=== PATIENT | female | born 1990 | race Caucasian/White ===

== ENCOUNTER 2019-06-15 09:44 | Outpatient (CLI) | payer OTHER, SELFPAY ==
[2019-06-15 10:58] LABS: Beta HCG Quantitative 4.54 mIU/ML
== END 2019-06-15 09:45 | disposition home or self-care (01) ==
PROVIDERS: Visit Provider Advanced Practice Midwife
DX: O20.0 Threatened abortion (principal); Z3A.00 Weeks of gestation of pregnancy not specified
CPT/HCPCS: 36415; 84702

== ENCOUNTER 2020-12-26 11:15 | Outpatient (CLI) | payer OTHER, SELFPAY ==
--- NOTE | ~2020-12-26 | MMUS_ITS ---
EXAMINATION: MM diagnostic figueroa BI w hong, US breast RT complete HISTORY: Clear right nipple discharge TECHNIQUE: Additional 3-D tomosynthesis images of the breasts were performed and synthetic 2-D images were generated. CAD analysis was submitted and interpreted. High resolution complete right breast ul trasound was performed. COMPARISON: None BREAST PARENCHYMAL COMPOSITION: The breasts are heterogenously dense, which may obscure small masses. FINDINGS: MAMMOGRAPHIC FINDINGS: There are no suspicious masses, calcifications or architectural distortion in either breast to sugges t malignancy. ULTRASOUND: Complete right breast ultrasound: Normal heterogeneous echotexture without focal solid or cystic mass . IMPRESSION: 1. No evidence for malignancy in either breast. 2. Recommend clinical management for nipple discharge. BI-RADS Category 1: Negative Reviewed, dictated and finalized at location A. IMPRESSION: 1. No evidence for malignancy in either breast. 2. Recommend clinical management for nipple discharge. BI-RADS Category 1: Negative
== END 2020-12-26 11:16 | disposition home or self-care (01) ==
LOC: ANHIMG 11:18
PROVIDERS: Visit Provider Nurse Practitioner Obstetrics & Gynecology
DX: N64.52 Nipple discharge (principal)
CPT/HCPCS: 76641; 77062; 77066; G0279

== ENCOUNTER 2023-12-10 10:39 | Outpatient (CLI) | payer OTHER, SELFPAY ==
--- NOTE | 2023-12-10 | ECG_ITS ---
Test Date: 2023-12-10 11:00:57 Measurements Intervals [place] Rate: 67 P: 66 MT: 167 QRS: 36 QRSD: 79 T: 29 QT: 356 QTc: 377 Interpretive Statements SINUS RHYTHM NORMAL ELECTROCARDIOGRAM No previous ECG available for comparison Electronically Signed On 12-11-2023 13:05:35 CDT by Torito Kapadia M.D.
== END 2023-12-10 10:40 | disposition home or self-care (01) ==
LOC: ANHCARD 10:43
PROVIDERS: Visit Provider Obstetrics & Gynecology
DX: O99.891 Other specified diseases and conditions complicating pregnancy (principal); R00.2 Palpitations; Z3A.21 21 weeks gestation of pregnancy
CPT/HCPCS: 93005

== ENCOUNTER 2024-01-27 08:25 | Outpatient (RCR) | payer OTHER, SELFPAY ==
[2024-01-27 09:55] LABS: Hematocrit 37.4 % (37.0-47.0); Hemoglobin 12.4 g/dL (12.0-15.0)
[2024-01-27 10:09] LABS: Glucose 1 Hour PP 50gm Dose 146 mg/dL
[2024-01-27 10:45] LABS: HIV 1/2 Ab P24 Ag Result Negative (Negative)
[2024-01-27 18:19] LABS: Rapid Plasma Reagin Non-Reactive (NonReactive)
[2024-01-28] MEDS: RHO(D) IMMUNE GLOBULIN 300 MCG/2 ML SYRINGE IM (10:23)
== END 2024-04-26 23:59 | disposition home or self-care (01) ==
LOC: ANHLAB 08:25
PROVIDERS: Visit Provider Obstetrics & Gynecology
DX: Z11.3 Encounter for screening for infections with a predominantly sexual mode of transmission (principal); Z11.4 Encounter for screening for human immunodeficiency virus [HIV]; O36.0190 Maternal care for anti-D [Rh] antibodies, unspecified trimester, not applicable or unspecified; Z3A.00 Weeks of gestation of pregnancy not specified
CPT/HCPCS: 36415; 82947; 85014; 85018; 85461; 86592; 86703; 86850; 86900; 86901; 90384; 96372; G0432; J2790

== ENCOUNTER 2024-03-18 09:06 | Emergency (ER) | payer OTHER, SELFPAY ==
[2024-03-18] VITALS (7 sets, daily range): BP systolic 115–126; BP diastolic 67–74; PULSE 74–99; RESP 16–20; TEMP 36.4; O2SAT 98–100
--- NOTE | ~2024-03-18 | XR_ITS ---
EXAMINATION: XR chest 2V 03/18/2024 11:19 INDICATION: Cough and shortness of breath. PROCEDURE: 2 view chest COMPARISON: No prior studies for comparison. FINDINGS: The lungs are clear. The cardiomediastinal silhouette is within normal limits. There are no pleural effusions. There is no pneumothorax suspected. IMPRESSION: 1: NO ACUTE CARDIOPULMONARY DISEASE. Reviewed, dictated and finalized at location B. [employer]
--- NOTE | 2024-03-18 09:55 | ED_ITS ---
HPI - URI/Sore Throat General Chief Complaint: Upper Respiratory Infection Stated Complaint: TESTED FOR PNEUMONIA Time Seen by Provider: 03/18/24 09:27 Source: patient Mode of arrival: ambulatory Limitations: no limitations History of Present Illness HPI Narrative: Patient is a 34 y/o female who presents to the ED with c/o cough and shortness of breath. Patient reports having 2 days of feeling unwell, with cough, congestion, headache, sore throat, chest tightness, and shortness of breath. Patient reports her son was diagnosed with pneumonia and is currently on antibiotics for this. She would like to be tested for pneumonia. She is currently at 35 weeks gestation. Sees Elin George with [facility] [place]. She denies fevers. Denies abdominal pain, vaginal bleeding. Is feeling baby move. Reports intermittent swelling in her legs, denies pain. Denies history of blood clots. Related Data Allergies Allergy/AdvReac Type Severity Reaction Status Date / Time Sulfa (Sulfonamide Allergy Unknown Unknown Verified 03/18/24 09:09 Antibiotics) Review of Systems Review of Systems: All systems reviewed & are unremarkable except as noted in HPI. All systems reviewed & are unremarkable except as noted in HPI and below Exam Narrative: GENERAL: Well appearing, BMI of 34.5, non-toxic, in no acute distress. HEAD: Normocephalic, atraumatic. RESPIRATORY: Airway patent, respirations nonlabored. Clear to auscultation bilaterally, no rales, rhonchi, wheezing. No significant focal lung sounds. CARDIOVASCULAR: Regular rate and rhythm without murmurs, rubs, or gallops. ABDOMINAL: Soft, uterus gravid and nontender, nondistended. Normoactive BS. MUSCULOSKELETAL: Moves all extremities. No gross deformities. SKIN: Warm, dry, normal color. NEURO: A&O X3. Speech clear. Cranial nerves II-XII grossly intact. Steady gait. No ataxic movements. PSYCHIATRIC: Appropriate mood and affect. Normal interaction. Course Vital Signs Vital signs: Vital Signs Temperature 97.5 F L 03/18/24 09:14 Pulse Rate 99 03/18/24 09:14 Respiratory Rate 20 03/18/24 09:14 Blood Pressure 126/67 03/18/24 09:14 Pulse Oximetry 100 03/18/24 09:14 Temperature 97.5 F L 12/05/24 09:14 Pulse Rate 74 03/18/24 11:00 Respiratory Rate 16 03/18/24 11:00 Blood Pressure 115/70 03/18/24 11:00 Pulse Oximetry 100 03/18/24 12:00 Oxygen Delivery Room Air 03/18/24 09:30 MDM - URI/Sore Throat MDM Narrative Medical decision making narrative: Patient presented to ED with cough, shortness of breath, chest tightness. Currently 35 weeks gestation. Denying abd pain or vaginal bleeding. Feeling baby move. Wanting to be evaluated for pneumonia as she reports son has been diagnosed with PNA. Vital signs are stable upon arrival. She is afebrile here. Patient was reporting shortness of breath, chest tightness, plan was to obtain blood work to rule out cardiac or pulmonary etiology/PE/obtain imaging of chest. EKG with sinus rhythm, no significant ST changes. Viral swabs are negative. Strep negative. Prior to receiving blood work, patient reported that she will need to leave the facility around noon to go get her other child. She states she will be unable to stay for the results of the blood work. She states she is really only worried about having pneumonia and does not want to get the blood work performed. She would like to proceed with chest x-ray. Discussed risks and b enefits of obtaining chest imaging, radiation exposure to fetus. Patient voiced understanding of risks and would like to proceed. CXR is clear, no evidence of focal consolidation. Patient updated on imaging results. She reports that she still needs to leave the facility. Discussed that I cannot rule out life-threatening emergencies including PE without obtaining further blood work/possible imaging. Patient would like to proceed with the blood work, but be discharged after the blood work is obtained. I advised that while we can obtain the blood work, she will not be called with the results. She will need to follow-up with OBGYN or primary care doctor for close follow-up because if blood work is abnormal she will need for further workup emergently. Patient voiced understanding of this. Will have patient sign AMA paperwork due to incomplete evaluation. She is agreeable to this. Discussed strict return precautions and advised patient to return to the ED at any time to resume milan luation. Patient voiced understanding. She feels reassured knowing that she does not have pneumonia. Discussed [id number] cough and cold medicines to try, possibility of viral URI. Patient discharged in stable condition. Medical Records Attestation: I reviewed the patient's medical records. Lab Data Attestation: I reviewed the patient's lab results. 03/18/24 12:14 03/18/24 12:14 Labs: Lab Results 03/18/24 03/18/24 03/18/24 Range/Units 09:27 09:34 12:14 WBC 11.8 H (4.5-10.0) K/mm3 RBC 3.67 L (4.2-5.4) M/mm3 Hgb 12.3 (12.0-15.0) g/dL Hct 35.3 L (37.0-47.0) % MCV 96.2 (80-100) fl MCH 33.5 (26-34) pg MCHC 34.8 (32-36) g/dl RDW 12.0 (11.5-14.5) % Plt Count 249 (150-375) k/mm3 MPV 9.3 (7.4-10.4) fl Immature Gran % (Auto) 0.8 H (0-0.5) % Neut % (Auto) 80.1 H (45.5-73.1) % Lymph % (Auto) 9.8 L (18.3-44.2) % [place] % (Auto) 8.1 (2.6-8.5) % Eos % (Auto) 0.7 (0-4.4) % Baso % (Auto) 0.5 (0.2-1.2) % Lymph # (Auto) 1.15 (0.9-3.2) K/mm3 [place] # (Auto) 1.0 H (0.1-0.6) K/mm3 Eos # (Auto) 0.1 (0-0.3) K/mm3 Baso # (Auto) 0.1 (0.0-0.1) K/mm3 Abs Immat Gran (auto) 0.10 H (0.00-0.031) K/mm3 Absolute Neuts (auto) 9.4 H (1.3-6.7) K/mm3 Absolute Nucleated RBC 0.000 (0.0-0.012) K/mm3 Nucleated RBC % 0.0 (0.0-0.2) % PT 13.2 (11.1-14.7) Seconds INR 1.0 APTT 20.7 L (22.3-36.8) Seconds D-Dimer 0.83 H (<0.48) ug/mL Sodium 134 L (137-145) mmol/L Potassium 4.1 (3.4-5.0) mmol/L Chloride 108 H (98-107) mmol/L Carbon Dioxide 24 (22-30) mmol/L Anion Gap 2 L (4-12) mmol/L BUN 7 (7-17) mg/dL Creatinine 0.40 L (0.7-1.0) mg/dL Estim Creat Clear Calc 181 ml/min Estimated GFR > 60 (59 - ) Glucose 83 (65-110) mg/dL Calcium 8.7 (8.4-10.2) mg/dL Total Bilirubin 0.4 (0.2-1.3) mg/dL AST 24 (14-36) U/L ALT 20 (6-35) U/L Alkaline Phosphatase 80 (38-126) U/L Troponin I < 0.012 (0.000-0.034) ng/mL Total Protein 6.0 L (6.3-8.2) g/dL Albumin 3.4 L (3.5-5.1) g/dL Influenza A (RT-PCR) Negative (Negative) Influenza B (RT-PCR) Negative (Negative) RSV (RT-PCR) Negative (Negative) SARS-CoV-2 RNA (RT-PCR) Negative (Negative) Group A Strep (PCR) Not detected (Negative) Imaging Data Attestation: I personally reviewed and interpreted this imaging study as follows: Radiologist's impression: ITS Impressions Chest X-Ray 03/18/24 11:21 IMPRESSION: 1: NO ACUTE CARDIOPULMONARY DISEASE. ECG Data EKG #1: Attestation: I personally reviewed and interpreted this ECG as follows: ECG completion date: 03/18/24 ECG completion time: 10:38 EKG Interpretation: normal rate (82), sinus rhythm and no ST changes Discharge Plan Discharge Clinical Impression: 35 weeks gestation of Upper respiratory infection Qualifiers: URI type: unspecified URI Qualified Code(s): J06.9 - Acute upper respiratory infection, unspecified Patient Disposition: Home, Self-Care Condition: Stable Instructions: Antibiotic Form, Upper Respiratory Infection (ED), Cold Symptoms (ED) Additional Instructions: Your COVID, influenza, RSV, Strep testing was negative. Your chest x-ray here did not show any evidence of pneumonia. Follow-up with your OBGYN for further evaluation. Continue Tylenol, nasal saline sprays, Robitussin as needed for symptoms. It was recommended you obtain blood work here to further evaluation of cardiac or pulmonary issue. You are leaving the facility prior to your blood work resul ting. Return to the ED if you experience worsening or severe symptoms, significant ines rtness breath, worsening chest pain, unable to keep down food or drink, abdominal pain, vaginal bleeding, persistent fevers, or any other symptoms of concern. Follow-up/Referrals: Elin George CNM [Certified Nurse Marketing Senior Recruiter] - (OBGYN) UNKNOWN,DOCTOR [Primary Care Provider] - Time of Disposition: 11:48
--- NOTE | 2024-03-18 10:02 | ECG_ITS ---
Test Date: 2024-03-18 10:38:39 Measurements Intervals [place] Rate: 82 P: 52 LA: 166 QRS: 18 QRSD: 75 T: 25 QT: 334 QTc: 391 Interpretive Statements SINUS RHYTHM Compared to ECG 12/10/2023 11:00:57 No significant changes Electronically Signed On 03-18-2024 11:39:16 [employer] by Joaquin Meza M.D.
[2024-03-18 10:05] LABS: Strep Group A RT-PCR NOT DETECTED (Negative)
[2024-03-18 10:13] LABS: Influenza A QL RT-PCR Negative (Negative); Influenza B QL RT-PCR Negative (Negative); RSV RNA, RT-PCR Negative (Negative); SARS-CoV-2 RNA PCR Negative (Negative)
[2024-03-18 12:18] LABS: Basophils Absolute Auto 0.1 K/mm3 (0.0-0.1); Basophils Percent Auto 0.5 % (0.2-1.2); Eosinophils Absolute Auto 0.1 K/mm3 (0-0.3); Eosinophils Percent Auto 0.7 % (0-4.4); Hematocrit 35.3 % (37.0-47.0); Hemoglobin 12.3 g/dL (12.0-15.0); Immature Granulocyte Percent A 0.8 % (0-0.5); Lymphocytes Absolute Auto 1.15 K/mm3 (0.9-3.2); Lymphocytes Percent Auto 9.8 % (18.3-44.2); Mean Corpuscular HGB Conc 34.8 g/dl (32-36); Mean Corpuscular Hemoglobin 33.5 pg (26-34); Mean Corpuscular Volume 96.2 fl (80-100); Mean Platelet Volume 9.3 fl (7.4-10.4); Monocytes Percent Auto 8.1 % (2.6-8.5); Neutrophils Absolute Auto 9.4 K/mm3 (1.3-6.7); Neutrophils Percent Auto 80.1 % (45.5-73.1); Platelet Count Result 249 k/mm3 (150-375); Red Blood Count 3.67 M/mm3 (4.2-5.4); White Blood Count 11.8 K/mm3 (4.5-10.0)
[2024-03-18 12:34] LABS: Partial Thromboplastin Time 20.7 Seconds (22.3-36.8)
[2024-03-18 12:35] LABS: Prothrombin Time 13.2 Seconds (11.1-14.7)
[2024-03-18 12:47] LABS: Alanine Aminotransferase 20 U/L (6-35); Albumin Level 3.4 g/dL (3.5-5.1); Alkaline Phosphatase 80 U/L (38-126); Anion Gap 2 mmol/L (4-12); Aspartate Amino Transferase 24 U/L (14-36); Bilirubin,Total 0.4 mg/dL (0.2-1.3); Blood Urea Nitrogen 7 mg/dL (7-17); Calcium 8.7 mg/dL (8.4-10.2); Carbon Dioxide 24 mmol/L (22-30); Chloride 108 mmol/L (98-107); Estimated CRCL calculation 181 ml/min; Estimated Glomerular Filt Rate > 60; Glucose 83 mg/dL (65-110); Potassium 4.1 mmol/L (3.4-5.0); Sodium 134 mmol/L (137-145)
[2024-03-18 12:51] LABS: D Dimer 0.83 ug/mL (<0.48)
[2024-03-18 12:59] LABS: Troponin I < 0.012 ng/mL (0.000-0.034)
== END 2024-03-18 12:24 | disposition home or self-care (01) ==
PROVIDERS: Emergency Medicine; Emergency Provider Physician Assistant
DX: O99.513 Diseases of the respiratory system complicating pregnancy, third trimester (principal); Z3A.35 35 weeks gestation of pregnancy; Z20.822 Contact with and (suspected) exposure to COVID-19
CPT/HCPCS: 36415; 71046; 80053; 84484; 85025; 85380; 85610; 85730; 87637; 87651; 93005; 99284

== ENCOUNTER 2024-04-15 04:54 | Inpatient (IN) | payer OTHER, SELFPAY ==
[2024-04-15] VITALS (89 sets, daily range): BP systolic 81–151; BP diastolic 26–87; PULSE 69–114; RESP 16; TEMP 36.6–36.9; O2SAT 96–100; BMI 35.2
--- NOTE | 2024-04-15 05:44 | LDADM ---
This patient, Keyana Reardon, was admitted to Labor/Delivery/Recovery 105 on 04/15/24 at 04:54. Plans for labor, pain management and were discussed with patient. Patient/family oriented to hospital policies and general routines including ID bracelet, bed and alarms, visiting hours, pain management, procedures, bathroom and other care routines, personal items, smoking policy, room service/diet and guest tray routines, security routines, and visiting hours. Patient/Family are encouraged to report perceived risks to care and to ask questions if they do not understand what they are told or what they should do. See OBIX for further documentation.
[2024-04-15] MEDS: LACTATED RINGERS 1,000 ML 125 ML IV CONT ×2 (05:55→07:16)
[2024-04-15] MEDS: OXYTOCIN 30 UNITS/NS 500 ML 30 UNITS/500 ML BAG IV CONT (05:55)
[2024-04-15 06:14] LABS: Basophils Absolute Auto 0.1 K/mm3 (0.0-0.1); Basophils Percent Auto 0.4 % (0.2-1.2); Eosinophils Absolute Auto 0.1 K/mm3 (0-0.3); Eosinophils Percent Auto 0.8 % (0-4.4); Hematocrit 37.8 % (37.0-47.0); Hemoglobin 13.1 g/dL (12.0-15.0); Immature Granulocyte Absolute 0.09 K/mm3 (0.00-0.031); Immature Granulocyte Percent A 0.8 % (0-0.5); Immature Platelet Fraction Pct 6.8 % (0.9-11.2); Lymphocytes Absolute Auto 1.28 K/mm3 (0.9-3.2); Lymphocytes Percent Auto 11.4 % (18.3-44.2); Mean Corpuscular HGB Conc 34.7 g/dl (32-36); Mean Corpuscular Hemoglobin 32.7 pg (26-34); Mean Corpuscular Volume 94.3 fl (80-100); Mean Platelet Volume 11.3 fl (7.4-10.4); Monocytes Percent Auto 9.1 % (2.6-8.5); Neutrophils Absolute Auto 8.7 K/mm3 (1.3-6.7); Neutrophils Percent Auto 77.5 % (45.5-73.1); Platelet Count Result 183 k/mm3 (150-375); Red Blood Count 4.01 M/mm3 (4.2-5.4); Red Cell Distribution Width 11.8 % (11.5-14.5); White Blood Count 11.3 K/mm3 (4.5-10.0)
--- NOTE | 2024-04-15 06:26 | WPDANESEPP ---
Anes - Eval Pre Procedure Procedure: Labor Epidural Date/Time: 04/15/24 06:26 Surgeon: Melissa Preop Diagnosis: Labor Pain Pre Op Diagnosis: IOL Patient Data Age: 34 Gender: F Height: 1.65 m Weight: 96.2 kg Last Vital Signs Temp 36.6 C 04/15/24 06:00 Pulse 86 04/15/24 06:15 BP 133/74 04/15/24 06:15 O2 Del Method Room Air 04/15/24 05:44 Allergies Allergy/AdvReac Type Severity Reaction Status Date / Time Sulfa (Sulfonamide Allergy Unknown Unknown Verified 03/25/24 13:34 Antibiotics) Home Medications ?Medication ?Instructions ?Recorded ?Confirmed ?Type PO 04/15/24 History nynhpiu-frouxpvak-gwak 333 mg-133 tablet PO 04/15/24 History mg-5 mg tablet Laboratory Tests 04/15/24 05:28 WBC Pending RBC Pending Hgb Pending Hct Pending MCV Pending MCH Pending MCHC Pending RDW Pending Plt Count Pending MPV Pending Immature Gran % (Auto) Pending Neut % (Auto) Pending Lymph % (Auto) Pending [place] % (Auto) Pending Eos % (Auto) Pending Baso % (Auto) Pending Lymph # (Auto) Pending [place] # (Auto) Pending Eos # (Auto) Pending Baso # (Auto) Pending Abs Immat Gran (auto) Pending Absolute Neuts (auto) Pending Absolute Nucleated RBC Pending Nucleated RBC % Pending RPR Pending HIV 1&2 Ab/P24 Ag 4thGn Pending : gestational age (, VICENTE 04/20/24) Patient hx anesthesia problems: none Family hx anesthesia problems: none Results Review: All pre-operative results and documents have been reviewed as part of the pre-operative evaluation. [facility] Family History Family History Father Diabetes mellitus Social History Social History Smoking status: Former smoker Tobacco type: cigarettes Second hand tobacco smoke exposure: Yes Smoking end date: 04/14/18 Substance use: current Do You Feel Safe in your Home?: Yes Lack of Transportation: No Lack of Food: Never True Current Housing: I Have Housing Concerned About Future Housing: No Difficulty Paying Gas/Electric Bills: No Difficulty Paying for Meds: No Currently Unemployed: No Education: High School Diploma/GED Difficulty w/ Childcare or Family Care: No Spiritual care concerns: No Exam Day of Procedure 04/15/24 06:26 Patient weight: normal Heart: regular rate and rhythm Lungs: normal air movement Airway: Mallampati scale class II Neurological: alert and oriented
[2024-04-15 06:38] LABS: HIV 1/2 Ab P24 Ag Result Negative (Negative)
[2024-04-15 07:06] LABS: Platelet Clumps Present; Platelet Estimate Adequate (Adequate); Schistocytes None Seen
--- NOTE | 2024-04-15 07:30 | WPDOBADMIT ---
Obstetrics - Admit Note Admission Note: record reviewed. No pertinent additions to the history and/or any subsequent changes in the physical findings that are not consistent with the expected course of the were found. Additions to the history and/or subsequent changes in the physical findings follow. Admit for elective IOL, SVE /-1 AROM small amount of clear, odorless fluid, anticipate vaginal delivery
[2024-04-15 08:40] LABS: Rapid Plasma Reagin Non-Reactive (NonReactive)
[2024-04-15] MEDS: FAMOTIDINE 20 MG/2 ML VIAL IV PUSH (10:18)
[2024-04-15] MEDS: CALCIUM CARBONATE (TUMS) 500 MG (200 MG ELEMENTAL) PO (10:18)
--- NOTE | 2024-04-15 11:14 | PM.OBPRVD ---
OB - Vaginal Delivery Note Procedure Delivery date: 04/15/24 Induction method: AROM and Per Pitocin Protocol Delivery monitor: External FHT and Internal Uterine Route of delivery: Laceration Description: Labial (left repair) Delivery repair: vicryl Specimen: No Quantitative Blood Loss (ml): 125 Anesthesia type: Epidural Disposition: Floor Complications: No immediate complications [place] Baby Date of : 04/15/24 Time of : 10:53 Gestational Age by Date: 39 Infant gender: Male presentation: vertex position: Right Occiput Anterior Placenta delivery description: Spontaneous Cord Vessel Description: 3 Vessels, Delayed Cord Clamping and Around Body (x1)
[2024-04-15] MEDS: OXYTOCIN 30 UNITS/NS 500 ML 30 UNITS/500 ML BAG 125 UNITS IV CONT (11:26)
--- NOTE | 2024-04-15 14:25 | OBPPTRN ---
Patient transferred to post room #288 via wheelchair. Support person present. Oriented to unit, room, information board, rooming in, admission packet and security measures. Patient verbalizes understanding. with patient.
[2024-04-15] MEDS: WITCH HAZEL 40 PADS 1 PAD TOPICAL (17:20)
[2024-04-15] MEDS: BENZOCAINE 20% AER SPR (*SP) 56 GM CAN 1 SPRAY TOPICAL (17:20)
[2024-04-15] MEDS: IBUPROFEN 600 MG TABLET PO (18:43)
[2024-04-15] MEDS: DOCUSATE SODIUM 100 MG CAPSULE PO (18:43)
--- NOTE | 2024-04-15 18:55 | PC.NURSE ---
1700. Consulted with patient to assess needs related to . Discussed with mother her successes, concerns and any questions she has. We reviewed working with the , supporting breast, protecting her nipples with an optimal deep latch, good positioning, and good hand washing. Encouraged understanding the benefits of skin to skin, responding to feeding cues, frequencies of feeding 8-12 times in 24 hours (approximately 2-3 hours), duration of feedings, milk production, intake/output feeding sheet and signs of adequate intake encouraging swallowing at the breast. Reviewed positioning and alignment, supporting breast, off-centered (asymmetrical latch) and leading with the chin with big, open, wide gape. Attempts made to latch to the left breast. sleepy and reluctant to latch. able to latch to nipple but refused to suckle. Mom expressed a few drops of colostrum and fed to . We discussed doing S2S and watching for infants next feeding cues. Mom verbalized wanting to pump with her pump she brought in and trying to express some milk to feed to . Encouraged mom to call out when she is done pumping to help her feed the milk to baby and attempt to feed again. Nipple care reviewed with optimal latch, good positioning and using clean hands when touching her breast. Resources used to facilitate learning were used from the visual handouts/ tool/mom and baby guide. Mother voiced understanding of the education shared, to call for assistance if the infant does not latch or if there is discomfort with . Reported to the Primary RN.
[2024-04-16] MEDS: ACETAMINOPHEN 325 MG TABLET 650 MG PO ×2 (00:38→10:04)
[2024-04-16] MEDS: IBUPROFEN 600 MG TABLET PO ×2 (00:39→10:04)
[2024-04-16 05:00] VITALS: BP 111/68; PULSE 77; RESP 14; TEMP 36.9; O2SAT 100
--- NOTE | 2024-04-16 07:51 | P.PNOB_ITS ---
OB - PN: Subj Subjective Date/time seen: 04/16/24 07:51 Interval history: pp day 1 doing well desires d/c home OB - PN: Obj Data Labs 04/15/24 06:09 Labs: Laboratory Results - last 24 hr 04/15/24 05:28 RPR Non-reactive Blood Type O Negative Antibody Screen Positive Antibody Identification Inconclusive Antigen Identification TNP LUIZ, IgG Interpret Neg LUIZ, Poly Interpret TNP LUIZ, Complement Interp Negative Enhanced Crossmatch See Detail OB - PN A/P Plan day: 1 Plan: routine care and discharge home Time Spent With Patient Time: Total time spent is greater than 50% in coordination of care (as documented) at patient's floor/unit and/or counseling patient: Review of Systems 2 Review of Systems: All systems reviewed & are unremarkable except as noted in HPI and below Exam 2 Const: General: cooperative, healthy appearing and comfortable Chest: Chest palpation & inspection: normal inspection of the chest Resp: Effort & Inspection: normal respiratory effort Cardio: Rate: regular rate GI: Other: soft Back/Spine/Pelvis: Back: no CVA tenderness Skin: General skin exam: normal color Neuro: General: patient oriented x3 Extrem: General: normal to inspection Psych: Appearance: grossly normal
--- NOTE | 2024-04-16 07:59 | PM.OBDSVD ---
DS: Admitting Diagnosis Discharge Date 04/16/24 Admitting Diagnosis IOL DS: Discharge Diagnosis Discharge Diagnosis (1) Vaginal delivery: Code(s): O80 - Encounter for full-term uncomplicated delivery Status: Acute OB - DS: Summary OB Procedures : None OB Procedures Intrapartum: Spontaneous Vag Delivery OB Procedures: : None Peripartum Data Laceration Description: Labial (left repair) Time Spent with Patient Time attestation: Total time spent providing and/or coordinating discharge services: DS: Data Data Completed and Pending Labs on day of discharge: Labs from last 24 hours 04/15/24 05:28 RPR Non-reactive Blood Type O Negative Antibody Screen Positive Antibody Identification Inconclusive Antigen Identification TNP LUIZ, IgG Interpret Neg LUIZ, Poly Interpret TNP LUIZ, Complement Interp Negative Enhanced Crossmatch See Detail Discharge Plan Discharge Attending physician on discharge: Gonzalo Torres Consulting providers: Elin George Discharging Clinician: Elin George Activity: pelvic rest Diet: regular Patient Language: Mohawk Discharge Medications: No Action PO eqioypl-qxtmtaqan-smfg 333-133-5 mg tablet PO Date of admission: 04/15/24 04:54 Primary Care Provider: UNKNOWN,DOCTOR Admitting Provider: Gonzalo Torres Attending physician on admission: Gonzalo Torres Condition: Stable
[2024-04-16 08:05] VITALS: BP 124/74; PULSE 73; RESP 16; TEMP 36.7; O2SAT 99
--- NOTE | 2024-04-16 08:13 | WPDANLDPN2 ---
Anes-Prog Note L&D Date/Time: 04/16/24 08:13 Neuro status: Neuro function grossly intact. Vital Signs: Last Vital Signs Temp 36.9 C 04/16/24 05:00 Pulse 77 04/16/24 05:00 Resp 14 04/16/24 05:00 BP 111/68 04/16/24 05:00 Pulse Ox 100 04/16/24 05:00 O2 Del Method Room Air 04/15/24 18:45 Pain score (VAS): 0 I/O: Intake & Output 04/15/24 04/16/24 04/16/24 23:59 07:59 15:59 Intake Total 240 Balance 240 Patient feedback: Patient satisfied with anesthetic care.
[2024-04-16 09:53] LABS: Hematocrit 34.4 % (37.0-47.0); Hemoglobin 11.9 g/dL (12.0-15.0); Mean Corpuscular HGB Conc 34.6 g/dl (32-36); Mean Corpuscular Hemoglobin 32.9 pg (26-34); Mean Platelet Volume 9.9 fl (7.4-10.4); Platelet Count Result 202 k/mm3 (150-375); Red Blood Count 3.62 M/mm3 (4.2-5.4); Red Cell Distribution Width 11.9 % (11.5-14.5); White Blood Count 7.9 K/mm3 (4.5-10.0)
--- NOTE | 2024-04-16 09:55 | PC.NURSE ---
Introductions were made, then consulted with patient to assess needs related to . Discussed with mother her?plans to feed?her and the?experience so far. Baby has been nursing well so far but he was circumcised this morning and is sleepy. Mom had attempted to feed and wasn't able. She then noticed she was leaking milk and decided to pump and supplement baby with what she gets. Resources provided for inpatient and outpatient services with the feeding sheet, mom/baby guide and name written on the communication board. Mother voiced understanding of information and will call if there is a request for assistance. Reported to the Primary RN.
[2024-04-16] MEDS: guaiFENesin 12 HR 600 MG TABCR 1200 MG PO (10:02)
[2024-04-16] MEDS: MULTIVIT/MIN/PREN/FOL AC/IRON TABLET 1 TAB PO (10:02)
[2024-04-17 16:03] VITALS: BP 121/83; PULSE 88; RESP 18; TEMP 36.6; O2SAT 100
--- OUTSIDE RECORDS SUMMARY | 2024-04-21 23:17 | XMS_ITS | Data Portability ---
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 Discussed plan. Not available 03/26/2024 10:15:18 04/02/2024 04/02/2024 Patient is ___weeks . Discussed plan. [email or web address] Not available 04/02/2024 12:45:11 04/09/2024 04/09/2024 Patient is __38_weeks . Discussed plan. [email or web address] Not available 04/09/2024 10:49:05 Plan of Treatment Reminders Order Date Submit Date Provider Last Modified By Organization Details Last Modified Time Details Appointments None recorded. Lab None recorded. Referral None recorded. Procedures None recorded. Surgeries None recorded. Imaging US, obstetric, follow-up 2023 024 [email or web address] [address], [address], [place], [address], 20:39:40 non-stress test 2023 024 [email or web address] 1 [address], [address], [place], [address], 19:36:34 Medication Orders Protonix 40 mg tablet,del ayed release 2023 024 [id number], [address], [place], [place], [id number], 12:54:51 Patient TargetsNo targets recorded. Patient InstructionsNo instructions recorded. Reason for Referral None Reported. Results Created Date Observation Date Name Description Value Unit Range Abnormal Flag Note LastModifiedBy Organization Detail LastModifiedTime 03/19/20 24 03/19/2024 CULTU RE: GROUP B STREP SCREE N, REFLE X SUSCE PTIBI LITY result report SEE RESULT S BELOW Test: Cultu re: Group B Strep , Refle x Susce ptibi lity ([facility] ) Speci men Sourc e: Vagin a/Rec lisette Speci men Type: Vagin al/Re ctal Speci men Date: 2023 1346 Resul t Date: 2023 1509 Resul t Statu s: Final resul t Abnor mal: No Resul ting Lab: [facility] [address] [facility] [address] Tel: CULTU RE ----- ----- ----- --- No Group B strep isola ave at 2 days (geovanni ctive broth enhan cemen t) Not Available [facility] (Lab) [address], [place], [address], 03/22/2024 16:14:10 03/25/20 24 03/25/2024 US, obste tric, follo w-up No observ ation record ed. [email or web address] [facility] [address], [place], [address], 03/25/2024 12:20:45 03/25/20 24 03/25/2024 US, obste tric, follo w-up No observ ation record ed. [email or web address] [address], [place], [address], 03/25/2024 21:06:59 04/09/20 24 04/09/2024 non-s tress test No observ ation record ed. [email or web address] [facility] [address], [place], [address], 04/09/2024 19:35:59 04/20/19 25 04/09/2024 non-s tress test No observ ation record ed. [email or web address] [facility] [address], [place], [address], 04/20/2024 11:40:46 Result Notes None recorded. Problems Name Problem SNOMED Code Status Onset Date Resolution Date Notes Provider Name and Address Organization Details Recorded Time Educatio n Completed 201811/01/2020 Encounte r for other general counseli ng and advice on contrace ption;Re corded Elsewher e: No Locat ion: [facility] S ource: EHR [employer] Teacher owen: N Wandati ce ID: 0001 Dez lable Time: 01:00:00 PM Jeanie [facility] 15:06:58 Acute vaginiti s [id number] Completed 201811/01/2020 Vaginiti s;Record ed Elsewher e: No Locat ion: [facility] S ource: EHR [employer] Teacher owen: N Wandati ce ID: 0001 Dez lable Time: 01:00:00 PM Jeanie Cornelius [facility] 15:06:[address] Concept Completed 201711/01/2020 Maternal care for oth abnormal ity and damage, unsp;Rec orded Elsewher e: No Locat ion: [facility] S ource: EHR [employer] Teacher owen: N Wandati ce ID: 0001 Dez lable Time: 10:30:00 AM Jeanie Cornelius [facility] 15:07:23 Gestatio n period, 29 weeks [id number] Completed 201711/01/2020 29 weeks gestatio n of pregnanc y;Record ed Elsewher e: No Locat ion: [facility] lo[facility] S ource: EHR [employer] Teacher owen: N Angela ce ID: 0001 Dez lable Time: 10:15:00 AM Jeanie Cornelius [facility] 15:07:04 Antenata l screenin g for malforma tion Completed 201711/01/2020 Encounte r for antenata l screenin g for malforma tions;Re corded Elsewher e: No Locat ion: [facility] Source: EHR [employer] Teacher owen: Lorenzo Miller ce ID: 0001 Dez lable Time: 10:30:00 AM Jeanie Cornelius [facility] 15:06:56 Normal pregnanc y in multigra brad [id number] 01349 Completed 201811/01/2020 Encounte r for suprvsn of normal pregnanc y, third trimeste r;Record ed Elsewher e: No [facility] S ource: EHR [employer] Teacher owen: N Angela ce ID: 0001 Dez lable Time: 10:45:00 AM Jeanie Cornelius [facility] 15:07:13 Lochia finding Completed 201811/01/2020 Encounte r for routine postpart um follow-u p;Record ed Elsewher e: No Locat ion: [facility]ve josse [facility] S ource: EHR [employer] Teacher owen: Lorenzo Miller ce ID: 0001 Dez lable Time: 08:30:00 AM Jeanie Cornelius [facility] 15:07:12 Placenta previa [id number] Completed 201711/01/2020 Placenta previa specifie d as w/o hemor, second trimeste r;Record ed Elsewher e: No Locat ion: [facility] S ource: EHR [employer] Teacher owen: N Practi ce ID: 0001 Dez lable Time: 08:30:00 AM Jeanie finn [facility] 15:07:[address] Concept Completed 201711/01/2020 Matern care for abnlt fetl hrt rate or rhym, 3rd tri, unsp;Rec orded Elsewher e: No Locat ion: [facility] S ource: EHR [employer] Teacher owen: N Practi ce ID: 0001 Dez lable Time: 10:45:00 AM Jeanie finn [facility] 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 15:07:26 Pregnanc y detectio n examinat ion Completed 201711/01/2020 Encounte r for pregnanc y test, result positive ;Practic e ID: 0001 Jeanie finn [facility] 15:07:18 Antenata l screenin g Completed 201711/01/2020 Encounte r for other specifie d antenata l screenin g;Practi ce ID: 0001 Jeanie finn [facility] 15:06:55 Gestatio n period, 24 weeks 121073835 Completed 201711/01/2020 24 weeks gestatio n of pregnanc y;Practi ce ID: 0001 Jeanie finn [facility] 15:06:59 Gestatio n period, 27 weeks [id number] Completed 201711/01/2020 27 weeks gestatio n of pregnanc y;Practi ce ID: 0001 Jeanie finn [facility] 07/21/202 1 15:07:02 Gestatio n period, 32 weeks [id number] Completed 201711/01/2020 32 weeks gestatio n of pregnanc y;Practi ce ID: 0001 Jeanie Cornelius [facility], [facility] 15:07:05 Uterine size for dates discrepa ncy Completed 201811/01/2020 Uterine size-sunita e discrepa ncy, third trimeste r;Record ed Elsewher e: No [facility] E[facility] [employer] Teacher owen: N Practi ce ID: 0001 Dez lable Time: 09:15:00 AM Jeanie Cornelius [facility] 15:07:31 Gestatio n period, 34 weeks [id number] Completed 201811/01/2020 34 weeks gestatio n of pregnanc y;Record ed Elsewher e: No Locat ion: [facility] S ource: EHR [employer] Teacher owen: N Practi ce ID: 0001 Dze lable Time: 10:45:00 AM Jeanie Cornelius [facility], [facility] 15:07:07 Pelvic and perineal pain [id number] Completed 201711/01/2020 Pelvic and perineal pain;Rec orded Elsewher e: No [facility]: E[facility] [employer] Teacher owen: N Practi ce ID: 0001 Dez lable Time: 11:00:00 AM Jeanie Cornelius [facility] 1 15:07:15 Gestatio n period, 25 weeks [id number] Completed 201711/01/2020 25 weeks gestatio n of pregnanc y;Record ed Elsewher e: No [facility] ource: EHR [employer] Teacher owen: N Practi ce ID: 0001 Dez lable Time: 08:30:00 AM Jeanie Cornelius [facility], [facility] 1 15:07:01 Subacute and chronic vaginiti s [id number] Completed 201811/01/2020 Subacute vaginiti s;Record ed Elsewher e: No Locat ion: [facility] S ource: EHR [employer] Teacher owen: N Practi ce ID: 0001 Dez lable Time: 09:45:00 AM Jeanie finn, [facility] 15:07:28 Gestatio n period, 37 weeks [id number] Completed 201811/01/2020 37 weeks gestatio n of pregnanc y;Record ed Elsewher e: No Locat ion: [facility] S ource: EHR [employer] Teacher owen: N Practi ce ID: 0001 Dez lable Time: 09:15:00 AM Jeanie Cornelius [facility], [facility] 15:07:09 Rubella screenin g status [id number] Completed 201811/01/2020 Encounte r for antenata l screenin g, unspecif ied;Hansel rded Elsewher e: No Locat ion: [facility] S ource: EHR [employer] Teacher owen: N Practi ce ID: 0001 Dez lable Time: 10:30:00 AM Jeanie finn, [facility] 15:07:20 Term pregnanc y delivere d [id number] Completed 201811/01/2020 Encounte r for full-ter m uncompli cated delivery ;Practic e ID: 0001 Jeanie finn, [facility] 15:07:29 Single live [id number] Completed 201811/01/2020 Single live ;Pr actice ID: 0001 Jeanie finn, [facility] 15:07:21 Gestatio n period, 39 weeks [id number] Completed 201811/01/2020 39 weeks gestatio n of pregnanc y;Practi ce ID: 0001 Jeanie finn, [facility] 1 15:07:10 Pregnanc y 72734828 Active 2023 Courtney finn, [facility] 4 17:18:12 dysrhyth evi 233482574 Active 2023 MFM consult - PAC - 12/21 with MFM and [facility] on 12/31i improvin g and nearly resolved on 12/28 MFM appt Gonzalo Torres MD [address], [place], [address], [facility] 4 11:15:07 Problem Notes None recorded. Procedures Surgical History Date Name Laterality Status Provider Name and Address Organization Details Recorded Time 07/24/19 23 Date of Last Pap Smear completed Courtney Linton [facility] 10/02/2023 11:20:13 12/27/19 21 Date of Last Mammogram completed Shilpa David [facility] 02/03/2024 14:43:16 04/14/19 07 extraction of wisdom tooth completed Shilpascott David [facility] 02/03/2024 14:44:53 04/14/19 04 [facility] 14:44:47 Imaging Results Imaging Date Name Status LastModified by Organiz ation Details LastModified Time 03/25/2024 US, obstetric, follow-up completed [email or web address] [facility] [address], [place], [address], 03/25/2024 12:20:45 03/25/2024 US, obstetric, follow-up completed [email or web address] [address], [place], [address], 03/25/2024 21:06:59 04/09/2024 non-stress test completed [email or web address] [facility] [address], [place], [address], 04/09/2024 19:35:59 04/09/2024 non-stress test completed [facility] [address], [place], [address], 04/20/2024 11:40:46 Procedure Notes None recorded. Medical Equipment None Reported. Allergies Allergen ID Allergen Name Allergen Category Reaction Reaction Severity Criticality Documentation Date Start Date Code Code System Note Provider Name and Address Organization Details Recorded Time 783 Substance with sulfonami de structure and antibacte rial mechanism of action (substanc e) medicatio n Not available Not available Not available 09/10/2019 48519 8003 SNOMED Radhakarmen Cevallos [facility] 0 12:39:04 Medications Name Sig Start Date Stop Date Status Note LastModified by Organization Details LastModified Time amoxicill in 500 mg capsule TAKE 1 CAPSULE BY MOUTH EVERY 12 HOURS 02/26 completed Not Available Not Available Not Available buspirone 5 mg tablet TAKE 1 TABLET BY MOUTH THREE TIMES DAILY 07/23 completed Not Available Not Available Not Available clindamyc in HCl 300 mg capsule TAKE 1 CAPSULE BY MOUTH EVERY 8 HOURS FOR 10 DAYS 07/23 completed Not Available Not Available Not Available trazodone 50 mg tablet TAKE 1/2 TABLET BY MOUTH EVERY NIGHT AT BEDTIME NEEDED FOR SLEEP 07/23 completed Not Available Not Available Not Available nystatin 100,000 unit/gram topical ointment APPLY TO THE AFFECTED AREA(S) BY TOPICAL ROUTE 2 TIMES PER DAY 10/01 completed Not Available Not Available Not Available fluconazo le 150 mg tablet take 1 tablet by oral route once 11/01 completed Prescrib ed Elsewher e: No Locat ion: [facility] odify By: lucy haines DateTime : 01/20/20 11:40:35 AM Not Available Not Available Not Available hydrocodo ne 5 mg-acetam inophen 325 mg tablet TAKE 1 TABLET BY MOUTH EVERY 6 HOURS NEEDED FOR PAIN 02/26 completed Not Available Not Available Not Available meloxicam 15 mg tablet TAKE 1 TABLET BY MOUTH DAILY 07/23 completed Not Available Not Available Not Available metronida zole 0.75 % (37.5 mg/5 gram) vaginal gel INSERT ONE APPLICAT ORFUL VAGINALL Y AT BEDTIME FOR 5 NIGHTS 11/01 completed Not Available Not Available Not Available ciproflox acin 500 mg tablet TAKE 1 TABLET BY MOUTH EVERY 12 HOURS 11/01 completed Not Available Not Available Not Available nystatin- triamcino lone 100,000 unit/gram -0.1 % topical ointment APPLY TOPICALL Y TO THE AFFECTED AREA TWICE DAILY NEEDED 10/01 completed Not Available Not Available Not Available Depo-Prov era 150 mg/mL intramusc ular suspensio n inject 1 millilit er by intramus cular route every 3 months 12/07 completed Prescrib ed Elsewher e: Yes Loca tion: [facility] odify By: davie rawls DateTime : 07/02/19 08:30:00 AM Not Available Not Available Not Available pantopraz ole 40 mg tablet,de layed release Take 1 tablet every day by oral route. active Not Available Not Available No t Available triamcino lone acetonide 0.1 % topical ointment APPLY A THIN LAYER TO THE AFFECTED AREA(S) BY TOPICAL ROUTE 2 TIMES PER DAY 10/01 completed Not Available Not Available Not Available doxycycli ne hyclate 100 mg tablet TK 1 T PO QD 05/05 completed Not Available Not Available Not Available clindamyc in phosphate 1 % topical solution APPLY THIN LAYER TOPICALL Y TO THE AFFECTED AREA EVERY NIGHT AT BEDTIME 07/23 completed Not Available Not Available Not Available Bactrim DS 800 mg-160 mg tablet Take 1 tablet twice a day by oral route. 05/05 completed Not Available Not Available Not Available NuvaRing 0.12 mg-0.015 mg/24 hr vaginal insert 1 vaginal ring by vaginal route every month leave in place for 3 weeks, remove for 1 week 05/15 completed Prescrib ed Elsewher e: No Locat ion: [facility] odify By: davie rawls DateTime : 12/08/19 01:00:00 PM Not Available Not Available Not Available bupropion HCl XL 300 mg 24 hr tablet, extended release TAKE 1 TABLET BY MOUTH EVERY MORNING 07/23 completed Not Available Not Available Not Available bupropion HCl XL 150 mg 24 hr tablet, extended release 11/01 completed Not Available Not Available Not Available nitrofura ntoin monohydra te/macroc rystals 100 mg capsule TAKE 1 CAPSULE BY MOUTH EVERY 12 HOURS FOR 10 DAYS 11/01 completed Not Available Not Available Not Available active Not Available Not Avai lable Not Available Twirla 120 mcg-30 mcg/24 hr transderm al patch APPLY 1 PATCH TOPICALL Y TO THE SKIN EVERY WEEK FOR 21 DAYS 07/23 completed Not Available Not Available Not Available Zafemy 150 mcg-35 mcg/24 hr transderm al patch APPLY 1 PATCH TOPICALL Y TO THE SKIN EVERY WEEK 04/25 completed Started Twirla Not Available Not Available Not Available BinaxNOW COVID-19 Ag Self Test kit TEST DIRECTED TODAY 07/23 completed Not Available Not Available Not Available Vitals Date Recorded Body weight Body mass index (BMI) Body height Systolic blood pressure Diastolic blood pressure Provider Name and Address Organization Details Last Updated DateTime 03/26/2024 11296.39 77 g 34.4 kg/m2 166.37 cm 116 mm[Hg] 74 mm[Hg] Shilpa David [facility] 09:44:04 Date Recorded Body height Body mass index (BMI) Body weight Systolic blood pressure Diastolic blood pressure Provider Name and Address Organization Details Last Updated DateTime 04/02/2024 166.37 cm 34.4 kg/m2 81911.4 g 134 mm[Hg] 81 mm[Hg] Shilpa David [facility] 12:45:34 Date Recorded Body weight Body mass index (BMI) Body height Body height Body mass index (BMI) Body weight Systolic blood pressure Diastolic blood pressure Systolic blood pressure Diastolic blood pressure Provider Name and Address Organization Details Last Updated DateTime 43142.5 8244 g 34.7 kg/m2 166.37 cm 166.37 cm 34.7 kg/m2 51106.5 8 g 131 mm[Hg] 77 mm[Hg] 131 mm[Hg] 77 mm[Hg] Shilpa David [facility] 19:34:41 Social History Question Answer Notes LastModified by Organizat ion Details LastModified Time Tobacco Smoking Status Former Smoker Courtney Linton null, [facility] 10/02/2023 11:23:00 What Is Your Level Of Alcohol Consumption? None Information not available 05/05/2020 If You Are , What Was Your Level Of Alcohol Consumption Prior To ? Occasional [email or web address] Information not available 02/11/2024 Are You Blind Or Do You Have Difficulty Seeing? No Information not available 07/23/2022 What Is Your Level Of Caffeine Consumption? Occasional Information not available 10/02/2023 How Much Tobacco Do You Chew? None Information not available 07/23/2022 In The 14 Days Before Symptom Onset, Have You Had Close Contact With A Laboratory-confir med COVID-19 While That Case Was Ill? No Information not available 07/23/2022 In The 14 Days Before Symptom Onset, Have You Had Close Contact With A Person Who Is Under Investigation For COVID-19 While That Person Was Ill? No Information not available 07/23/2022 Have You Been To An Area Known To Be High Risk For COVID-19? No Information not available 07/23/2022 Are You Deaf Or Do You Have Serious Difficulty Hearing? No Information not available 07/23/2022 What Type Of Diet Are You Following? REGULAR Information not available 10/02/2023 Which Illicit Or Recreational Drugs Have You Used? Marijuana Information not available 07/23/2022 Do You Or Have You Ever Used E-cigarettes Or Vape? Current User Of Electronic Cigarettes Information not available 07/23/2022 What Is The Highest Grade Or Level Of School You Have Completed Or The Highest Degree You Have Received? [id number] Information not available 07/23/2022 What Is Your Occupation? None Information not available 10/02/2023 Are There Any Guns Present In Your Home? No Information not available 07/23/2022 What Was The Date Of Your Most Recent Tobacco Screening? 04/09/2024 [email or web address] Information not available 04/09/2024 How Many Children Do You Have? 3 Information not available 07/23/2022 Do You Use Protection During Sex? No Information not available 07/23/2022 Do You Use Your Seat Belt Or Car Seat Routinely? Yes Information not available 07/23/2022 Do You Have Smoke And Carbon Monoxide Detectors In Your Home? Yes Information not available 07/23/2022 Do You Or Have You Ever Used Smokeless Tobacco? Never Used Smokeless Tobacco Information not available 07/23/2022 How Much Tobacco Do You Smoke? No Information not available 07/23/2022 Do You Feel Stressed (tense, Restless, Nervous, Or Anxious, Or Unable To Sleep At Night)? [id number] [email or web address] Information not available 02/11/2024 Do You Use Any Illicit Or Recreational Drugs? No Information not available 07/23/2022 Do You Use Sunscreen Routinely? No Information not available 07/23/2022 How Many Years Have You Smoked Tobacco? 15 Information not available 05/05/2020 Have You Used IV Drugs? No Information not available 07/23/2022 Sex: Unknown Functional Status Question Answer Note LastModified by Organizat ion Details LastModified Time Are you able to walk? YESWOREST Information not available 07/23/2022 What is your exercise level? Occasional [email or web address] Information not available 09/13/2019 Mental Status None recorded. Family History Relationship Description Onset Age of this Age Resolved Age Notes LastModified by Organization Details LastModified Time Mother Diabetes mellitus [email or web address] Not available 2019 12:38:34 Mother Hypercholest erolemia [email or web address] Not available 2019 12:38:48 Father Hypercholest erolemia [email or web address] Not available 2019 12:38:48 Maternal Aunt Malignant tumor of breast [email or web address] Not available 03/19 10:27:39 Sister Disorder of thyroid gland [email or web address] Not available 03/19 10:27:39 Sister Mental disorder [email or web address] Not available 03/19 10:27:39 Medical History Condition Response Allergies (Food, seasonal, environmental ) N Other N Blood Transfusion N Drug/Latex Allergies/Reactions N Breast Cancer N Dermatologic Disorders N Lung Disease N Defects or Inherited Disease N Breast Problem N Gestational Diabetes N Hematologic disorders N Anesthesia Complications N History of STI N Deep Vein Thrombosis N Polycystic ovary syndrome N Anxiety Disorder N Autoimmune disease N Arthritis N Infertility N Polyps N Acid Reflux (GERD) N History of abnormal pap N Cancer N Stroke N Varicosities N Neurologic/Epilepsy N Endometriosis N High Cholesterol N Headaches N Fibromyalgia N Kidney Disease N Heart Problems N Kidney or Bladder Problems N Thyroid Problems N GI Problems N Eating Disorder N Anemia N Art (IVF or FET) N Psychiatric Illness N Ovarian Cancer N Diabetes N Pulmonary (TB, Asthma) N Hepatitis/Liver Disease N No Past Medical History Y Eczema N Urinary Tract Infection N Abuse/Domestic Violence N Asthma N Trauma/Violence N Depression/ depression N Heart Disease N Pre-Eclampsia N Hypertension N Osteoporosis N Thrombophilias N Gynecological History Statement/Question Response Date of Last Mammogram 12/26/2020 Flow Moderate Date of LMP 07/18/2023 Was last menstrual period normal Y STIs/STDs N Date of Last Colonoscopy None Desired Control Method None Abnormal Pap Y On BCP's at Conception? N HPV Vaccine Y Duration of Flow (days) 4 Current Control Method Age at First Child 21 Are cycles usually normal Y Frequency of Cycle (Q days) 25 Sexually Active? Y Menses Monthly Y Date of DEXA bone scan Age of first menstrual cycle 10 Date of Last Pap Smear 07/23/2022 Sexual Problems? N LMP Definite N Obstetrics History GPAL:G 5 P 3 0 1 3 Type Value Full Term 3 Spontaneous 1 Living 3 Total 5 Past Encounters Encounter ID Performer Location Encounter Start Date Encounter Closed Date Diagnosis/Indication Diagnosis SNOMED-CT Code Diagnosis ICD10 Code Diagnosis Note [id number] Tamar Chanel [facility] [address] [address] 09/13/2019 15:55:22 10/07/2019 17:31:06 Contraception care management 379845880 Z30.9 Lesion of vulva 01339044 6 N90.89 Pt will start using antibacter ial soap. When she gets another lesion/boi l I would like her to come in for evaluation . Pt verbalized understand ing. [id number] Gonzalo Torres MD [facility] [address],[place] [address] 10/25/2019 11:32:35 10/25/2019 12:10:38 Lesion of vulva 738848198 N90.89 This patient is a 29-year-ol d female with recurrent subcutaneo us vulvar nodules/ab scesses. We talked about various treatment options. We talked about resection of a active nodule for diagnosis. We agreed to treat with antibiotic s for 6 weeks. She will return in 6 weeks. We spent more than 15 minutes face-to-fa ce. [id number] Gonzalo Torres MD [facility] [address],[place] [address] 12/06/2019 10:45:14 12/06/2019 11:42:51 Lesion of vulva 951783655 N90.89 this patient is a 29-year-ol d female presents for follow-up on vulvar skin abscesses. She has perineal and vulvar subcutaneo us nodules that infected. She was treated with doxycyclin e. She did it twice a day for an extended treatment of about 6 weeks. She is very satisfied with the resolution of the lesions. She did not feeling exam was necessary. We talked about ongoing treatment with with 100 mg of doxycyclin e daily. She agreed to that. She will follow up in 6 months. She [id number] Gonzalo Torres MD [facility] [address],[place] [address] 05/05/2020 11:22:07 05/05/2020 12:16:24 Urinary symptoms [id number] R39.9 This patient is a 30-year-ol d female presents for urinary frequency, urgency, dysuria. Patient reports for several a she has had pain with urination urgency. She also reports some vulvar irritation . She denies any vaginal discharge. She denies any foul-smell ing vaginal odor or thick white discharge. The vulva and distal vagina were examined and they appeared normal. A swab was taken for testing. We will culture and follow-up on the urine. She is to be treated with antibiotic s. [id number] Angie Velazquez [facility] [address],[place] [address] 11/01/2020 14:53:05 11/06/2020 14:33:23 Hidradenitis suppurativa [id number] L73.2 Suspect HS but we agreed to trial of Cleocin (topical/P O).If no success then consider referral to derm which she would like anyway to discuss some issues with her toe skin. Counseled on medication R/B's, Most common side effects, & use. All questions were answered to patient satisfacti on. Time spent in visit is a total of 26 mins with at least 50% of visit consisting of counseling and review of plan of care. Additional precaution gloria measures were taken to minimize potential exposure to the Covid-19 virus during this patient? s visit, including available hand transmission builder upon arrive, cristina e check and being asked a series of screening questions. All staff wore face coverings during this encounter, as well as provided additional cleaning and sanitizing of all surfaces, including countertop s, pens, chairs, door handles, light switches, etc, prior to and following the patient? s visit. Adult heal th examination 068709121 Z00.00 Updated routine labs Reduced libido [id number] R 68.82 Will discuss options at upcoming WWE once have labs. [id number] Angie Velazquez [facility] [address],[place] [address] 11/27/2020 12:28:40 11/27/2020 14:48:43 Gynecologic examination 18853978 Z01.419 Take Calcium with Vitamin D 1200mg daily if not receiving in daily diet. It is strongly advised to have an annual flu shot and up can obtain at most pharmacies . If you have not had a TDap shot in the last 10 years you should obtain one as well. Discussed with patient & provided with informatio n regarding Gardisil vaccine to prevent the 4 strains for HPV that cause cervical cancer if under age 26. Encourage safe sexual practices, to use condoms and limit partners if not already in a monogamous relationsh ip. Do monthly self breast exams. Have mammogram yearly or every other year depending on family history. BRCA testing is now available for patients with strong genetic history of female cancer. If interested contact the office. Engage in daily exercise of low impact aerobic exercise 45-60 minutes 4-5 times weekly. Avoid tobacco and illicit drugs as well as using moderation with alcohol intake less than 1-2 8 oz beverages daily. This lifestyle behavior pattern will lead to less health conditions and longer life span. If BMI greater than 25 weight watchers or dietary consult advised. Patient received above instructio ns, and questions have been answered. If you have any questions please call or respond to this email. Patient was made aware of the patient portal and may obtain a paper copy of today's plan if desired.Pa p/hpv updatedSTD screen sent [facility] care management [id number] Z30.9 Tria of Twirla.if likes it & it's affordable will continue.I f doesn't like it can switch back to Xulane patch.[facility]#: [id number], Exp 05/19/2022 Discharge from right nipple [id number] N64.52 US & labs updated.Wi ll call [facility] resultsPos sible referral to Breast specialist if needed.Erik sturize with coconut oil daily. Hidradenit is suppurativa of vulva [id number] L73.2 Doing well with HS prevention CLindamyci n lotion.But does want a general derm referral.O rder placed. [id number] Angie Velazquez , [facility] [address],[place] [address] 07/23/2022 10:39:16 07/23/2022 12:30:35 Gynecologic examination 08589237 Z01.419 Z11.51 Z11.3 Z11.8 Take Calcium with Vitamin D 1200mg daily if not receiving in daily diet. It is strongly advised to have an annual flu shot and up can obtain at most pharmacies . If you have not had a TDap shot in the last 10 years you should obtain one as well. Discussed with patient & provided with informatio n regarding Gardisil vaccine to prevent the 4 strains for HPV that cause cervical cancer if under age 26. Encourage safe sexual practices, to use condoms and limit partners if not already in a monogamous relationsh ip. Do monthly self breast exams. Have mammogram yearly or every other year depending on family history. BRCA testing is now available for patients with strong genetic history of female cancer. If interested contact the office. Engage in daily exercise of low impact aerobic exercise 45-60 minutes 4-5 times weekly. Avoid tobacco and illicit drugs as well as using moderation with alcohol intake less than 1-2 8 oz beverages daily. This lifestyle behavior pattern will lead to less health conditions and longer life span. If BMI greater than 25 weight watchers or dietary consult advised. Patient received above instructio ns, and questions have been answered. If you have any questions please call or respond to this email. 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 Neg pain of abd/pelvis /flankNeg urinary sx'sNeg GI sx'sNeg N/V/F/C/DN eg Vag d/c, odor, irritation , itching Itching of skin 04783878 0 L29.9 Nipple itchingRan domUses moisturize rImaging last year wnl Will trial ointment to use prn and encouraged DAILY moisturizi ng vs prn use. Counseled on medication R/B's, Most common side effects, & use. All questions were answered to patient satisfacti on. [id number] Yeimi Cornejo [facility] [address],[place] [address] 10/02/2023 09:36:10 10/02/2023 11:22:25 Uterine size for dates discrepancy [id number] O26.841 Z3A.11 [id number] Gonzalo Torres MD [facility] [address],[place] [address] 10/02/2023 09:36:34 10/02/2023 12:03:15 Amenorrhea 70815671 N91.2 this patient is a 33-year-ol d female who presents for amenorrhea . She is a positive test. Ultrasound revealed a 1st trimester gestation. Patient has no complaints . We talked about early care. Talked about genetic screening. We talked about her ultrasound results. We talked about the 12 week ultrasound that has genetic screening components . She was given recommenda tions on exercise, diet, over-the-c ounter medication s. We reviewed her obstetric history. We reviewed her medical history. We reviewed her social history. She will begin routine care at her next visit. [id number] [facility] [address],[place] [address] 10/09/2023 16:11:14 10/09/2023 16:51:34 screening 739200793 Z36.82 Z3A.12 [id number] Gonzalo Torres MD [facility] [address],[place] [address] 10/09/2023 16:11:35 10/11/2023 11:33:00 Routine care 574671060 Z34.90 [id number] Gonzalo Torres MD [facility] [address],[place] [address] 11/03/2023 13:47:31 11/03/2023 14:48:31 Routine care 012318214 Z34.90 [id number] [facility] [address],[place] [address] 12/01/2023 11:14:33 12/01/2023 12:47:00 screening for malformation 639298499 Z36.3 O09.522 Z3A.19 [id number] Gonzalo Torres MD [facility] [address],[place] [address] 12/01/2023 11:15:07 12/01/2023 14:17:25 Routine care 061601627 Z34.90 [id number] Gonzalo Torres MD [facility] [address],[place] [address] 12/29/2023 09:59:16 12/29/2023 11:21:45 Routine care 519854015 Z34.90 [id number] Elin George [facility] [address],[place] [address] 01/30/2024 09:35:53 01/30/2024 10:37:50 Gestation period, 28 weeks 56963586 Z3A.28 continue vitamin [id number] Jeanie [facility] [address],[place] [address] 01/30/2024 10:40:57 01/30/2024 10:56:45 bradycardia 105000773 O36.8399 [id number] [facility] [address],[place] [address] 02/10/2024 09:58:33 02/10/2024 10:44:30 Medical examination for suspected condition 625508962 Z03.74 O36.8999 Z3A.30 [id number] Elin George [facility] [address],[place] [address] 02/11/2024 10:47:53 02/11/2024 14:39:45 Gestation period, 30 weeks 65482183 Z3A.30 continue vitamin Loss of te eth due to extraction 52324408 K08.409 [id number] Elin George [facility] [address],[place] [address] 02/27/2024 10:02:42 02/27/2024 10:41:38 Routine care 429524563 Z34.93 continue vitamin [id number] Elin George [facility] [address],[place] [address] 03/19/2024 09:47:04 03/19/2024 10:57:10 Gestation period, 35 weeks 78030319 Z3A.35 continue vitamin [id number] [facility] [address],[place] [address] 03/25/2024 09:19:37 03/25/2024 10:20:32 Medical examination for suspected condition 157949485 Z03.74 O36.8330 Z3A.36 [id number] [facility] [address],[place] [address] 03/26/2024 09:18:27 03/26/2024 10:23:04 Gestation period, 36 weeks 00228286 Z3A.36 continue vitamin [id number] Elin George [facility] [address],[place] [address] 04/02/2024 12:28:15 04/02/2024 13:22:42 Gastroesophageal reflux disease 359190872 K21.9 Gestation period, 37 weeks 23617818 Z3A.37 [id number] Elin George [facility] [address],[place] [address] 04/09/2024 10:09:32 04/09/2024 10:52:17 Gestation period, 38 weeks 61020295 Z3A.38 continue vitamin [id number] Shilpa David [facility] [address],[place] [address] 04/09/2024 19:33:42 04/12/2024 02:24:24 tachycardia 706855864 O36.8399 Health Concerns Section Related Observation LastModified by Organization Detai ls LastModified Time None Recorded Concern Status LastModified by Organization Details LastModified Time None Recorded Advance Directives Directive None Recorded Payers Encounter Date Sequence Insurance Name Policy Number Policy Medrano Covered Member ID Medrano Member ID Guarantor Name 03/25/2024 1 [facility] (MEDICAID HMO) [id number] Keyana Reardon [id number] Keyana R Reardon 03/26/2024 1 [facility] (MEDICAID HMO) [id number] Keyana Reardon [id number] Keyana R Reardon 04/02/2024 1 [facility] (MEDICAID HMO) [id number] Keyana Reardon [id number] Keyana R Reardon 04/09/2024 1 [facility] [place] ([place]) [id number] Keyana Reardon [id number] Keyana R Reardon 04/09/2024 1 [facility] (MEDICAID HMO) [id number] Keyana Reardon [id number] Keyana Reardon OBGyn Episode Ob Episode Information Episode Created Date Number of Fetuses Patient Bloodtype Patient rh Status Prepregnancy Weight lbs Domestic Partner Domestic Partner Phone Father Name Dispatcher Automobile Rental Status 09/13/19 20 1 CLOSED Fetus Data First Name Last Name Admitted to NICU Weight (g) Sex Living Outcome Pediatric Complications Fetus ID Race Codes Race Delivery Type 3146.56 [id number] Full Term 1888 Vaginal Delivery Sina Calculation Initial Sina Date Initial Exam Date Initial Exam Provider Initial Ultrasound Date Last Menstrual Period Date Ultra Sound Weeks Gestation 0 Eighteen To Twenty Week Sina Update Ultra Sound Date Fundal Height At Umbil Quickening Date Ultra Sound Latest Weeks Gestation Final Sina Confirmed By Final Sina Confirmed Date Final Sina Date Ultra Sound Latest Days Gestation 0 0 Menstrual History Last Menstrual Date Menses Monthly On Bcp Conception Prior Menses Frequency Hcg Plus Date Menarche Onset Age Delivery Information Delivery Date Delivery Type Labor Anesthesia Weeks Gestation Incision Type Labor Labor Length Hrs Delivered By Post Complications Tubal Sterilization Discharge Date Comments 2 38 Discharge Information Feeding Method Contraceptive Method Maternal HG B and HCT Levels Ob Episode Information Episode Created Date Number of Fetuses Patient Bloodtype Patient rh Status Prepregnancy Weight lbs Domestic Partner Domestic Partner Phone Father Name Dispatcher Automobile Rental Status 09/13/19 20 1 CLOSED Fetus Data First Name Last Name Admitted to NICU Weight (g) Sex Living Outcome Pediatric Complications Fetus ID Race Codes Race Delivery Type 4649.31 [id number] Full Term 1890 Vaginal Delivery Sina Calculation Initial Sina Date Initial Exam Date Initial Exam Provider Initial Ultrasound Date Last Menstrual Period Date Ultra Sound Weeks Gestation 0 Eighteen To Twenty Week Sina Update Ultra Sound Date Fundal Height At Umbil Quickening Date Ultra Sound Latest Weeks Gestation Final Sina Confirmed By Final Sina Confirmed Date Final Sina Date Ultra Sound Latest Days Gestation 0 0 Menstrual History Last Menstrual Date Menses Monthly On Bcp Conception Prior Menses Frequency Hcg Plus Date Menarche Onset Age Delivery Information Delivery Date Delivery Type Labor Anesthesia Weeks Gestation Incision Type Labor Labor Length Hrs Delivered By Post Complications Tubal Sterilization Discharge Date Comments 4 39 Discharge Information Feeding Method Contraceptive Method Maternal HG B and HCT Levels Ob Episode Information Episode Created Date Number of Fetuses Patient Bloodtype Patient rh Status Prepregnancy Weight lbs Domestic Partner Domestic Partner Phone Father Name Dispatcher Automobile Rental Status 09/13/19 20 1 CLOSED Fetus Data First Name Last Name Admitted to NICU Weight (g) Sex Living Outcome Pediatric Complications Fetus ID Race Codes Race Delivery Type 3515.33 8 Full Term 1889 Vaginal Delivery Sina Calculation Initial Sina Date Initial Exam Date Initial Exam Provider Initial Ultrasound Date Last Menstrual Period Date Ultra Sound Weeks Gestation 0 Eighteen To Twenty Week Sina Update Ultra Sound Date Fundal Height At Umbil Quickening Date Ultra Sound Latest Weeks Gestation Final Sina Confirmed By Final Sina Confirmed Date Final Sina Date Ultra Sound Latest Days Gestation 0 0 Menstrual History Last Menstrual Date Menses Monthly On Bcp Conception Prior Menses Frequency Hcg Plus Date Menarche Onset Age Delivery Information Delivery Date Delivery Type Labor Anesthesia Weeks Gestation Incision Type Labor Labor Length Hrs Delivered By Post Complications Tubal Sterilization Discharge Date Comments 9 39 Discharge Information Feeding Method Contraceptive Method Maternal HG B and HCT Levels Ob Episode Information Episode Created Date Number of Fetuses Patient Bloodtype Patient rh Status Prepregnancy Weight lbs Domestic Partner Domestic Partner Phone Father Name Dispatcher Automobile Rental Status 10/09/19 24 1 O Negative 164 OPEN Fetus Data First Name Last Name Admitted to NICU Weight (g) Sex Living Outcome Pediatric Complications Fetus ID Race Codes Race Delivery Type [id number] Problems Problem Notes Future MFM Appts: 12/28 815a, 12/31 1130a [facility] Echo CG (WNL REPORT), 01/04 9a u/s only - no further appointments, unless clinically indicated Problem Name Start Date End Date Resolution Snomed Code Not e dysrhythmia 12/01/2023 [id number] M FM consult - PAC - 12/21 with MFM and [facility] on 12/31i improving and nearly resolved on 12/28 MFM appt Sina Calculation Initial Sina Date Initial Exam Date Initial Exam Provider Initial Ultrasound Date Last Menstrual Period Date Ultra Sound Weeks Gestation 04/18/2024 10/02/2023 [email or web address] 10/02/2023 07/17/2023 11 Eighteen To Twenty Week Sina Update Ultra Sound Date Fundal Height At Umbil Quickening Date Ultra Sound Latest Weeks Gestation Final Sina Confirmed By Final Sina Confirmed Date Final Sina Date Ultra Sound Latest Days Gestation 0 [email or web address] 10/09/2023 04/20/19 25 0 Pre- Flowsheet Flowsheet Date 10/09/2023 Mejia Score Blood Edema Fundus Height Fundus Units Glucose Ketones Leukocytes Nitrite Labor Signs Protein Cervic Dilation Cervic Effacement Cervic Station Type Weight in lbs Pre/Post Dialysis Refused Weight 164.15960260212 BP Diastolic BP Location Tested BP Systolic BP Type 74 L arm 118 sitting Fetus Heart Rate Present A 145 Fetus Movement Comments Flowsheet Date 11/03/2023 Mejia Score Blood Edema Fundus Height Fundus Units Glucose Ketones Leukocytes Nitrite Labor Signs Protein Cervic Dilation Cervic Effacement Cervic Station neg none Type Weight in lbs Pre/Post Dialysis Refused Weight 169.613835921685 BP Diastolic BP Location Tested BP Systolic BP Type 75 L arm 114 sitting Fetus Heart Rate Present A 145 Fetus Movement A Yes Comments no complaints, no problems, routine care Flowsheet Date 12/01/2023 Mejia Score Blood Edema Fundus Height Fundus Units Glucose Ketones Leukocytes Nitrite Labor Signs Protein Cervic Dilation Cervic Effacement Cervic Station Type Weight in lbs Pre/Post Dialysis Refused BP Diastolic BP Location Tested BP Systolic BP Type Fetus Heart Rate Present Fetus Movement Comments Flowsheet Date 12/01/2023 Mejia Score Blood Edema Fundus Height Fundus Units Glucose Ketones Leukocytes Nitrite Labor Signs Protein Cervic Dilation Cervic Effacement Cervic Station Type Weight in lbs Pre/Post Dialysis Refused 179.098423605293 BP Diastolic BP Location Tested BP Systolic BP Type 76 L arm 116 sitting Fetus Heart Rate Present A 145 Fetus Movement A Yes Comments Discussed with the patient t he identification of a dysrhythmia. to see [facility] Flowsheet Date 12/29/2023 Mejia Score Blood Edema Fundus Height Fundus Units Glucose Ketones Leukocytes Nitrite Labor Signs Protein Cervic Dilation Cervic Effacement Cervic Station 23 cm Type Weight in lbs Pre/Post Dialysis Refused 189.180505578308 BP Diastolic BP Location Tested BP Systolic BP Type 77 L arm 123 sitting Fetus Heart Rate Present A 136 Fetus Movement A Yes Comments no complaints, no problems, routine care, no contractions, no vaginal bleeding, no loss of fluid, no cramping Flowsheet Date 01/30/2024 Mejia Score Blood Edema Fundus Height Fundus Units Glucose Ketones Leukocytes Nitrite Labor Signs Protein Cervic Dilation Cervic Effacement Cervic Station trace 27 cm Type Weight in lbs Pre/Post Dialysis Refused 198.466996326321 BP Diastolic BP Location Tested BP Systolic BP Type 73 117 Fetus Heart Rate Present A 128 Present Fetus Movement A Yes Comments Patient states that is havin g contractions and swelling. reviewed precautions and education +FM, heart lower than usual will do NST today [facility]TT on friday f/u here in 2 weeks Flowsheet Date 01/30/2024 Mejia Score Blood Edema Fundus Height Fundus Units Glucose Ketones Leukocytes Nitrite Labor Signs Protein Cervic Dilation Cervic Effacement Cervic Station Type Weight in lbs Pre/Post Dialysis Refused BP Diastolic BP Location Tested BP Systolic BP Type Fetus Heart Rate Present Fetus Movement Comments Flowsheet Date 02/10/2024 Mejia Score Blood Edema Fundus Height Fundus Units Glucose Ketones Leukocytes Nitrite Labor Signs Protein Cervic Dilation Cervic Effacement Cervic Station Type Weight in lbs Pre/Post Dialysis Refused BP Diastolic BP Location Tested BP Systolic BP Type Fetus Heart Rate Present Fetus Movement Comments Flowsheet Date 02/11/2024 Mejia Score Blood Edema Fundus Height Fundus Units Glucose Ketones Leukocytes Nitrite Labor Signs Protein Cervic Dilation Cervic Effacement Cervic Station none Type Weight in lbs Pre/Post Dialysis Refused 200.424126233811 BP Diastolic BP Location Tested BP Systolic BP Type 68 114 Fetus Heart Rate Present Fetus Movement A Yes Comments Patient states that is havin g some contractions. reviewed education and precautions reviewed us efw 47%, no arrythmia, f/u 2 weeks, ok for tdap. 3 teeth pulled yesterday dentist refused pain medication and antibiotics, pt complaints of pain, unable to eat will call out antibiotic and pain medication Flowsheet Date 02/27/2024 Mejia Score Blood Edema Fundus Height Fundus Units Glucose Ketones Leukocytes Nitrite Labor Signs Protein Cervic Dilation Cervic Effacement Cervic Station trace 30 cm Type Weight in lbs Pre/Post Dialysis Refused Weight 205.953959481383 BP Diastolic BP Location Tested BP Systolic BP Type 83 137 Fetus Heart Rate Present A 138 Fetus Movement A Yes Comments Patient is having some hip p ain, contractions, swelling, nausea and vomiting. reviewed precautions, education, +FM f/u 2 weeks, remind about preadmission Flowsheet Date 03/19/2024 Mejia Score Blood Edema Fundus Height Fundus Units Glucose Ketones Leukocytes Nitrite Labor Signs Protein Cervic Dilation Cervic Effacement Cervic Station trace 34 cm 1cm 80% -2 Type Weight in lbs Pre/Post Dialysis Refused Weight 210.884806678744 BP Diastolic BP Location Tested BP Systolic BP Type 75 129 Fetus Heart Rate Present A 122 Present Fetus Movement A Yes Comments Patient is having some contr actions, discharge, swelling, nausea and vomiting. reviewed precautions and education, went to ed yesterday cold, no pneumonia, +FM, gbs collected Flowsheet Date 03/25/2024 Mejia Score Blood Edema Fundus Height Fundus Units Glucose Ketones Leukocytes Nitrite Labor Signs Protein Cervic Dilation Cervic Effacement Cervic Station Type Weight in lbs Pre/Post Dialysis Refused BP Diastolic BP Location Tested BP Systolic BP Type Fetus Heart Rate Present Fetus Movement Comments Flowsheet Date 03/26/2024 Mejia Score Blood Edema Fundus Height Fundus Units Glucose Ketones Leukocytes Nitrite Labor Signs Protein Cervic Dilation Cervic Effacement Cervic Station trace 37 cm 2cm 70% -2 Type Weight in lbs Pre/Post Dialysis Refused 210.134814401532 BP Diastolic BP Location Tested BP Systolic BP Type 74 116 Fetus Heart Rate Present A 134 Fetus Movement A Yes Comments Patient is having contractio ns, back pain, swelling and nausea. precautions and education +FM, f/u one week discussed labia scar Flowsheet Date 04/02/2024 Mejia Score Blood Edema Fundus Height Fundus Units Glucose Ketones Leukocytes Nitrite Labor Signs Protein Cervic Dilation Cervic Effacement Cervic Station trace 37 cm 3cm 70% -2 Type Weight in lbs Pre/Post Dialysis Refused Weight 210.072767965124 BP Diastolic BP Location Tested BP Systolic BP Type 81 134 Fetus Heart Rate Present A 136 Fetus Movement A Yes Comments Patient is having back pain, contractions, discharge, swelling, nausea and vomiting. taking pepcid and tums heartburn bothersome, plan protonix precautions and education IOL on 04/15 +FM f/u next week Flowsheet Date 04/09/2024 Mejia Score Blood Edema Fundus Height Fundus Units Glucose Ketones Leukocytes Nitrite Labor Signs Protein Cervic Dilation Cervic Effacement Cervic Station 3cm 60% -2 Type Weight in lbs Pre/Post Dialysis Refused 212.49268509220 BP Diastolic BP Location Tested BP Systolic BP Type 77 131 Fetus Heart Rate Present Fetus Movement A Yes Comments Patient is having contractio ns, discharge and swelling. +FM, iOL next week precautions NST for tachycardia Flowsheet Date 04/09/2024 Mejia Score Blood Edema Fundus Height Fundus Units Glucose Ketones Leukocytes Nitrite Labor Signs Protein Cervic Dilation Cervic Effacement Cervic Station Type Weight in lbs Pre/Post Dialysis Refused Weight 212.031489628291 BP Diastolic BP Location Tested BP Systolic BP Type 77 131 Fetus Heart Rate Present Fetus Movement Comments Menstrual History Last Menstrual Date Menses Monthly On Bcp Conception Prior Menses Frequency Hcg Plus Date Menarche Onset Age 0[birth year]17/2024 true Delivery Information Delivery Date Delivery Type Labor Anesthesia Weeks Gestation Incision Type Labor Labor Length Hrs Delivered By Post Complications Tubal Sterilization Discharge Date Comments Discharge Information Feeding Method Contraceptive Method Maternal HG B and HCT Levels Ob Episode Information Episode Created Date Number of Fetuses Patient Bloodtype Patient rh Status Prepregnancy Weight lbs Domestic Partner Domestic Partner Phone Father Name Dispatcher Automobile Rental Status 01/30/20 24 1 CLOSED Fetus Data First Name Last Name Admitted to NICU Weight (g) Sex Living Outcome Pediatric Complications Fetus ID Race Codes Race Delivery Type , Spontane ous [id number] Sina Calculation Initial Sina Date Initial Exam Date Initial Exam Provider Initial Ultrasound Date Last Menstrual Period Date Ultra Sound Weeks Gestation 0 Eighteen To Twenty Week Sina Update Ultra Sound Date Fundal Height At Umbil Quickening Date Ultra Sound Latest Weeks Gestation Final Sina Confirmed By Final Sina Confirmed Date Final Sina Date Ultra Sound Latest Days Gestation 0 0 Menstrual History Last Menstrual Date Menses Monthly On Bcp Conception Prior Menses Frequency Hcg Plus Date Menarche Onset Age Delivery Information Delivery Date Delivery Type Labor Anesthesia Weeks Gestation Incision Type Labor Labor Length Hrs Delivered By Post Complications Tubal Sterilization Discharge Date Comments 0 Discharge Information Feeding Method Contraceptive Method Maternal HG B and HCT Levels
--- OUTSIDE RECORDS SUMMARY | 2024-04-21 23:18 | XMS_ITS | Continuity of Care Document ---
Author Organization [facility] Address [address] [place] [address] [place] [address] Care Team Providers Care Pe Manager Name Role Phone TIM CONTE Primary Care Provider Assessment No assessment recorded. Plan of Treatment Reminders Order Date Submit Date Provider Last Modified By Organization Details Last Modified Time Details Appointments None record ed. Lab None record ed. Referral None record ed. Procedures None record ed. Surgeries None record ed. Imaging non-st ress test 024 04/09/20 24 [email or web address] [address], [address], [place], [address], 19:36:34 Medication Orders None record ed. Patient TargetsNo targets recorded. Patient InstructionsNo instructions recorded. Reason for Referral None Reported. Results Created Date Observation Date Name Description Value Unit Range Abnormal Flag Note LastModifiedBy Organization Detail LastModifiedTime 10/09/19 24 10/09/2023 US, obste tric, nucha l trans lucen cy No observ ation record ed[facility] [address], [place], [address], 10/09/2023 17:42:37 10/09/19 24 10/09/2023 US, obste tric, nucha l trans lucen cy No observ ation record ed. [email or web address] [address], [place], [address], 10/09/2023 22:44:04 12/01/19 24 12/01/2023 US, obste tric, 2nd or 3rd trime ster No observ ation record ed. [facility] [address], [place], [address], 12/01/2023 17:23:01 12/01/19 24 12/01/2023 US, obste tric, follo w-up No observ ation record ed. [email or web address] [address], [place], [address], 12/04/2023 16:44:09 12/01/19 24 12/01/2023 US, obste tric, 2nd or 3rd trime ster No observ ation record ed. [email or web address] [address], [place], [address], 12/02/2023 11:43:16 12/10/19 24 12/10/2023 US, obste tric No observ ation record ed. [email or web address] [facility] [address] [place] [address], [address], 12/11/2023 14:24:58 12/10/19 24 12/10/2023 US, obste tric, follo w-up No observ ation record ed. [email or web address] [facility] [address] [place] [address], [address], 12/11/2023 14:17:01 12/16/19 24 12/16/2023 US, obste tric, follo w-up No observ ation record ed. [facility] [address], [address], 12/16/2023 16:22:52 12/16/19 24 12/16/2023 US, obste tric, follo w-up No observ ation record ed. [email or web address] [facility] [address], [address], 12/19/2023 10:16:10 12/22/19 24 12/22/2023 US, obste tric, follo w-up No observ ation record ed. [email or web address] [facility] [address], [address], 12/22/2023 22:36:50 12/22/19 24 12/22/2023 US, obste tric, follo w-up No observ ation record ed. [email or web address] [facility] [address], [address], 12/25/2023 10:48:12 12/29/19 24 12/29/2023 US, obste tric, follo w-up No observ ation record ed. [email or web address] [facility] [address], [address], 12/29/2023 16:38:28 12/29/19 24 12/29/2023 US, obste tric, follo w-up No observ ation record ed. [facility] [address], [address], 01/02/2024 11:05:49 01/05/20 24 01/05/2024 US, obste tric, follo w-up No observ ation record ed. [email or web address] [facility] [address], [address], 01/21/2024 12:39:11 01/05/20 24 01/05/2024 US, obste tric, follo w-up No observ ation record ed. [facility] [address], [address], 01/08/2024 10:38:45 01/30/20 24 01/30/2024 non-s tress test No observ ation record ed. [place] [address], [place], [address], 01/30/2024 10:55:25 02/10/2002/10/2024 US, obste tric, follo w-up No observ ation record ed. [email or web address] [place] [address], [place], [address], 02/10/2024 13:22:44 02/10/20 24 02/10/2024 US, obste tric, follo w-up No observ ation record ed. [email or web address] [address], [place], [address], 02/10/2024 12:09:27 03/25/20 24 03/25/2024 US, obste tric, follo w-up No observ ation record ed. [email or web address] [place] [address], [place], [address], 03/25/2024 12:20:45 03/25/20 24 03/25/2024 US, obste tric, follo w-up No observ ation record ed. [email or web address] [address], [place], [address], 03/25/2024 21:06:59 04/09/20 24 04/09/2024 non-s tress test No observ ation record ed. [email or web address] [place] [address], [place], [address], 04/09/2024 19:35:59 04/20/19 25 04/09/2024 non-s tress test No observ ation record ed. [email or web address] [place] [address], [place], [address], 04/20/2024 11:40:46 Result Notes None recorded. Problems Name Problem SNOMED Code Status Onset Date Resolution Date Notes Provider Name and Address Organization Details Recorded Time Educatio n Completed 201811/01/2020 Encounte r for other general counseli ng and advice on contrace ption;Re corded Elsewher e: No Locat ion: Marysol loaiza [facility] S ource: EHR Delimer owen: N Practi ce ID: 0001 Dez lable Time: 01:00:00 PM Jeanie Cornelius [facility], [facility] 1 15:06:58 Acute vaginiti s [id number] Completed 201811/01/2020 Vaginiti s;Record ed Elsewher e: No Locat ion: [facility] S ource: EHR Delimer owen: N Practi ce ID: 0001 Dez lable Time: 01:00:00 PM Jeanie Cornelius [facility] 15:06:[address] Concept Completed 201711/01/2020 Maternal care for oth abnormal ity and damage, unsp;Rec orded Elsewher e: No Locat ion: [facility] S ource: EHR Delimer owen: N Practi ce ID: 0001 Dez lable Time: 10:30:00 AM Jeanie Cornelius [facility] 15:07:23 Gestatio n period, 29 weeks [id number] Completed 201711/01/2020 29 weeks gestatio n of pregnanc y;Record ed Elsewher e: No [facility]at [facility] Delimer owen: N Practi ce ID: 0001 Dez lable Time: 10:15:00 AM Jeanie Cornelius [facility] 15:07:04 Antenata l screenin g for malforma tion Completed 201711/01/2020 Encounte r for antenata l screenin g for malforma tions;Re corded Elsewher e: No Locat ion: [facility] Source: EHR Delimer owen: N Practi ce ID: 0001 Dez lable Time: 10:30:00 AM Jeanie Cornelius [facility] 1 15:06:56 Normal pregnanc y in multigra brad [id number] Completed 201811/01/2020 Encounte r for suprvsn of normal pregnanc y, third trimeste r;Record ed Elsewher e: No Locat ion: [facility]: EHR Delimer owen: N Angela ce ID: 0001 Dez lable Time: 10:45:00 AM Jeanie Cornelius [facility] 1 15:07:13 Lochia finding Completed 201811/01/2020 Encounte r for routine postpart um follow-u p;Record ed Elsewher e: No Locat ion: [facility] S ource: EHR Delimer owen: N Angela ce ID: 0001 Dez lable Time: 08:30:00 AM Jeanie Cornelius [facility] 15:07:12 Placenta previa [id number] Completed 201711/01/2020 Placenta previa specifie d as w/o hemor, second trimeste r;Record ed Elsewher e: No Locat ion: [facility] S ource: EHR Delimer owen: N Angela ce ID: 0001 Dez lable Time: 08:30:00 AM Jeanie Cornelius [facility] 15:07:[address] Concept Completed 201711/01/2020 Matern care for abnlt fetl hrt rate or rhym, 3rd tri, unsp;Rec orded Elsewher e: No Locat ion: [facility] S ource: EHR Delimer owen: N Angela ce ID: 0001 Dez lable Time: 10:45:00 AM Jeanie Cornelius [facility] 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 15:07:26 Pregnanc y detectio n examinat ion Completed 201711/01/2020 Encounte r for pregnanc y test, result positive ;Practic e ID: 0001 Jeanie finn, [facility] 15:07:18 Antenata l screenin g Completed 201711/01/2020 Encounte r for other specifie d antenata l screenin g;Practi ce ID: 0001 Jeanie finn, [facility] 15:06:55 Gestatio n period, 24 weeks [id number] Completed 201711/01/2020 24 weeks gestatio n of pregnanc y;Practi ce ID: 0001 Jeanie finn, [facility] 15:06:59 Gestatio n period, 27 weeks [id number] Completed 201711/01/2020 27 weeks gestatio n of pregnanc y;Practi ce ID: 0001 Jeanie finn, [facility] 15:07:02 Gestatio n period, 32 weeks 7071948 Completed 201711/01/2020 32 weeks gestatio n of pregnanc y;Practi ce ID: 0001 Jeanie finn, [facility] 15:07:05 Uterine size for dates discrepa ncy Completed 201811/01/2020 Uterine size-sunita e discrepa ncy, third trimeste r;Record ed Elsewher e: No Locat ion: Marysol loaiza [facility] S ource: EHR Delimer owen: N Practi ce ID: 0001 Dez lable Time: 09:15:00 AM Jeanie finn [facility] 15:07:31 Gestatio n period, 34 weeks [id number] Completed 201811/01/2020 34 weeks gestatio n of pregnanc y;Record ed Elsewher e: No Locat ion: Marysol loaiza [facility] S ource: EHR Delimer owen: N Practi ce ID: 0001 Dez lable Time: 10:45:00 AM Jeanie Cornelius [facility] 15:07:07 Pelvic and perineal pain [id number] Completed 201711/01/2020 Pelvic and perineal pain;Rec orded Elsewher e: No Locat ion: Marysol loaiza [facility] S ource: EHR Delimer owen: N Wandati ce ID: 0001 Dez lable Time: 11:00:00 AM Jeanie Cornelius [facility] 15:07:15 Gestatio n period, 25 weeks [id number] Completed 201711/01/2020 25 weeks gestatio n of pregnanc y;Record ed Elsewher e: No Locat ion: Marysol loaiza [facility] S ource: EHR Delimer owen: N Practi ce ID: 0001 Dez lable Time: 08:30:00 AM Jeanie Cornelius [facility] 15:07:01 Subacute and chronic vaginiti s [id number] Completed 201811/01/2020 Subacute vaginiti s;Record ed Elsewher e: No Locat ion: Marysol loaiza [facility] S ource: EHR Delimer owen: N Practi ce ID: 0001 Dez lable Time: 09:45:00 AM Jeanie Cornelius [facility] 15:07:28 Gestatio n period, 37 weeks [id number] Completed 201811/01/2020 37 weeks gestatio n of pregnanc y;Record ed Elsewher e: No Locat ion: Marysol loaiza [facility] S ource: EHR Delimer owen: N Practi ce ID: 0001 Dez lable Time: 09:15:00 AM Jeanie finn, [facility] 1 15:07:09 Rubella screenin g status [id number] Completed 201811/01/2020 Encounte r for antenata l screenin g, unspecif ied;Hansel rded Elsewher e: No Locat ion: Marysol [facility] S ource: EHR Delimer owen: N Practi ce ID: 0001 Dez lable Time: 10:30:00 AM Jeanie finn, [facility] 15:07:20 Term pregnanc y delivere d [id number] Completed 201811/01/2020 Encounte r for full-ter m uncompli cated delivery ;Practic e ID: 0001 Jeanie finn, [facility] 15:07:29 Single live [id number] Completed 201811/01/2020 Single live ;Pr actice ID: 0001 Jeanie Cornelius [facility], [facility] 15:07:21 Gestatio n period, 39 weeks [id number] Completed 201811/01/2020 39 weeks gestatio n of pregnanc y;Practi ce ID: 0001 Jeanie finn, [facility] 15:07:10 Pregnanc y [id number] Active 2023 Courtney Linton null, [facility] 4 17:18:12 dysrhyth evi 776909939 Active 2023 MFM consult - PAC - 12/21 with MFM and LONGTERM on improvin g and nearly resolved on 12/28 MFM appt Gonzalo Torres MD [address], [place], [address], [facility] 4 11:15:07 Problem Notes None recorded. Procedures Surgical History Date Name Laterality Status Provider Name and Address Organization Details Recorded Time 07/24/19 23 Date of Last Pap Smear completed Courtney Linton [facility] 10/02/2023 11:20:13 12/27/19 21 Date of [facility]2024 14:43:16 04/14/19 07 [facility] 02/03/2024 14:44:53 04/14/19 04 tonsillectomy completed [facility] 02/03/2024 14:44:47 Imaging Results Imaging Date Name Status LastModified by Organiz ation Details LastModified Time 04/09/2024 non-stress test completed [email or web address] [place] [address], [place], [address], 04/09/2024 19:35:59 Procedure Notes None recorded. Medical Equipment None Reported. Allergies Allergen ID Allergen Name Allergen Category Reaction Reaction Severity Criticality Documentation Date Start Date Code Code System Note Provider Name and Address Organization Details Recorded Time 783 Substance with sulfonami de structure and antibacte rial mechanism of action (substanc e) medicatio n Not available Not available Not available 09/10/2019 13513 8003 SNOMED Radha finn [facility] 0 12:39:04 Medications Name Sig Start [...] EVERY NIGHT AT BEDTIME NEEDED FOR SLEEP 04/11 /2023 completed Not Available Not Available Not Available nystatin 100,000 unit/gram topical ointment APPLY TO THE AFFECTED AREA(S) BY TOPICAL ROUTE 2 TIMES PER DAY 10/01 completed Not Available Not Available Not Available fluconazo le 150 mg tablet take 1 tablet by oral route once 11/01 completed Prescrib ed Elsewher e: No Locat ion: [facility] odify By: lucy haines DateTime : 01/20/20 [...] Prescrib ed Elsewher e: Yes Loca tion: [facility] odify By: davie rawls DateTime : 07/02/19 [...] remove for 1 week 05/15 completed Prescrib sid Garcia e: No Locat ion: Macytracy loaiza [facility] odify By: davie rawls DateTime : 12/08/19 [...] and Address Organization Details Last Updated DateTime 4 86073.5 8244 g 34.7 kg/m2 166.37 cm 166.37 cm 34.7 kg/m2 97202.5 8 g 131 mm[Hg] 77 mm[Hg] 131 mm[Hg] 77 mm[Hg] Shilpa David [facility] 19:34:41 Social History Question Answer Notes LastModified by Organizat ion Details LastModified Time Tobacco Smoking Status Former Smoker Courtney Linton null, [facility] 10/02/2023 11:23:00 What Is Your Level Of Alcohol Consumption? None Information not available 05/05/2020 If You Are , What Was Your Level Of Alcohol Consumption Prior To ? Occasional [email or web address] Information not available 02/11/2024 Are You Blind [...] Or The Highest Degree You Have Received? [id number] Information not available 07/23/2022 What Is Your Occupation? None Information not available 10/02/2023 Are There Any Guns Present In Your Home? No Information not available 07/23/2022 What Was The Date Of Your Most Recent Tobacco Screening? 04/09/2024 [email or web address] Information not available 04/09/2024 How Many Children [...] Anxious, Or Unable To Sleep At Night)? [id number] [email or web address] Information not available 02/11/2024 Do You Use [...] 12:38:48 Maternal Aunt Malignant tumor of breast Not available 03/19 10:27:39 Sister Disorder of thyroid gland [email or web address] Not available 03/19 10:27:39 Sister Mental disorder [email or web address] Not available 03/19 10:27:39 Medical History Condition Response Allergies (Food, seasonal, environmental ) N Other N Drug/Latex Allergies/Reactions N Blood Transfusion N Breast Cancer N Dermatologic Disorders N Lung Disease N Defects or Inherited Disease N Breast Problem N Gestational Diabetes N Hematologic disorders N Anesthesia Complications N History of STI N Deep Vein Thrombosis N Polycystic ovary syndrome N Anxiety Disorder N Autoimmune disease N Arthritis N Polyps N Infertility N Acid Reflux (GERD) N History of abnormal pap N Cancer N Varicosities N Stroke N Neurologic/Epilepsy N Endometriosis N High Cholesterol N Fibromyalgia N Headaches N Kidney Disease N Heart Problems N Thyroid Problems N Kidney or Bladder Problems N GI Problems N Eating Disorder [...] SNOMED-CT Code Diagnosis ICD10 Code Diagnosis Note [id number] Elin George CNM [place] [address] [address] 03/19/2024 09:47:04 03/19/2024 10:57:10 Gestation period, 35 weeks 07470977 Z3A.35 continue vitamin [id number] Yeimi Cornejo [place] [address] [address] 03/25/2024 09:19:37 03/25/2024 10:20:32 Medical examination for suspected condition [id number] Z03.74 O36.8330 Z3A.36 [id number] Elin George [facility] [address],[place] [address] 03/26/2024 09:18:27 03/26/2024 10:23:04 Gestation period, 36 weeks 98866496 Z3A.36 continue vitamin [id number] Elin George [facility] [address],[place] [address] 04/02/2024 12:28:15 04/02/2024 13:22:42 Gastroesophageal reflux disease 064555052 K21.9 Gestation period, 37 weeks 71857878 Z3A.37 [id number] Elin George [facility] [address],[place] [address] 04/09/2024 10:09:32 04/09/2024 10:52:17 Gestation period, 38 weeks 42067357 Z3A.38 continue vitamin 198984 Shilpa David [place] [address],[place] [address] 04/09/2024 19:33:42 04/12/2024 02:24:24 tachycardia 006034045 O36.8399 Health Concerns Section Related Observation LastModified by Organization Detai ls LastModified Time None Recorded Concern Status LastModified by Organization Details LastModified Time None Recorded Payers Encounter Date Sequence Insurance Name Policy Number Policy Medrano Covered Member ID Medrano Member ID Guarantor Name 04/09/2024 1 [facility] (MEDICAID HMO) [id number] Keyana Reardon [id number] Keyana Reardon OBGyn Episode Ob Episode Information Episode Created Date Number of Fetuses Patient Bloodtype Patient rh Status Prepregnancy Weight lbs Domestic Partner Domestic Partner Phone Father Name H[employer]head 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 10/09/19 24 1 O Negative 164 OPEN Fetus Data First Name Last Name Admitted to NICU Weight (g) Sex Living Outcome Pediatric Complications Fetus ID Race Codes Race Delivery Type [id number] Problems Problem Notes Future [facility] Appts: 12/28 815a, 12/31 1130a LONGTERM Echo CG (WNL REPORT), 01/04 9a u/s only - no further appointments, unless clinically indicated Problem Name Start Date End Date Resolution Snomed Code Not e dysrhythmia 12/01/2023 [id number] M FM consult - PAC - 12/21 with MFM and LONGTERM on 12/31i improving and nearly resolved on [...] Gestation 0 [email or web address] 10/09/2023 04/20/19 25 0 Pre-christine Flowsheet Flowsheet Date 10/09/2023 Mejia Score Blood Edema Fundus Height Fundus Units Glucose Ketones Leukocytes Nitrite Labor Signs Protein Cervic Dilation Cervic Effacement Cervic Station Type Weight in lbs Pre/Post Dialysis Refused Weight 164.74923554018 BP Diastolic BP Location Tested BP Systolic BP Type 74 L arm 118 sitting Fetus Heart Rate Present A 145 Fetus Movement Comments Flowsheet Date 11/03/2023 Mejia Score Blood Edema Fundus Height Fundus Units Glucose Ketones Leukocytes Nitrite Labor Signs Protein Cervic Dilation Cervic Effacement Cervic Station neg none Type Weight in lbs Pre/Post Dialysis Refused Weight 169.368291130662 BP Diastolic BP Location Tested BP Systolic [...] Type Weight in lbs Pre/Post Dialysis Refused 179.416477801983 BP Diastolic BP Location Tested BP Systolic BP Type 76 L arm 116 sitting Fetus Heart Rate Present A 145 Fetus Movement A Yes Comments Discussed with the patient t he identification of a dysrhythmia. to see [facility] Flowsheet Date 12/29/2023 Mejia Score Blood Edema Fundus Height Fundus Units Glucose Ketones Leukocytes Nitrite Labor Signs Protein Cervic Dilation Cervic Effacement Cervic Station 23 cm Type Weight in lbs Pre/Post Dialysis Refused 189.235290129535 BP Diastolic BP Location Tested BP Systolic [...] Type Weight in lbs Pre/Post Dialysis Refused 198.976257749141 BP Diastolic BP Location Tested BP Systolic [...] Type Weight in lbs Pre/Post Dialysis Refused 200.660923849356 BP Diastolic BP Location Tested BP Systolic [...] Weight in lbs Pre/Post Dialysis Refused Weight 205.458673642180 BP Diastolic BP Location Tested BP Systolic [...] Weight in lbs Pre/Post Dialysis Refused Weight 210.899981139330 BP Diastolic BP Location Tested BP Systolic [...] Type Weight in lbs Pre/Post Dialysis Refused 210.133921423694 BP Diastolic BP Location Tested BP Systolic [...] Weight in lbs Pre/Post Dialysis Refused Weight 210.551401948951 BP Diastolic BP Location Tested BP Systolic [...] Type Weight in lbs Pre/Post Dialysis Refused 212.86939805164 BP Diastolic BP Location Tested BP Systolic [...] Weight in lbs Pre/Post Dialysis Refused Weight 212.388131331213 BP Diastolic BP Location Tested BP Systolic [...]
--- OUTSIDE RECORDS SUMMARY | 2024-04-21 23:18 | XMS_ITS | Continuity of Care Document ---
Author Organization [facility] Address [address] [place] [address] Care Team Providers Care Solvent Station Attendant Name Role Phone TIM CONTE Primary Care Provider Assessment Encounter Date Assessment Date Assessment LastModified by Organization Details LastModified Time 04/02/2024 04/02/2024 Patient is ___weeks . Discussed plan. [email or web address] Not available 04/02/2024 12:45:11 Plan of Treatment Reminders Order Date Submit Date Provider Last Modified By Organization Details Last Modified Time Details Appointments None recorded. Lab None recorded. Referral None recorded. Procedures None recorded. Surgeries None recorded. Imaging None recorded. Medication Orders Protonix 40 mg tablet,del ayed release 2023 024 [id number], [address], [place], [place], [id number], 12:54:51 Patient TargetsNo targets recorded. Patient InstructionsNo instructions recorded. Reason for Referral None Reported. Results Created Date Observation Date Name Description Value Unit Range Abnormal Flag Note LastModifiedBy Organization Detail LastModifiedTime 10/09/19 24 10/09/2023 US, obste tric, nucha l trans lucen cy No observ ation record ed. [facility] [address], [place], [address], 10/09/2023 17:42:37 10/09/19 24 10/09/2023 US, obste tric, nucha l trans lucen cy No observ ation record ed. [email or web address] [address], [place], [address], 10/09/2023 22:44:04 12/01/19 24 12/01/2023 US, obste tric, 2nd or 3rd trime ster No observ ation record ed. [place] [address], [place], [address], 12/01/2023 17:23:01 12/01/19 24 12/01/2023 US, obste tric, follo w-up No observ ation record ed. [email or web address], [place], [address], 12/04/2023 16:44:09 12/01/19 24 12/01/2023 US, obste tric, 2nd or 3rd trime ster No observ ation record ed. [email or web address] [address], [place], [address], 12/02/2023 11:43:16 12/10/19 24 12/10/2023 US, obste tric No observ ation record ed. [email or web address] [facility] [address] [place] [address], [address], 12/11/2023 14:24:58 12/10/19 24 12/10/2023 US, obste tric, follo w-up No observ ation record ed. [facility] [address] [place] [address], [address], 12/11/2023 14:17:01 12/16/19 24 12/16/2023 US, obste tric, follo w-up No observ ation record ed. [email or web address] [facility] [address] [place] [address], [address], 12/16/2023 16:22:52 12/16/19 12/16/2023 US, obste tric, follo w-up No observ ation record ed. [email or web address] [facility] [address], [address], 12/19/2023 10:16:10 12/22/19 24 12/22/2023 US, obste tric, follo w-up No observ ation record ed. [email or web address] [facility] [address], [address], 12/22/2023 22:36:50 12/22/19 24 12/22/2023 US, obste tric, follo w-up No observ ation record ed. [email or web address] [facility] [address], [address], 12/25/2023 10:48:12 12/29/19 24 12/29/2023 US, obste tric, follo w-up No observ ation record ed. [email or web address] [facility] [address], [address], 12/29/2023 16:38:28 12/29/19 24 12/29/2023 US, obste tric, follo w-up No observ ation record ed. [facility] [address], [address], 01/02/2024 11:05:49 01/05/20 24 01/05/2024 US, obste tric, follo w-up No observ ation record ed. [email or web address] [facility] [address], [address], 01/21/2024 12:39:11 01/05/20 24 01/05/2024 US, obste tric, follo w-up No observ ation record ed. [facility] [address], [address], 01/08/2024 10:38:45 01/30/2001/30/2024 non-s tress test No observ ation record ed. [place] [address], [place], [address], 01/30/2024 10:55:25 02/10/2002/10/2024 US, obste tric, follo w-up No observ ation record ed. [email or web address] [place] [address], [place], [address], 02/10/2024 13:22:44 02/10/2002/10/2024 US, obste tric, follo w-up No observ ation record ed. [email or web address] [address], [place], [address], 02/10/2024 12:09:27 03/25/20 24 03/25/2024 US, obste tric, follo w-up No observ ation record ed. [email or web address] [place] [address], [place], [address], 03/25/2024 12:20:45 03/25/20 24 03/25/2024 US, obste tric, follo w-up No observ ation record ed. [email or web address] [address], [place], [address], 03/25/2024 21:06:59 04/09/20 24 04/09/2024 non-s tress test No observ ation record ed. [email or web address] [place] [address], [place], [address], 04/09/2024 19:35:59 04/20/19 25 04/09/2024 non-s tress test No observ ation record ed. [email or web address] [place] [address], [place], [address], 04/20/2024 11:40:46 Result Notes None recorded. Problems Name Problem SNOMED Code Status Onset Date Resolution Date Notes Provider Name and Address Organization Details Recorded Time Educatio n Completed 201811/01/2020 Encounte r for other general counseli ng and advice on contrace ption;Re corded Elsewher e: No [facility] EHR Manager Basketball owen: N Angela ce ID: 0001 Dez lable Time: 01:00:00 PM Jeanie Cornelius [facility] 15:06:58 Acute vaginiti s [id number] Completed 201811/01/2020 Vaginiti s;Record ed Elsewher e: No Locat ion: [facility] S ource: EHR Manager Basketball owen: N Angela ce ID: 0001 Dez lable Time: 01:00:00 PM Jeanie [facility]elius [facility] 15:06:[address] Concept Completed 201711/01/2020 Maternal care for oth abnormal ity and damage, unsp;Rec orded Elsewher e: No Locat ion: [facility] S ource: EHR Manager Basketball owne: N Angela ce ID: 0001 Dez lable Time: 10:30:00 AM Jeanie Cornelius [facility] 15:07:23 Gestatio n period, 29 weeks [id number] Completed 201711/01/2020 29 weeks gestatio n of pregnanc y;Record ed Elsewher e: No Locat ion: [facility] S ource: EHR Manager Basketball owen: N Wandati ce ID: 0001 Dez lable Time: 10:15:00 AM Jeanie Cornelius [facility] 1 15:07:04 Antenata l jaison g for malforma tion Completed 201711/01/2020 Encounte r for antenata l screenin g for malforma tions;Re corded Elsewher e: No Locat ion: [facility] Source: EHR Manager Basketball owen: N Angela ce ID: 0001 Dez lable Time: 10:30:00 AM Jeanie Cornelius [facility] 1 15:06:56 Normal pregnanc y in multigra brad [id number] Completed 201811/01/2020 Encounte r for suprvsn of normal pregnanc y, third trimeste r;Record ed Elsewher e: No Locat ion: [facility] S ource: EHR Manager Basketball owen: N Angela ce ID: 0001 Dez lable Time: 10:45:00 AM Jeanie Cornelius [facility] 15:07:13 Lochia finding Completed 201811/01/2020 Encounte r for routine postpart um follow-u p;Record ed Elsewher e: No [facility]: EHR Manager Basketball owen: Lorenzo Miller ce ID: 0001 Dez lable Time: 08:30:00 AM Jeanie Cornelius [facility] 15:07:12 Placenta previa [id number] Completed 201711/01/2020 Placenta previa specifie d as w/o hemor, second trimeste r;Record ed Elsewher e: No Locat ion: [facility]sol loaiza [facility] S ource: EHR Manager Basketball owen: Lorenzo Miller ce ID: 0001 Dez lable Time: 08:30:00 AM Jeanie Cornelius [facility] [address] 15:07:[address] Concept Completed 201711/01/2020 Matern care for abnlt fetl hrt rate or rhym, 3rd tri, unsp;Rec orded Elsewher e: No Locat ion: [facility]sol loaiza [facility] S ource: EHR Manager Basketball owen: Lorenzo Miller ce ID: 0001 Dez lable Time: 10:45:00 AM Jeanie finn [facility] 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 15:07:26 Pregnanc y detectio n examinat ion Completed 201711/01/2020 Encounte r for pregnanc y test, result positive ;Practic e ID: 0001 Jeanie finn [facility] 15:07:18 Antenata l screenin g Completed 201711/01/2020 Encounte r for other specifie d antenata l screenin g;Practi ce ID: 0001 Jeanie finn [facility] 15:06:55 Gestatio n period, 24 weeks 702882867 Completed 201711/01/2020 24 weeks gestatio n of pregnanc y;Practi ce ID: 0001 Jeanie finn [facility] 15:06:59 Gestatio n period, 27 weeks [id number] Completed 201711/01/2020 27 weeks gestatio n of pregnanc y;Practi ce ID: 0001 Jeanie finn [facility] 15:07:02 Gestatio n period, 32 weeks 4301484 Completed 201711/01/2020 32 weeks gestatio n of pregnanc y;Practi ce ID: 0001 Jeanie Cornelius [facility] 15:07:05 Uterine size for dates discrepa ncy Completed 201811/01/2020 Uterine size-sunita e discrepa ncy, third trimeste r;Record ed Elsewher e: No Locat ion: Marysol loaiza [facility] S ource: EHR Manager Basketball owen: N Wandati ce ID: 0001 Dez lable Time: 09:15:00 AM Jeanie finn [facility] 15:07:31 Gestatio n period, 34 weeks [id number] Completed 201811/01/2020 34 weeks gestatio n of pregnanc y;Record ed Elsewher e: No Locat ion: [facility]sol loaiza [facility] S ource: EHR Manager Basketball owen: N Wandati ce ID: 0001 Dez lable Time: 10:45:00 AM Jeanie Cornelius [facility] 15:07:07 Pelvic and perineal pain 189886901 Completed 201711/01/2020 Pelvic and perineal pain;Rec orded Elsewher e: No Locat ion: [facility]sol loaiza [facility] S ource: EHR Manager Basketball owen: N Angela ce ID: 0001 Dez lable Time: 11:00:00 AM Jeanie Cornelius [facility] 15:07:15 Gestatio n period, 25 weeks [id number] Completed 201711/01/2020 25 weeks gestatio n of pregnanc y;Record ed Elsewher e: No Locat ion: [facility] S ource: EHR Manager Basketball owen: Lorenzo Muñozti ce ID: 0001 Dez lable Time: 08:30:00 AM Jeanie finn [facility] 15:07:01 Subacute and chronic vaginiti s 353292100 Completed 201811/01/2020 Subacute vaginiti s;Record ed Elsewher e: No Locat ion: [facility] S ource: EHR Manager Basketball owen: N Wandati ce ID: 0001 Dez lable Time: 09:45:00 AM Jeanie Cornelius [facility] 15:07:28 Gestatio n period, 37 weeks [id number] Completed 201811/01/2020 37 weeks gestatio n of pregnanc y;Record ed Elsewher e: No Locat ion: [facility] S ource: EHR Manager Basketball owen: N Practi ce ID: 0001 Dez lable Time: 09:15:00 AM Jeanie Cornelius [facility], [facility] 15:07:09 Rubella screenin g status [id number] Completed 201811/01/2020 Encounte r for antenata l screenin g, unspecif ied;Hansel rded Elsewher e: No Locat ion: [facility] S ource: EHR Manager Basketball owen: N Practi ce ID: 0001 Dez lable Time: 10:30:00 AM Jeanie Cornelius [facility] 15:07:20 Term pregnanc y delivere d [id number] Completed 201811/01/2020 Encounte r for full-ter m uncompli cated delivery ;Practic e ID: 0001 Jeanie Cornelius [facility], [facility] 15:07:29 Single live [id number] Completed 201811/01/2020 Single live ;Pr actice ID: 0001 Jeanie Cornelius [facility], [facility] 15:07:21 Gestatio n period, 39 weeks [id number] Completed 201811/01/2020 39 weeks gestatio n of pregnanc y;Practi ce ID: 0001 Jeanie Cornelius [facility], [facility] 15:07:10 Pregnanc y 39985271 Active 2023 Courtney Linton [facility], [facility] 4 17:18:12 dysrhyth evi 741078152 Active 2023 MFM consult - PAC - 12/21 with MFM and LONG TERM on 12/31i jose carver and nearly resolved on 12/28 MFM appt Gonzalo Torres MD [address], [place], [address], [place] [facility] 4 11:15:07 Problem Notes None recorded. Procedures Surgical History Date Name Laterality Status Provider Name and Address Organization Details Recorded Time 07/24/19 23 Date of Last Pap Smear completed Courtney Linton [facility] 10/02/2023 11:20:13 12/27/19 21 Date of Last [facility] 02/03/2024 14:43:16 04/14/19 07 [facility] 02/03/2024 14:44:53 04/14/19 04 tonsillectomy completed [facility] 02/03/2024 14:44:47 Imaging Results None recorded. Procedure Notes None recorded. Medical Equipment None Reported. Allergies Allergen ID Allergen Name Allergen Category Reaction Reaction Severity Criticality Documentation Date Start Date Code Code System Note Provider Name and Address Organization Details Recorded Time 783 Substance with sulfonami de structure and antibacte rial mechanism of action (substanc e) medicatio n Not available Not available Not available 09/10/2019 29331 8003 SNOMED Radha Cevallos huma, [facility] 0 12:39:04 Medications Name Sig Start [...] Elsewher e: No Locat ion: [facility]sol loaiza [facility] odify By: lucy haines DateTime : [...] Prescrib ed Elsewher e: Yes Loca tion: [facility] odify By: davie rawls DateTime : [...] Prescrib sid Garcia e: No Locat ion: Marysol loaiza [facility] M odify By: davie rawls DateTime : 12/08/19 [...] Available Not Available Vitals Date Recorded Body height Body mass index (BMI) Body weight Systolic blood pressure Diastolic blood pressure Provider Name and Address Organization Details Last Updated DateTime 04/02/2024 166.37 cm 34.4 kg/m2 67977.4 g 134 mm[Hg] 81 mm[Hg] Shilpa David [facility] 4 12:45:34 Social History Question Answer Notes LastModified by Organizat ion Details LastModified Time Tobacco Smoking Status Former Smoker Courtney Linton null, [facility] 10/02/2023 11:23:00 What Is Your Level Of Alcohol Consumption? None Information not available 05/05/2020 If You Are , What Was Your Level Of Alcohol Consumption Prior To ? Occasional [email or web address] Information not available 02/11/2024 Are You Blind [...] Or The Highest Degree You Have Received? [id number] Information not available 07/23/2022 What Is Your Occupation? None Information not available 10/02/2023 Are There Any Guns Present In Your Home? No Information not available 07/23/2022 What Was The Date Of Your Most Recent Tobacco Screening? 04/09/2024 Information not available 04/09/2024 How Many Children [...] Anxious, Or Unable To Sleep At Night)? [id number] [email or web address] Information not available 02/11/2024 Do You Use [...] 03/19 10:27:39 Sister Disorder of thyroid gland [email or web address] Not available 03/19 10:27:39 Sister Mental disorder [email or web address] Not available 03/19 10:27:39 Medical History Condition [...] SNOMED-CT Code Diagnosis ICD10 Code Diagnosis Note [id number] Elin George CNM [place] [address] [address] 03/19/2024 09:47:04 03/19/2024 10:57:10 Gestation period, 35 weeks [id number] Z3A.35 continue vitamin [id number] Yeimi Cornejo [place] [address] [place] [address] 03/25/2024 09:19:37 03/25/2024 10:20:32 Medical examination for suspected condition [id number] Z03.74 O36.83[address] Z3A.[id number] [facility] [address] [place] [address] 03/26/2024 09:18:27 03/26/2024 10:23:04 Gestation period, 36 weeks 71205900 Z3A.36 continue vitamin [id number] Elin George, [facility] [address] [address] 04/02/2024 12:28:15 04/02/2024 13:22:42 Gastroesophageal reflux disease 222579174 K21.9 Gestation period, 37 weeks 21876599 Z3A.37 Health Concerns Section Related Observation LastModified by Organization Detai ls LastModified Time None Recorded Concern Status LastModified by Organization Details LastModified Time None Recorded Payers Encounter Date Sequence Insurance Name Policy Number Policy Medrano Covered Member ID Medrano Member ID Guarantor Name 04/02/2024 1 [facility] (MEDICAID HMO) [id number] Keyana Reardon [id number] Keyana Reardon OBGyn Episode Ob Episode Information Episode Created Date Number of Fetuses Patient Bloodtype Patient rh Status Prepregnancy Weight lbs Domestic Partner Domestic Partner Phone Father Name Customer Account Technician Status 10/09/19 24 1 O Negative 164 OPEN Fetus Data First Name Last Name Admitted to NICU Weight (g) Sex Living Outcome Pediatric Complications Fetus ID Race Codes Race Delivery Type [id number] Problems Problem Notes Future MFM Appts: 12/28 815a, 12/31 1130a LONG TERM Echo CG (WNL REPORT), 01/04 9a u/s only - no further appointments, unless clinically indicated Problem Name Start Date End Date Resolution Snomed Code Not e dysrhythmia 12/01/2023 [id number] M FM consult - PAC - 12/21 with MFM and LONG TERM on 12/31i improving and nearly resolved on [...] Weight in lbs Pre/Post Dialysis Refused Weight 164.97661748647 BP Diastolic BP Location Tested BP Systolic BP Type 74 L arm 118 sitting Fetus Heart Rate Present A 145 Fetus Movement Comments Flowsheet Date 11/03/2023 Mejia Score Blood Edema Fundus Height Fundus Units Glucose Ketones Leukocytes Nitrite Labor Signs Protein Cervic Dilation Cervic Effacement Cervic Station neg none Type Weight in lbs Pre/Post Dialysis Refused Weight 169.261662351680 BP Diastolic BP Location Tested BP Systolic [...] Type Weight in lbs Pre/Post Dialysis Refused 179.201510316905 BP Diastolic BP Location Tested BP Systolic BP Type 76 L arm 116 sitting Fetus Heart Rate Present A 145 Fetus Movement A Yes Comments Discussed with the patient t he identification of a dysrhythmia. to see [facility] Flowsheet Date 12/29/2023 Mejia Score Blood Edema Fundus Height Fundus Units Glucose Ketones Leukocytes Nitrite Labor Signs Protein Cervic Dilation Cervic Effacement Cervic Station 23 cm Type Weight in lbs Pre/Post Dialysis Refused 189.050893038710 BP Diastolic BP Location Tested BP Systolic [...] Type Weight in lbs Pre/Post Dialysis Refused 198.297679499154 BP Diastolic BP Location Tested BP Systolic [...] Type Weight in lbs Pre/Post Dialysis Refused 200.821116135316 BP Diastolic BP Location Tested BP Systolic [...] Weight in lbs Pre/Post Dialysis Refused Weight 205.620915563527 BP Diastolic BP Location Tested BP Systolic [...] Weight in lbs Pre/Post Dialysis Refused Weight 210.075728704386 BP Diastolic BP Location Tested BP Systolic [...] Type Weight in lbs Pre/Post Dialysis Refused 210.012128437966 BP Diastolic BP Location Tested BP Systolic [...] Weight in lbs Pre/Post Dialysis Refused Weight 210.642761430899 BP Diastolic BP Location Tested BP Systolic [...] Type Weight in lbs Pre/Post Dialysis Refused 212.76338777086 BP Diastolic BP Location Tested BP Systolic [...] Weight in lbs Pre/Post Dialysis Refused Weight 212.878005166058 BP Diastolic BP Location Tested BP Systolic [...]
--- OUTSIDE RECORDS SUMMARY | 2024-04-21 23:18 | XMS_ITS | Continuity of Care Document ---
Author Organization [facility]ISO VIEJO, [facility] Address [address] [place] [address] Care Team Providers Care Full Stack Php Developer Name Role Phone TOSIN CONTEY Primary Care Provider Assessment Encounter Date Assessment Date Assessment LastModified by Organization Details LastModified Time 03/26/2024 03/26/2024 Patient is _36__weeks . Discussed plan. Not available 03/26/2024 10:15:18 Plan of Treatment Reminders Order Date Submit Date Provider Last Modified By Organization Details Last Modified Time Details Appointments None record ed. Lab None record ed. Referral None record ed. Procedures None record ed. Surgeries None record ed. Imaging None record ed. Medication Orders None record ed. Patient TargetsNo targets recorded. Patient InstructionsNo instructions recorded. Reason for Referral None Reported. Results Created Date Observation Date Name Description Value Unit Range Abnormal Flag Note LastModifiedBy Organization Detail LastModifiedTime 10/09/19 24 10/09/2023 US, obste tric, nucha l trans lucen cy No observ ation record ed. [facility] [address], [place], [address], 10/09/2023 17:42:37 10/09/19 24 10/09/2023 US, obste tric, nucha l trans lucen cy No observ ation record ed. [email or web address] [address], [place], [address], 10/09/2023 22:44:04 12/01/19 24 12/01/2023 US, obste tric, 2nd or 3rd trime ster No observ ation record ed. [facility] [address], [place], [address], 12/01/2023 17:23:01 12/01/19 24 12/01/2023 US, obste tric, follo w-up No observ ation record ed. [address], [place], [address], 12/04/2023 16:44:09 12/01/19 24 12/01/2023 US, obste tric, 2nd or 3rd trime ster No observ ation record ed. [email or web address] [address], [place], [address], 12/02/2023 11:43:16 12/10/19 24 12/10/2023 US, obste tric No observ ation record ed. [email or web address] [facility] [address] [place] [address], [address], 12/11/2023 14:24:58 12/10/19 24 12/10/2023 US, obste tric, follo w-up No observ ation record ed. [email or web address] [facility] [address] [place] [address], [address], 12/11/2023 14:17:01 12/16/19 24 12/16/2023 US, obste tric, follo w-up No observ ation record ed. [email or web address] [facility] [address] [place] [address], [address], 12/16/2023 16:22:52 12/16/19 24 12/16/2023 US, obste tric, follo w-up No observ ation record ed. [email or web address] [facility] [address] [place] [address], [address], 12/19/2023 10:16:10 12/22/19 24 12/22/2023 US, obste tric, follo w-up No observ ation record ed. [email or web address] [facility] [address], [address], 12/22/2023 22:36:50 12/22/19 24 12/22/2023 US, obste tric, follo w-up No observ ation record ed. [email or web address] [facility] [address], [address], 12/25/2023 10:48:12 12/29/19 24 12/29/2023 US, obste tric, follo w-up No observ ation record ed. [email or web address] [facility] [address], [address], 12/29/2023 16:38:28 12/29/19 24 12/29/2023 US, obste tric, follo w-up No observ ation record ed. [facility] [address], [address], 01/02/2024 11:05:49 01/05/20 24 01/05/2024 US, obste tric, follo w-up No observ ation record ed. [email or web address] [facility] [address], [address], 01/21/2024 12:39:11 01/05/20 24 01/05/2024 US, obste tric, follo w-up No observ ation record ed. [facility] [address], [address], 01/08/2024 10:38:45 01/30/20 24 01/30/2024 non-s tress test No observ ation record ed. [address], [place], [address], 01/30/2024 10:55:25 02/10/2002/10/2024 US, obste tric, follo w-up No observ ation record ed. [email or web address] [place] [address], [place], [address], 02/10/2024 13:22:44 02/10/20 24 02/10/2024 US, obste tric, follo w-up No observ ation record ed. [email or web address] [address], [place], [address], 02/10/2024 12:09:27 03/25/20 24 03/25/2024 US, obste tric, follo w-up No observ ation record ed. [email or web address] [place] [address], [place], [address], 03/25/2024 12:20:45 03/25/20 24 03/25/2024 US, obste tric, follo w-up No observ ation record ed. [email or web address] [address], [place], [address], 03/25/2024 21:06:59 04/09/20 24 04/09/2024 non-s tress test No observ ation record ed. [email or web address] [place] [address], [place], [address], 04/09/2024 19:35:59 04/20/19 25 04/09/2024 non-s tress test No observ ation record ed. [email or web address] [place] [address], [place], [address], 04/20/2024 11:40:46 Result Notes None recorded. Problems Name Problem SNOMED Code Status Onset Date Resolution Date Notes Provider Name and Address Organization Details Recorded Time Educatio n Completed 201811/01/2020 Encounte r for other general counseli ng and advice on contrace ption;Re corded Elsewher e: No Locat ion: Marysol loaiza [facility] S ource: EHR Distribution Transformer Assembler owen: N Practi ce ID: 0001 Dez lable Time: 01:00:[address] [facility], [facility] 15:06:58 Acute vaginiti s [id number] Completed 201811/01/2020 Vaginiti s;Record ed Elsewher e: No Locat ion: Marysol loaiza [facility] S ource: EHR Distribution Transformer Assembler owen: N Practi ce ID: 0001 Dez lable Time: 01:00:[address] [facility], [facility] 15:06:[address] Concept Completed 201711/01/2020 Maternal care for oth abnormal ity and damage, unsp;Rec orded Elsewher e: No Locat ion: Gianna josse [facility] S ource: EHR Distribution Transformer Assembler owen: N Practi ce ID: 0001 Dez lable Time: 10:30:[address] [facility], [facility] 15:07:23 Gestatio n period, 29 weeks 07344664 Completed 201711/01/2020 29 weeks gestatio n of pregnanc y;Record ed Elsewher e: No Locat ion: Marysol loaiza [facility] S ource: EHR Distribution Transformer Assembler owen: N Practi ce ID: 0001 Dez lable Time: 10:15:00 AM Jeanie finn, [facility] 1 15:07:04 Antenata l screenin g for malforma tion Completed 201711/01/2020 Encounte r for antenata l screenin g for malforma tions;Re corded Elsewher e: No Locat ion: [facility] Source: EHR Distribution Transformer Assembler owen: N Practi ce ID: 0001 Dez lable Time: 10:30:00 AM Jeanie finn [facility] 1 15:06:56 Normal pregnanc y in multigra brad [id number] Completed 201811/01/2020 Encounte r for suprvsn of normal pregnanc y, third trimeste r;Record ed Elsewher e: No [facility] S ource: EHR Distribution Transformer Assembler owen: N Angela ce ID: 0001 Dez lable Time: 10:45:00 AM Jeanie Cornelius [facility] 15:07:13 Lochia finding Completed 201811/01/2020 Encounte r for routine postpart um follow-u p;Record ed Elsewher e: No Locat ion: [facility] S ource: EHR Distribution Transformer Assembler owen: N Angela ce ID: 0001 Dez lable Time: 08:30:00 AM Jeanie Cornelius [facility] 15:07:12 Placenta previa [id number] Completed 201711/01/2020 Placenta previa specifie d as w/o hemor, second trimeste r;Record ed Elsewher e: No Locat ion: [facility] S ource: EHR Distribution Transformer Assembler owen: N Angela ce ID: 0001 Dez lable Time: 08:30:[address] [facility] 15:07:[address] Concept Completed 201711/01/2020 Matern care for abnlt fetl hrt rate or rhym, 3rd tri, unsp;Rec orded Elsewher e: No Locat ion: [facility] S ource: EHR Distribution Transformer Assembler owen: N Wandati ce ID: 0001 Dez lable Time: 10:45:[address] [facility] 15:07:[address] Concept Completed 201711/01/2020 Encntr for loan review manager exam (general ) (routine ) w/o abn findings ;Practic e ID: 0001 Jeanie finn, [facility] 15:07:26 Pregnanc y detectio n examinat ion Completed 201711/01/2020 Encounte r for pregnanc y test, result positive ;Practic e ID: 0001 Jeanie finn, [facility] 15:07:18 Antenata l screenin g Completed 201711/01/2020 Encounte r for other specifie d antenata l screenin g;Practi ce ID: 0001 Jeanie finn, [facility] 15:06:55 Gestatio n period, 24 weeks 286511905 Completed 201711/01/2020 24 weeks gestatio n of pregnanc y;Practi ce ID: 0001 Jeanie finn, [facility] 15:06:59 Gestatio n period, 27 weeks 19360457 Completed 201711/01/2020 27 weeks gestatio n of pregnanc y;Practi ce ID: 0001 Jeanie finn, [facility] 15:07:02 Gestatio n period, 32 weeks 0730488 Completed 201711/01/2020 32 weeks gestatio n of pregnanc y;Practi ce ID: 0001 Jeanie finn, [facility] 15:07:05 Uterine size for dates discrepa ncy Completed 201811/01/2020 Uterine size-sunita e discrepa ncy, third trimeste r;Record ed Elsewher e: No Locat ion: Marysol loaiza [facility] S ource: EHR Distribution Transformer Assembler owen: N Practi ce ID: 0001 Dez lable Time: 09:15:00 AM Jeanie finn [facility] 15:07:31 Gestatio n period, 34 weeks 13779710 Completed 201811/01/2020 34 weeks gestatio n of pregnanc y;Record ed Elsewher e: No Locat ion: Marysol loaiza [facility] S ource: EHR Distribution Transformer Assembler owen: N Wandati ce ID: 0001 Dez lable Time: 10:45:[address] [facility], [facility] 1 15:07:07 Pelvic and perineal pain 892218476 Completed 201711/01/2020 Pelvic and perineal pain;Rec orded Elsewher e: No Locat ion: Marysol [facility] S ource: EHR Distribution Transformer Assembler owen: N Wandati ce ID: 0001 Dez lable Time: 11:00:00 AM Jeanie Cornelius [facility] 15:07:15 Gestatio n period, 25 weeks [id number] Completed 201711/01/2020 25 weeks gestatio n of pregnanc y;Record ed Elsewher e: No Locat ion: Marysol loaiza [facility] S ource: EHR Distribution Transformer Assembler owen: N Wandati ce ID: 0001 Dez lable Time: 08:30:[address] [facility], [facility] 1 15:07:01 Subacute and chronic vaginiti s 434359447 Completed 201811/01/2020 Subacute vaginiti s;Record ed Elsewher e: No Locat ion: Marysol loaiza [facility] S ource: EHR Distribution Transformer Assembler owen: N Wandati ce ID: 0001 Dez lable Time: 09:45:[address] [facility], [facility] 1 15:07:28 Gestatio n period, 37 weeks [id number] Completed 201811/01/2020 37 weeks gestatio n of pregnanc y;Record ed Elsewher e: No Locat ion: Marysol [facility] S ource: EHR Distribution Transformer Assembler owen: N Wandati ce ID: 0001 Dez lable Time: 09:15:00 AM Jeanie Cornelius null, [facility] 1 15:07:09 Rubella screenin g status [id number] Completed 201811/01/2020 Encounte r for antenata l screenin g, unspecif ied;Hansel rded Elsewher e: No Locat ion: Marysol [facility] S ource: EHR Distribution Transformer Assembler owen: N Practi ce ID: 0001 Dez lable Time: 10:30:00 AM Jeanie finn, [facility] 15:07:20 Term pregnanc y delivere d [id number] Completed 201811/01/2020 Encounte r for full-ter m uncompli cated delivery ;Practic e ID: 0001 Jeanie finn, [facility] 15:07:29 Single live [id number] Completed 201811/01/2020 Single live ;Pr actice ID: [address] [facility], [facility] 15:07:21 Gestatio n period, 39 weeks 48620415 Completed 201811/01/2020 39 weeks gestatio n of pregnanc y;Practi ce ID: [address] [facility], [facility] 15:07:10 Pregnanc y 03768845 Active [address] [facility], [facility] 4 17:18:12 dysrhyth evi 262936077 Active 2023 MFM consult - PAC - 12/21 with MFM and [facility] on 12/31i improvin g and nearly resolved on 12/28 MFM appt Gonzalo Torres MD [address], [place], [address], [facility] 4 11:15:07 Problem Notes None recorded. Procedures Surgical History Date Name Laterality Status Provider Name and Address Organization Details Recorded Time 07/24/19 23 Date of Last Pap Smear completed Courtney Linton [facility] 10/02/2023 11:20:13 12/27/19 21 Date of Last Mammogram completed [facility] 02/03/2024 14:43:16 04/14/19 07 extraction of wisdom tooth completed [facility] 02/03/2024 14:44:53 04/14/19 04 tonsillectomy completed [facility] 02/03/2024 14:44:47 Imaging Results None recorded. [...] Not available Not available Not available 09/10/2019 [id number] SNOM[address] [facility] 0 12:39:04 Medications Name Sig [...] Prescrib ed Elsewher e: No Locat ion: [facility] odify By: lucy haines DateTime : [...] Prescrib ed Elsewher e: Yes [facility] odify By: davie rawls DateTime [...] week 05/15 completed Prescrib sid Garcia e: Jen Locat ion: Marysol loaiza [facility] Florentino odify By: davie rawls DateTime : 12/08/19 [...] Address Organization Details Last Updated DateTime 03/26/2024 71159.39 77 g 34.4 kg/m2 166.37 cm 116 mm[Hg] 74 mm[Hg] Shilpa David [facility] 09:44:04 Social History Question Answer Notes LastModified by Organizat ion Details LastModified Time Tobacco Smoking Status Former Smoker Courtney finn, [facility] 10/02/2023 11:23:00 What Is Your Level Of Alcohol Consumption? None Information not available 05/05/2020 If You Are , What Was Your Level Of Alcohol Consumption Prior To ? Occasional [email or web address] Information not available 02/11/2024 Are You Blind [...] Or The Highest Degree You Have Received? [id number] Information not available 07/23/2022 What Is Your Occupation? None Information not available 10/02/2023 Are There Any Guns Present In Your Home? No Information not available 07/23/2022 What Was The Date Of Your Most Recent Tobacco Screening? 04/09/2024 [email or web address] Information not available 04/09/2024 How Many Children [...] Anxious, Or Unable To Sleep At Night)? [id number] [email or web address] Information not available 02/11/2024 Do You Use [...] 12:38:48 Maternal Aunt Malignant tumor of breast [email or web address] Not available 03/19 10:27:39 Sister Disorder of thyroid gland Not available 03/19 10:27:39 Sister Mental disorder [email or web address] Not available 03/19 10:27:39 Medical History Condition Response Allergies (Food, seasonal, environmental ) N Other N Breast Cancer N Drug/Latex Allergies/Reactions N Blood Transfusion N Lung Disease N Dermatologic Disorders N Defects or Inherited Disease N Breast [...] SNOMED-CT Code Diagnosis ICD10 Code Diagnosis Note [id number] [facility] [address] [place] [address] 02/27/2024 10:02:42 02/27/2024 10:41:38 Routine care 462095548 Z34.93 continue vitamin [id number] [facility] [address] [place] [address] 03/19/2024 09:47:04 03/19/2024 10:57:10 Gestation period, 35 weeks 74794582 Z3A.35 continue vitamin [id number] Yeimi Cornejo [place] [address] [place] [address] 03/25/2024 09:19:37 03/25/2024 10:20:32 Medical examination for suspected condition 135037753 Z03.74 O36.8330 Z3A.36 [id number] Elin George CNM [place] [address] [address] 03/26/2024 09:18:27 03/26/2024 10:23:04 Gestation period, 36 weeks 08345017 Z3A.36 continue vitamin Health Concerns Section Related Observation LastModified by Organization Detai ls LastModified Time None Recorded Concern Status LastModified by Organization Details LastModified Time None Recorded Payers Encounter Date Sequence Insurance Name Policy Number Policy Medrano Covered Member ID Medrano Member ID Guarantor Name 03/26/2024 1 RUBY [facility] (MEDICAID HMO) [id number] Keyana Reardon [id number] Keyana Reardon OBGyn Episode Ob Episode Information Episode Created Date Number of Fetuses Patient Bloodtype Patient rh Status Prepregnancy Weight lbs Domestic Partner Domestic Partner Phone Father Name [employer] Member Other Ranks Status 10/09/19 24 1 O Negative 164 OPEN Fetus Data First Name Last Name Admitted to NICU Weight (g) Sex Living Outcome Pediatric Complications Fetus ID Race Codes Race Delivery Type [id number] Problems Problem Notes Future MFM Appts: 12/28 815a, 12/31 1130a [facility] Echo CG (WNL REPORT), 01/04 9a u/s only - no further appointments, unless clinically indicated Problem Name Start Date End Date Resolution Snomed Code Not e dysrhythmia 12/01/2023 [id number] M FM consult - PAC - 12/21 [...] Weight in lbs Pre/Post Dialysis Refused Weight 164.26293581499 BP Diastolic BP Location Tested BP Systolic BP Type 74 L arm 118 sitting Fetus Heart Rate Present A 145 Fetus Movement Comments Flowsheet Date 11/03/2023 Mejia Score Blood Edema Fundus Height Fundus Units Glucose Ketones Leukocytes Nitrite Labor Signs Protein Cervic Dilation Cervic Effacement Cervic Station neg none Type Weight in lbs Pre/Post Dialysis Refused Weight 169.575670957872 BP Diastolic BP Location Tested BP Systolic [...] Type Weight in lbs Pre/Post Dialysis Refused 179.950715987619 BP Diastolic BP Location Tested BP Systolic BP Type 76 L arm 116 sitting Fetus Heart Rate Present A 145 Fetus Movement A Yes Comments Discussed with the patient t he identification of a dysrhythmia. to see [facility] Flowsheet Date 12/29/2023 Mejia Score Blood Edema Fundus Height Fundus Units Glucose Ketones Leukocytes Nitrite Labor Signs Protein Cervic Dilation Cervic Effacement Cervic Station 23 cm Type Weight in lbs Pre/Post Dialysis Refused 189.051845061524 BP Diastolic BP Location Tested BP Systolic [...] Type Weight in lbs Pre/Post Dialysis Refused 198.868780941798 BP Diastolic BP Location Tested BP Systolic [...] Type Weight in lbs Pre/Post Dialysis Refused 200.448361850925 BP Diastolic BP Location Tested BP Systolic [...] Weight in lbs Pre/Post Dialysis Refused Weight 205.010932050362 BP Diastolic BP Location Tested BP Systolic [...] Weight in lbs Pre/Post Dialysis Refused Weight 210.642109943421 BP Diastolic BP Location Tested BP Systolic [...] Type Weight in lbs Pre/Post Dialysis Refused 210.974755766018 BP Diastolic BP Location Tested BP Systolic [...] Weight in lbs Pre/Post Dialysis Refused Weight 210.005054269061 BP Diastolic BP Location Tested BP Systolic [...] Type Weight in lbs Pre/Post Dialysis Refused 212.65491603863 BP Diastolic BP Location Tested BP Systolic [...] Weight in lbs Pre/Post Dialysis Refused Weight 212.025628287449 BP Diastolic BP Location Tested BP Systolic [...]
--- OUTSIDE RECORDS SUMMARY | 2024-04-21 23:18 | XMS_ITS | Continuity of Care Document ---
Author Organization [facility] [place] Address [address] [place] [address] Care Team Providers Care Electrical Continuity Tester Name Role Phone TOSIN CONTEY Primary Care Provider [phone] Assessment No assessment recorded. Plan of Treatment Reminders Order Date Submit Date Provider Last Modified By Organization Details Last Modified Time Details Appointments None record ed. Lab None record ed. Referral None record ed. Procedures None record ed. Surgeries None record ed. Imaging US, obstet brayan, follow -up 024 03/25/20 24 [email or web address] El[facility], [address], [address], [place], [address], 20:39:40 Medication Orders None record ed. Patient TargetsNo targets recorded. Patient InstructionsNo instructions recorded. Reason for Referral None Reported. Results Created Date Observation Date Name Description Value Unit Range Abnormal Flag Note LastModifiedBy Organization Detail LastModifiedTime 10/09/19 24 10/09/2023 US, obste tric, nucha l trans lucen cy No observ ation [facility] ed[email or web address] [address], [place], [address], 10/09/2023 17:42:37 10/09/19 24 10/09/2023 US, obste tric, nucha l trans lucen cy No observ ation record ed. [email or web address] [address], [place], [address], 10/09/2023 22:44:04 12/01/19 24 12/01/2023 US, obste tric, 2nd or 3rd trime ster No observ ation record ed. [facility] [place] [address], [place], [address], 12/01/2023 17:23:01 12/01/19 24 12/01/2023 US, obste tric, follo w-up No observ ation record ed. [address], [place], [address], 12/04/2023 16:44:09 12/01/19 24 12/01/2023 US, obste tric, 2nd or 3rd trime ster No observ ation record ed. [email or web address] [address], [place], [address], 12/02/2023 11:43:16 12/10/19 24 12/10/2023 US, obste tric No observ ation record ed. [email or web address] [facility] [address] [place] [address], [address], 12/11/2023 14:24:58 12/10/19 24 12/10/2023 US, obste tric, follo w-up No observ ation record ed. [email or web address] [facility] [address] [place] [address], [address], 12/11/2023 14:17:01 12/16/19 24 12/16/2023 US, obste tric, follo w-up No observ ation record ed. [email or web address] [facility] [address], [address], 12/16/2023 16:22:52 12/16/19 24 12/16/2023 US, obste tric, follo w-up No observ ation record ed. [email or web address] [facility] [address], [address], 12/19/2023 10:16:10 12/22/19 24 12/22/2023 US, obste tric, follo w-up No observ ation record ed. [email or web address] [facility] [address], [address], 12/22/2023 22:36:50 12/22/19 24 12/22/2023 US, obste tric, follo w-up No observ ation record ed. [email or web address] [facility] [address], [address], 12/25/2023 10:48:12 12/29/19 24 12/29/2023 US, obste tric, follo w-up No observ ation record ed. [email or web address] [facility] [address], [address], 12/29/2023 16:38:28 12/29/19 24 12/29/2023 US, obste tric, follo w-up No observ ation record ed. [facility] [address], [address], 01/02/2024 11:05:49 01/05/20 24 01/05/2024 US, obste tric, follo w-up No observ ation record ed. [email or web address] [facility] [address], [address], 01/21/2024 12:39:11 01/05/20 24 01/05/2024 US, obste tric, follo w-up No observ ation record ed. [facility] [address], [address], 01/08/2024 10:38:45 01/30/20 24 01/30/2024 non-s tress test No observ ation record ed. [facility] [address], [place], [address], 01/30/2024 10:55:25 02/10/20 24 02/10/2024 US, obste tric, follo w-up No observ ation record ed. [email or web address] [facility] [address], [place], [address], 02/10/2024 13:22:44 02/10/20 24 02/10/2024 US, obste tric, follo w-up No observ ation record ed. [email or web address] [address], [place], [address], 02/10/2024 12:09:27 03/25/20 24 03/25/2024 US, obste tric, follo w-up No observ ation record ed. [email or web address] [facility] [address], [place], [address], 03/25/2024 12:20:45 03/25/20 24 03/25/2024 US, obste tric, follo w-up No observ ation record ed. [email or web address] [address], [place], [address], 03/25/2024 21:06:59 04/09/20 24 04/09/2024 non-s tress test No observ ation record ed. [email or web address] [facility] [address], [place], [address], 04/09/2024 19:35:59 04/20/19 25 04/09/2024 non-s tress test No observ ation record ed. [email or web address] [facility] [address], [place], [address], 04/20/2024 11:40:46 Result Notes None recorded. Problems Name Problem SNOMED Code Status Onset Date Resolution Date Notes Provider Name and Address Organization Details Recorded Time Educatio n Completed 201811/01/2020 Encounte r for other general counseli ng and advice on contrace ption;Re corded Elsewher e: No Locat ion: Marysol loaiza [facility] S ource: EHR [employer] owen: N Practi ce ID: 0001 Dez lable Time: 01:00:00 PM Jeanie Cornelius [facility] 1 15:06:58 Acute vaginiti s [id number] Completed 201811/01/2020 Vaginiti s;Record ed Elsewher e: No Locat ion: [facility] S ource: EHR [employer] owen: N Practi ce ID: 0001 Dez lable Time: 01:00:00 PM Jeanie Cornelius [facility] 15:06:[address] Concept Completed 201711/01/2020 Maternal care for oth abnormal ity and damage, unsp;Rec orded Elsewher e: No Locat ion: [facility] S ource: E[employer] owen: N Practi ce ID: 0001 Dez lable Time: 10:30:00 AM Jeanie Cornelius [facility] 15:07:23 Gestatio n period, 29 weeks [id number] Completed 201711/01/2020 29 weeks gestatio n of pregnanc y;Record ed Elsewher e: No [facility]at ion[facility] S ource: EHR [employer] owen: N Practi ce ID: 0001 Dez lable Time: 10:15:00 AM Jeanie Cornelius [facility] 15:07:04 Antenata l screenin g for malforma tion Completed 201711/01/2020 Encounte r for antenata l screenin g for malforma tions;Re corded Elsewher e: No Locat ion: [facility] Source: EHR [employer] owen: N Practi ce ID: 0001 Dez lable Time: 10:30:00 AM Jeanie Cornelius [facility] 1 15:06:56 Normal pregnanc y in multigra brad [id number] Completed 201811/01/2020 Encounte r for suprvsn of normal pregnanc y, third trimeste r;Record ed Elsewher e: No Locat ion: [facility] S ource: EHR [employer] owen: N Angela ce ID: 0001 Dez lable Time: 10:45:00 AM Jeanie Cornelius [facility] 1 15:07:13 Lochia finding Completed 201811/01/2020 Encounte r for routine postpart um follow-u p;Record ed Elsewher e: No Locat ion: [facility] S ource: EHR [employer] owen: Lorenzo Miller ce ID: 0001 Dez lable Time: 08:30:00 AM Jeanie Cornelius [facility] 15:07:12 Placenta previa [id number] Completed 201711/01/2020 Placenta previa specifie d as w/o hemor, second trimeste r;Record ed Elsewher e: No Locat ion: [facility] S ource: EHR [employer] owen: Lorenzo Miller ce ID: 0001 Dez lable Time: 08:30:00 AM Jeanie Cornelius [facility] 15:07:[address] Concept Completed 201711/01/2020 Matern care for abnlt fetl hrt rate or rhym, 3rd tri, unsp;Rec orded Elsewher e: No Locat ion: [facility] S ource: EHR [employer] owen: Lorenzo Miller ce ID: 0001 Dez lable Time: 10:45:00 AM Jeanie Cornelius [facility] 15:07:[address] Concept Completed 201711/01/2020 Encntr for eddy current inspector exam (general ) (routine ) w/o abn findings ;Practic e ID: 0001 Jeanie finn, [facility] 15:07:26 Pregnanc y detectio n examinat ion Completed 201711/01/2020 Encounte r for pregnanc y test, result positive ;Practic e ID: 0001 Jeanie finn, [facility] 15:07:18 Antenata l screenin g Completed 201711/01/2020 Encounte r for other specifie d antenata l screenin g;Practi ce ID: 0001 Jeanie finn, [facility] 15:06:55 Gestatio n period, 24 weeks [id number] Completed 201711/01/2020 24 weeks gestatio n of pregnanc y;Practi ce ID: 0001 Jeanie finn, [facility] 15:06:59 Gestatio n period, 27 weeks [id number] Completed 201711/01/2020 27 weeks gestatio n of pregnanc y;Practi ce ID: 0001 Jeanie finn, [facility] 15:07:02 Gestatio n period, 32 weeks [id number] Completed 201711/01/2020 32 weeks gestatio n of pregnanc y;Practi ce ID: 0001 Jeanie finn, [facility] 15:07:05 Uterine size for dates discrepa ncy Completed 201811/01/2020 Uterine size-sunita e discrepa ncy, third trimeste r;Record ed Elsewher e: No Locat ion: [facility]sol loaiza [facility] S ource: EHR [employer] owen: N Practi ce ID: 0001 Dez lable Time: 09:15:00 AM Jeanie finn, [facility] 07/21/202 1 15:07:31 Gestatio n period, 34 weeks [id number] Completed 201811/01/2020 34 weeks gestatio n of pregnanc y;Record ed Elsewher e: No Locat ion: [facility]sol loaiza [facility] S ource: EHR [employer] owen: N Practi ce ID: 0001 Dez lable Time: 10:45:00 AM Jeanie Cornelius [facility] 15:07:07 Pelvic and perineal pain [id number] Completed 201711/01/2020 Pelvic and perineal pain;Rec orded Elsewher e: No Locat ion: [facility] loaiza [facility] ID: 0001 Dez lable Time: 11:00:00 AM Jeanie Cornelius [facility] 15:07:15 Gestatio n period, 25 weeks [id number] Completed 201711/01/2020 25 weeks gestatio n of pregnanc y;Record ed Elsewher e: No Locat ion: Marysol josse [facility] S ource: EHR [employer] owen: N Practi ce ID: 0001 Dez lable Time: 08:30:00 AM Jeanie Cornelius [facility] 15:07:01 Subacute and chronic vaginiti s [id number] Completed 201811/01/2020 Subacute vaginiti s;Record ed Elsewher e: No Locat ion: Marysol josse [facility] S ource: EHR [employer] owen: N Practi ce ID: 0001 Dez lable Time: 09:45:00 AM Jeanie Cornelius [facility] 15:07:28 Gestatio n period, 37 weeks [id number] Completed 201811/01/2020 37 weeks gestatio n of pregnanc y;Record ed Elsewher e: No Locat ion: Marysol loaiza [facility] S ource: EHR [employer] owen: N Practi ce ID: 0001 Dez lable Time: 09:15:00 AM Jeanie finn, [facility] 1 15:07:09 Rubella screenin g status [id number] Completed 201811/01/2020 Encounte r for antenata l screenin g, unspecif ied;Hansel rded Elsewher e: No Locat ion: [facility] S ource: EHR [employer] owen: N Practi ce ID: 0001 Dez lable Time: 10:30:00 AM Jeanie finn, [facility] 1 15:07:20 Term pregnanc y delivere d [id number] Completed 201811/01/2020 Encounte r for full-ter m uncompli cated delivery ;Practic e ID: 0001 Jeanie finn, [facility] 15:07:29 Single live [id number] Completed 201811/01/2020 Single live ;Pr actice ID: 0001 Jeanie Cornelius [facility], [facility] 15:07:21 Gestatio n period, 39 weeks [id number] Completed 201811/01/2020 39 weeks gestatio n of pregnanc y;Practi ce ID: 0001 Jeanie finn, [facility] 15:07:10 Pregnanc y [id number] Active 2023 Courtney Linton null, [facility] 4 17:18:12 dysrhyth evi 462990873 Active 2023 MFM consult - PAC - 12/21 with MFM and [facility] on 12/31i jose g and nearly resolved on 12/28 MFM appt Gonzalo Torres MD [address], [place], [address], [facility] 4 11:15:07 Problem Notes None recorded. Procedures Surgical History Date Name Laterality Status Provider Name and Address Organization Details Recorded Time 07/24/19 23 Date of Last Pap Smear completed Courtney Linton [facility] 10/02/2023 11:20:13 12/27/19 21 Date [facility] 14:43:16 04/14/19 07 extraction of wisdom tooth completed [facility] 02/03/2024 14:44:53 04/14/19 04 tonsillectomy completed [facility] 02/03/2024 14:44:47 Imaging Results Imaging Date Name Status LastModified by Organiz ation Details LastModified Time 03/25/2024 US, obstetric, follow-up completed [email or web address] [facility] [address], [place], [address], 03/25/2024 12:20:45 03/25/2024 US, obstetric, follow-up completed [email or web address] [address], [place], [address], 03/25/2024 21:06:59 Procedure Notes None recorded. Medical Equipment None Reported. Allergies Allergen ID Allergen Name Allergen Category Reaction Reaction Severity Criticality Documentation Date Start Date Code Code System Note Provider Name and Address Organization Details Recorded Time 783 Substance with sulfonami de structure and antibacte rial mechanism of action (substanc e) medicatio n Not available Not available Not available 09/10/2019 72308 8003 SNOMED Radha Ban finn, [facility] 0 12:39:04 Medications Name Sig [...] Prescrib ed Elsewher e: No Locat ion: [facility] odify By: lucy haines DateTime : 01/20/20 [...] Prescrib ed Elsewher e: Yes Loca tion: [facility] odify By: davie rawls DateTime [...] Prescrib sid Garcia e: No Locat ion: [facility] M odify By: davie rawls DateTime [...] Not Available Not Available Not Available Vitals None Recorded Social History Question Answer Notes LastModified by Organizat ion Details LastModified Time Tobacco Smoking Status Former Smoker Courtney Linton null, [facility] 10/02/2023 11:23:00 What Is Your Level Of Alcohol Consumption? None Information not available 05/05/2020 If You Are , What Was Your Level Of Alcohol Consumption Prior To ? Occasional [email or web address] Information not available 02/11/2024 Are You Blind [...] Or The Highest Degree You Have Received? [id number] Information not available 07/23/2022 What Is Your Occupation? None Information not available 10/02/2023 Are There Any Guns Present In Your Home? No Information not available 07/23/2022 What Was The Date Of Your Most Recent Tobacco Screening? 04/09/2024 [email or web address] Information not available 04/09/2024 How Many Children [...] Anxious, Or Unable To Sleep At Night)? [id number] [email or web address] Information not available 02/11/2024 Do You Use [...] 12:38:48 Maternal Aunt Malignant tumor of breast [email or web address] Not available 03/19 10:27:39 Sister Disorder of thyroid gland [email or web address] Not available 03/19 10:27:39 Sister Mental disorder [email or web address] Not available 03/19 10:27:39 Medical History Condition [...] N Arthritis N Polyps N Infertility N History of abnormal pap N Acid Reflux (GERD) N Cancer N Varicosities N Stroke N [...] SNOMED-CT Code Diagnosis ICD10 Code Diagnosis Note [id number] Elin eGorge CNM [facility] [address] [address] 02/27/2024 10:02:42 02/27/2024 10:41:38 Routine care [id number] Z34.93 continue vitamin [id number] Elin George CNM [facility] [address] [address] 03/19/2024 09:47:04 03/19/2024 10:57:10 Gestation period, 35 weeks 10441372 Z3A.35 continue vitamin 245368 Yeimi Cornejo [facility] [address] [address] 03/25/2024 09:19:37 03/25/2024 10:20:32 Medical examination for suspected condition 060142121 Z03.74 O36.8330 Z3A.36 Health Concerns Section Related Observation LastModified by Organization Detai ls LastModified Time None Recorded Concern Status LastModified by Organization Details LastModified Time None Recorded Payers Encounter Date Sequence Insurance Name Policy Number Policy Medrano Covered Member ID Medrano Member ID Guarantor Name 03/25/2024 1 [facility] (MEDICAID HMO) [id number] Keyana Reardon [id number] Keyana Reardon OBGyn Episode Ob Episode Information Episode Created Date Number of Fetuses Patient Bloodtype Patient rh Status Prepregnancy Weight lbs Domestic Partner Domestic Partner Phone Father Name Outside Sales Representative Status 10/09/19 24 1 O Negative 164 OPEN Fetus Data First Name Last Name Admitted to NICU Weight (g) Sex Living Outcome Pediatric Complications Fetus ID Race Codes Race Delivery Type [id number] Problems Problem Notes Future MFM Appts: 12/28 815a, 12/31 1130a [facility]URSING HOME Echo CG (WNL REPORT), 01/04 9a u/s only - no further appointments, unless clinically indicated Problem Name Start Date End Date Resolution Snomed Code Not e dysrhythmia 12/01/2023 [id number] M FM consult - PAC - 12/21 with MFM and [facility] HOME on 12/31i improving and nearly resolved [...] Weight in lbs Pre/Post Dialysis Refused Weight 164.64926155014 BP Diastolic BP Location Tested BP Systolic BP Type 74 L arm 118 sitting Fetus Heart Rate Present A 145 Fetus Movement Comments Flowsheet Date 11/03/2023 Mejia Score Blood Edema Fundus Height Fundus Units Glucose Ketones Leukocytes Nitrite Labor Signs Protein Cervic Dilation Cervic Effacement Cervic Station neg none Type Weight in lbs Pre/Post Dialysis Refused Weight 169.611983515202 BP Diastolic BP Location Tested BP Systolic [...] Type Weight in lbs Pre/Post Dialysis Refused 179.164965491859 BP Diastolic BP Location Tested BP Systolic BP Type 76 L arm 116 sitting Fetus Heart Rate Present A 145 Fetus Movement A Yes Comments Discussed with the patient t he identification of a dysrhythmia. to see [facility] Flowsheet Date 12/29/2023 Mejia Score Blood Edema Fundus Height Fundus Units Glucose Ketones Leukocytes Nitrite Labor Signs Protein Cervic Dilation Cervic Effacement Cervic Station 23 cm Type Weight in lbs Pre/Post Dialysis Refused 189.704623588416 BP Diastolic BP Location Tested BP Systolic [...] Type Weight in lbs Pre/Post Dialysis Refused 198.299296623210 BP Diastolic BP Location Tested BP Systolic [...] Type Weight in lbs Pre/Post Dialysis Refused 200.905041693956 BP Diastolic BP Location Tested BP Systolic [...] Weight in lbs Pre/Post Dialysis Refused Weight 205.313193732501 BP Diastolic BP Location Tested BP Systolic [...] Weight in lbs Pre/Post Dialysis Refused Weight 210.088338919000 BP Diastolic BP Location Tested BP Systolic [...] Type Weight in lbs Pre/Post Dialysis Refused 210.927058985526 BP Diastolic BP Location Tested BP Systolic [...] Weight in lbs Pre/Post Dialysis Refused Weight 210.900760399514 BP Diastolic BP Location Tested BP Systolic [...] Type Weight in lbs Pre/Post Dialysis Refused 212.31394850092 BP Diastolic BP Location Tested BP Systolic [...] Weight in lbs Pre/Post Dialysis Refused Weight 212.656542677844 BP Diastolic BP Location Tested BP Systolic [...]
--- OUTSIDE RECORDS SUMMARY | 2024-04-21 23:18 | XMS_ITS | Continuity of Care Document ---
Author Organization [facility] Address [address] [place] [address] Care Team Providers Care Classified Ad Taker Name Role Phone TIM CONTE Primary Care Provider [phone] Assessment Encounter Date Assessment Date Assessment LastModified by Organization Details LastModified Time 03/19/2024 03/19/2024 Patient is __35_weeks . Discussed plan. Not available 03/19/2024 10:43:18 Plan of Treatment Reminders Order Date Submit [...] [email or web address] [email or web address] No observ ation record ed. [facility] [address], [place], [address], 10/09/2023 17:42:37 10/09/19 24 10/09/2023 US, obste tric, nucha l trans lucen cy No observ ation record ed. [email or web address] [address], [place], [address], 10/09/2023 22:44:04 12/01/19 24 12/01/2023 US, obste tric, 2nd or 3rd trime ster No observ ation record ed. [facility] [address], [place], [address], 12/01/2023 17:23:01 12/01/19 24 12/01/2023 US, obste tric, follo w-up No observ ation record ed. [email or web address] [address], [place], [address], 12/04/2023 16:44:09 12/01/19 24 12/01/2023 US, obste tric, 2nd or 3rd trime ster No observ ation record ed. [email or web address] [address], [place], [address], 12/02/2023 11:43:16 12/10/19 24 12/10/2023 US, obste tric No observ ation record ed. [email or web address] [facility] [address] [place] [address], [address], 12/11/2023 14:24:58 12/10/19 24 12/10/2023 US, obste tric, follo w-up No observ ation record ed. [email or web address] [facility] [address] [place] [address], [address], 12/11/2023 14:17:01 12/16/19 24 12/16/2023 US, obste tric, follo w-up No observ ation record ed. [email or web address] [facility] [address] [place] [address], [address], 12/16/2023 16:22:52 12/16/19 24 12/16/2023 US, obste tric, follo w-up No observ ation record ed. [email or web address] [facility] [address] [place] [address], [address], 12/19/2023 10:16:10 12/22/19 24 12/22/2023 US, obste tric, follo w-up No observ ation record ed. [email or web address] [facility] [address], [address], 12/22/2023 22:36:50 12/22/19 24 12/22/2023 US, obste tric, follo w-up No observ ation record ed. [email or web address] [facility] [address], [address], 12/25/2023 10:48:12 12/29/19 24 12/29/2023 US, obste tric, follo w-up No observ ation record ed. [email or web address] [facility] [address], [address], 12/29/2023 16:38:28 12/29/19 24 12/29/2023 US, obste tric, follo w-up No observ ation record ed. [facility] [address], [address], 01/02/2024 11:05:49 01/05/20 24 01/05/2024 US, obste tric, follo w-up No observ ation record ed. [facility] [address], [address], 01/21/2024 12:39:11 01/05/20 24 01/05/2024 US, obste tric, follo w-up No observ ation record ed. [facility] [address], [address], 01/08/2024 10:38:45 01/30/20 24 01/30/2024 non-s tress test No observ ation record ed. [address], [place], [address], 01/30/2024 10:55:25 02/10/2002/10/2024 US, obste tric, follo w-up No observ ation record ed. [email or web address] [place] [address], [place], [address], 02/10/2024 13:22:44 02/10/20 24 02/10/2024 US, obste tric, follo w-up No observ ation record ed. [email or web address] [address], [place], [address], 02/10/2024 12:09:27 03/25/20 24 03/25/2024 US, obste tric, follo w-up No observ ation record ed. [email or web address] [place] [address], [place], [address], 03/25/2024 12:20:45 03/25/20 24 03/25/2024 US, obste tric, follo w-up No observ ation record ed. [email or web address] [address], [place], [address], 03/25/2024 21:06:59 04/09/20 24 04/09/2024 non-s tress test No observ ation record ed. [email or web address] [place] [address], [place], [address], 04/09/2024 19:35:59 04/20/19 25 04/09/2024 non-s tress test No observ ation record ed. [email or web address] [place] [address], [place], [address], 04/20/2024 11:40:46 Result Notes None recorded. Problems Name Problem SNOMED Code Status Onset Date Resolution Date Notes Provider Name and Address Organization Details Recorded Time Educatio n Completed 201811/01/2020 Encounte r for other general counseli ng and advice on contrace ption;Re corded Elsewher e: No Locat ion: Marysol loaiza [facility] S ource: EHR Crutcher Helper owen: N Practi ce ID: 0001 Dez lable Time: 01:00:00 PM Jeanie Cornelius [facility], [facility] 15:06:58 Acute vaginiti s 02010116 Completed 201811/01/2020 Vaginiti s;Record ed Elsewher e: No Locat ion: Marysol loaiza [facility] S ource: EHR Crutcher Helper owen: N Practi ce ID: 0001 Dez lable Time: 01:00:00 PM Jeanie Cornelius [facility], [facility] 15:06:[address] Concept Completed 201711/01/2020 Maternal care for oth abnormal ity and damage, unsp;Rec orded Elsewher e: No Locat ion: Gianna josse [facility] S ource: EHR Crutcher Helper owen: N Practi ce ID: 0001 Dez lable Time: 10:30:00 AM Jeanie Cornelius [facility], [facility] 15:07:23 Gestatio n period, 29 weeks [id number] Completed 201711/01/2020 29 weeks gestatio n of pregnanc y;Record ed Elsewher e: No Locat ion: Marysol loaiza [facility] S ource: EHR Crutcher Helper owen: N Practi ce ID: 0001 Dez lable Time: 10:15:00 AM Jeanie finn, [facility] 1 15:07:04 Antenata l screenin g for malforma tion Completed 201711/01/2020 Encounte r for antenata l screenin g for malforma tions;Re corded Elsewher e: No Locat ion: [facility] Source: EHR Crutcher Helper owen: N Practi ce ID: 0001 Dez lable Time: 10:30:00 AM Jeanie finn [facility] 1 15:06:56 Normal pregnanc y in multigra brad [id number] Completed 201811/01/2020 Encounte r for suprvsn of normal pregnanc y, third trimeste r;Record ed Elsewher e: No [facility] S ource: EHR Crutcher Helper owen: N Angela ce ID: 0001 Dez lable Time: 10:45:00 AM Jeanie Cornelius [facility] 15:07:13 Lochia finding Completed 201811/01/2020 Encounte r for routine postpart um follow-u p;Record ed Elsewher e: No Locat ion: [facility] S ource: EHR Crutcher Helper owen: N Angela ce ID: 0001 Dez lable Time: 08:30:00 AM Jeanie Cornelius [facility] 15:07:12 Placenta previa [id number] Completed 201711/01/2020 Placenta previa specifie d as w/o hemor, second trimeste r;Record ed Elsewher e: No Locat ion: [facility] S ource: EHR Crutcher Helper owen: N Angela ce ID: 0001 Dez lable Time: 08:30:00 AM Jeanie Cornelius [facility] 15:07:[address] Concept Completed 201711/01/2020 Matern care for abnlt fetl hrt rate or rhym, 3rd tri, unsp;Rec orded Elsewher e: No Locat ion: [facility] S ource: EHR Crutcher Helper owen: N Wandati ce ID: 0001 Dez lable Time: 10:45:00 AM Jeanie Cornelius [facility] 15:07:[address] Concept Completed 201711/01/2020 Encntr for professional model exam (general ) (routine ) w/o abn findings ;Practic e ID: 0001 Jeanie finn, [facility] 15:07:26 Pregnanc y detectio n examinat ion Completed 201711/01/2020 Encounte r for pregnanc y test, result positive ;Practic e ID: 0001 Jeanie finn, [facility] 15:07:18 Antenata l screenin g Completed 201711/01/2020 Encounte r for other specifie d antenata l screenin g;Practi ce ID: 0001 Jeanie finn, [facility] 15:06:55 Gestatio n period, 24 weeks [id number] Completed 201711/01/2020 24 weeks gestatio n of pregnanc y;Practi ce ID: 0001 Jeanie finn, [facility] 15:06:59 Gestatio n period, 27 weeks [id number] Completed 201711/01/2020 27 weeks gestatio n of pregnanc y;Practi ce ID: 0001 Jeanie finn, [facility] 15:07:02 Gestatio n period, 32 weeks [id number] Completed 201711/01/2020 32 weeks gestatio n of pregnanc y;Practi ce ID: 0001 Jeanie finn, [facility] 15:07:05 Uterine size for dates discrepa ncy Completed 201811/01/2020 Uterine size-sunita e discrepa ncy, third trimeste r;Record ed Elsewher e: No Locat ion: Marysol loaiza [facility] S ource: EHR Crutcher Helper owen: N Practi ce ID: 0001 Edz lable Time: 09:15:00 AM Jeanie finn [facility] 15:07:31 Gestatio n period, 34 weeks 07646214 Completed 201811/01/2020 34 weeks gestatio n of pregnanc y;Record ed Elsewher e: No Locat ion: Marysol loaiza [facility] S ource: EHR Crutcher Helper owen: N Wandati ce ID: 0001 Dez lable Time: 10:45:00 AM Jeanie Cornelius [facility], [facility] 1 15:07:07 Pelvic and perineal pain 736171773 Completed 201711/01/2020 Pelvic and perineal pain;Rec orded Elsewher e: No Locat ion: Marysol [facility] S ource: EHR Crutcher Helper owen: N Wandati ce ID: 0001 Dez lable Time: 11:00:00 AM Jeanie Cornelius [facility] 15:07:15 Gestatio n period, 25 weeks [id number] Completed 201711/01/2020 25 weeks gestatio n of pregnanc y;Record ed Elsewher e: No Locat ion: Marysol loaiza [facility] S ource: EHR Crutcher Helper owen: N Wandati ce ID: 0001 Dez lable Time: 08:30:00 AM Jeanie Cornelius [facility], [facility] 1 15:07:01 Subacute and chronic vaginiti s 837429772 Completed 201811/01/2020 Subacute vaginiti s;Record ed Elsewher e: No Locat ion: Marysol loaiza [facility] S ource: EHR Crutcher Helper owen: N Wandati ce ID: 0001 Dez lable Time: 09:45:00 AM Jeanie Cornelius [facility], [facility] 1 15:07:28 Gestatio n period, 37 weeks [id number] Completed 201811/01/2020 37 weeks gestatio n of pregnanc y;Record ed Elsewher e: No Locat ion: Marysol [facility] S ource: EHR Crutcher Helper owen: N Wandati ce ID: 0001 Dez lable Time: 09:15:00 AM Jeanie Cornelius null, [facility] 1 15:07:09 Rubella screenin g status [id number] Completed 201811/01/2020 Encounte r for antenata l screenin g, unspecif ied;Hansel rded Elsewher e: No Locat ion: Marysol [facility] S ource: EHR Crutcher Helper owen: N Practi ce ID: 0001 Dez lable Time: 10:30:00 AM Jeanie finn, [facility] 15:07:20 Term pregnanc y delivere d [id number] Completed 201811/01/2020 Encounte r for full-ter m uncompli cated delivery ;Practic e ID: 0001 Jeanie finn, [facility] 15:07:29 Single live [id number] Completed 201811/01/2020 Single live ;Pr actice ID: 0001 Jeanie Cornelius [facility], [facility] 15:07:21 Gestatio n period, 39 weeks [id number] Completed 201811/01/2020 39 weeks gestatio n of pregnanc y;Practi ce ID: 0001 Jeanie Cornelius [facility], [facility] 15:07:10 Pregnanc y 20488536 Active 2023 Courtney Linton [facility], [facility] 4 17:18:12 dysrhyth evi 220898047 Active 2023 MFM consult - PAC - 12/21 with MFM and FPC on 12/31i improvin g and nearly resolved on 12/28 MFM appt Gonzalo Torres MD [address], [place], [address], [facility] 4 11:15:07 Problem Notes None recorded. Procedures Surgical History Date Name Laterality Status Provider Name and Address Organization Details Recorded Time 07/24/19 23 Date of Last Pap Smear completed Courtney Linton [facility] 10/02/2023 11:20:13 12/27/19 21 Date of Last Mammogram completed [facility] 02/03/2024 14:43:16 04/14/19 07 extraction of wisdom tooth completed [facility] 02/03/2024 14:44:53 04/14/19 04 tonsillectomy completed [facility] 02/03/2024 14:44:47 Imaging Results None recorded. [...] Not available Not available Not available 09/10/2019 [id number] SNOMED Radha Cevallos [facility] 0 12:39:04 Medications Name Sig Start [...] Prescrib ed Elsewher e: No Locat ion: [facility] odify By: lucy haines DateTime : 01/20/20 [...] Prescrib ed Elsewher e: Yes [facility] odify By: davie rawls DateTime [...] Garcia e: Jen Locat ion: Marysol loaiza [facility] Florentino odify By: davie rawls DateTime : [...] and Address Organization Details Last Updated DateTime 03/19/2024 166.37 cm 34.4 kg/m2 54681.4 g 129 mm[Hg] 75 mm[Hg] Shilpa David [facility] 10:27:18 Social History Question Answer Notes LastModified by Organizat ion Details LastModified Time Tobacco Smoking Status Former Smoker Courtney finn, [facility] 10/02/2023 11:23:00 What Is Your Level Of Alcohol Consumption? None Information not available 05/05/2020 If You Are , What Was Your Level Of Alcohol Consumption Prior To ? Occasional [email or web address] Information not available 02/11/2024 Are You Blind [...] Or The Highest Degree You Have Received? [id number] Information not available 07/23/2022 What Is Your Occupation? None Information not available 10/02/2023 Are There Any Guns Present In Your Home? No Information not available 07/23/2022 What Was The Date Of Your Most Recent Tobacco Screening? 04/09/2024 [email or web address] Information not available 04/09/2024 How Many Children [...] Anxious, Or Unable To Sleep At Night)? [id number] [email or web address] Information not available 02/11/2024 Do You Use [...] 12:38:48 Maternal Aunt Malignant tumor of breast [email or web address] Not available 03/19 10:27:39 Sister Disorder of thyroid gland Not available 03/19 10:27:39 Sister Mental disorder [email or web address] Not available 03/19 10:27:39 Medical History Condition Response Allergies (Food, seasonal, environmental ) N Other N Breast Cancer N Drug/Latex Allergies/Reactions N Blood Transfusion N Dermatologic Disorders N Lung Disease N [...] SNOMED-CT Code Diagnosis ICD10 Code Diagnosis Note [id number] [facility] [address],[facility] [address] 02/27/2024 10:02:42 02/27/2024 10:41:38 Routine care [id number] Z34.93 continue vitamin [id number] Elin George CNM [place] [address],[facility] [address] 03/19/2024 09:47:04 03/19/2024 10:57:10 Gestation period, 35 weeks [id number] Z3A.35 continue vitamin Health Concerns Section Related Observation LastModified by Organization Detai ls LastModified Time None Recorded Concern Status LastModified by Organization Details LastModified Time None Recorded Payers Encounter Date Sequence Insurance Name Policy Number Policy Medrano Covered Member ID Medrano Member ID Guarantor Name 03/19/2024 1 [facility] (MEDICAID HMO) [id number] Keyana Reardon [id number] Keyana Reardon OBGyn Episode Ob Episode Information Episode Created Date Number of Fetuses Patient Bloodtype Patient rh Status Prepregnancy Weight lbs Domestic Partner Domestic Partner Phone Father Name Regulatory Affairs Assistant Status 10/09/19 24 1 O Negative 164 OPEN Fetus Data First Name Last Name Admitted to NICU Weight (g) Sex Living Outcome Pediatric Complications Fetus ID Race Codes Race Delivery Type [id number] Problems Problem Notes Future MFM Appts: 12/28 815a, 12/31 1130a FPC Echo CG (WNL REPORT), 01/04 9a u/s only - no further appointments, unless clinically indicated Problem Name Start Date End Date Resolution Snomed Code Not e dysrhythmia 12/01/2023 [id number] M FM consult - PAC - 12/21 with MFM and FPC on 12/31i improving and nearly resolved on [...] Weight in lbs Pre/Post Dialysis Refused Weight 164.21616757882 BP Diastolic BP Location Tested BP Systolic BP Type 74 L arm 118 sitting Fetus Heart Rate Present A 145 Fetus Movement Comments Flowsheet Date 11/03/2023 Mejia Score Blood Edema Fundus Height Fundus Units Glucose Ketones Leukocytes Nitrite Labor Signs Protein Cervic Dilation Cervic Effacement Cervic Station neg none Type Weight in lbs Pre/Post Dialysis Refused Weight 169.918553113765 BP Diastolic BP Location Tested BP Systolic [...] Type Weight in lbs Pre/Post Dialysis Refused 179.799379925721 BP Diastolic BP Location Tested BP Systolic BP Type 76 L arm 116 sitting Fetus Heart Rate Present A 145 Fetus Movement A Yes Comments Discussed with the patient t he identification of a dysrhythmia. to see [facility] Flowsheet Date 12/29/2023 Mejia Score Blood Edema Fundus Height Fundus Units Glucose Ketones Leukocytes Nitrite Labor Signs Protein Cervic Dilation Cervic Effacement Cervic Station 23 cm Type Weight in lbs Pre/Post Dialysis Refused 189.015562503388 BP Diastolic BP Location Tested BP Systolic [...] Type Weight in lbs Pre/Post Dialysis Refused 198.963072937707 BP Diastolic BP Location Tested BP Systolic [...] Type Weight in lbs Pre/Post Dialysis Refused 200.847670378778 BP Diastolic BP Location Tested BP Systolic [...] Weight in lbs Pre/Post Dialysis Refused Weight 205.362626190535 BP Diastolic BP Location Tested BP Systolic [...] Weight in lbs Pre/Post Dialysis Refused Weight 210.970480078163 BP Diastolic BP Location Tested BP Systolic [...] Type Weight in lbs Pre/Post Dialysis Refused 210.088763004609 BP Diastolic BP Location Tested BP Systolic [...] Weight in lbs Pre/Post Dialysis Refused Weight 210.387784842234 BP Diastolic BP Location Tested BP Systolic [...] Type Weight in lbs Pre/Post Dialysis Refused 212.14232837477 BP Diastolic BP Location Tested BP Systolic [...] Weight in lbs Pre/Post Dialysis Refused Weight 212.634158218223 BP Diastolic BP Location Tested BP Systolic [...]
--- OUTSIDE RECORDS SUMMARY | 2024-04-21 23:19 | XMS_ITS | Referral Summary ---
Author Organization [facility] Address [address] 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 This disclosure is being madepursuant to the Care Everywhere program and may not contain all information available regarding this patient. Last updated 18.[facility] Allergies Active Allergy Reactions Criticality Noted Date Comments Sulfa Drugs Unknown 12/02/2023 Medications * Be aware that medications may not be up to date on this document. Alwaysverify current medications with the patient. Medication Sig Dispensed Refills Start Date End Date Status Vit-Fe Fumarate-FA ( vitamin) 28-0.8 MG tablet Take 1 (one) tablet by mouth once daily Active Active Problems Problem Noted Date Diagnosed Date arrhythmia affecting , antepartum 12/16/2023 Estimated Date of Delivery Comme nts Yes 04/20/2024 Based on Ultraso und Social History Tobacco Use Types Packs/Day Years Used Date Smoking Tobacco: Former Cigarettes Q uit: 2020 Smokeless Tobacco: Never Alcohol Use Standard Drinks/Week Comments Not Currently 0 (1 standard drink = 0.6 oz pur e alcohol) Estimated Date of Delivery Comme nts Yes 04/20/2024 Based on Ultraso und Sex and Gender Information Value Date Recorded Sex Assigned at Not on file Gender Identity Not on file Sexual Orientation Not on file Last Filed Vital Signs Vital Sign Reading Time Taken Comments Blood Pressure 124/80 12/10/2023 9:28 AM CDT Pulse 72 12/10/2023 9:28 AM CDT Temperature - - Respiratory Rate - - Oxygen Saturation - - Inhaled Oxygen Concentration - - Weight 81 kg (178 lb 9.6 oz) 12/10/2023 9:28 AM CDT Height 166.4 cm (5' 5.5 ) 12/10/2023 9:28 AM CDT Body Mass Index 29.27 12/10/2023 9:28 AM CDT Plan of Treatment Not on file Care Teams Rough And Truing Machine Operator Relationship Specialty Start Date End Date Tiffanie Robbins MD [address] [place] [address] PCP - General 11/29/20
--- OUTSIDE RECORDS SUMMARY | 2024-04-21 23:19 | XMS_ITS | Continuity of Care Document ---
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 Plan of Treatment Reminders Order Date Submit Date Provider Last Modified By Organization Details Last Modified Time Details Appointments None record ed. Lab None record ed. Referral None record ed. Procedures None record ed. Surgeries None record ed. Imaging US, obstet brayan, follow -up 024 02/10/20 24 [address], [address], [place], [address], 11:04:54 Medication Orders None record ed. Patient TargetsNo targets recorded. Patient InstructionsNo instructions recorded. Reason for Referral None Reported. Results Created Date Observation Date Name Description Value Unit Range Abnormal Flag Note LastModifiedBy Organization Detail LastModifiedTime 10/09/19 24 10/09/2023 US, obste tric, nucha l trans lucen cy No observ ation record ed. [facility] [address], [place], [address], 10/09/2023 17:42:37 10/09/19 24 10/09/2023 US, obste tric, nucha l trans lucen cy No observ ation record ed. [email or web address] [address], [place], [address], 10/09/2023 22:44:04 12/01/19 24 12/01/2023 US, obste tric, 2nd or 3rd trime ster No observ ation record ed. [facility] [address], [place], [address], 12/01/2023 17:23:01 12/01/19 24 12/01/2023 US, obste tric, follo w-up No observ ation record ed. [email or web address] [address], [place], [address], 12/04/2023 16:44:09 12/01/19 24 12/01/2023 US, obste tric, 2nd or 3rd trime ster No observ ation record ed. [address], [place], [address], 12/02/2023 11:43:16 12/10/19 24 12/10/2023 US, obste tric No observ ation record ed. [email or web address] [facility] [address], [address], 12/11/2023 14:24:58 12/10/19 24 12/10/2023 US, obste tric, follo w-up No observ ation record ed. [email or web address] [facility] [address], [address], 12/11/2023 14:17:01 12/16/19 24 12/16/2023 US, obste tric, follo w-up No observ ation record ed. [email or web address] [facility] [address], [address], 12/16/2023 16:22:52 12/16/19 24 12/16/2023 US, obste tric, follo w-up No observ ation record ed. [email or web address] [facility] [address], [address], 12/19/2023 10:16:10 12/22/19 24 12/22/2023 US, obste tric, follo w-up No observ ation record ed. [email or web address] [facility] [address], [address], 12/22/2023 22:36:50 12/22/19 24 12/22/2023 US, obste tric, follo w-up No observ ation record ed. [email or web address] [facility] [address], [address], 12/25/2023 10:48:12 12/29/19 24 12/29/2023 US, obste tric, follo w-up No observ ation record ed. [email or web address] [facility] [address], [address], 12/29/2023 16:38:28 12/29/19 24 12/29/2023 US, obste tric, follo w-up No observ ation record ed. [facility] [address], [address], 01/02/2024 11:05:49 01/05/20 24 01/05/2024 US, obste tric, follo w-up No observ ation record ed. [email or web address] [facility] [address], [address], 01/21/2024 12:39:11 01/05/20 24 01/05/2024 US, obste tric, follo w-up No observ ation record ed. [facility] [address], [address], 01/08/2024 10:38:45 01/30/20 24 01/30/2024 non-s tress test No observ ation record ed. [address] [address], [place], [address], 01/30/2024 10:55:25 02/10/2002/10/2024 US, obste tric, follo w-up No observ ation record ed. [email or web address] [facility] [address], [place], [address], 02/10/2024 13:22:44 02/10/20 24 02/10/2024 US, obste tric, follo w-up No observ ation record ed. [email or web address] [address], [place], [address], 02/10/2024 12:09:27 03/25/20 24 03/25/2024 US, obste tric, follo w-up No observ ation record ed. [email or web address] [address] [address], [place], [address], 03/25/2024 12:20:45 03/25/20 24 03/25/2024 US, obste tric, follo w-up No observ ation record ed. [email or web address] [address], [place], [address], 03/25/2024 21:06:59 04/09/20 24 04/09/2024 non-s tress test No observ ation record ed. [email or web address] [address] [address], [place], [address], 04/09/2024 19:35:59 04/20/19 25 04/09/2024 non-s tress test No observ ation record ed. [email or web address] [address] [address], [place], [address], 04/20/2024 11:40:46 Result Notes None recorded. Problems Name Problem SNOMED Code Status Onset Date Resolution Date Notes Provider Name and Address Organization Details Recorded Time Educatio n Completed 201811/01/2020 Encounte r for other general counseli ng and advice on contrace ption;Re corded Elsewher e: No Locat ion: [facility] S ource: EHR Engineering Mathematician owen: N Practi ce ID: 0001 Dez lable Time: 01:00:00 PM Jeanie Cornelius [facility] 1 15:06:58 Acute vaginiti s [id number] Completed 201811/01/2020 Vaginiti s;Record ed Elsewher e: No Locat ion: Gianna josse [facility] S ource: EHR Engineering Mathematician owen: N Practi ce ID: 0001 Dez lable Time: 01:00:00 PM Jeanie Cornelius [facility] 15:06:[address] Concept Completed 201711/01/2020 Maternal care for oth abnormal ity and damage, unsp;Rec orded Elsewher e: No Locat ion: [facility] S ource: EHR Engineering Mathematician owen: N Practi ce ID: 0001 Dez lable Time: 10:30:00 AM Jeanie Cornelius [facility] 15:07:23 Gestatio n period, 29 weeks [id number] Completed 201711/01/2020 29 weeks gestatio n of pregnanc y;Record ed Elsewher e: No Locat ion: [facility] S ource: EHR Engineering Mathematician owen: N Practi ce ID: 0001 Dez lable Time: 10:15:00 AM Jeanie Cornelius [facility] 15:07:04 Antenata l screenin g for malforma tion Completed 201711/01/2020 Encounte r for antenata l screenin g for malforma tions;Re corded Elsewher e: No Locat ion: [facility] Source: EHR Engineering Mathematician owen: N Practi ce ID: 0001 Dez lable Time: 10:30:00 AM Jeanie Cornelius [facility] 1 15:06:56 Normal pregnanc y in multigra brad [id number] Completed 201811/01/2020 Encounte r for suprvsn of normal pregnanc y, third trimeste r;Record ed Elsewher e: No Locat ion: [facility] S ource: EHR Engineering Mathematician owen: N Angela ce ID: 0001 Dez lable Time: 10:45:00 AM Jeanie Cornelius [facility] 1 15:07:13 Lochia finding Completed 201811/01/2020 Encounte r for routine postpart um follow-u p;Record ed Elsewher e: No [facility]: EHR Engineering Mathematician owen: Lorenzo Miller ce ID: 0001 Dez lable Time: 08:30:00 AM Jeanie Cornelius [facility] 15:07:12 Placenta previa [id number] Completed 201711/01/2020 Placenta previa specifie d as w/o hemor, second trimeste r;Record ed Elsewher e: No Locat ion: [facility] S ource: EHR Engineering Mathematician owen: Lorenzo Miller ce ID: 0001 Dez lable Time: 08:30:00 AM Jeanie Cornelius [facility] 15:07:[address] Concept Completed 201711/01/2020 Matern care for abnlt fetl hrt rate or rhym, 3rd tri, unsp;Rec orded Elsewher e: No Locat ion: [facility] S ource: EHR Engineering Mathematician owen: Lorenzo Miller ce ID: 0001 Dez lable Time: 10:45:00 AM Jeanie Cornelius [facility] 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 15:07:26 Pregnanc y detectio n examinat ion Completed 201711/01/2020 Encounte r for pregnanc y test, result positive ;Practic e ID: 0001 Jeanie finn, [facility] 15:07:18 Antenata l screenin g Completed 201711/01/2020 Encounte r for other specifie d antenata l screenin g;Practi ce ID: 0001 Jeanie finn [facility] 15:06:55 Gestatio n period, 24 weeks [id number] Completed 201711/01/2020 24 weeks gestatio n of pregnanc y;Practi ce ID: 0001 Jeanie finn, [facility] 15:06:59 Gestatio n period, 27 weeks [id number] Completed 201711/01/2020 27 weeks gestatio n of pregnanc y;Practi ce ID: 0001 Jeanie finn, [facility] 15:07:02 Gestatio n period, 32 weeks [id number] Completed 201711/01/2020 32 weeks gestatio n of pregnanc y;Practi ce ID: 0001 Jeanie finn, [facility] 15:07:05 Uterine size for dates discrepa ncy Completed 201811/01/2020 Uterine size-sunita e discrepa ncy, third trimeste r;Record ed Elsewher e: No Locat ion: [facility] S ource: EHR Engineering Mathematician owen: N Practi ce ID: 0001 Dez lable Time: 09:15:00 AM Jeanie finn [facility] 07/21/202 1 15:07:31 Gestatio n period, 34 weeks [id number] Completed 201811/01/2020 34 weeks gestatio n of pregnanc y;Record ed Elsewher e: No Locat ion: [facility] S ource: EHR Engineering Mathematician owen: N Wandati ce ID: 0001 Dez lable Time: 10:45:00 AM Jeanie Cornelius [facility] 15:07:07 Pelvic and perineal pain [id number] Completed 201711/01/2020 Pelvic and perineal pain;Rec orded Elsewher e: No Locat ion: [facility] S ource: EHR Engineering Mathematician owen: N Wandati ce ID: 0001 Dez lable Time: 11:00:00 AM Jeanie Cornelius [facility] 15:07:15 Gestatio n period, 25 weeks [id number] Completed 201711/01/2020 25 weeks gestatio n of pregnanc y;Record ed Elsewher e: No Locat ion: [facility] S ource: EHR Engineering Mathematician owen: N Wandati ce ID: 0001 Dez lable Time: 08:30:00 AM Jeanie Cornelius [facility] 15:07:01 Subacute and chronic vaginiti s [id number] Completed 201811/01/2020 Subacute vaginiti s;Record ed Elsewher e: No Locat ion: [facility] S ource: EHR Engineering Mathematician owen: N Practi ce ID: 0001 Dez lable Time: 09:45:00 AM Jeanie Cornelius [facility] 15:07:28 Gestatio n period, 37 weeks [id number] Completed 201811/01/2020 37 weeks gestatio n of pregnanc y;Record ed Elsewher e: No Locat ion: [facility] S ource: EHR Engineering Mathematician owen: N Practi ce ID: 0001 Dez lable Time: 09:15:00 AM Jeanie finn, [facility] 1 15:07:09 Rubella screenin g status [id number] Completed 201811/01/2020 Encounte r for antenata l screenin g, unspecif ied;Hansel rded Elsewher e: No Locat ion: Marysol [facility] S ource: EHR Engineering Mathematician owen: N Practi ce ID: 0001 Dez lable Time: 10:30:00 AM Jeanie finn, [facility] 1 15:07:20 Term pregnanc y delivere d [id number] Completed 201811/01/2020 Encounte r for full-ter m uncompli cated delivery ;Practic e ID: 0001 Jeanie finn, [facility] 15:07:29 Single live [id number] Completed 201811/01/2020 Single live ;Pr actice ID: 0001 Jeanie finn, [facility] 1 15:07:21 Gestatio n period, 39 weeks [id number] Completed 201811/01/2020 39 weeks gestatio n of pregnanc y;Practi ce ID: 0001 Jeanie finn, [facility] 15:07:10 Pregnanc y 97929350 Active 2023 Corutney Linton null, [facility] 4 17:18:12 dysrhyth evi 390122785 Active 2023 MFM consult - PAC - 12/21 with MFM and CORRECTION on 12/31i jose g and nearly resolved on 12/28 MFM appt Gonzalo Torres MD [address], [place], [address], [facility] 4 11:15:07 Problem Notes None recorded. Procedures Surgical History Date Name Laterality Status Provider Name and Address Organization Details Recorded Time 07/24/19 23 Date of Last Pap Smear completed Courtney Linton [facility] 10/02/2023 11:20:13 12/27/19 21 Date of [facility] 14:43:16 04/14/19 07 extraction of wisdom tooth completed [facility] 02/03/2024 14:44:53 04/14/19 04 tonsillectomy completed [facility] 02/03/2024 14:44:47 Imaging Results Imaging Date Name Status LastModified by Organiz ation Details LastModified Time 02/10/2024 US, obstetric, follow-up completed [email or web address] [facility] [address], [place], [address], 02/10/2024 13:22:44 02/10/2024 US, obstetric, follow-up completed [email or web address] [address], [place], [address], 02/10/2024 12:09:27 Procedure Notes None recorded. Medical Equipment None Reported. Allergies Allergen ID Allergen Name Allergen Category Reaction Reaction Severity Criticality Documentation Date Start Date Code Code System Note Provider Name and Address Organization Details Recorded Time 783 Substance with sulfonami de structure and antibacte rial mechanism of action (substanc e) medicatio n Not available Not available Not available 09/10/2019 39496 8003 SNOMED Radha Ban finn, [facility] 0 12:39:04 Medications Name [...] Prescrib ed Elsewher e: No Locat ion: [facility] odify By: lucy haines DateTime : [...] Prescrib ed Elsewher e: Yes Loca tion: [facility] odify By: davie rawls DateTime : [...] Prescrib sid Garcia e: No Locat ion: [facility] odify By: davie rawls DateTime : [...] Tobacco Smoking Status Former Smoker Courtney Linton [facility] 10/02/2023 11:23:00 What Is Your Level Of Alcohol Consumption? None Information not available 05/05/2020 If You Are , What Was Your Level Of Alcohol Consumption Prior To ? Occasional [email or web address] Information not available 02/11/2024 Are You Blind [...] Or The Highest Degree You Have Received? [id number] Information not available 07/23/2022 What Is Your Occupation? None Information not available 10/02/2023 Are There Any Guns Present In Your Home? No Information not available 07/23/2022 What Was The Date Of Your Most Recent Tobacco Screening? 04/09/2024 [email or web address] Information not available 04/09/2024 How Many Children [...] Anxious, Or Unable To Sleep At Night)? [id number] Information not available 02/11/2024 Do You Use Any Illicit Or Recreational Drugs? No Information not available 07/23/2022 Do You Use Sunscreen Routinely? No Information not available 07/23/2022 How Many Years Have You Smoked Tobacco? 15 Information not available 05/05/2020 Have You Used IV Drugs? No Information not available 07/23/2022 Sex: Unknown Functional Status Question Answer Note LastModified by Tavern ion Details LastModified Time Are you able [...] 12:38:48 Maternal Aunt Malignant tumor of breast [email or web address] Not available 03/19 10:27:39 Sister Disorder of thyroid gland [email or web address] Not available 03/19 10:27:39 Sister Mental disorder [email or web address] Not available 03/19 10:27:39 Medical History Condition [...] SNOMED-CT Code Diagnosis ICD10 Code Diagnosis Note [id number] [facility] [address],[place] [address] 01/30/2024 09:35:53 01/30/2024 10:37:50 Gestation period, 28 weeks 01112295 Z3A.28 continue vitamin [id number] Jeanie Lackey [facility] [address],[place] [address] 01/30/2024 10:40:57 01/30/2024 10:56:45 bradycardia [id number] O36.[id number] [facility] [address],[facility] [place] [address] 02/10/2024 09:58:33 02/10/2024 10:44:30 Medical examination for suspected condition [id number] Z03.74 O36.8999 Z3A.30 Health Concerns Section Related Observation LastModified by Organization Detai ls LastModified Time None Recorded Concern Status LastModified by Organization Details LastModified Time None Recorded Payers Encounter Date Sequence Insurance Name Policy Number Policy Medrano Covered Member ID Medrano Member ID Guarantor Name 02/10/2024 1 [facility] (MEDICAID HMO) [id number] Keyana Reardon [id number] Keyanamary Reardon OBGyn Episode Ob Episode Information Episode Created Date Number of Fetuses Patient Bloodtype Patient rh Status Prepregnancy Weight lbs Domestic Partner Domestic Partner Phone Father Name Heavy Equipment Rental Associate Status 10/09/19 24 1 O Negative 164 OPEN Fetus Data First Name Last Name Admitted to NICU Weight (g) Sex Living Outcome Pediatric Complications Fetus ID Race Codes Race Delivery Type [id number] Problems Problem Notes Future MFM Appts: 12/28 815a, 12/31 1130a CORRECTION Echo CG (WNL REPORT), 01/04 9a u/s only - no further appointments, unless clinically indicated Problem Name Start Date End Date Resolution Snomed Code Not e dysrhythmia 12/01/2023 [id number] M FM consult - PAC - 12/21 with MFM and CORRECTION on 12/31i improving and nearly resolved on [...] Weight in lbs Pre/Post Dialysis Refused Weight 164.38080310324 BP Diastolic BP Location Tested BP Systolic BP Type 74 L arm 118 sitting Fetus Heart Rate Present A 145 Fetus Movement Comments Flowsheet Date 11/03/2023 Mejia Score Blood Edema Fundus Height Fundus Units Glucose Ketones Leukocytes Nitrite Labor Signs Protein Cervic Dilation Cervic Effacement Cervic Station neg none Type Weight in lbs Pre/Post Dialysis Refused Weight 169.792107768099 BP Diastolic BP Location Tested BP Systolic [...] Type Weight in lbs Pre/Post Dialysis Refused 179.294917341952 BP Diastolic BP Location Tested BP Systolic BP Type 76 L arm 116 sitting Fetus Heart Rate Present A 145 Fetus Movement A Yes Comments Discussed with the patient t he identification of a dysrhythmia. to see [facility] Flowsheet Date 12/29/2023 Mejia Score Blood Edema Fundus Height Fundus Units Glucose Ketones Leukocytes Nitrite Labor Signs Protein Cervic Dilation Cervic Effacement Cervic Station 23 cm Type Weight in lbs Pre/Post Dialysis Refused 189.827238846038 BP Diastolic BP Location Tested BP Systolic [...] Type Weight in lbs Pre/Post Dialysis Refused 198.426764092470 BP Diastolic BP Location Tested BP Systolic [...] Type Weight in lbs Pre/Post Dialysis Refused 200.617053811102 BP Diastolic BP Location Tested BP Systolic [...] Weight in lbs Pre/Post Dialysis Refused Weight 205.786713408921 BP Diastolic BP Location Tested BP Systolic [...] Weight in lbs Pre/Post Dialysis Refused Weight 210.901756493013 BP Diastolic BP Location Tested BP Systolic [...] Type Weight in lbs Pre/Post Dialysis Refused 210.784295550969 BP Diastolic BP Location Tested BP Systolic [...] Weight in lbs Pre/Post Dialysis Refused Weight 210.203269023079 BP Diastolic BP Location Tested BP Systolic [...] Type Weight in lbs Pre/Post Dialysis Refused 212.50897372811 BP Diastolic BP Location Tested BP Systolic [...] Weight in lbs Pre/Post Dialysis Refused Weight 212.722184438901 BP Diastolic BP Location Tested BP Systolic [...]
--- OUTSIDE RECORDS SUMMARY | 2024-04-21 23:19 | XMS_ITS | Continuity of Care Document ---
Author Organization [facility] Address [address] [place] [address] [place] [address] Care Team Providers Care Edge Stitcher Name Role Phone TOSIN CONTEY Primary Care Provider [phone] Assessment No assessment recorded. Plan of Treatment Reminders Order Date Submit Date Provider Last Modified By Organization Details Last Modified Time Details Appointments None record ed. Lab None record ed. Referral None record ed. Procedures None record ed. Surgeries None record ed. Imaging non-st ress test 024 01/30/[email or web address] [place], [place] [id number], [address], [place], [address], 10:56:45 Medication Orders None record ed. Patient TargetsNo targets recorded. Patient InstructionsNo instructions recorded. Reason for Referral None Reported. Results Created Date Observation Date Name Description Value Unit Range Abnormal Flag Note LastModifiedBy Organization Detail LastModifiedTime 10/09/19 24 10/09/2023 US, obste tric, nucha l trans lucen cy No observ ation record ed. [facility] [address], [place], [address], 10/09/2023 17:42:37 10/09/19 24 10/09/2023 US, obste tric, nucha l trans lucen cy No observ ation record ed. [email or web address] [address], [place], [address], 10/09/2023 22:44:04 08/19/20 24 12/01/2023 US, obste tric, 2nd or 3rd trime ster No observ ation record ed. [facility] [address], [place], [address], 12/01/2023 17:23:01 12/01/19 24 12/01/2023 US, obste tric, follo w-up No observ ation record ed. [email or web address] [address], [place], [address], 12/04/2023 16:44:09 12/01/19 24 12/01/2023 US, obste tric, 2nd or 3rd trime ster No observ ation record ed. [email or web address] [address], [place], [address], 12/02/2023 11:43:16 12/10/19 24 12/10/2023 US, obste tric No observ ation record ed. [email or web address] [facility] [address] [place] [address], [address], 12/11/2023 14:24:58 12/10/19 24 12/10/2023 US, obste tric, follo w-up No observ ation record ed. [email or web address] [facility] [address] [place] [address], [address], 12/11/2023 14:17:01 12/16/19 24 12/16/2023 US, obste tric, follo w-up No observ ation record ed. [email or web address] [facility] [address] [place] [address], [address], 12/16/2023 16:22:52 12/16/19 24 12/16/2023 US, obste tric, follo w-up No observ ation record ed. [email or web address] [facility] [address] [place] [address], [address], 12/19/2023 10:16:10 12/22/19 24 12/22/2023 US, obste tric, follo w-up No observ ation record ed. [email or web address] [facility] [address], [address], 12/22/2023 22:36:50 12/22/19 24 12/22/2023 US, obste tric, follo w-up No observ ation record ed. [email or web address] [facility] [address], [address], 12/25/2023 10:48:12 12/29/19 24 12/29/2023 US, obste tric, follo w-up No observ ation record ed. [email or web address] [facility] [address], [address], 12/29/2023 16:38:28 12/29/19 24 12/29/2023 US, obste tric, follo w-up No observ ation record ed. [facility] [address], [address], 01/02/2024 11:05:49 01/05/20 24 01/05/2024 US, obste tric, follo w-up No observ ation record ed. [email or web address] [facility] [address], [address], 01/21/2024 12:39:11 01/05/20 24 01/05/2024 US, obste tric, follo w-up No observ ation record ed. [facility] [address], [address], 01/08/2024 10:38:45 01/30/20 24 01/30/2024 non-s tress test No observ ation record ed. [facility] [address], [place], [address], 01/30/2024 10:55:25 02/10/20 24 02/10/2024 US, obste tric, follo w-up No observ ation record ed. [email or web address] [facility] [address], [place], [address], 02/10/2024 13:22:44 02/10/20 24 02/10/2024 US, obste tric, follo w-up No observ ation record ed. [email or web address] [address], [place], [address], 02/10/2024 12:09:27 03/25/20 24 03/25/2024 US, obste tric, follo w-up No observ ation record ed. [email or web address] [facility] [address], [place], [address], 03/25/2024 12:20:45 03/25/20 24 03/25/2024 US, obste tric, follo w-up No observ ation record ed. [email or web address] [address], [place], [address], 03/25/2024 21:06:59 04/09/20 24 04/09/2024 non-s tress test No observ ation record ed. [facility] [address], [place], [address], 04/09/2024 19:35:59 04/20/19 25 04/09/2024 non-s tress test No observ ation record ed. [email or web address] [facility] [address], [place], [address], 04/20/2024 11:40:46 Result Notes None recorded. Problems Name Problem SNOMED Code Status Onset Date Resolution Date Notes Provider Name and Address Organization Details Recorded Time Educatio n Completed 201811/01/2020 Encounte r for other general counseli ng and advice on contrace ption;Re corded Elsewher e: No Locat ion: Marysol loaiza [facility] S ource: EHR Pickup Driver owen: N Practi ce ID: 0001 Dez lable Time: 01:00:00 PM Jeanie Cornelius [facility], [facility] 15:06:58 Acute vaginiti s 80407864 Completed 201811/01/2020 Vaginiti s;Record ed Elsewher e: No Locat ion: [facility] S ource: EHR Pickup Driver owen: N Practi ce ID: 0001 Dez lable Time: 01:00:00 PM Jeanie Cornelius [facility] 15:06:[address] Concept Completed 201711/01/2020 Maternal care for oth abnormal ity and damage, unsp;Rec orded Elsewher e: No Locat ion: Gianna josse [facility] S ource: EHR Pickup Driver owen: N Practi ce ID: 0001 Dez lable Time: 10:30:00 AM Jeanie Cornelius [facility] 15:07:23 Gestatio n period, 29 weeks 60335422 Completed 201711/01/2020 29 weeks gestatio n of pregnanc y;Record ed Elsewher e: No Locat ion: Marysol loaiza [facility] S ource: EHR Pickup Driver owen: N Practi ce ID: 0001 Dez lable Time: 10:15:00 AM Jeanie Cornelius [facility] 1 15:07:04 Antenata l screenin g for malforma tion Completed 201711/01/2020 Encounte r for antenata l screenin g for malforma tions;Re corded Elsewher e: No Locat ion: [facility] Source: EHR Pickup Driver owen: N Practi ce ID: 0001 Dez lable Time: 10:30:00 AM Jeanie Cornelius [facility] 1 15:06:56 Normal pregnanc y in multigra brad [id number] 27357 Completed 201811/01/2020 Encounte r for suprvsn of normal pregnanc y, third trimeste r;Record ed Elsewher e: No Locat ion: Marysol loaiza [facility] S ource: EHR Pickup Driver owen: N Angela ce ID: 0001 Dez lable Time: 10:45:00 AM Jeanie Cornelius [facility] 1 15:07:13 Lochia finding Completed 201811/01/2020 Encounte r for routine postpart um follow-u p;Record ed Elsewher e: No [facility]: EHR Pickup Driver owen: N Angela ce ID: 0001 Dez lable Time: 08:30:00 AM Jeanie Cornelius [facility] 15:07:12 Placenta previa [id number] Completed 201711/01/2020 Placenta previa specifie d as w/o hemor, second trimeste r;Record ed Elsewher e: No Locat ion: [facility] S ource: EHR Pickup Driver owen: N Angela ce ID: 0001 Dez lable Time: 08:30:00 AM Jeanie Cornelius [facility] 15:07:[address] Concept Completed 201711/01/2020 Matern care for abnlt fetl hrt rate or rhym, 3rd tri, unsp;Rec orded Elsewher e: No Locat ion: [facility] S ource: EHR Pickup Driver owen: N Angela ce ID: 0001 Dez lable Time: 10:45:00 AM Jeanie Cornelius [facility] 15:07:[address] Concept Completed 09/12/ 2018 11/01/2020 Encntr for lead python developer exam (general ) (routine ) w/o abn findings ;Practic e ID: 0001 Jeanie finn, [facility] 15:07:26 Pregnanc y detectio n examinat ion Completed 201711/01/2020 Encounte r for pregnanc y test, result positive ;Practic e ID: 0001 Jeanie finn, [facility] 15:07:18 Antenata l screenin g Completed 201711/01/2020 Encounte r for other specifie d antenata l screenin g;Practi ce ID: 0001 Jeanie finn, [facility] 15:06:55 Gestatio n period, 24 weeks 928999998 Completed 201711/01/2020 24 weeks gestatio n of pregnanc y;Practi ce ID: 0001 Jeanie finn, [facility] 15:06:59 Gestatio n period, 27 weeks 65025621 Completed 201711/01/2020 27 weeks gestatio n of pregnanc y;Practi ce ID: 0001 Jeanie finn, [facility] 15:07:02 Gestatio n period, 32 weeks 6366084 Completed 201711/01/2020 32 weeks gestatio n of pregnanc y;Practi ce ID: 0001 Jeanie finn, [facility] 15:07:05 Uterine size for dates discrepa ncy Completed 201811/01/2020 Uterine size-sunita e discrepa ncy, third trimeste r;Record ed Elsewher e: No Locat ion: Marysol loaiza [facility] S ource: EHR Pickup Driver owen: N Practi ce ID: 0001 Dez lable Time: 09:15:00 AM Jeanie finn, [facility] 15:07:31 Gestatio n period, 34 weeks [id number] Completed 201811/01/2020 34 weeks gestatio n of pregnanc y;Record ed Elsewher e: No Locat ion: Marysol loaiza [facility] S ource: EHR Pickup Driver owen: N Wandati ce ID: 0001 Dez lable Time: 10:45:00 AM Jeanie Cornelius [facility] 15:07:07 Pelvic and perineal pain 912674773 Completed 201711/01/2020 Pelvic and perineal pain;Rec orded Elsewher e: No Locat ion: Marysol loaiza [facility] S ource: EHR Pickup Driver owen: N Wandati ce ID: 0001 Dez lable Time: 11:00:00 AM Jeanie Cornelius [facility] 15:07:15 Gestatio n period, 25 weeks 38761120 Completed 201711/01/2020 25 weeks gestatio n of pregnanc y;Record ed Elsewher e: No Locat ion: Marysol loaiza [facility] S ource: EHR Pickup Driver owen: N Wandati ce ID: 0001 Dez lable Time: 08:30:00 AM Jeanie Cornelius [facility] 15:07:01 Subacute and chronic vaginiti s 585609906 Completed 201811/01/2020 Subacute vaginiti s;Record ed Elsewher e: No Locat ion: Marysol loaiza [facility] S ource: EHR Pickup Driver woen: N Practi ce ID: 0001 Dez lable Time: 09:45:00 AM Jeanie Cornelius [facility], [facility] 15:07:28 Gestatio n period, 37 weeks [id number] Completed 201811/01/2020 37 weeks gestatio n of pregnanc y;Record ed Elsewher e: No Locat ion: Marysol loaiza [facility] S ource: EHR Pickup Driver owen: N Wandati ce ID: 0001 Dez lable Time: 09:15:00 AM Jeanie finn, [facility] 1 15:07:09 Rubella screenin g status 593599831 Completed 201811/01/2020 Encounte r for antenata l screenin g, unspecif ied;Hansel rded Elsewher e: No [facility] S ource: EHR Pickup Driver owen: N Practi ce ID: 0001 Dez lable Time: 10:30:00 AM Jeanie finn, [facility] 15:07:20 Term pregnanc y delivere d [id number] Completed 201811/01/2020 Encounte r for full-ter m uncompli cated delivery ;Practic e ID: 0001 Jeanie finn, [facility] 15:07:29 Single live [id number] Completed 201811/01/2020 Single live ;Pr actice ID: 0001 Jeanie Cornelius [facility], [facility] 15:07:21 Gestatio n period, 39 weeks 11566422 Completed 201811/01/2020 39 weeks gestatio n of pregnanc y;Practi ce ID: 0001 Jeanie finn, [facility] 15:07:10 Pregnanc y 85498754 Active 2023 Courtney Linton [facility], [facility] 4 17:18:12 dysrhyth evi 335947032 Active 2023 MFM consult - PAC - 12/21 with MFM and PRISON on improvin g and nearly resolved on 12/28 MFM appt Gonzalo Torres MD [address], [place], [address], [facility] 4 11:15:07 Problem Notes None recorded. Procedures Surgical History Date Name Laterality Status Provider Name and Address Organization Details Recorded Time 07/24/19 23 Date of Last Pap Smear completed Courtney Linton [facility] 10/02/2023 11:20:13 12/27/19 21 Date of [facility] 14:43:16 04/14/19 07 [facility]2024 14:44:53 04/14/19 04 tonsillectomy completed [facility] 02/03/2024 14:44:47 Imaging Results Imaging Date Name Status LastModified by Organiz ation Details LastModified Time 01/30/2024 non-stress test completed [address], [place], [address], 01/30/2024 10:55:25 Procedure Notes None recorded. Medical Equipment None Reported. Allergies Allergen ID Allergen Name Allergen Category Reaction Reaction Severity Criticality Documentation Date Start Date Code Code System Note Provider Name and Address Organization Details Recorded Time 783 Substance with sulfonami de structure and antibacte rial mechanism of action (substanc e) medicatio n Not available Not available Not available 09/10/2019 10066 8003 SNOMED Radha finn [facility] 0 12:39:04 Medications Name Sig Start [...] Prescrib ed Elsewher e: No [facility]: lucy haines DateTime : [...] Prescrib ed Elsewher e: Yes Loca tion: [facility] odify By: davie rawls DateTime : 07/02/19 [...] Garcia e: No Locat ion: Marysol loaiza [facility] M odify By: davie rawls DateTime : [...] and Address Organization Details Last Updated DateTime 01/30/2024 166.37 cm 32.4 kg/m2 84201.28 926 g 117 mm[Hg] 73 mm[Hg] Shilpa David [facility] 10:14:20 Social History Question Answer Notes LastModified by Organizat ion Details LastModified Time Tobacco Smoking Status Former Smoker Courtney Royer [facility], [facility] 10/02/2023 11:23:00 What Is Your Level Of Alcohol Consumption? None Information not available 05/05/2020 If You Are , What Was Your Level Of Alcohol Consumption Prior To ? Occasional [email or web address] Information not available 02/11/2024 Are You Blind [...] Or The Highest Degree You Have Received? [id number] Information not available 07/23/2022 What Is Your Occupation? None Information not available 10/02/2023 Are There Any Guns Present In Your Home? No Information not available 07/23/2022 What Was The Date Of Your Most Recent Tobacco Screening? 04/09/2024 [email or web address] Information not available 04/09/2024 How Many Children [...] Anxious, Or Unable To Sleep At Night)? [id number] [email or web address] Information not available 02/11/2024 Do You Use [...] 12:38:48 Maternal Aunt Malignant tumor of breast [email or web address] Not available 03/19 10:27:39 Sister Disorder of thyroid gland [email or web address] Not available 03/19 10:27:39 Sister Mental disorder [email or web address] Not available 03/19 10:27:39 Medical History Condition [...] SNOMED-CT Code Diagnosis ICD10 Code Diagnosis Note [id number] Elin George CNM [facility] [address] [address] 01/30/2024 09:35:53 01/30/2024 10:37:50 Gestation period, 28 weeks [id number] Z3A.28 continue vitamin [id number] Jeanie Lackey [facility] [address] [address] 01/30/2024 10:40:57 01/30/2024 10:56:45 bradycardia 739885218 O36.8399 Health Concerns Section Related Observation LastModified by Organization Detai ls LastModified Time None Recorded Concern Status LastModified by Organization Details LastModified Time None Recorded Payers Encounter Date Sequence Insurance Name Policy Number Policy Medrano Covered Member ID Medrano Member ID Guarantor Name 01/30/2024 1 [facility] (MEDICAID HMO) [id number] Keyana Reardon [id number] Keyana Reardon OBGyn Episode Ob Episode Information Episode Created Date Number of Fetuses Patient Bloodtype Patient rh Status Prepregnancy Weight lbs Domestic Partner Domestic Partner Phone Father Name Museum Guide Status 10/09/19 24 1 O Negative 164 OPEN Fetus Data First Name Last Name Admitted to NICU Weight (g) Sex Living Outcome Pediatric Complications Fetus ID Race Codes Race Delivery Type [id number] Problems Problem Notes Future MFM Appts: 12/28 815a, 12/31 1130a PRISON Echo CG (WNL REPORT), 01/04 9a u/s only - no further appointments, unless clinically indicated Problem Name Start Date End Date Resolution Snomed Code Not e dysrhythmia 12/01/2023 [id number] M FM consult - PAC - 12/21 with MFM and PRISON on 12/31i improving and nearly resolved on [...] Weight in lbs Pre/Post Dialysis Refused Weight 164.89444780982 BP Diastolic BP Location Tested BP Systolic BP Type 74 L arm 118 sitting Fetus Heart Rate Present A 145 Fetus Movement Comments Flowsheet Date 11/03/2023 Mejia Score Blood Edema Fundus Height Fundus Units Glucose Ketones Leukocytes Nitrite Labor Signs Protein Cervic Dilation Cervic Effacement Cervic Station neg none Type Weight in lbs Pre/Post Dialysis Refused Weight 169.613006287154 BP Diastolic BP Location Tested BP Systolic [...] Type Weight in lbs Pre/Post Dialysis Refused 179.473374395291 BP Diastolic BP Location Tested BP Systolic BP Type 76 L arm 116 sitting Fetus Heart Rate Present A 145 Fetus Movement A Yes Comments Discussed with the patient t he identification of a dysrhythmia. to see [facility] Flowsheet Date 12/29/2023 Mejia Score Blood Edema Fundus Height Fundus Units Glucose Ketones Leukocytes Nitrite Labor Signs Protein Cervic Dilation Cervic Effacement Cervic Station 23 cm Type Weight in lbs Pre/Post Dialysis Refused 189.501339703438 BP Diastolic BP Location Tested BP Systolic [...] Type Weight in lbs Pre/Post Dialysis Refused 198.730967700175 BP Diastolic BP Location Tested BP Systolic [...] Type Weight in lbs Pre/Post Dialysis Refused 200.387233163784 BP Diastolic BP Location Tested BP Systolic [...] Weight in lbs Pre/Post Dialysis Refused Weight 205.123081015877 BP Diastolic BP Location Tested BP Systolic [...] Weight in lbs Pre/Post Dialysis Refused Weight 210.190109698208 BP Diastolic BP Location Tested BP Systolic [...] Type Weight in lbs Pre/Post Dialysis Refused 210.628611570028 BP Diastolic BP Location Tested BP Systolic [...] Weight in lbs Pre/Post Dialysis Refused Weight 210.235616933024 BP Diastolic BP Location Tested BP Systolic [...] Type Weight in lbs Pre/Post Dialysis Refused 212.90170203729 BP Diastolic BP Location Tested BP Systolic [...] Weight in lbs Pre/Post Dialysis Refused Weight 212.674851885251 BP Diastolic BP Location Tested BP Systolic [...]
--- OUTSIDE RECORDS SUMMARY | 2024-04-21 23:19 | XMS_ITS | Clinical Summary ---
Author Organization [facility] [employer] Address [address] [place] [address] Care Team Providers Care Acid Changer Name Role Phone Tiffanie Robbins MD Primary Care Provider [phone] Source Comments [facility] [employer]non-owned Affiliates and Associated Physician Practices is amultiple site organization consisting of ambulatory clinics and hospital sitesin [place], [place], [place] and [place]. This disclosure is being madepursuant to the Care Everywhere program and may not contain all information available regarding this patient. Last updated 18.[facility] [employer] Allergies Active Allergy Reactions Criticality Noted Date [...] nts Yes 04/20/2024 Based on Ultraso und Family History Medical History Relation Name Comments Diabetes; unknown type Father Gout Father High Cholesterol Father Blood Clots Mother Diabetes; unknown type Mother Thyroid Disease Sister Relation Name Status Comments Father Alive Mother Alive Sister Alive Social History Tobacco Use Types Packs/Day Years [...] 12/10/2023 9:28 AM CDT Plan of Treatment Health Maintenance Due Date Last Done Comments PAP SMEAR 1989 HIV SCREENING 02/17/2004 HEPATITIS C SCREENING 02/12/2007 DTAP/TDAP/TD VACCINES (1 - Tdap) 02/17/2008 HEPATITIS B VACCINE (1 of 3 - 19+ 3-dose series) 02/17/2008 COVID-19 VACCINE ( - 2023-2 5 season) 2023 INFLUENZA VACCINE (#1) 2023 OB-ONE HOUR GLUCOSE 01/13/2024 OB-TDAP CURRENT 01/20/2024 OB-RHOGAM INJECTION 01/27/2024 OB-GROUP B STREP SCREEN 03/16/2024 DEPRESSION SCREENING 04/14/2024 ZOSTER VACCINE (1 of 2) 2039 HIB VACCINE Aged Out No longer eligi ble based on patient's age to complete this topic HPV VACCINE Aged Out No longer eligi ble based on patient's age to complete this topic MENINGOCOCCAL VACCINE Aged Out No belem miki eligible based on patient's age to complete this topic PNEUMOCOCCAL VACCINE Aged Out No long er eligible based on patient's age to complete this topic Respiratory Syncytial Virus (RSV) Vaccine Pt: or over 60 yrs (No Doses Required) Completed Care Teams Acid Changer Relationship Specialty Start Date End Date Tiffanie Robbins MD [address] [place] [address] PCP - General 11/29/20
--- OUTSIDE RECORDS SUMMARY | 2024-04-21 23:19 | XMS_ITS | Continuity of Care Document ---
Author Organization [facility] Address [address] [place] [address] Care Team Providers Care College Teacher Name Role Phone TOSIN CONTEY Primary Care Provider Assessment Encounter Date Assessment Date Assessment LastModified by Organization Details LastModified Time 01/30/2024 01/30/2024 Patient is _28__weeks . Discussed plan. Not available 01/30/2024 10:26:53 Plan of Treatment Reminders Order Date Submit [...] [email or web address] cy No observ ation record ed. [facility] [address], [place], [address], 10/09/2023 17:42:37 10/09/19 24 10/09/2023 US, obste tric, nucha l trans lucen cy No observ ation record ed. [email or web address] [address], [place], [address], 10/09/2023 22:44:04 12/01/19 24 12/01/2023 US, obste tric, 2nd or 3rd trime ster No observ ation record ed. [facility] [address], [place], [address], 12/01/2023 17:23:01 12/01/19 24 12/01/2023 US, obste tric, follo w-up No observ ation record ed. [email or web address] [address], [place], [address], 12/04/2023 16:44:09 12/01/19 24 12/01/2023 US, obste tric, 2nd or 3rd trime ster No observ ation record ed. [email or web address] [address], [place], [address], 12/02/2023 11:43:16 12/10/19 24 12/10/2023 US, obste tric No observ ation record ed. [email or web address] [facility] [address] [place] [address], [address], 12/11/2023 14:24:58 12/10/19 24 12/10/2023 US, obste tric, follo w-up No observ ation record ed. [email or web address] [facility] [address] [place] [address], [address], 12/11/2023 14:17:01 12/16/19 24 12/16/2023 US, obste tric, follo w-up No observ ation record ed. [facility] [address] [place] [address], [address], 12/16/2023 16:22:52 12/16/19 24 12/16/2023 US, obste tric, follo w-up No observ ation record ed. [email or web address] [facility] [address] [place] [address], [address], 12/19/2023 10:16:10 12/22/19 24 12/22/2023 US, obste tric, follo w-up No observ ation record ed. [email or web address] [facility] [address], [address], 12/22/2023 22:36:50 12/22/19 24 12/22/2023 US, obste tric, follo w-up No observ ation record ed. [email or web address] [facility] [address], [address], 12/25/2023 10:48:12 12/29/19 24 12/29/2023 US, obste tric, follo w-up No observ ation record ed. [email or web address] [facility] [address], [address], 12/29/2023 16:38:28 12/29/19 24 12/29/2023 US, obste tric, follo w-up No observ ation record ed. [facility] [address], [address], 01/02/2024 11:05:49 01/05/20 24 01/05/2024 US, obste tric, follo w-up No observ ation record ed. [facility] [address], [address], 01/21/2024 12:39:11 01/05/20 24 01/05/2024 US, obste tric, follo w-up No observ ation record ed. [facility] [address], [address], 01/08/2024 10:38:45 01/30/20 24 01/30/2024 non-s tress test No observ ation record ed. [address], [place], [address], 01/30/2024 10:55:25 02/10/2002/10/2024 US, obste tric, follo w-up No observ ation record ed. [email or web address] [facility] [address], [place], [address], 02/10/2024 13:22:44 02/10/20 24 02/10/2024 US, obste tric, follo w-up No observ ation record ed. [email or web address] [address], [place], [address], 02/10/2024 12:09:27 03/25/20 24 03/25/2024 US, obste tric, follo w-up No observ ation record ed. [email or web address] [facility] [address], [place], [address], 03/25/2024 12:20:45 03/25/20 24 03/25/2024 US, obste tric, follo w-up No observ ation record ed. [email or web address] [address], [place], [address], 03/25/2024 21:06:59 04/09/20 24 04/09/2024 non-s tress test No observ ation record ed. [email or web address] [facility] [address], [place], [address], 04/09/2024 19:35:59 04/20/19 25 04/09/2024 non-s tress test No observ ation record ed. [email or web address] [facility] [address], [place], [address], 04/20/2024 11:40:46 Result Notes None recorded. Problems Name Problem SNOMED Code Status Onset Date Resolution Date Notes Provider Name and Address Organization Details Recorded Time Educatio n Completed 201811/01/2020 Encounte r for other general counseli ng and advice on contrace ption;Re corded Elsewher e: No Locat ion: Marysol loaiza [facility] S ource: [place] Nurse owen: N Practi ce ID: 0001 Dez lable Time: 01:00:00 PM Jeanie Cornelius [facility], [facility] 15:06:58 Acute vaginiti s [id number] Completed 201811/01/2020 Vaginiti s;Record ed Elsewher e: No Locat ion: Marysol loaiza [facility] S ource: [place] [place] Nurse owen: N Practi ce ID: 0001 Dez lable Time: 01:00:00 PM Jeanie Cornelius [facility], [facility] 15:06:[address] Concept Completed 201711/01/2020 Maternal care for oth abnormal ity and damage, unsp;Rec orded Elsewher e: No Locat ion: Gianna josse [facility] S ource: [place] [place] Nurse owen: N Practi ce ID: 0001 Dez lable Time: 10:30:00 AM Jeanie Cornelius [facility], [facility] 15:07:23 Gestatio n period, 29 weeks [id number] Completed 201711/01/2020 29 weeks gestatio n of pregnanc y;Record ed Elsewher e: No Locat ion: Marysol loaiza [facility] S ource: [place] Nurse owen: N Practi ce ID: 0001 Dez lable Time: 10:15:00 AM Jeanie finn, [facility] 1 15:07:04 Antenata l screenin g for malforma tion Completed 201711/01/2020 Encounte r for antenata l screenin g for malforma tions;Re corded Elsewher e: No Locat ion: [facility] Source: [place] [place] Nurse owen: N Practi ce ID: 0001 Dez lable Time: 10:30:00 AM Jeanie finn [facility] 1 15:06:56 Normal pregnanc y in multigra brad [id number] Completed 201811/01/2020 Encounte r for suprvsn of normal pregnanc y, third trimeste r;Record ed Elsewher e: No [facility] S ource: [place] [facility] owen: N Angela ce ID: 0001 Dez lable Time: 10:45:00 AM Jeanie Cornelius [facility] 15:07:13 Lochia finding Completed 201811/01/2020 Encounte r for routine postpart um follow-u p;Record ed Elsewher e: No Locat ion: [facility] S ource: [place] Nurse owen: N Angela ce ID: 0001 Dez lable Time: 08:30:00 AM Jeanie Cornelius [facility] 15:07:12 Placenta previa [id number] Completed 201711/01/2020 Placenta previa specifie d as w/o hemor, second trimeste r;Record ed Elsewher e: No Locat ion: [facility] S ource: [place] [facility] owen: N Angela ce ID: 0001 Dez lable Time: 08:30:00 AM Jeanie [facility] 15:07:[address] Concept Completed 201711/01/2020 Matern care for abnlt fetl hrt rate or rhym, 3rd tri, unsp;Rec orded Elsewher e: No Locat ion: [facility] S ource: [place] [facility] owen: N Wandati ce ID: 0001 Dze lable Time: 10:45:00 AM Jeanie Corn[facility] 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 15:07:26 Pregnanc y detectio n examinat ion Completed 201711/01/2020 Encounte r for pregnanc y test, result positive ;Practic e ID: 0001 Jeanie finn, [facility] 15:07:18 Antenata l screenin g Completed 201711/01/2020 Encounte r for other specifie d antenata l screenin g;Practi ce ID: 0001 Jeanie finn, [facility] 15:06:55 Gestatio n period, 24 weeks 723343853 Completed 201711/01/2020 24 weeks gestatio n of pregnanc y;Practi ce ID: 0001 Jeanie finn, [facility] 15:06:59 Gestatio n period, 27 weeks 37409417 Completed 201711/01/2020 27 weeks gestatio n of pregnanc y;Practi ce ID: 0001 Jeanie finn, [facility] 15:07:02 Gestatio n period, 32 weeks 1385870 Completed 201711/01/2020 32 weeks gestatio n of pregnanc y;Practi ce ID: 0001 Jeanie finn, [facility] 15:07:05 Uterine size for dates discrepa ncy Completed 201811/01/2020 Uterine size-sunita e discrepa ncy, third trimeste r;Record ed Elsewher e: No Locat ion: Marysol loaiza [facility] S ource: [place] [facility] owen: N Practi ce ID: 0001 Dez lable Time: 09:15:00 AM Jeanie finn [facility] 15:07:31 Gestatio n period, 34 weeks [id number] Completed 201811/01/2020 34 weeks gestatio n of pregnanc y;Record ed Elsewher e: No Locat ion: Marysol loaiza [facility] S ource: [place] [facility] owen: N Wandati ce ID: 0001 Dez lable Time: 10:45:00 AM Jeanie Cornelius [facility], [facility] 1 15:07:07 Pelvic and perineal pain 507027112 Completed 201711/01/2020 Pelvic and perineal pain;Rec orded Elsewher e: No Locat ion: [facility] S ource: [place] [facility] owen: N Wandati ce ID: 0001 Dez lable Time: 11:00:00 AM Jeanie Cornelius [facility] 15:07:15 Gestatio n period, 25 weeks 86892320 Completed 201711/01/2020 25 weeks gestatio n of pregnanc y;Record ed Elsewher e: No Locat ion: Marysol loaiza [facility] S ource: [place] [facility] owen: N Wandati ce ID: 0001 Dez lable Time: 08:30:00 AM Jeanie Cornelius [facility], [facility] 1 15:07:01 Subacute and chronic vaginiti s [id number] Completed 201811/01/2020 Subacute vaginiti s;Record ed Elsewher e: No Locat ion: Marysol loaiza [facility] S ource: [place] [facility] owen: N Wandati ce ID: 0001 Dez lable Time: 09:45:00 AM Jeanie Cornelius [facility], [facility] 1 15:07:28 Gestatio n period, 37 weeks [id number] Completed 201811/01/2020 37 weeks gestatio n of pregnanc y;Record ed Elsewher e: No Locat ion: [facility] S ource: [place] [facility] owen: N Wadnati ce ID: 0001 Dez lable Time: 09:15:00 AM Jeanie Cornelius null, [facility] 1 15:07:09 Rubella screenin g status [id number] Completed 201811/01/2020 Encounte r for antenata l screenin g, unspecif ied;Hansel rded Elsewher e: No Locat ion: [facility] S ource: [place] [facility] owen: N Practi ce ID: 0001 Dez lable Time: 10:30:00 AM Jeanie finn, [facility] 15:07:20 Term pregnanc y delivere d 16018003 Completed 201811/01/2020 Encounte r for full-ter m uncompli cated delivery ;Practic e ID: 0001 Jeanie finn, [facility] 15:07:29 Single live [id number] Completed 201811/01/2020 Single live ;Pr actice ID: 0001 Jeanie Cornelius [facility], [facility] 15:07:21 Gestatio n period, 39 weeks 06714939 Completed 201811/01/2020 39 weeks gestatio n of pregnanc y;Practi ce ID: 0001 Jeanie Cornelius [facility], [facility] 15:07:10 Pregnanc y 06936880 Active 2023 Courtney Linton [facility], [facility] 4 17:18:12 dysrhyth evi 641926314 Active 2023 MFM consult - PAC - 12/21 with MFM and RETIREMENT on 12/31i improvin g and nearly resolved on 12/28 MFM appt Gonzalo Torres MD [address], [place], [address], [facility] 4 11:15:07 Problem Notes None recorded. Procedures Surgical History Date Name Laterality Status Provider Name and Address Organization Details Recorded Time 07/24/19 23 Date of Last Pap Smear completed Courtney Linton [facility] 10/02/2023 11:20:13 12/27/19 21 Date of Last Mammogram completed [facility] 02/03/2024 14:43:16 04/14/19 07 extraction of wisdom tooth completed [facility] 02/03/2024 14:44:53 04/14/19 04 tonsillectomy completed [facility] 02/03/2024 14:44:47 Imaging Results [...] Not available Not available Not available 09/10/2019 [id number] SNOMED [facility] [...] Prescrib ed Elsewher e: No Locat ion: [facility] odify By: lucy haines DateTime : [...] Prescrib ed Elsewher e: Yes [facility] odify By: davie rawls DateTime [...] Locat ion: Marysol loaiza [facility] Florentino odify By: davie rawls DateTime [...] Updated DateTime 01/30/2024 166.37 cm 32.4 kg/m2 16769.28 926 g 117 mm[Hg] 73 mm[Hg] Shilpa David [facility] 10:14:20 Social History Question Answer Notes LastModified by Organizat ion Details LastModified Time Tobacco Smoking Status Former Smoker Courtney finn, [facility] 10/02/2023 11:23:00 What Is Your Level Of Alcohol Consumption? None Information not available 05/05/2020 If You Are , What Was Your Level Of Alcohol Consumption Prior To ? Occasional [email or web address] Information not available 02/11/2024 Are You Blind [...] Or The Highest Degree You Have Received? [id number] Information not available 07/23/2022 What Is Your Occupation? None Information not available 10/02/2023 Are There Any Guns Present In Your Home? No Information not available 07/23/2022 What Was The Date Of Your Most Recent Tobacco Screening? 04/09/2024 [email or web address] Information not available 04/09/2024 How Many Children [...] Anxious, Or Unable To Sleep At Night)? [id number] [email or web address] Information not available 02/11/2024 Do You Use [...] 12:38:48 Maternal Aunt Malignant tumor of breast [email or web address] Not available 03/19 10:27:39 Sister Disorder of thyroid gland [email or web address] Not available 03/19 10:27:39 Sister Mental disorder [email or web address] Not available 03/19 10:27:39 Medical History Condition [...] SNOMED-CT Code Diagnosis ICD10 Code Diagnosis Note [id number] Elin George CNM [facility] [address] [address] 01/30/2024 09:35:53 01/30/2024 10:37:50 Gestation period, 28 weeks 22611671 Z3A.28 continue vitamin [id number] Jeanie Lackey [facility] [address] [address] 01/30/2024 10:40:57 01/30/2024 10:56:45 bradycardia [id number] O36.8399 Health Concerns Section Related Observation LastModified by Organization Detai ls LastModified Time None Recorded Concern Status LastModified by Organization Details LastModified Time None Recorded Payers Encounter Date Sequence Insurance Name Policy Number Policy Medrano Covered Member ID Medrano Member ID Guarantor Name 01/30/2024 1 [facility] (MEDICAID HMO) [id number] Keyana Reardon [id number] Keyana Reardon OBGyn Episode Ob Episode Information Episode Created Date Number of Fetuses Patient Bloodtype Patient rh Status Prepregnancy Weight lbs Domestic Partner Domestic Partner Phone Father Name Property Disposal Officer Status 10/09/19 24 1 O Negative 164 OPEN Fetus Data First Name Last Name Admitted to NICU Weight (g) Sex Living Outcome Pediatric Complications Fetus ID Race Codes Race Delivery Type [id number] Problems Problem Notes Future MFM Appts: 12/28 815a, 12/31 1130a RETIREMENT Echo CG (WNL REPORT), 01/04 9a u/s only - no further appointments, unless clinically indicated Problem Name Start Date End Date Resolution Snomed Code Not e dysrhythmia 12/01/2023 [id number] M FM consult - PAC - 12/21 with MFM and RETIREMENT on 12/31i improving and nearly resolved on [...] Weight in lbs Pre/Post Dialysis Refused Weight 164.40820862109 BP Diastolic BP Location Tested BP Systolic BP Type 74 L arm 118 sitting Fetus Heart Rate Present A 145 Fetus Movement Comments Flowsheet Date 11/03/2023 Mejia Score Blood Edema Fundus Height Fundus Units Glucose Ketones Leukocytes Nitrite Labor Signs Protein Cervic Dilation Cervic Effacement Cervic Station neg none Type Weight in lbs Pre/Post Dialysis Refused Weight 169.051932866882 BP Diastolic BP Location Tested BP Systolic [...] Type Weight in lbs Pre/Post Dialysis Refused 179.999174106468 BP Diastolic BP Location Tested BP Systolic BP Type 76 L arm 116 sitting Fetus Heart Rate Present A 145 Fetus Movement A Yes Comments Discussed with the patient t he identification of a dysrhythmia. to see [facility] Flowsheet Date 12/29/2023 Mejia Score Blood Edema Fundus Height Fundus Units Glucose Ketones Leukocytes Nitrite Labor Signs Protein Cervic Dilation Cervic Effacement Cervic Station 23 cm Type Weight in lbs Pre/Post Dialysis Refused 189.736459386690 BP Diastolic BP Location Tested BP Systolic [...] Type Weight in lbs Pre/Post Dialysis Refused 198.408176661196 BP Diastolic BP Location Tested BP Systolic [...] Type Weight in lbs Pre/Post Dialysis Refused 200.598338108514 BP Diastolic BP Location Tested BP Systolic [...] Weight in lbs Pre/Post Dialysis Refused Weight 205.831025597454 BP Diastolic BP Location Tested BP Systolic [...] Weight in lbs Pre/Post Dialysis Refused Weight 210.034863482993 BP Diastolic BP Location Tested BP Systolic [...] Type Weight in lbs Pre/Post Dialysis Refused 210.815297665315 BP Diastolic BP Location Tested BP Systolic [...] Weight in lbs Pre/Post Dialysis Refused Weight 210.050125410595 BP Diastolic BP Location Tested BP Systolic BP Type 81 134 Fetus Heart Rate Present A 136 Fetus Movement A Yes Comments Patient is having back pain, contractions, discharge, swelling, nausea and vomiting. taking pepcid and tums heartburn bothersome, plan protonix precautions and education IOL on 04/15 +FM f/u next week Flowsheet Date 04/09/2024 Emjia Score Blood Edema Fundus Height Fundus Units Glucose Ketones Leukocytes Nitrite Labor Signs Protein Cervic Dilation Cervic Effacement Cervic Station 3cm 60% -2 Type Weight in lbs Pre/Post Dialysis Refused 212.64579759242 BP Diastolic BP Location Tested BP Systolic [...] Weight in lbs Pre/Post Dialysis Refused Weight 212.836629957146 BP Diastolic BP Location Tested BP Systolic [...]
--- OUTSIDE RECORDS SUMMARY | 2024-04-21 23:19 | XMS_ITS | Continuity of Care Document ---
Author Organization [facility] Address [address] [place] [address] Care Team Providers Care Town Justice Name Role Phone TIM CONTE Primary Care Provider [phone] Assessment Encounter Date Assessment Date Assessment LastModified by Organization Details LastModified Time 02/11/2024 02/11/2024 Patient is __30_weeks . Discussed plan. Not available 02/11/2024 11:43:27 Plan of Treatment Reminders Order Date Submit Date Provider Last Modified By Organization Details Last Modified Time Details Appointments None recorded. Lab None recorded. Referral None recorded. Procedures None recorded. Surgeries None recorded. Imaging None recorded. Medication Orders amoxicillin 500 mg capsule 2023 [place] [facility] [id number], [address] , [place], [place], [id number], 4 10:18:12 hydrocodone 5 mg-acetamin ophen 325 mg tablet 2023 [place] [employer][id number], [address] , [place], [place], [id number], 4 10:18:14 Patient TargetsNo targets recorded. Patient InstructionsNo instructions recorded. Reason for Referral None Reported. Results Created Date Observation Date Name Description Value Unit Range Abnormal Flag Note LastModifiedBy Organization Detail LastModifiedTime 10/09/19 24 10/09/2023 US, obste tric, nucha l trans lucen cy No observ ation record ed. [facility] [address], [place], [address], 10/09/2023 17:42:37 10/09/19 24 10/09/2023 US, obste tric, nucha l trans lucen cy No observ ation record ed. [email or web address] [address], [place], [address], 10/09/2023 22:44:04 12/01/19 24 12/01/2023 US, obste tric, 2nd or 3rd trime ster No observ ation record ed. [facility] [address], [place], [address], 12/01/2023 17:23:01 12/01/19 24 12/01/2023 US, obste tric, follo w-up No observ ation record ed. [address], [place], [address], 12/04/2023 16:44:09 12/01/19 24 12/01/2023 US, obste tric, 2nd or 3rd trime ster No observ ation record ed. [email or web address], [place], [address], 12/02/2023 11:43:16 12/10/19 24 12/10/2023 US, obste tric No observ ation record ed. [address] [facility] [address] [place], [address], 12/11/2023 14:24:58 12/10/19 24 12/10/2023 US, obste tric, follo w-up No observ ation record ed. [email or web address] [facility] [address] [place], [address], 12/11/2023 14:17:01 12/16/19 24 12/16/2023 US, obste tric, follo w-up No observ ation record ed. [facility] [address], [address], 12/16/2023 16:22:52 12/16/19 24 12/16/2023 US, obste tric, follo w-up No observ ation record ed. [email or web address] [facility] [address], [address], 12/19/2023 10:16:10 12/22/19 24 12/22/2023 US, obste tric, follo w-up No observ ation record ed. [email or web address] [facility] [address], [address], 12/22/2023 22:36:50 12/22/1912/22/2023 US, obste tric, follo w-up No observ ation record ed. [email or web address] [facility] [address], [address], 12/25/2023 10:48:12 12/29/19 24 12/29/2023 US, obste tric, follo w-up No observ ation record ed. [email or web address] [facility] [address], [address], 12/29/2023 16:38:28 12/29/19 24 12/29/2023 US, obste tric, follo w-up No observ ation record ed. TIFFANY [facility] [address] [place] [address], [address], 01/02/2024 11:05:49 01/05/20 24 01/05/2024 US, obste tric, follo w-up No observ ation record ed. [email or web address] [facility] [address] [place] [address], [address], 01/21/2024 12:39:11 01/05/20 24 01/05/2024 US, obste tric, follo w-up No observ ation record ed. [facility] [address], [place], [address], 01/08/2024 10:38:45 01/30/20 24 01/30/2024 non-s tress test No observ ation record ed. [facility] [address], [place], [address], 01/30/2024 10:55:25 02/10/2002/10/2024 US, obste tric, follo w-up No observ ation record ed. [email or web address] [facility] [address], [place], [address], 02/10/2024 13:22:44 02/10/2002/10/2024 US, obste tric, follo w-up No observ ation record ed. [email or web address] [address], [place], [address], 02/10/2024 12:09:27 03/25/20 24 03/25/2024 US, obste tric, follo w-up No observ ation record ed. [email or web address] [facility] [address], [place], [address], 03/25/2024 12:20:45 03/25/20 24 03/25/2024 US, obste tric, follo w-up No observ ation record ed. [email or web address] [address], [place], [address], 03/25/2024 21:06:59 04/09/20 24 04/09/2024 non-s tress test No observ ation record ed. [email or web address] [facility] [address], [place], [address], 04/09/2024 19:35:59 04/20/19 25 04/09/2024 non-s tress test No observ ation record ed. [email or web address] [facility] [address], [place], [address], 04/20/2024 11:40:46 Result Notes None recorded. Problems Name Problem SNOMED Code Status Onset Date Resolution Date Notes Provider Name and Address Organization Details Recorded Time Educatio n Completed 201811/01/2020 Encounte r for other general counseli ng and advice on contrace ption;Re corded Elsewher e: No Locat ion: [facility] S ource: EHR Greaser Operator owen: N Wandati ce ID: 0001 Dez lable Time: 01:00:00 PM Jeanie Cornelius [facility] 15:06:58 Acute vaginiti s [id number] Completed 201811/01/2020 Vaginiti s;Record ed Elsewher e: No Locat ion: [facility] S ource: EHR Greaser Operator owen: N Wandati ce ID: 0001 Dez lable Time: 01:00:00 PM Jeanie Cornelius [facility] 15:06:[address] Concept Completed 201711/01/2020 Maternal care for oth abnormal ity and damage, unsp;Rec orded Elsewher e: No Locat ion: [facility] S ource: EHR Greaser Operator owen: N Wandati ce ID: 0001 Dez lable Time: 10:30:00 AM Jeanie Cornelius [facility] 15:07:23 Gestatio n period, 29 weeks [id number] Completed 201711/01/2020 29 weeks gestatio n of pregnanc y;Record ed Elsewher e: No [facility] E[facility] Greaser Operator owen: N Practi ce ID: 0001 Dez lable Time: 10:15:00 AM Jeanie Cornelius [facility] 1 15:07:04 Antenata l screenin g for malforma tion Completed 201711/01/2020 Encounte r for antenata l screenin g for malforma tions;Re corded Elsewher e: No Locat ion: [facility] Source: EHR Greaser Operator owen: N Angela ce ID: 0001 Dez lable Time: 10:30:00 AM Jeanie Cornelius [facility] 1 15:06:56 Normal pregnanc y in multigra brad [id number] Completed 201811/01/2020 Encounte r for suprvsn of normal pregnanc y, third trimeste r;Record ed Elsewher e: No Locat ion: [facility] S ource: EHR Greaser Operator owen: Lorenzo Miller ce ID: 0001 Dez lable Time: 10:45:00 AM Jeanie Cornelius [facility] 1 15:07:13 Lochia finding Completed 201811/01/2020 Encounte r for routine postpart um follow-u p;Record ed Elsewher e: No Locat ion: [facility] S ource: EHR Greaser Operator owen: Lorenoz Miller ce ID: 0001 Dez lable Time: 08:30:00 AM Jeanie Cornelius [facility] 15:07:12 Placenta previa [id number] Completed 201711/01/2020 Placenta previa specifie d as w/o hemor, second trimeste r;Record ed Elsewher e: No Locat ion: [facility] S ource: EHR Greaser Operator owen: Lorenzo Miller ce ID: 0001 Dez lable Time: 08:30:00 AM Jeanie Corneilus [facility] 15:07:[address] Concept Completed 201711/01/2020 Matern care for abnlt fetl hrt rate or rhym, 3rd tri, unsp;Rec orded Elsewher e: No Locat ion: [facility] S ource: EHR Greaser Operator owen: N Practi ce ID: 0001 Dez lable Time: 10:45:00 AM Jeanie finn [facility] 15:07:[address] Concept Completed 201711/01/2020 Encntr for electric blanket wirer exam (general ) (routine ) w/o abn findings ;Practic e ID: 0001 Jeanie finn [facility] 15:07:26 Pregnanc y detectio n examinat ion Completed 201711/01/2020 Encounte r for pregnanc y test, result positive ;Practic e ID: 0001 Jeanie finn [facility] 15:07:18 Antenata l screenin g Completed 201711/01/2020 Encounte r for other specifie d antenata l screenin g;Practi ce ID: 0001 Jeanie finn [facility] 15:06:55 Gestatio n period, 24 weeks 857945585 Completed 201711/01/2020 24 weeks gestatio n of pregnanc y;Practi ce ID: 0001 Jeanie finn [facility] 15:06:59 Gestatio n period, 27 weeks 41032605 Completed 201711/01/2020 27 weeks gestatio n of pregnanc y;Practi ce ID: 0001 Jeanie finn [facility] 15:07:02 Gestatio n period, 32 weeks [id number] Completed 201711/01/2020 32 weeks gestatio n of pregnanc y;Practi ce ID: 0001 Jeanie finn [facility] 15:07:05 Uterine size for dates discrepa ncy Completed 201811/01/2020 Uterine size-sunita e discrepa ncy, third trimeste r;Record ed Elsewher e: No Locat ion: [facility] S ource: EHR Greaser Operator owen: N Wandati ce ID: 0001 Dez lable Time: 09:15:00 AM Jeanie Cornelius [facility], [facility] 15:07:31 Gestatio n period, 34 weeks [id number] Completed 201811/01/2020 34 weeks gestatio n of pregnanc y;Record ed Elsewher e: No Locat ion: [facility] S ource: EHR Greaser Operator owen: N Wandati ce ID: 0001 Dez lable Time: 10:45:00 AM Jeanie Cornelius [facility] 15:07:07 Pelvic and perineal pain 207791135 Completed 201711/01/2020 Pelvic and perineal pain;Rec orded Elsewher e: No Locat ion: [facility] S ource: EHR Greaser Operator owen: N Wandati ce ID: 0001 Dez lable Time: 11:00:00 AM Jeanie Cornelius [facility] 15:07:15 Gestatio n period, 25 weeks 53829757 Completed 201711/01/2020 25 weeks gestatio n of pregnanc y;Record ed Elsewher e: No Locat ion: [facility] S ource: EHR Greaser Operator owen: N Practi ce ID: 0001 Dez lable Time: 08:30:00 AM Jeanie Cornelius [facility] 15:07:01 Subacute and chronic vaginiti s 557782022 Completed 201811/01/2020 Subacute vaginiti s;Record ed Elsewher e: No Locat ion: [facility] S ource: EHR Greaser Operator owen: N Wandati ce ID: 0001 Dez lable Time: 09:45:00 AM Jeanie finn, [facility] 15:07:28 Gestatio n period, 37 weeks 13141555 Completed 201811/01/2020 37 weeks gestatio n of pregnanc y;Record ed Elsewher e: No Locat ion: [facility] S ource: EHR Greaser Operator owen: N Practi ce ID: 0001 Dez lable Time: 09:15:00 AM Jeanie finn, [facility] 15:07:09 Rubella screenin g status [id number] Completed 201811/01/2020 Encounte r for antenata l screenin g, unspecif ied;Hansel rded Elsewher e: No Locat ion: [facility] S ource: EHR Greaser Operator owen: N Practi ce ID: 0001 Dez lable Time: 10:30:00 AM Jeanie finn, [facility] 15:07:20 Term pregnanc y delivere d [id number] Completed 201811/01/2020 Encounte r for full-ter m uncompli cated delivery ;Practic e ID: 0001 Jeanie finn, [facility] 15:07:29 Single live [id number] Completed 201811/01/2020 Single live ;Pr actice ID: 0001 Jeanie finn, [facility] 15:07:21 Gestatio n period, 39 weeks [id number] Completed 201811/01/2020 39 weeks gestatio n of pregnanc y;Practi ce ID: 0001 Jeanie finn, [facility] 15:07:10 Pregnanc y 13828299 Active 2023 Courtney Linton null, [facility] 4 17:18:12 dysrhyth [facility] 079654453 Active 2023 MFM consult - PAC - 12/21 with MFM and USP on 12/31i improvin g and nearly resolved on 12/28 MFM appt Gonzalo Torres MD [address], [place], [address], [facility] 4 11:15:07 Problem Notes None recorded. Procedures Surgical History Date Name Laterality Status Provider Name and Address Organization Details Recorded Time 07/24/19 23 Date of Last Pap Smear completed Courtney Linton [facility] 10/02/2023 11:20:13 12/27/19 21 Date of Last Mammogram completed [facility] 02/03/2024 14:43:16 04/14/19 07 extraction of wisdom tooth completed [facility] 02/03/2024 14:44:53 04/14/19 04 tonsillectomy completed [facility] 02/03/2024 14:44:47 Imaging Results None recorded. [...] Not available Not available Not available 09/10/2019 [id number] SNOMED Radha Ban [facility] 0 12:39:04 Medications Name Sig Start [...] Prescrib ed Elsewher e: No Locat ion: [facility] odify By: lucy haines DateTime : [...] Prescrib ed Elsewher e: Yes Loca tion: [facility] odify By: davie rawls DateTime : [...] for 1 week 05/15 completed Prescrib sid loaiza: Jen Locat ion: [facility] Florentino odify By: davie rawls DateTime [...] and Address Organization Details Last Updated DateTime 02/11/2024 166.37 cm 32.8 kg/m2 16920.47 4 g 114 mm[Hg] 68 mm[Hg] Shilpa David [facility] 11:38:53 Social History Question Answer Notes LastModified by Organizat ion Details LastModified Time Tobacco Smoking Status Former Smoker Courtney Linton null, [facility] 10/02/2023 11:23:00 What Is Your Level Of Alcohol Consumption? None Information not available 05/05/2020 If You Are , What Was Your Level Of Alcohol Consumption Prior To ? Occasional [email or web address] Information not available 02/11/2024 Are You Blind [...] Or The Highest Degree You Have Received? [id number] Information not available 07/23/2022 What Is Your Occupation? None Information not available 10/02/2023 Are There Any Guns Present In Your Home? No Information not available 07/23/2022 What Was The Date Of Your Most Recent Tobacco Screening? 04/09/2024 [email or web address] Information not available 04/09/2024 How Many Children [...] Anxious, Or Unable To Sleep At Night)? [id number] [email or web address] Information not available 02/11/2024 Do You Use [...] 12:38:48 Maternal Aunt Malignant tumor of breast [email or web address] Not available 03/19 10:27:39 Sister Disorder of thyroid gland [email or web address] Not available 03/19 10:27:39 Sister Mental disorder [email or web address] Not available 03/19 10:27:39 Medical History Condition [...] SNOMED-CT Code Diagnosis ICD10 Code Diagnosis Note [id number] Elin George CNM [facility] [address] [address] 01/30/2024 09:35:53 01/30/2024 10:37:50 Gestation period, 28 weeks 82658264 Z3A.28 continue vitamin [id number] Jeanie Lackey [facility] [address] [address] 01/30/2024 10:40:57 01/30/2024 10:56:45 bradycardia 745446878 O36.8399 [id number] Yeimi Cornejo [facility] [address] [address] 02/10/2024 09:58:33 02/10/2024 10:44:30 Medical examination for suspected condition 527469441 Z03.74 O36.8999 Z3A.30 [id number] Elin George [facility] [address] [address] 02/11/2024 10:47:53 02/11/2024 14:39:45 Gestation period, 30 weeks 59735959 Z3A.30 continue vitamin Loss of te eth due to extraction 98804712 K08.409 Health Concerns Section Related Observation LastModified by Organization Detai ls LastModified Time None Recorded Concern Status LastModified by Organization Details LastModified Time None Recorded Payers Encounter Date Sequence Insurance Name Policy Number Policy Medrano Covered Member ID Medrano Member ID Guarantor Name 02/11/2024 1 [facility] (MEDICAID HMO) [id number] Keyana Reardon [id number] Keyana Reardon OBGyn Episode Ob Episode Information Episode Created Date Number of Fetuses Patient Bloodtype Patient rh Status Prepregnancy Weight lbs Domestic Partner Domestic Partner Phone Father Name Party Chief Status 10/09/19 24 1 O Negative 164 OPEN Fetus Data First Name Last Name Admitted to NICU Weight (g) Sex Living Outcome Pediatric Complications Fetus ID Race Codes Race Delivery Type [id number] Problems Problem Notes Future MFM Appts: 12/28 815a, 12/31 1130a USP Echo CG (WNL REPORT), 01/04 9a u/s only - no further appointments, unless clinically indicated Problem Name Start Date End Date Resolution Snomed Code Not e dysrhythmia 12/01/2023 [id number] M FM consult - PAC - 12/21 with MFM and USP on 12/31i improving and nearly resolved on [...] Weight in lbs Pre/Post Dialysis Refused Weight 164.75861498706 BP Diastolic BP Location Tested BP Systolic BP Type 74 L arm 118 sitting Fetus Heart Rate Present A 145 Fetus Movement Comments Flowsheet Date 11/03/2023 Mejia Score Blood Edema Fundus Height Fundus Units Glucose Ketones Leukocytes Nitrite Labor Signs Protein Cervic Dilation Cervic Effacement Cervic Station neg none Type Weight in lbs Pre/Post Dialysis Refused Weight 169.021162779579 BP Diastolic BP Location Tested BP Systolic [...] Type Weight in lbs Pre/Post Dialysis Refused 179.457459413472 BP Diastolic BP Location Tested BP Systolic BP Type 76 L arm 116 sitting Fetus Heart Rate Present A 145 Fetus Movement A Yes Comments Discussed with the patient t he identification of a dysrhythmia. to see [facility] Flowsheet Date 12/29/2023 Mejia Score Blood Edema Fundus Height Fundus Units Glucose Ketones Leukocytes Nitrite Labor Signs Protein Cervic Dilation Cervic Effacement Cervic Station 23 cm Type Weight in lbs Pre/Post Dialysis Refused 189.697115485278 BP Diastolic BP Location Tested BP Systolic [...] Type Weight in lbs Pre/Post Dialysis Refused 198.034984975243 BP Diastolic BP Location Tested BP Systolic [...] Type Weight in lbs Pre/Post Dialysis Refused 200.913546296709 BP Diastolic BP Location Tested BP Systolic [...] Weight in lbs Pre/Post Dialysis Refused Weight 205.389851157864 BP Diastolic BP Location Tested BP Systolic [...] Weight in lbs Pre/Post Dialysis Refused Weight 210.204568596561 BP Diastolic BP Location Tested BP Systolic [...] Type Weight in lbs Pre/Post Dialysis Refused 210.767740139722 BP Diastolic BP Location Tested BP Systolic [...] Weight in lbs Pre/Post Dialysis Refused Weight 210.339653571257 BP Diastolic BP Location Tested BP Systolic [...] Type Weight in lbs Pre/Post Dialysis Refused 212.47163282751 BP Diastolic BP Location Tested BP Systolic [...] Weight in lbs Pre/Post Dialysis Refused Weight 212.618838004624 BP Diastolic BP Location Tested BP Systolic [...]
--- OUTSIDE RECORDS SUMMARY | 2024-04-21 23:19 | XMS_ITS | Continuity of Care Document ---
Author Organization [facility] [address] [place] [address] Care Team Providers Care Qual Research Manager Name Role Phone TOSIN CONTEY Primary Care Provider Assessment Encounter Date Assessment Date Assessment LastModified by Organization Details LastModified Time 02/27/2024 02/27/2024 Patient is __32_weeks . Discussed plan. Not available 02/27/2024 10:27:41 Plan of Treatment Reminders Order Date Submit [...] [email or web address] cy No observ ation record ed. [facility] [address], [place], [address], 10/09/2023 17:42:37 10/09/19 24 10/09/2023 US, obste tric, nucha l trans lucen cy No observ ation record ed. [email or web address] [address], [place], [address], 10/09/2023 22:44:04 12/01/19 24 12/01/2023 US, obste tric, 2nd or 3rd trime ster No observ ation [facility] ed[email or web address] [address], [place], [address], 12/01/2023 17:23:01 12/01/19 24 12/01/2023 US, obste tric, follo w-up No observ ation record ed. [email or web address] [address], [place], [address], 12/04/2023 16:44:09 12/01/19 24 12/01/2023 US, obste tric, 2nd or 3rd trime ster No observ ation record ed. [email or web address] [address], [place], [address], 12/02/2023 11:43:16 12/10/19 24 12/10/2023 US, obste tric No observ ation record ed. [email or web address] [facility] [address] [place] [address], [address], 12/11/2023 14:24:58 12/10/19 24 12/10/2023 US, obste tric, follo w-up No observ ation record ed. [email or web address] [facility] [address] [place] [address], [address], 12/11/2023 14:17:01 12/16/19 24 12/16/2023 US, obste tric, follo w-up No observ ation record ed. [email or web address] [facility] [address] [place] [address], [address], 12/16/2023 16:22:52 12/16/19 24 12/16/2023 US, obste tric, follo w-up No observ ation record ed. [email or web address] [facility] [address] [place] [address], [address], 12/19/2023 10:16:10 12/22/19 24 12/22/2023 US, obste tric, follo w-up No observ ation record ed. [email or web address] [facility] [address], [address], 12/22/2023 22:36:50 12/22/19 24 12/22/2023 US, obste tric, follo w-up No observ ation record ed. [email or web address] [facility] [address], [address], 12/25/2023 10:48:12 12/29/19 24 12/29/2023 US, obste tric, follo w-up No observ ation record ed. [email or web address] [facility] [address], [address], 12/29/2023 16:38:28 12/29/19 24 12/29/2023 US, obste tric, follo w-up No observ ation record ed. [facility] [address], [address], 01/02/2024 11:05:49 01/05/20 24 01/05/2024 US, obste tric, follo w-up No observ ation record ed. [email or web address] [facility] [address], [address], 01/21/2024 12:39:11 01/05/20 24 01/05/2024 US, obste tric, follo w-up No observ ation record ed. [facility] [address], [address], 01/08/2024 10:38:45 01/30/20 24 01/30/2024 non-s tress test No observ ation record ed. [address], [place], [address], 01/30/2024 10:55:25 02/10/2002/10/2024 US, obste tric, follo w-up No observ ation record ed. [email or web address] [facility] [address], [place], [address], 02/10/2024 13:22:44 02/10/20 24 02/10/2024 US, obste tric, follo w-up No observ ation record ed. [email or web address] [address], [place], [address], 02/10/2024 12:09:27 03/25/20 24 03/25/2024 US, obste tric, follo w-up No observ ation record ed. [email or web address] [facility] [address], [place], [address], 03/25/2024 12:20:45 03/25/20 24 03/25/2024 US, obste tric, follo w-up No observ ation record ed. [email or web address] [address], [place], [address], 03/25/2024 21:06:59 04/09/20 24 04/09/2024 non-s tress test No observ ation record ed. [email or web address] [facility] [address], [place], [address], 04/09/2024 19:35:59 04/20/19 25 04/09/2024 non-s tress test No observ ation record ed. [email or web address] [facility] [address], [place], [address], 04/20/2024 11:40:46 Result Notes None recorded. Problems Name Problem SNOMED Code Status Onset Date Resolution Date Notes Provider Name and Address Organization Details Recorded Time Educatio n Completed 201811/01/2020 Encounte r for other general counseli ng and advice on contrace ption;Re corded Elsewher e: No Locat ion: Marysol loaiza [facility] S ource: EHR Calculating Machine Mechanic owen: N Practi ce ID: 0001 Dez lable Time: 01:00:00 PM Jeanie Cornelius [facility], [facility] 15:06:58 Acute vaginiti s [id number] Completed 201811/01/2020 Vaginiti s;Record ed Elsewher e: No Locat ion: [facility]sol loaiza [facility] S ource: EHR Calculating Machine Mechanic owen: N Practi ce ID: 0001 Dez lable Time: 01:00:00 PM Jeanie Cornelius [facility], [facility] 15:06:[address] Concept Completed 201711/01/2020 Maternal care for oth abnormal ity and damage, unsp;Rec orded Elsewher e: No Locat ion: Gianna josse [facility] S ource: EHR Calculating Machine Mechanic owen: N Practi ce ID: 0001 Dez lable Time: 10:30:00 AM Jeanie Cornelius [facility], [facility] 15:07:23 Gestatio n period, 29 weeks [id number] Completed 201711/01/2020 29 weeks gestatio n of pregnanc y;Record ed Elsewher e: No Locat ion: [facility]sol loaiza [facility] S ource: EHR Calculating Machine Mechanic owen: N Practi ce ID: 0001 Dez lable Time: 10:15:00 AM Jeanie finn, [facility] 1 15:07:04 Antenata l screenin g for malforma tion Completed 201711/01/2020 Encounte r for antenata l screenin g for malforma tions;Re corded Elsewher e: No Locat ion: [facility] Source: EHR Calculating Machine Mechanic owen: N Practi ce ID: 0001 Dez lable Time: 10:30:00 AM Jeanie finn [facility] 1 15:06:56 Normal pregnanc y in multigra brad [id number] Completed 201811/01/2020 Encounte r for suprvsn of normal pregnanc y, third trimeste r;Record ed Elsewher e: No [facility] S ource: EHR Calculating Machine Mechanic owen: N Angela ce ID: 0001 Dez lable Time: 10:45:00 AM Jeanie Cornelius [facility] 15:07:13 Lochia finding Completed 201811/01/2020 Encounte r for routine postpart um follow-u p;Record ed Elsewher e: No Locat ion: [facility] S ource: EHR Calculating Machine Mechanic owen: N Angela ce ID: 0001 Dez lable Time: 08:30:00 AM Jeanie Cornelius [facility] 15:07:12 Placenta previa [id number] Completed 201711/01/2020 Placenta previa specifie d as w/o hemor, second trimeste r;Record ed Elsewher e: No Locat ion: [facility] S ource: EHR Calculating Machine Mechanic owen: N Angela ce ID: 0001 Dez lable Time: 08:30:00 AM Jeanie Cornelius [facility] 15:07:[address] Concept Completed 201711/01/2020 Matern care for abnlt fetl hrt rate or rhym, 3rd tri, unsp;Rec orded Elsewher e: No Locat ion: [facility] S ource: EHR Calculating Machine Mechanic owen: N Wandati ce ID: 0001 Dez lable Time: 10:45:00 AM Jeanie Cornelius [facility] 15:07:[address] Concept Completed 201711/01/2020 Encntr for e learning designer exam (general ) (routine ) w/o abn findings ;Practic e ID: 0001 Jeanie finn, [facility] 15:07:26 Pregnanc y detectio n examinat ion Completed 201711/01/2020 Encounte r for pregnanc y test, result positive ;Practic e ID: 0001 Jeanie finn, [facility] 15:07:18 Antenata l screenin g Completed 201711/01/2020 Encounte r for other specifie d antenata l screenin g;Practi ce ID: 0001 Jeanie finn, [facility] 15:06:55 Gestatio n period, 24 weeks 583376589 Completed 201711/01/2020 24 weeks gestatio n of pregnanc y;Practi ce ID: 0001 Jeanie finn, [facility] 15:06:59 Gestatio n period, 27 weeks 36008300 Completed 201711/01/2020 27 weeks gestatio n of pregnanc y;Practi ce ID: 0001 Jeanie finn, [facility] 15:07:02 Gestatio n period, 32 weeks 9661219 Completed 201711/01/2020 32 weeks gestatio n of pregnanc y;Practi ce ID: 0001 Jeanie finn, [facility] 15:07:05 Uterine size for dates discrepa ncy Completed 201811/01/2020 Uterine size-sunita e discrepa ncy, third trimeste r;Record ed Elsewher e: No Locat ion: [facility] loaiza [facility] S ource: EHR Calculating Machine Mechanic owen: N Practi ce ID: 0001 Dez lable Time: 09:15:00 AM Jeanie finn [facility] 15:07:31 Gestatio n period, 34 weeks 41332858 Completed 201811/01/2020 34 weeks gestatio n of pregnanc y;Record ed Elsewher e: No Locat ion: [facility] loaiza [facility] S ource: EHR Calculating Machine Mechanic owen: N Wandati ce ID: 0001 Dez lable Time: 10:45:00 AM Jeanie Cornelius [facility], [facility] 1 15:07:07 Pelvic and perineal pain 697047699 Completed 201711/01/2020 Pelvic and perineal pain;Rec orded Elsewher e: No Locat ion: [facility] S ource: EHR Calculating Machine Mechanic owen: N Wandati ce ID: 0001 Dez lable Time: 11:00:00 AM Jeanie Cornelius [facility] 15:07:15 Gestatio n period, 25 weeks 79451488 Completed 201711/01/2020 25 weeks gestatio n of pregnanc y;Record ed Elsewher e: No Locat ion: [facility] loaiza [facility] S ource: EHR Calculating Machine Mechanic owen: N Wandati ce ID: 0001 Dez lable Time: 08:30:00 AM Jeanie Cornelius [facility], [facility] 1 15:07:01 Subacute and chronic vaginiti s 301771443 Completed 201811/01/2020 Subacute vaginiti s;Record ed Elsewher e: No Locat ion: [facility] loaiza [facility] S ource: EHR Calculating Machine Mechanic owen: N Wandati ce ID: 0001 Dez lable Time: 09:45:00 AM Jeanie Cornelius [facility], [facility] 1 15:07:28 Gestatio n period, 37 weeks [id number] Completed 201811/01/2020 37 weeks gestatio n of pregnanc y;Record ed Elsewher e: No Locat ion: [facility] S ource: EHR Calculating Machine Mechanic owen: N Wandati ce ID: 0001 Dez lable Time: 09:15:00 AM Jeanie Cornelius null, [facility] 1 15:07:09 Rubella screenin g status [id number] Completed 201811/01/2020 Encounte r for antenata l screenin g, unspecif ied;Hansel rded Elsewher e: No Locat ion: [facility] S ource: EHR Calculating Machine Mechanic owen: N Practi ce ID: 0001 Dez lable Time: 10:30:00 AM Jeanie finn, [facility] 15:07:20 Term pregnanc y delivere d 17938709 Completed 201811/01/2020 Encounte r for full-ter m uncompli cated delivery ;Practic e ID: 0001 Jeanie finn, [facility] 15:07:29 Single live 110671413 Completed 201811/01/2020 Single live ;Pr actice ID: 0001 Jeanie Cornelius [facility], [facility] 15:07:21 Gestatio n period, 39 weeks 12105888 Completed 201811/01/2020 39 weeks gestatio n of pregnanc y;Practi ce ID: 0001 Jeanie Cornelius [facility], [facility] 15:07:10 Pregnanc y 22657174 Active 2023 Courtney Linton [facility], [facility] 4 17:18:12 dysrhyth evi 741412627 Active 2023 MFM consult - PAC - 12/21 with MFM and DETENTION on 12/31i improvin g and nearly resolved on 12/28 MFM appt Gonzalo Torres MD [address], [place], [address], [facility] 4 11:15:07 Problem Notes None recorded. Procedures Surgical History Date Name Laterality Status Provider Name and Address Organization Details Recorded Time 07/24/19 23 Date of Last Pap Smear completed Courtney Linton [facility] 10/02/2023 11:20:13 12/27/19 21 Date of Last Mammogram completed [facility] 02/03/2024 14:43:16 04/14/19 07 extraction of wisdom tooth completed [facility] 02/03/2024 14:44:53 04/14/19 04 [...] Not available Not available Not available 09/10/2019 56018 8003 SNOMED Radha Cevallos [facility] 0 12:39:04 Medications Name Sig Start [...] Prescrib ed Elsewher e: No Locat ion: [facility] odify By: lucy haines DateTime : [...] Prescrib ed Elsewher e: Yes [facility] od[facility] By: davie rawls DateTime : [...] Garcia e: Jen Locat ion: Marysol loaiza [facility] Florentino odify By: davie rawls DateTime [...] and Address Organization Details Last Updated DateTime 02/27/2024 166.37 cm 33.6 kg/m2 27297.44 g 137 mm[Hg] 83 mm[Hg] Shilpa David [facility] 10:16:47 Social History Question Answer Notes LastModified by Organizat ion Details LastModified Time Tobacco Smoking Status Former Smoker Courtney finn, [facility] 10/02/2023 11:23:00 What Is Your Level Of Alcohol Consumption? None Information not available 05/05/2020 If You Are , What Was Your Level Of Alcohol Consumption Prior To ? Occasional [email or web address] Information not available 02/11/2024 Are You Blind [...] Or The Highest Degree You Have Received? [id number] Information not available 07/23/2022 What Is Your Occupation? None Information not available 10/02/2023 Are There Any Guns Present In Your Home? No Information not available 07/23/2022 What Was The Date Of Your Most Recent Tobacco Screening? 04/09/2024 [email or web address] Information not available 04/09/2024 How Many Children [...] Anxious, Or Unable To Sleep At Night)? [id number] [email or web address] Information not available 02/11/2024 Do You Use [...] 12:38:48 Maternal Aunt Malignant tumor of breast [email or web address] Not available 03/19 10:27:39 Sister Disorder of thyroid gland [email or web address] Not available 03/19 10:27:39 Sister Mental disorder [email or web address] Not available 03/19 10:27:39 Medical History Condition [...] SNOMED-CT Code Diagnosis ICD10 Code Diagnosis Note [id number] [facility] [address],[place] [address] 01/30/2024 09:35:53 01/30/2024 10:37:50 Gestation period, 28 weeks 44959372 Z3A.28 continue vitamin [id number] JeanieR Adams [facility] [address],[place] [address] 01/30/2024 10:40:57 01/30/2024 10:56:45 bradycardia 819604450 O36.8399 [id number] Yeimi Chantal [place] [address] [place] [address] 02/10/2024 09:58:33 02/10/2024 10:44:30 Medical examination for suspected condition 738335040 Z03.74 O36.8999 Z3A.30 [id number] [facility] [address],[place] [address] 02/11/2024 10:47:53 02/11/2024 14:39:45 Gestation period, 30 weeks 39863825 Z3A.30 continue vitamin Loss of te eth due to extraction 23115763 K08.409 [id number] Elin George CNM [place] [facility] [address] [address] 02/27/2024 10:02:42 02/27/2024 10:41:38 Routine care 056509395 Z34.93 continue vitamin Health Concerns Section Related Observation LastModified by Organization Detai ls LastModified Time None Recorded Concern Status LastModified by Organization Details LastModified Time None Recorded Payers Encounter Date Sequence Insurance Name Policy Number Policy Medrano Covered Member ID Medrano Member ID Guarantor Name 02/27/2024 1 [facility] (MEDICAID HMO) [id number] Keyana Reardon [id number] Keyana Reardon OBGyn Episode Ob Episode Information Episode Created Date Number of Fetuses Patient Bloodtype Patient rh Status Prepregnancy Weight lbs Domestic Partner Domestic Partner Phone Father Name Software Controls Engineer Status 10/09/19 24 1 O Negative 164 OPEN Fetus Data First Name Last Name Admitted to NICU Weight (g) Sex Living Outcome Pediatric Complications Fetus ID Race Codes Race Delivery Type [id number] Problems Problem Notes Future MFM Appts: 12/28 815a, 12/31 1130a DETENTION Echo CG (WNL REPORT), 01/04 9a u/s only - no further appointments, unless clinically indicated Problem Name Start Date End Date Resolution Snomed Code Not e dysrhythmia 12/01/2023 [id number] M FM consult - PAC - 12/21 with MFM and DETENTION on 12/31i improving and nearly resolved on [...] Weight in lbs Pre/Post Dialysis Refused Weight 164.11235871508 BP Diastolic BP Location Tested BP Systolic BP Type 74 L arm 118 sitting Fetus Heart Rate Present A 145 Fetus Movement Comments Flowsheet Date 11/03/2023 Mejia Score Blood Edema Fundus Height Fundus Units Glucose Ketones Leukocytes Nitrite Labor Signs Protein Cervic Dilation Cervic Effacement Cervic Station neg none Type Weight in lbs Pre/Post Dialysis Refused Weight 169.295513347823 BP Diastolic BP Location Tested BP Systolic [...] Type Weight in lbs Pre/Post Dialysis Refused 179.273303742791 BP Diastolic BP Location Tested BP Systolic BP Type 76 L arm 116 sitting Fetus Heart Rate Present A 145 Fetus Movement A Yes Comments Discussed with the patient t he identification of a dysrhythmia. to see [facility] Flowsheet Date 12/29/2023 Mejia Score Blood Edema Fundus Height Fundus Units Glucose Ketones Leukocytes Nitrite Labor Signs Protein Cervic Dilation Cervic Effacement Cervic Station 23 cm Type Weight in lbs Pre/Post Dialysis Refused 189.926774199232 BP Diastolic BP Location Tested BP Systolic [...] Type Weight in lbs Pre/Post Dialysis Refused 198.705863227007 BP Diastolic BP Location Tested BP Systolic [...] Type Weight in lbs Pre/Post Dialysis Refused 200.650636545326 BP Diastolic BP Location Tested BP Systolic [...] Weight in lbs Pre/Post Dialysis Refused Weight 205.730800242691 BP Diastolic BP Location Tested BP Systolic [...] Weight in lbs Pre/Post Dialysis Refused Weight 210.211162427044 BP Diastolic BP Location Tested BP Systolic [...] Type Weight in lbs Pre/Post Dialysis Refused 210.348985887575 BP Diastolic BP Location Tested BP Systolic [...] Weight in lbs Pre/Post Dialysis Refused Weight 210.991435522025 BP Diastolic BP Location Tested BP Systolic [...] Type Weight in lbs Pre/Post Dialysis Refused 212.68005844810 BP Diastolic BP Location Tested BP Systolic [...] Weight in lbs Pre/Post Dialysis Refused Weight 212.019321502240 BP Diastolic BP Location Tested BP Systolic [...]
--- OUTSIDE RECORDS SUMMARY | 2024-04-21 23:20 | XMS_ITS | Encounter Summary ---
Author Organization [facility] Address [address] [place] [address] Care Team Providers Care Oil Expert Name Role Phone Tiffanie Robbins MD Primary Care Provider [phone] Reason for Referral * Cardiac (Routine) - Open Specialty Diagnoses / Procedures Referred By Sunshine muro Referred To Contact Cardiology Diagnoses arrhythmia affecting , antepartum (HCC) Fifth (HCC) 21 weeks gestation of ([facility]) Procedures ECHO - CUPID OH DOPPLER ECHO PULSED WAVE &/CONT WAVE; CMPL OH DOPPLER ECHO PULSE WAVE&/CONT WAVE; REPEAT Harmony Tsai MD [address] [id number] [address] Referral ID Status Reason Start Date Expiration Date Visits Re quested Visits Authorized [id number] Open 12/10/2023 12/09/2024 1 1 Reason for Visit * Cardiac (Routine) - Open Specialty Diagnoses / Procedures Referred By Sunshine muro Referred To Contact Cardiology Diagnoses arrhythmia affecting , antepartum (HCC) Fifth (HCC) 21 weeks gestation of (HCC) Procedures ECHO - CUPID OH DOPPLER ECHO PULSED WAVE &/CONT WAVE; CMPL OH DOPPLER ECHO PULSE WAVE&/CONT WAVE; REPEAT Harmony Tsai MD [address] [place] [phone] [facility] [address] [place] [address] Referral ID Status Reason Start Date Expiration Date Visits Re quested Visits Authorized [id number] Open 12/10/2023 12/09/2024 1 1 Encounter Details Date Type Department Care Team (Latest Contact Info) Description 01/01/2024 11:18 AM CDT - 01/01/2024 11:59 PM CDT Hospital Encounter [facility] [place] [address] [place] [address] Harmony Tsai MD [address] [facility] [address] [place] [address] Tamia Ordonez MD [address] [place] [address] Pediatric Cardiology Discharge Disposition: Home or Self Care Social History Tobacco Use Types Packs/Day Years [...] on file Sexual Orientation Not on file documented as of this encounter Medications at Time of Discharge Medication Sig Dispensed Refills Start Date End Date Vit-Fe Fumarate-FA ( vitamin) 28-0.8 MG tablet Take 1 (one) tablet by mouth once daily documented as of this encounter Plan of Treatment Not on file documented as of this encounter Procedures Procedure Name Priority Date/Time Associated Diagnosis Comments ECHO COMPLETE CG Routine 01/01/2024 12:06 PM CDT arrhythmia affecting , antepartum (HCC) Fifth (HCC) 21 weeks gestation of (HCC) documented in this encounter Results * ECHO COMPLETE CG (01/01/2024 12:06 PM CDT) [facility] MV A pk tahira 48.12 cm/s SSM CV F UJI PACS MV E pk tahira 30.69 cm/s SSM CV F UJI PACS Anatomical Region Laterality Modality Ultrasound 01/01/2024 11:1 3 AM CDT Narrative 01/01/2024 1:49 PM CDT Name: ? Keyana Reardon Patient ??Exam Info Gender: ? Female Accession #: ? [id number] Patient Status: ? O/P : ? 1990 Admit Date: ? 01/01/2024 Exam Date/Time: ? 01/01/2024 11:13 AM Site: ? [facility] Current Location: ? CARE EStudy Quality: ? Diagnostic quality Staff Ordering Provider: ? Harmony Tsai Interpreting Physician: ? Tamia Ordonez MD Student Accounts Manager: ? Nenita Davis [facility] Study Info Procedure: ? ECHO COMPLETE CG Indications: ?O36.8390 - arrhythmia affecting , ??antepartum (HCC) Maternal Gestational Status GA by EDC: ? 24 wks , 2 days EDC: ? 04/20/2024 Type: ? Bond Age: ? 33 yrs Lie: ? Breech Summary ??* The echocardiogram was within normal limits. ??* Small atrial and ventricular septal defects and persistent ductus arteriosus cannot be excluded as findings. Anatomic Relationships ??Left sided cardiac apex (levocardia). There is normal visceral-cardiac situs, and normal segmental cardiac anatomical relationship. Systemic Veins ??There is normal systemic venous return. Pulmonary Veins ??The visualized pulmonary veins drain normally to the left atrium. Right Atrium ??The right atrial size is normal. Left Atrium ??The left atrial size is normal. Atrial Septum ??Patent foramen ovale with open foramen flap. Color flow is right to left. Right Ventricle ??The right ventricular cavity size is normal. The right ventricular wall thickness is normal. The right ventricular systolic function is normal. RV Outflow Tract ??The right ventricular outflow tract is normal. Left Ventricle ??The left ventricular cavity size is normal. The left ventricular wall thickness is normal. The left ventricular systolic function is normal. Ventricular Septum ??There is no ventricular septal defect with no shunting. LV Outflow Tract ??The left ventricular outflow tract is normal. Tricuspid Valve ??The tricuspid valve is structurally normal. The tricuspid inflow pattern is normal. Tricuspid velocity is within the normal range. There is no tricuspid regurgitation. Mitral Valve ??The mitral valve is structurally normal. The mitral inflow pattern is normal. Mitral velocity is within the normal range. There is no mitral regurgitation. Aorta ?? aortic arch visualized and is without obstruction by 2D, color flow and Doppler. Pulmonary Arteries ??The main pulmonary artery is normal, with confluent branch pulmonary arteries. Ductus Arteriosus ??The antegrade flow velocity and pattern in the ductal arch is normal. A normal ductus arteriosus is appreciated. Doppler ??Flow in the ductus venosus is normal. The umbilical vein flow pattern is normal. The umbilical artery flow pattern is normal. Hydrops Assessment ??No pericardial effusion. No ascites present. No pleural effusion(s). Rhythm ??The rhythm is normal. There is 1:1 AV conduction. Pulmonary Valve ??The pulmonic valve is normal-sized. The transpulmonic velocity is within normal range. There is no pulmonic regurgitation. Aortic Valve ??The aortic valve is normal-sized. The transaortic velocity is within normal range. There is no aortic regurgitation. Doppler Measurements (Fetus A) Atrioventricular Valves Name ? Value ?Normal ??Z-Score Percentile Atrioventricular Valves Doppler TV E Peak Velocity ? 0.3 m/s ? TV A Peak Velocity ? 0.4 m/s ? MV E Peak Velocity ? 0.3 m/s ? MV A Peak Velocity ? 0.5 m/s (Fetus A) Semilunar Valves Name ? Value ?Normal ??Z-Score Percentile Semilunar Valves Doppler PV Peak Velocity. ?0.5 m/s ? AV Peak Velocity () ? 0.7 m/s (Fetus A) Heart Rate Name ? Value ?Normal ??Z-Score Percentile Heart Rate HR ? 131 bpm Report Signatures Finalized by Tamia Ordonez ?? on 01/01/2024 01:49 PM Procedure Note Tamia Ordonez MD - 01/01/2024 Name: Keyana Reardon Patient Exam Info Gender: Female Patient Status: O/P : 1990 Admit Date: 01/01/2024 Exam Date/Time: 01/01/2024 11:13 AM Site: [facility] Current Location: CARE EStudy Quality: Diagnostic quality Staff Ordering Provider: Harmony Tsai Interpreting Physician: Tamia Ordonez MD Student Accounts Manager: Nenita Davis [facility] Study Info Procedure: ECHO COMPLETE CG Indications: O36.8390 - arrhythmia affecting , antepartum (HCC) Maternal Gestational Status GA by EDC: 24 wks , 2 days EDC: 04/20/2024 Type: Bond Age: 33 yrs Lie: Breech Summary * The echocardiogram was within normal limits. * Small atrial and ventricular septal defects and persistent ductus arteriosus cannot be excluded as findings. Anatomic Relationships Left sided cardiac apex (levocardia). There is normal visceral-cardiac situs, and normal segmental cardiac anatomical relationship. Systemic Veins There is normal systemic venous return. Pulmonary Veins The visualized pulmonary veins drain normally to the left atrium. Right Atrium The right atrial size is normal. Left Atrium The left atrial size is normal. Atrial Septum Patent foramen ovale with open foramen flap. Color flow is right toleft. Right Ventricle The right ventricular cavity size is normal. The right ventricularwall thickness is normal. The right ventricular systolic function is normal. RV Outflow Tract The right ventricular outflow tract is normal. Left Ventricle The left ventricular cavity size is normal. The left ventricular wall thickness is normal. The left ventricular systolic function is normal. Ventricular Septum There is no ventricular septal defect with no shunting. LV Outflow Tract The left ventricular outflow tract is normal. Tricuspid Valve The tricuspid valve is structurally normal. The tricuspid inflow patternis normal. Tricuspid velocity is within the normal range. There is notricuspid regurgitation. Mitral Valve The mitral valve is structurally normal. The mitral inflow pattern is normal. Mitral velocity is within the normal range. There is no mitral regurgitation. Aorta aortic arch visualized and is without obstruction by 2D, colorflow and Doppler. Pulmonary Arteries The main pulmonary artery is normal, with confluent branch pulmonary arteries. Ductus Arteriosus The antegrade flow velocity and pattern in the ductal arch is normal.A normal ductus arteriosus is appreciated. Doppler Flow in the ductus venosus is normal. The umbilical vein flow patternis normal. The umbilical artery flow pattern is normal. Hydrops Assessment No pericardial effusion. No ascites present. No pleural effusion(s). Rhythm The rhythm is normal. There is 1:1 AV conduction. Pulmonary Valve The pulmonic valve is normal-sized. The transpulmonic velocity iswithin normal range. There is no pulmonic regurgitation. Aortic Valve The aortic valve is normal-sized. The transaortic velocity is withinnormal range. There is no aortic regurgitation. Doppler Measurements (Fetus A) Atrioventricular Valves Name Value Normal Z-ScorePercentile Atrioventricular Valves Doppler TV E Peak Velocity 0.3 m/s TV A Peak Velocity 0.4 m/s MV E Peak Velocity 0.3 m/s MV A Peak Velocity 0.5 m/s (Fetus A) Semilunar Valves Name Value Normal Z-ScorePercentile Semilunar Valves Doppler PV Peak Velocity. 0.5 m/s AV Peak Velocity () 0.7 m/s (Fetus A) Heart Rate Name Value Normal Z-ScorePercentile Heart Rate HR 131 bpm Report Signatures Finalized by Tamia Ordonez MD on 01/01/2024 01:49 PM Harmony Tsai MD ECHO CUPID documented in this encounter Visit Diagnoses Diagnosis arrhythmia affecting , antepartum ([facility]) Abnormality in heart rate/rhythm, antepartum condition or complication Fifth ([facility]) state, incidental 21 weeks gestation of (HCC) state, incidental documented in this encounter Care Teams Oil Expert Relationship Specialty Start Date End Date Tiffanie Robbins MD [address] [place] [address] PCP - General 11/29/20 documented as of this encounter
--- OUTSIDE RECORDS SUMMARY | 2024-04-21 23:20 | XMS_ITS | Encounter Summary ---
Author Organization [facility] Address [address] [place] [address] Care Team Providers Care Cafeteria Or Lunchroom Checker Name Role Phone Tiffanie Robbins MD Primary Care Provider [phone] Reason for Referral * (Routine) - Open Specialty Diagnoses / Procedures Referred By Contac t Referred To Contact Diagnoses arrhythmia affecting , antepartum (HCC) Fifth (HCC) Encounter for repeat ultrasound for heart rate (HCC) Procedures SONOGRAM - COMPLETE Chelsea Torres MD [address] [place] [address] Referral ID Status Reason Start Date Expiration Date Visits Re quested Visits Authorized [id number] Open 12/10/2023 12/09/2024 4 4 Reason for Visit * Reason Comments Ultrasound Encounter Details Date Type Department Care Team (Latest Contact Info) Description 12/22/2023 8:49 AM CDT - 12/22/2023 11:59 PM CDT [facility] Maternal & Care [address] [place] [address] Trey Gill MD [address] [facility] [address] [place] [address] Savanna Cool MD [address] [facility] [address] [place] [address] Discharge Disposition: Home or Self Care Social [...] Procedure Name Priority Date/Time Associated Diagnosis Comments SONOGRAM - COMPLETE Routine 12/22/2023 8 :51 AM CDT arrhythmia affecting , antepartum (HCC) Fifth (HCC) Encounter for repeat ultrasound for heart rate (HCC) documented in this encounter Results * SONOGRAM - COMPLETE (12/22/2023 8:51 AM CDT) Anatomical Region Laterality Modality Other 12/22/2023 8:51 AM CDT Narrative 12/22/2023 9:28 AM CDT ? [facility] ?Maternal and Care Center ?PHONE: ??FAX: Pat. Name: ?ELIZABETH REARDON No: ?[id number] Study Date: ?? 12/22/2023 ??8:51am , Age: ? 1990, 33 Pregnancies: ?? 5, Para 3013 Height: ? 65 in Weight: ? 170 lb LMP: ?Unknown GA by Base: ?? 22w6d ?? VICENTE: 04/20/2024 GA Selected: ??22w6d (From [facility]) VICENTE: ?04/20/2024 Referring MD: Gonzalo Torres MD News Broadcaster: ??Gabriela Mayfield [facility] CPT4: ? 14558 BMI: ?28.29 Hist/Ind: ? PAC's ?LR NIPT (M) ?Anatomy Survey Complete Heart Rate: 144 bpm Amniotic Fluid Index: 06.5cm (Deepest Pocket) PROCEDURE, TECHNIQUE Technique: transabdominal EVAL, PLACENTA Presentation: transverse Placenta: left lateral:anterior Heart Rate: 144 bpm Cardiac Activity: PAC's were not seen on today's ultrasound Amniotic Fluid Volume: normal CLINICAL SUMMARY A single fetus is seen in transverse presentation. ??The amniotic fluid volume is within normal limits. ?? IMPRESSION: Single, live intrauterine at 22w6d ?? Amniotic fluid volume: within normal limits ?? PAC's were not seen on today's ultrasound RECOMMEND: Ultrasound in 1 week for PAC evaluation as previously recommended, and in 2 weeks for growth The patient is scheduled for echo. ??If it is normal, no further US follow up is required for intermittent PAC. Thank you for allowing us the opportunity to care for your patient. ?? Savanna Cool MD <Electronic Signature> ??12/22/2023 09:28am R Massimo Torres MD [facility] ORDERABLES documented in this encounter Visit Diagnoses Diagnosis arrhythmia affecting , antepartum (HCC)- Primary Abnormality in heart rate/rhythm, antepartum condition or complication Fifth (HCC) state, incidental Encounter for repeat ultrasound for heart rate (HCC) documented in this encounter Care Teams Cafeteria Or Lunchroom Checker Relationship Specialty Start Date End Date Tiffanie Robbins MD [address] [place] [address] PCP - General 11/29/20 documented as of this encounter
--- OUTSIDE RECORDS SUMMARY | 2024-04-21 23:20 | XMS_ITS | Encounter Summary ---
Author Organization [facility] Address [address] [place] [address] Care Team Providers Care Geriatric Personal Care Aide Name Role Phone Tiffanie Robbins MD Primary Care Provider [phone] Reason for Referral * (Routine) - Open Specialty Diagnoses / Procedures Referred By Contac t Referred To Contact Diagnoses arrhythmia affecting , antepartum (HCC) Fifth (HCC) Encounter for repeat ultrasound for heart rate (HCC) Procedures SONOGRAM - COMPLETE Chelsea Torres MD [address] [place] [address] Referral ID Status Reason Start Date Expiration Date Visits Re quested Visits Authorized [id number] Open 12/10/2023 12/09/2024 4 4 Reason for Visit * Reason Comments Ultrasound Maternal Medicine Encounter Details Date Type Department Care Team (Latest Contact Info) Description 01/05/2024 8:54 AM CDT - 01/05/2024 11:59 PM CDT Hospital Encounter [facility] Maternal & Care [address] [place] [address] Trey Gill MD [address] [facility] [address] [place] [address] Harmony Tsai MD [address] [facility] [address] [place] [address] Discharge Disposition: Home or Self Care Social [...] Associated Diagnosis Comments SONOGRAM - COMPLETE Routine 01/05/2024 1 0:00 AM CDT arrhythmia affecting , antepartum (HCC) Fifth (HCC) Encounter for repeat ultrasound for heart rate (HCC) documented in this encounter Results * SONOGRAM - COMPLETE (01/05/2024 10:00 AM CDT) Anatomical Region Laterality Modality Other 01/05/2024 10:0 0 AM CDT Narrative 01/05/2024 11:45 AM CDT ? [facility] ?Maternal and Care Center ?PHONE: ??FAX: Pat. Name: ?ELIZABETH REARDON. No: ?[id number] Study Date: ?? 01/05/2024 ??10:00am , Age: ? 1990, 33 Pregnancies: ?? 5, Para 3013 Height: ? 65 in Weight: ? 170 lb LMP: ?Unknown GA by Base: ?? 24w6d ?? VICENTE: 04/20/2024 GA by US: ? 24w5d ?? VICENTE: 04/21/2024 GA Selected: ??24w6d (From [facility]) VICENTE: ?04/20/2024 Referring MD: Gonzalo Torres MD Molded Goods Inspector Trimmer: ??Alexis Mehta RDMS CPT4: ? 78972 BMI: ?28.29 Hist/Ind: ? PAC's ? ECHO wnl 01/01/24 ?LR NIPT (M) ?Anatomy Survey Complete MEASUREMENTS & AGE ? GROWTH EVALUATION Measurement ??GA ? Range ? Srce %for GA Ratios ----- ---- ------- BPD ??6.2 cm 25w2d (16p6t-25a4e) Hadl BPD 59% FL/BPD 0.71 (0.71 - 0.87* HC ??23.0 cm 25w0d (08a8n-94r7f) Hadl HC ??34% FL/AC ??0.20 (0.20 - 0.24) AC ??21.8 cm 26w2d (89o7y-21x4n) Hadl AC ??80% HC/AC ??1.06 (1.02 - 1.21) FL ?? 4.4 cm 24w4d (94b7h-67t3r) Hadl FL ??26% CI ? 0.76 (0.70 - 0.86) HL ?? 4.2 cm 25w1d (62l7t-65n4y) Zaid HL ??56% GA for sonogram 24w5d (29j8u-16c8j) ?? Weight Estimate: based on (BPD,HC,AC,FL) Hadlock ?Weight: 811 gm (692-929gm) Hadloc ? : 1lbs, 12oz ? Normal: 769 gm (577-961gm) Hadloc ? Wt% ? 67% for 24w6d Heart Rate: 140 bpm Amniotic Fluid Index: 07.0cm (Deepest Pocket) PROCEDURE, TECHNIQUE Procedure: Follow up exam Technique: transabdominal EVAL, PLACENTA Presentation: cephalic Placenta: anterior:left lateral Heart Rate: 140 bpm Amniotic Fluid Volume: normal CLINICAL SUMMARY A single fetus is seen in cephalic presentation. ??The measurements today are consistent with appropriate size for established VICENTE. ??The VICENTE is based on a prior ultrasound. ??The amniotic fluid volume is within normal limits. ?? IMPRESSION: Single, live, intrauterine at 24w6d ?? size is appropriate for gestational age by established VICENTE ?? Amniotic fluid volume: within normal limits ?? No major malformations were seen within the limitations of ultrasound. ?? PACs were not observed today. RECOMMEND: Ultrasound follow up as clinically indicated. Thank you for allowing us the opportunity to care for your patient. ??bridgett Tsai MD <Electronic Signature> ??01/05/2024 11:44am R Massimo Torres MD [facility] ORDERABLES documented in this encounter Visit Diagnoses Diagnosis arrhythmia affecting , antepartum (HCC)- Primary Abnormality in heart rate/rhythm, antepartum condition or complication Fifth (HCC) state, incidental Encounter for repeat ultrasound for heart rate (HCC) 24 weeks gestation of (HCC) state, incidental documented in this encounter Care Teams Geriatric Personal Care Aide Relationship Specialty Start Date End Date Tiffanie Robbins MD [address] [place] [address] PCP - General 11/29/20 documented as of this encounter
--- OUTSIDE RECORDS SUMMARY | 2024-04-21 23:20 | XMS_ITS | Patient Health Summary ---
Author Organization [facility] Address [address] [facility] [place] [address] Care Team Providers Care Drapery Hanger Name Role Phone Tiffanie Robbins MD Primary Care Provider [phone] Note from [facility] [place][note 2],non-owned Affiliates and Associated Physician Practices is amultiple site organization consisting of ambulatory clinics and hospital sitesin [place], [place], [place] and [place]. This disclosure is being madepursuant to the Care Everywhere program and may not contain all information available regarding this patient. Last updated 18.[facility] Allergies * Sulfa Drugs(Unknown) Medications * Be aware that medications may not be up to date on this document. Alwaysverify current medications with the patient. * Vit-Fe Fumarate-FA ( vitamin) 28-0.8 MG tablet Take 1 (one) tablet by mouth once daily Active Problems Problem Noted Date Diagnosed Date arrhythmia affecting , antepartum 12/16/2023 Social History Tobacco Use Types Packs/Day Years [...] Mass Index 29.27 12/10/2023 9:28 AM CDT Procedures * SONOGRAM - COMPLETE(Performed 01/05/2024) Performed for arrhythmia affecting , antepartum (HCC), Fifth (HCC), Encounter for repeat ultrasound for heart rate (HCC) * ECHO COMPLETE CG(Performed 01/01/2024) Performed for arrhythmia affecting , antepartum (HCC), Fifth (HCC), 21 weeks gestation of (HCC) * SONOGRAM - COMPLETE(Performed 12/29/2023) Performed for arrhythmia affecting , antepartum (HCC), Fifth (HCC), Encounter for repeat ultrasound for heart rate (HCC) * SONOGRAM - COMPLETE(Performed 12/22/2023) Performed for arrhythmia affecting , antepartum (HCC), Fifth (HCC), Encounter for repeat ultrasound for heart rate (HCC) * SONOGRAM - COMPLETE(Performed 12/16/2023) Performed for arrhythmia affecting , antepartum (HCC), Fifth (HCC), Encounter for repeat ultrasound for heart rate (HCC) * SONOGRAM - COMPLETE(Performed 12/10/2023) Performed for arrhythmia affecting , antepartum (HCC), Fifth (HCC) Results * SONOGRAM - COMPLETE (01/05/2024 10:00 AM CDT) Only the most recent of5 resultswithin the time period is included. Anatomical Region Laterality Modality Other 01/05/2024 10:0 0 AM CDT Narrative 01/05/2024 11:45 AM CDT ? [facility] ?Maternal and Care Center ?PHONE: ??FAX: Pat. Name: ?WINNIEELIZABETH. No: ?[id number] Study Date: ?? 01/05/2024 ??10:00am , Age: ? 1990, 33 Pregnancies: ?? 5, Para 3013 Height: ? 65 in Weight: ? 170 lb LMP: ?Unknown GA by Base: ?? 24w6d ?? VICENTE: 04/20/2024 GA by US: ? 24w5d ?? VICENTE: 04/21/2024 GA Selected: ??24w6d (From [facility]) VICENTE: ?04/20/2024 Referring MD: Gonzalo Torres MD Tool Crib Supervisor: ??Alexis Mehta [facility] CPT4: ? 05755 BMI: ?28.29 Hist/Ind: ? PAC's ? ECHO wnl 01/01/24 ?LR NIPT (M) ?Anatomy Survey Complete MEASUREMENTS & AGE ? GROWTH EVALUATION Measurement ??GA ? Range ? Srce %for GA Ratios ----- ---- ------- BPD ??6.2 cm 25w2d (67e3k-69j5j) Hadl BPD 59% FL/BPD 0.71 (0.71 - 0.87* HC ??23.0 cm 25w0d (83x2a-70j9a) Hadl HC ??34% FL/AC ??0.20 (0.20 - 0.24) AC ??21.8 cm 26w2d (25c2l-13b4k) Hadl AC ??80% HC/AC ??1.06 (1.02 - 1.21) FL ?? 4.4 cm 24w4d (41g8z-24k9y) Hadl FL ??26% CI ? 0.76 (0.70 - 0.86) HL ?? 4.2 cm 25w1d (87v6x-31a1q) Zaid HL ??56% GA for sonogram 24w5d (72o1t-55d4q) ?? Weight Estimate: based on (BPD,HC,AC,FL) Hadlock [...] Signature> ??01/05/2024 11:44am R Massimo Torres MD [facility] ORDERABLES * ECHO COMPLETE CG (01/01/2024 12:06 PM CDT) MV A pk tahira 48.12 cm/s SSM CV F UJI PACS MV E pk tahira 30.69 cm/s SSM CV F UJI PACS Anatomical Region Laterality Modality Ultrasound 01/01/2024 11:1 3 AM CDT Narrative 01/01/2024 1:49 PM CDT Name: ? Elizabeth Reardon Patient ??Exam Info Gender: ? Female Accession #: ? [id number] Patient Status: ? O/P : ? 1990 Admit Date: ? 01/01/2024 Exam Date/Time: ? 01/01/2024 11:13 AM Site: ? [facility] Current Location: ? CARE EStudy Quality: ? Diagnostic quality Staff Ordering Provider: ? Harmony Tsai Interpreting Physician: ? Tamia Ordonez MD Tool Crib Supervisor: ? Nenita Davis [facility] Study Info Procedure: ? ECHO COMPLETE CG [...] Note Tamia Ordonez MD - 01/01/2024 Name: Elizabeth Reardon Patient Exam Info Gender: Female Patient Status: O/P : 1990 Admit Date: 01/01/2024 Exam Date/Time: 01/01/2024 11:13 AM Site: [facility] Current Location: CARE EStudy Quality: Diagnostic quality Staff Ordering Provider: Harmony Tsai Interpreting Physician: Tamia Ordonez MD Tool Crib Supervisor: Nenita Davis [facility] Study Info Procedure: ECHO COMPLETE CG Indications: [...] 01:49 PM Harmony Tsai MD ECHO CUPID Care Teams Drapery Hanger Relationship Specialty Start Date End Date Tiffanie Robbins MD [address] [place] [address] PCP - General 11/29/20
--- OUTSIDE RECORDS SUMMARY | 2024-04-21 23:20 | XMS_ITS | Encounter Summary ---
Author Organization [facility] Address [address] [place] [address] Care Team Providers Care Outdoor Illuminating Engineer Name Role Phone Tiffanie Robbins MD Primary Care Provider [phone] Reason for Visit * Reason Onset Date Comments Future Appointment 12/12/2023 Encounter Details Date Type Department Care Team (Late st Contact Info) Description 12/12/2023 Telephone [facility] Care [place] [address] [place] [id number] Kathryn Martinez Future Appointment Social History Tobacco Use Types Packs/Day Years [...] on file documented as of this encounter Plan of Treatment Not on file documented as of this encounter Visit Diagnoses Not on filedocumented in this encounter Care Teams Outdoor Illuminating Engineer Relationship Specialty Start Date End Date Tiffanie Robbins MD [address] [place] [address] PCP - General 11/29/20 documented as of this encounter
--- OUTSIDE RECORDS SUMMARY | 2024-04-21 23:20 | XMS_ITS | Encounter Summary ---
Author Organization [facility] Address [address] [place] [address] Care Team Providers Care Contact Center Specialist Name Role Phone Tiffanie Robbins MD Primary Care Provider [phone] Reason for Referral * (Routine) - Open Specialty Diagnoses / Procedures Referred By Contac t Referred To Contact Diagnoses arrhythmia affecting , antepartum (HCC) Fifth (HCC) Encounter for repeat ultrasound for heart rate (HCC) Procedures SONOGRAM - COMPLETE Chelsea Torres MD [address] [place] [address] Referral ID Status Reason Start Date Expiration Date Visits Re quested Visits Authorized [id number] Open 12/10/2023 12/09/2024 4 4 Reason for Visit * Reason Comments Ultrasound Encounter Details Date Type Department Care Team (Latest Contact Info) Description 12/29/2023 8:14 AM CDT - 12/29/2023 11:59 PM CDT Hospital Encounter [facility] Maternal & Care [address] [place] [address] Trey Gill MD [address] [place] [address] Head, Britney Woodson MD [address] [place] [address] Discharge Disposition: Home or Self [...] Associated Diagnosis Comments SONOGRAM - COMPLETE Routine 12/29/2023 8 :19 AM CDT arrhythmia affecting , antepartum (HCC) Fifth (HCC) Encounter for repeat ultrasound for heart rate (HCC) documented in this encounter Results * SONOGRAM - COMPLETE (12/29/2023 8:19 AM CDT) Anatomical Region Laterality Modality Other 12/29/2023 8:19 AM CDT Narrative 12/29/2023 8:45 AM CDT ? [facility] ?Maternal and Care Center ?PHONE: ??FAX: Pat. Name: ?ELIZABETH REARDON. No: ?[id number] Study Date: ?? 12/29/2023 ??8:19am , Age: ? 1990, 33 Pregnancies: ?? 5, Para 3013 Height: ? 65 in Weight: ? 170 lb LMP: ?Unknown GA by Base: ?? 23w6d ?? VICENTE: 04/20/2024 GA Selected: ??23w6d (From [facility]) VICENTE: ?04/20/2024 Referring MD: Gonzalo Torres MD Agricultural Inspector: ??Gabriela Mayfield, [facility] CPT4: ? 6[address]43 BMI: ?28.29 Hist/Ind: ? PAC's ?LR NIPT (M) ?Anatomy Survey Complete Heart Rate: 137 bpm Amniotic Fluid Index: 05.7cm (Deepest Pocket) PROCEDURE, TECHNIQUE Technique: transabdominal EVAL, PLACENTA Presentation: breech Placenta: anterior:left lateral Heart Rate: 137 bpm Amniotic Fluid Volume: normal CLINICAL SUMMARY A single fetus is seen in breech presentation. ??The amniotic fluid volume is within normal limits. ?? IMPRESSION: Single, live intrauterine at 23w6d ?? Amniotic fluid volume: within normal limits ?? PAC's were not seen today RECOMMEND: Ultrasound in 1 week for growth and heart rate evaluation Thank you for allowing us the opportunity to care for your patient. ?? Britney Keenan MD <Electronic Signature> ??12/29/2023 08:45am R Massimo Torres MD [facility] ORDERABLES documented in this encounter Visit Diagnoses Diagnosis arrhythmia affecting , antepartum (HCC)- Primary Abnormality in heart rate/rhythm, antepartum condition or complication Fifth (HCC) state, incidental Encounter for repeat ultrasound for heart rate (HCC) 23 weeks gestation of (HCC) state, incidental documented in this encounter Care Teams Contact Center Specialist Relationship Specialty Start Date End Date Tiffanie Robbins MD [address] [place] [address] PCP - General 11/29/20 documented as of this encounter
--- OUTSIDE RECORDS SUMMARY | 2024-04-21 23:20 | XMS_ITS | Encounter Summary ---
Author Organization [facility] Address [address] [place] [place] [address] Care Team Providers Care Sugar Refiner Name Role Phone Tifafnie Robbins MD Primary Care Provider [phone] Reason for Referral * Consultation (Routine) - Open Specialty Diagnoses / Procedures Referred By Contac t Referred To Contact Diagnoses arrhythmia affecting , antepartum (HCC) Fifth (HCC) Chelsea Torres MD [address] [place] [address] Referral ID Status Reason Start Date Expiration Date V isits Requested Visits Authorized [id number] Open Specialty Services Required 12/05/2023 12/04/2024 3 3 * (Routine) - Open Specialty Diagnoses / Procedures Referred By Contac t Referred To Contact Diagnoses arrhythmia affecting , antepartum (HCC) Fifth (HCC) Procedures SONOGRAM - COMPLETE Chelsea Torres MD [address] [place] [address] Referral ID Status Reason Start Date Expiration Date Visits Re quested Visits Authorized [id number] Open 12/02/2023 12/01/2024 1 1 Reason for Visit * Reason Comments Ultrasound Consultation * Evaluate & Treat (Routine) - Authorized Specialty Diagnoses / Procedures Referred By Contac t Referred To Contact Maternal Medicine Diagnoses AMA (advanced maternal age) multigravida 35+ (HCC) arrhythmia affecting , antepartum (HCC) Marijuana use during (HCC) Engages in vaping Procedures [place] FULL ROUT OBSTE CARE,VAGINAL DELChelsea Vallecillo MD [address] [facility] [place] [address] [facility] [address] [place] [address] Referral ID Status Reason Start Date Expiration Date V isits Requested Visits Authorized [id number] Authorized 12/02/2023 05/21/2024 18 18 Encounter Details Date Type Department Care Team (Latest Contact Info) Description 12/10/2023 8:32 AM CDT - 12/10/2023 11:59 PM CDT Hospital Encounter [facility]'s [facility] Maternal & Care [address] [place] [address] Harmony Tsai MD [address] [facility] [address] [place] [phone] Discharge Disposition: Home or Self Care Social [...] on file documented as of this encounter Last Filed Vital Signs Vital Sign Reading [...] Mass Index 29.27 12/10/2023 9:28 AM CDT documented in this encounter Medications at Time of Discharge Medication Sig Dispensed Refills Start Date End Date Vit-Fe Fumarate-FA ( vitamin) 28-0.8 MG tablet Take 1 (one) tablet by mouth once daily documented as of this encounter Progress Notes * Isis Khan RN - 12/10/2023 9:33 AM CDT Patient here for provider visit and ultrasound for arrthymia seen on outside ultrasound. Denies contractions, denies bleeding, leakage of fluid, and reports good movement. Reports 3 day headache that reports as come and go type last week. Patient took 2 tylenol and slept a lot. No headache today. Patient reports seeing spots and stars prior to on occasion but increased with the . Patient's last eye exam was just over 1 year ago. Patient reports she feels like heart racing whole off and on and it seems to have worsened in the past few weeks. No feelings of heart racing today. Pulse today 70-72, sats 100%. Patient reports feeling movement since approx. 15-16 weeks EGA. Patient has cats in home. Her kids change litter box. 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 Patient Vitals for the past 6 hrs: Pulse BP 12/10/23 0928 72 124/80 Isis Khan RN 12/10/2023 9:42 AM Telephone orders read back from Dr. Blossom Tsai for echo, maternal EKG. Orders sent with patient for EKG and patient will have done at [facility] for EKG. Patient to have FU limited US once weekly x 3 weeks and on 4th week FU comp anatomy/growth. Isis Khan RN 12/10/2023 10:27 AM documented in this encounter Consult Notes * Harmony Tsai MD - 12/10/2023 12:17 PM CDT Images from the original note were not included. [facility] [address] [place] [address] Harmony Tsai MD [facility] 12/10/2023 Site of service: [facility]: Elizabeth Reardon Date of : 1990 LOCATION and CONSENT: The patient was seen today by video visit. She was present at the [facility] office. The physician was remote. Verbal consent was obtained for the video visit. Referring Physician: Chelsea Torres MD Dear Dr. Torres: Thank you very much for sending Elizabeth Reardon for evaluation. I saw her on 12/10/2023 at [facility], via video visit. She was sent in for evaluation of arrhythmia. Background. Ms. Reardon is a 33 year old who is now about 21w1d. Her has been overall uncomplicated. A arrhythmia was seen on outside US. She reports good movement. Nausea and vomiting have resolved. No bleeding. Occasional cramping. She did have a 3 day headache last week, and has occasional visual spots. She also has episodes of her heart racing . OB History 4 Para 3 Term 3 AB Living 3 SAB IAB Ectopic Multiple Live Births 3 # Outcome Date GA Labor/2nd Weight Sex Delivery Anes PTL Lv A1 A5 4 Current 3 Term 2018 39w0d 3515 g (7 lb 12 oz) M Vag-Vacuum Living 2 Term 2013 39w0d 4649 g (10 lb 4 oz) M Vag-Spont Living 1 Term 2011 38w0d 3147 g (6 lb 15 oz) F Vag-Spont Living Past Medical History: Diagnosis Date Heart palpitations 09/2023 started noticing heart racing. Past Surgical History: Procedure Laterality Date Tonsillectomy Prior to Admission medications Medication Sig Start Date End Date Taking? Authorizing Provider Vit-Fe Fumarate-FA ( vitamin) 28-0.8 MG tablet Take 1 (one) tablet by mouth once daily Yes Provider, MD Nida Allergies: Sulfa drugs. Family history: no concerns for genetic problems, defects or related problems Social history: no tobacco or alcohol use, occasional marijuana A complete review of systems revealed no relevant problems.. PE: video visit Upon evaluation, her weight was Weight: 81 kg (178 lb 9.6 oz) Her blood pressure was BP: 124/80 andpulse is Pulse: 72. General: comfortable, no distress Neuro: alert, oriented A targeted sonogram was performed with separate report to follow. PACs were seen, otherwise unremarkable exam. Impression: 33 year old at 21 1/7 weeks GA. Her fetus has PACS on US. In addition she is experiencing some palpitations and visual spots, as well as a 3 day headache last week. Recommendations: # PACs - I explained that PACs are generally benign, and resolve in utero or shortly after . - Rarely PACs may be associated with progression to sustained SVT. Therefore additional monitoring is recommended. - I have recommended the following: - weekly limited US for FHR evaluation x 3 weeks - growth US in 4 weeks - ECHO - I have recommended stopping all stimulants including caffeine, energy drinks, decongestants with pseudoephedrine, and any stimulating herbal supplements and use of cocoa butter on the skin # Palpitations - EKG has been ordered - check CBC, CMP next visit - I discussed magnesium supplementation - I encouraged adequate hydration - If persistent, cardiology consultation may be considered # Headache - If recurrent may need neurology consult - Headache in excess of 24 hours should warrant further evaluation # Visual changes/ spots - Encouraged eye exam # Questions regarding toenail fungus - Establish with PCP - In the meantime, it is reasonable to use topical OTC antifungals per package instructions # Delivery planning - timing and mode of delivery to be determined as the progresses - at this time, a term delivery is anticipated # Follow up - She will see you for her visits and delivery - She will follow up with US for her US exams as recommended above. We very much appreciate the opportunity to assist in counseling and diagnosis of your patient. Please let me know if further issues arise for which I can be of help. Sincerely, Harmony Tsai MD Division of Maternal- Medicine Department of Obstetrics, Genecology, and Women's Health [facility] This was a 15 minute video consultation. documented in this encounter Plan of Treatment Scheduled Referrals Name Type Priority Associated Diagnoses Order Schedule AMB REFERRAL TO MATERNAL- MEDICINE Outpatient Referral Routine arrhythmia affecting , antepartum (HCC) Fifth (HCC) 1 Occurrences starting 12/05/2023 until 12/04/2024 documented as of this encounter Results * SONOGRAM - COMPLETE (12/10/2023 8:35 AM CDT) Anatomical Region Laterality Modality Other 12/10/2023 8:35 AM CDT Narrative 12/10/2023 10:33 AM CDT ? [facility] ?Maternal and Care Center ?PHONE: ??FAX: Pat. Name: ?ELIZABETH REARDON Pat. No: ?[id number] Study Date: ?? 12/10/2023 ??8:35am , Age: ? 1990, 33 Pregnancies: ?? 5, Para 3013 Height: ? 65 in Weight: ? 179 lb LMP: ?Unknown GA by US: ? 21w1d ?? VICENTE: 04/20/2024 GA Selected: ??21w1d (From Known E) VICENTE: ?04/20/2024 Referring MD: Gonzalo Torres MD Software Engineer Web Applications: ??Kate Miller RDMS CPT4: ? 90082 BMI: ?29.78 Hist/Ind: ? Arrythmia on Outside Scan ?LR NIPT (M) MEASUREMENTS & AGE ? GROWTH EVALUATION Measurement ??GA ? Range ? Srce %for GA Ratios ----- ---- ------- BPD ??5.0 cm 21w1d (69r9s-95t8u) Hadl BPD 48% FL/BPD 0.69 HC ??18.4 cm 20w5d (63m5c-65h5c) Hadl HC ??24% FL/AC ??0.21 AC ??16.6 cm 21w5d (37q9u-57d7c) Hadl AC ??59% HC/AC ??1.11 (1.05 - 1.24) FL ?? 3.5 cm 20w6d (53m9c-22v8o) Hadl FL ??32% CI ? 0.77 (0.70 - 0.86) HL ?? 3.4 cm 21w3d (35d2z-18w4g) Zaid HL ??54% Cere 2.1 cm 19w6d (52l7p-80a5k) Hill Cere16% GA for sonogram 21w1d (33e4o-74g4h) ?? Weight Estimate: based on (BPD,HC,AC,FL) Avg ?Weight: 410 gm (351-470gm) Hadloc ? : 0lbs, 14oz ? Normal: 410 gm (308-513gm) Hadloc ? Wt% ? 51% for 21w1d Heart Rate: 156 bpm Amniotic Fluid Index: 05.9cm (Deepest Pocket) PROCEDURE, TECHNIQUE Technique: transabdominal EVAL, PLACENTA Presentation: cephalic Umbilical Cord: 3 Vessels Placenta: anterior Heart Rate: 156 bpm Amniotic Fluid Volume: normal Anatomy!Normal!Abnormal!Suboptimal!Prev. Seen!Comments Cranium ?! ?? x ??! ?! ?! ?! Mdl (CSP/Thal! ?? x ??! ?! ?! ?! Ventricles ?? ! ?? x ??! ?! ?! ?! Choroid Plexu! ?? x ??! ?! ?! ?! Cerebellum ?? ! ?? x ??! ?! ?! ?! Cisterna M. ??! ?? x ??! ?! ?! ?! Nuchal Fold ??! ?? x ??! ?! ?! ?! Orbits ? ! ?? x ??! ?! ?! ?! Profile ?! ?! ?! ? x ?! ?! Nasal Bone ?? ! ?! ?! ? x ?! ?! Lip ?! ?! ?! ? x ?! ?! Spine ?! ?? x ??! ?! ?! ?! Lungs ?! ?? x ??! ?! ?! ?! 4 Chamber Hea! ?? x ??! ?! ?! ?! LVOT ? ! ?? x ??! ?! ?! ?! RVOT ? ! ?! ?! ? x ?! ?! 3 Vessel View! ?? x ??! ?! ?! ?! 3 Vessel Trac! ?! ?! ? x ?! ?! Cross-over ?? ! ?? x ??! ?! ?! ?! Ductal Arch ??! ?? x ??! ?! ?! ?! Aortic Arch ??! ?? x ??! ?! ?! ?! Caval View ?? ! ?? x ??! ?! ?! ?! Situs ?! ?? x ??! ?! ?! ?! Diaphragm ?! ?? x ??! ?! ?! ?! Stomach ?! ?? x ??! ?! ?! ?! Bowel ?! ?? x ??! ?! ?! ?! Kidneys ?! ?? x ??! ?! ?! ?! Bladder ?! ?? x ??! ?! ?! ?! 3 Vessel Cord! ?? x ??! ?! ?! ?! Cord In! ?? x ??! ?! ?! ?! Upper Extremi! ?? x ??! ?! ?! ?! Hands ?! ?? x ??! ?! ?! ?! Lower Extremi! ?? x ??! ?! ?! ?! Feet ? ! ?? x ??! ?! ?! ?! External Delma! ?? x ??! ?! ?! ?!Male Placental Cor! ?? x ??! ?! ?! ?! Maternal Adne! ?? x ??! ?! ?! ?! CLINICAL SUMMARY A single fetus is seen in cephalic presentation. ??The measurements today are consistent with appropriate size for established VICENTE. ??The VICENTE is based on a prior ultrasound examination (confirmed). ??The amniotic fluid volume is within normal limits. ?? IMPRESSION: Single, live, intrauterine at 21w1d ?? size is within normal limits ?? Amniotic fluid volume: within normal limits ?? No major malformations were seen within the limitations of ultrasound. ?? Frequent PACs are seen, with overall normal heart rate. There is no evidence of a pericardial effusion. No structural heart abnormalities were seen, however the exam today is not complete. RECOMMEND: Ultrasound exams as follows: Limited US for heart rate check in 1,2 and 3 weeks Follow up US in 4 weeks, to complete the anatomic survey and assess interval growth. ECHO referral will be sent. Please see separate M visit note. Thank you for allowing us the opportunity to care for your patient. ??jm Harmony Tsai MD <Electronic Signature> ??12/10/2023 10:33am R Massimo Torres MD [facility] ORDERABLES documented in this encounter Visit Diagnoses Diagnosis Encounter for anatomic survey (HCC)- Primary Encounter for anatomic survey arrhythmia affecting , antepartum (HCC) Abnormality in heart rate/rhythm, antepartum condition or complication Fifth (HCC) state, incidental 21 weeks gestation of (HCC) state, incidental Heart palpitations Palpitations arrhythmia affecting , antepartum (HCC)- Primary Abnormality in heart rate/rhythm, antepartum condition or complication Fifth (HCC) state, incidental documented in this encounter Care Teams Sugar Refiner Relationship Specialty Start Date End Date Tiffanie Robbins MD [address] [place] [address] PCP - General 11/29/20 documented as of this encounter
--- OUTSIDE RECORDS SUMMARY | 2024-04-21 23:20 | XMS_ITS | Encounter Summary ---
Author Organization [facility] Address [address] [place] [address] Care Team Providers Care Surgical Lead Name Role Phone Tiffanie Robbins MD Primary Care Provider [phone] Reason for Visit * Evaluate & Treat (Routine) - Authorized Specialty Diagnoses / Procedures Referred By Contac t Referred To Contact Maternal Medicine Diagnoses AMA (advanced maternal age) multigravida 35+ (HCC) arrhythmia affecting , antepartum (HCC) Marijuana use during (HCC) Engages in vaping Procedures [place] FULL ROUT OBSTE CARE,VAGINAL DELChelsea Vallecillo MD [address] [place] [address] [facility] [address] [place] [address] Referral ID Status Reason Start Date Expiration Date V isits Requested Visits Authorized [id number] Authorized 12/02/2023 05/21/2024 18 18 Encounter Details Date Type Department Care Team (Latest Contact Info) Description 01/01/2024 11:17 AM CDT Hospital Encounter [facility] [place] [address] [place] [phone] Tamia Ordonez MD [address] [place] [id number] Discharge Disposition: Home or Self Care Social [...] as of this encounter Progress Notes * Tamia Ordonez MD - 01/01/2024 12:02 PM CDT Images from the original note were not included. Echocardiogram and Consultation Date: 01/01/2024 : [place] Referring Physician: Chelsea Torres MD [address] [facility] [place] [address] Torres: I had the pleasure of seeing your patient, Keyana Reardon, for echocardiographic evaluation and consultation on 01/01/2024. Indications for echocardiogram include a history of arrhythmia. The following clinical information was available at the time of the evaluation: Maternal Age: [age] year old Gestational Age: 24w2d Estimated Date of Delivery: 04/20/24 History : Complications of the : none Maternal Medical History: None Medications: vitamins, magnesium Social History: Delivery planned in [place] Family History of Congenital Heart Disease: No Previous Ultrasound: normal Abnormal HeartTones: irregular A complete 2-D, pulse wave and color Doppler echocardiogram was performed. The quality of thestudy was technically adequate. 2-D Findings: Visceroatrial situs solitus with levocardia. The systemic venous return was normal. There was atrioventricular and ventriculoarterial concordance. The right atrium and left atrium appeared normal size. There was a patent foramen ovale which bowed from right to left. The mitral valve and tricuspid valves were morphologically normal. The right and left ventricles were normal size forgestational age with normal wall thickness and normal systolic function. The ventricular septum appeared intact. The great vessels were normally related. The branch pulmonary arteries were confluent.A ductal arch was identified. The aortic arch appeared normal. No pericardial or pleural effusion. Doppler Examination: There was normal mitral and tricuspid inflow patterns with a dominant A wave and smaller E wave. No mitral or tricuspid insufficiency. There was normal laminar flow across the aortic and pulmonary valves. There was normal fjuec-jy-hsbv shunting across the ductus arteriosus in systole with a small amount in diastole. There was normal flow pattern in the transverse aortic arch. Rhythm: By M-mode, there was 1:1 AV conduction. No arrhythmia was detected. IMPRESSION: Normal echocardiogram. No arrhythmia noted. RECOMMENDATIONS: I reviewed the findings of today's echocardiogram with the mother of the baby. I reassured her that there are no identified cardiac malformations on today's study, but that minor defects, such as small muscular VSDs or minor valve defects, could still be present postnatally. We discussed that the previous irregularity was likely related to benign premature atrial contractions and that these often resolve during or soon after delivery. Based on the findings today, no further cardiology follow-up is needed unless new concerns or symptoms arise. Thank you again for allowing us to participate in the care of this patient. If you have any furtherquestions, please do not hesitate to contact me at . In general, echocardiography has an excellent sensitivity and specificity. However, certain heart lesions cannot be diagnosed in the fetus as they are a normal part of the circulation, e.g. secundum atrial septal defects and patent ductus arteriosus. Other congenital heart lesions that have proven difficult to diagnose in a fetus include coarctation of the aorta, total or partial anomalous pulmonary venous return, small ventricular septal defects, and coronary anomalies. Nor can we predict late gestation myocarditis or arrhythmias later in life such as Jojli-Demnngfbv-Nuitb syndrome. Total time spent was 45 minutes including reviewing diagnostic imaging, counseling regarding findings and limitations, and documentation. Sincerely, Tamia Ordonez MD documented in this encounter Plan of Treatment Not on file documented as of this encounter Visit Diagnoses Not on filedocumented in this encounter Care Teams Surgical Lead Relationship Specialty Start Date End Date Tiffanie Robbins MD [address] [place] [id number] PCP - General 11/29/20 documented as of this encounter
--- OUTSIDE RECORDS SUMMARY | 2024-04-21 23:20 | XMS_ITS | Encounter Summary ---
Author Organization [facility] Address [address] [place] [address] Care Team Providers Care Die Repairer Trimmer Dies Name Role Phone Tiffanie Robbins MD Primary Care Provider [phone] Reason for Referral * Cardiac (Routine) - Open Specialty Diagnoses / Procedures Referred By Contac t Referred To Contact Cardiology Diagnoses arrhythmia affecting , antepartum (HCC) Fifth (HCC) 21 weeks gestation of ([facility]) Procedures ECHO - CUPID SD DOPPLER ECHO PULSED WAVE &/CONT WAVE; CMPL SD DOPPLER ECHO PULSE WAVE&/CONT WAVE; REPEAT Harmony Tsai MD [address] [address] [address] Referral ID Status Reason Start Date Expiration Date Visits Re quested Visits Authorized [id number] Open 12/10/2023 12/09/2024 1 1 * OP/Amb RFL Auth (Routine) - Open Specialty Diagnoses / Procedures Referred By Contac t Referred To Contact Diagnoses Fifth (HCC) 21 weeks gestation of ([facility]) Heart palpitations Procedures EKG 12-LEAD Harmony Tsai MD [address] [facility] [place] [address] [place] [address] Referral ID Status Reason Start Date Expiration Date Visits Re quested Visits Authorized [id number] Open 12/10/2023 12/09/2024 1 1 * (Routine) - Open Specialty Diagnoses / Procedures Referred By Contac t Referred To Contact Diagnoses arrhythmia affecting , antepartum (HCC) Fifth (HCC) Procedures SONOGRAM - COMPLETE Chelsea Torres MD [address] [place] [address] Referral ID Status Reason Start Date Expiration Date Visits Re quested Visits Authorized [id number] Open 12/02/2023 12/01/2024 1 1 Encounter Details Date Type Department Care Team (Latest Contact Info) Description 12/10/2023 8:25 AM CDT - 12/10/2023 8:31 AM CDT Hospital Encounter [facility] [address] [id number] Harmony Tsai MD [address] [facility] [address] [place] [address] Discharge Disposition: Home or Self [...] as of this encounter Plan of Treatment Scheduled Orders Name Type Priority Associated Diagnoses Orde r Schedule EKG 12-LEAD ECG Routine Fifth (HCC) 21 weeks gestation of (HCC) Heart palpitations 1 Occurrences starting 12/10/2023 until 12/09/2024 documented as of this encounter Procedures Procedure Name Priority Date/Time Associated Diagnosis Comments SONOGRAM - COMPLETE Routine 12/10/2023 8 :35 AM CDT arrhythmia affecting , antepartum (HCC) Fifth (HCC) documented in this encounter Results * [...] Info Gender: ? Female Accession #: ? [id number] Patient Status: ? O/P : ? 1990 Admit Date: ? 01/01/2024 Exam Date/Time: ? 01/01/2024 11:13 AM Site: ? [facility] Current Location: ? CARE EStudy Quality: ? Diagnostic quality Staff Ordering Provider: ? Harmony Tsai Interpreting Physician: ? Tamia Ordonez MD Hydraulic Miner Blasting: ? Nenita Davis [facility] Study Info Procedure: ? ECHO COMPLETE [...] 01/01/2024 Exam Date/Time: 01/01/2024 11:13 AM Site: [facility] Current Location: CARE EStudy Quality: Diagnostic quality Staff Ordering Provider: Harmony Tsai Interpreting Physician: Tamia Ordonez MD Hydraulic Miner Blasting: Nenita Davis [facility] Study Info Procedure: ECHO COMPLETE CG [...] 01:49 PM Harmony Tsai MD ECHO CUPID * SONOGRAM - COMPLETE (12/10/2023 8:35 AM CDT) Anatomical Region Laterality Modality Other 12/10/2023 8:35 AM CDT Narrative 12/10/2023 10:33 AM CDT ? [facility] ?Maternal and Care Center ?PHONE: ??FAX: Pat. Name: ?ELIZABETH REARDON Pat. No: ?[id number] Study Date: ?? 12/10/2023 ??8:35am , Age: ? 1990, 33 Pregnancies: ?? 5, Para 3013 Height: ? 65 in Weight: ? 179 lb LMP: ?Unknown GA by US: ? 21w1d ?? VICENTE: 04/20/2024 GA Selected: ??21w1d (From Known E) VICENTE: ?04/20/2024 Referring MD: Gonzalo Torres MD Hydraulic Miner Blasting: ??Kate Miller RDMS CPT4: ? 67554 BMI: ?29.78 Hist/Ind: ? Arrythmia on Outside Scan ?LR NIPT (M) MEASUREMENTS & AGE ? GROWTH EVALUATION Measurement ??GA ? Range ? Srce %for GA Ratios ----- ---- ------- BPD ??5.0 cm 21w1d (45o0v-78z5p) Hadl BPD 48% FL/BPD 0.69 HC ??18.4 cm 20w5d (74x9z-76i8z) Hadl HC ??24% FL/AC ??0.21 AC ??16.6 cm 21w5d (31k4x-27n3z) Hadl AC ??59% HC/AC ??1.11 (1.05 - 1.24) FL ?? 3.5 cm 20w6d (82d5w-59q2f) Hadl FL ??32% CI ? 0.77 (0.70 - 0.86) HL ?? 3.4 cm 21w3d (65e9x-85t7f) Zaid HL ??54% Cere 2.1 cm 19w6d (91t4k-92m6q) Hill Cere16% GA for sonogram 21w1d (47x8p-19i2y) ?? Weight Estimate: based on (BPD,HC,AC,FL) Avg [...] Signature> ??12/10/2023 10:33am R Massimo Torres MD [facility] ORDERABLES documented in this encounter Visit Diagnoses Diagnosis Encounter for anatomic survey (HCC)- Primary Encounter for anatomic survey arrhythmia affecting , antepartum (HCC) Abnormality in heart rate/rhythm, antepartum condition or complication Fifth (HCC) state, incidental 21 weeks gestation of (HCC) state, incidental Heart palpitations Palpitations arrhythmia affecting , antepartum (HCC) Abnormality in heart rate/rhythm, antepartum condition or complication Fifth (HCC) state, incidental 21 weeks gestation of (HCC) state, incidental documented in this encounter Care Teams Die Repairer Trimmer Dies Relationship Specialty Start Date End Date Tiffanie Robbins MD [address] [place] [address] PCP - General 11/29/20 documented as of this encounter
--- OUTSIDE RECORDS SUMMARY | 2024-04-21 23:20 | XMS_ITS | Encounter Summary ---
Author Organization [facility] Address [address] [facility] [place] [address] Care Team Providers Care Help Desk Representative Name Role Phone Tiffanie Robbins MD Primary Care Provider [phone] Reason for Referral * (Routine) - Open Specialty Diagnoses / Procedures Referred By Contac t Referred To Contact Diagnoses arrhythmia affecting , antepartum (HCC) Fifth (HCC) Encounter for repeat ultrasound for heart rate (HCC) Procedures SONOGRAM - COMPLETE Chelsea Torres MD [address] [place] [address] Referral ID Status Reason Start Date Expiration Date Visits Re quested Visits Authorized [id number] Open 12/10/2023 12/09/2024 4 4 * (Routine) - Open Specialty Diagnoses / Procedures Referred By Contac t Referred To Contact Diagnoses arrhythmia affecting , antepartum (HCC) Fifth (HCC) Encounter for repeat ultrasound for heart rate (HCC) Procedures SONOGRAM - COMPLETE Chelsea Torres MD [address] [place] [address] Referral ID Status Reason Start Date Expiration Date Visits Re quested Visits Authorized [id number] Open 12/10/2023 12/09/2024 4 4 Reason for Visit * Reason Comments Ultrasound Encounter Details Date Type Department Care Team (Latest Contact Info) Description 12/16/2023 8:40 AM CDT - 12/16/2023 11:59 PM CDT Hospital Encounter [facility] [address] [place], [place] [id number] Trey Gill MD [address] [facility] [address] [place] [phone] Discharge Disposition: Home or Self Care Social [...] Associated Diagnosis Comments SONOGRAM - COMPLETE Routine 12/16/2023 8 :40 AM CDT arrhythmia affecting , antepartum (HCC) Fifth (HCC) Encounter for repeat ultrasound for heart rate (HCC) documented in this encounter Results * SONOGRAM - COMPLETE (01/05/2024 10:00 AM CDT) Anatomical Region Laterality Modality Other 01/05/2024 10:0 0 AM CDT Narrative 01/05/2024 11:45 AM CDT ? [facility] ?Maternal and Care Center ?PHONE: ??FAX: Pat. Name: ?REARDONELIZABETH. No: ?[id number] Study Date: ?? 01/05/2024 ??10:00am , Age: ? 1990, 33 Pregnancies: ?? 5, Para 3013 Height: ? 65 in Weight: ? 170 lb LMP: ?Unknown GA by Base: ?? 24w6d ?? VICENTE: 04/20/2024 GA by US: ? 24w5d ?? VICENTE: 04/21/2024 GA Selected: ??24w6d (From [facility]) VICENTE: ?04/20/2024 Referring MD: Gonzalo Torres MD Self Propelled Mining Machine Operator: ??Alexis Mehta [facility] CPT4: ? 87438 BMI: ?28.29 Hist/Ind: ? PAC's ? ECHO wnl 01/01/24 ?LR NIPT (M) ?Anatomy Survey Complete MEASUREMENTS & AGE ? GROWTH EVALUATION Measurement ??GA ? Range ? Srce %for GA Ratios ----- ---- ------- BPD ??6.2 cm 25w2d (74x2a-23o8f) Hadl BPD 59% FL/BPD 0.71 (0.71 - 0.87* HC ??23.0 cm 25w0d (69r9p-33b7k) Hadl HC ??34% FL/AC ??0.20 (0.20 - 0.24) AC ??21.8 cm 26w2d (43x3f-05v1x) Hadl AC ??80% HC/AC ??1.06 (1.02 - 1.21) FL ?? 4.4 cm 24w4d (14r5s-06n6e) Hadl FL ??26% CI ? 0.76 (0.70 - 0.86) HL ?? 4.2 cm 25w1d (83t5y-37i3b) Zaid HL ??56% GA for sonogram 24w5d (72u3v-27o9p) ?? Weight Estimate: based on (BPD,HC,AC,FL) Hadlock [...] Signature> ??01/05/2024 11:44am R Massimo Torres MD [employer] ORDERABLES * SONOGRAM - COMPLETE (12/29/2023 8:19 AM CDT) Anatomical Region Laterality Modality Other 12/29/2023 8:1 9 AM CDT Narrative 12/29/2023 8:45 AM CDT ? [facility] ?Maternal and Care Center ?PHONE: ??FAX: Pat. Name: ?WINNIEELIZABETH Pat. No: ?[id number] Study Date: ?? 12/29/2023 ??8:19am , Age: ? 1990, 33 Pregnancies: ?? 5, Para 3013 Height: ? 65 in Weight: ? 170 lb LMP: ?Unknown GA by Base: ?? 23w6d ?? VICENTE: 04/20/2024 GA Selected: ??23w6d (From [facility]) VICENTE: ?04/20/2024 Referring MD: Gonzalo Torres MD Self Propelled Mining Machine Operator: ??Gabriela Mayfield RDMS CPT4: ? 35594 BMI: ?28.29 Hist/Ind: ? PAC's ?LR NIPT [...] Signature> ??12/29/2023 08:45am R Massimo Torres MD [employer] ORDERABLES * SONOGRAM - COMPLETE (12/22/2023 8:51 AM CDT) Anatomical Region Laterality Modality Other 12/22/2023 8:51 AM CDT Narrative 12/22/2023 9:28 AM CDT ? [facility] ?Maternal and Care Center ?PHONE: ??FAX: Pat. Name: ?ELIZABETH REARDON Chelsea Diane. No: ?[id number] Study Date: ?? 12/22/2023 ??8:51am , Age: ? 1990, 33 Pregnancies: ?? 5, Para 3013 Height: ? 65 in Weight: ? 170 lb LMP: ?Unknown GA by Base: ?? 22w6d ?? VICENTE: 04/20/2024 GA Selected: ??22w6d (From [facility]) VICENTE: ?04/20/2024 Referring MD: Gonzalo Torres MD Self Propelled Mining Machine Operator: ??Gabriela Mayfield [facility] CPT4: ? 45647 BMI: ?28.29 Hist/Ind: ? PAC's ?LR NIPT [...] Signature> ??12/22/2023 09:28am R Massimo Torres MD [employer] ORDERABLES * SONOGRAM - COMPLETE (12/16/2023 8:40 AM CDT) Anatomical Region Laterality Modality Other 12/16/2023 8:40 AM CDT Narrative 12/16/2023 9:18 AM CDT ? [facility] ?Maternal and Care Center ?PHONE: ??FAX: Pat. Name: ?ELIZABETH REARDON Chelsea Diane. No: ?[id number] Study Date: ?? 12/16/2023 ??8:40am , Age: ? 1990, 33 Pregnancies: ?? 5, Para 3013 Height: ? 65 in Weight: ? 170 lb LMP: ?Unknown GA by Base: ?? 22w0d ?? VICENTE: 04/20/2024 GA Selected: ??22w0d (From [facility]) VICENTE: ?04/20/2024 Referring MD: Gonzalo Torres MD Self Propelled Mining Machine Operator: ??Kate Miller [facility] CPT4: ? 86718 BMI: ?28.29 Hist/Ind: ? PAC's ?LR NIPT (M) Heart Rate: 133 bpm Amniotic Fluid Index: 04.9cm (Deepest Pocket) PROCEDURE, TECHNIQUE Technique: transabdominal EVAL, PLACENTA Presentation: cephalic Placenta: anterior Heart Rate: 133 bpm Amniotic Fluid Volume: normal Anatomy!Normal!Abnormal!Suboptimal!Prev. Seen!Comments Cranium ?! ?! ?! ?! ? x ?! Mdl (CSP/Thal! ?! ?! ?! ? x ?! Ventricles ?? ! ?! ?! ?! ? x ?! Choroid Plexu! ?! ?! ?! ? x ?! Cerebellum ?? ! ?! ?! ?! ? x ?! Cisterna M. ??! ?! ?! ?! ? x ?! Nuchal Fold ??! ?! ?! ?! ? x ?! Orbits ? ! ?! ?! ?! ? x ?! Profile ?! ?? x ??! ?! ?! ?! Nasal Bone ?? ! ?? x ??! ?! ?! ?! Lip ?! ?? x ??! ?! ?! ?! Spine ?! ?! ?! ?! ? x ?! Lungs ?! ?! ?! ?! ? x ?! 4 Chamber Hea! ?! ?! ?! ? x ?! LVOT ? ! ?! ?! ?! ? x ?! RVOT ? ! ?? x ??! ?! ?! ?! 3 Vessel View! ?! ?! ?! ? x ?! 3 Vessel Trac! ?? x ??! ?! ?! ?! Cross-over ?? ! ?! ?! ?! ? x ?! Ductal Arch ??! ?! ?! ?! ? x ?! Aortic Arch ??! ?! ?! ?! ? x ?! Caval View ?? ! ?! ?! ?! ? x ?! Situs ?! ?! ?! ?! ? x ?! Diaphragm ?! ?! ?! ?! ? x ?! Stomach ?! ?! ?! ?! ? x ?! Bowel ?! ?! ?! ?! ? x ?! Kidneys ?! ?! ?! ?! ? x ?! Bladder ?! ?! ?! ?! ? x ?! 3 Vessel Cord! ?! ?! ?! ? x ?! Cord In! ?! ?! ?! ? x ?! Upper Extremi! ?! ?! ?! ? x ?! Hands ?! ?! ?! ?! ? x ?! Lower Extremi! ?! ?! ?! ? x ?! Feet ? ! ?! ?! ?! ? x ?! External Delma! ?! ?! ?! ? x ?! Placental Cor! ?! ?! ?! ? x ?! Maternal Adne! ?! ?! ?! ? x ?! CLINICAL SUMMARY A single fetus is seen in cephalic presentation. ??The amniotic fluid volume is within normal limits. ?? IMPRESSION: Single, live intrauterine at 22w0d ?? Amniotic fluid volume: within normal limits ?? One PAC was noted by visualization. ??No PAC's were noted with M-Mode Echo scheduled for 12/31 at [facility] RECOMMEND: Ultrasound in 1 week for PAC evaluation Thank you for allowing us the opportunity to care for your patient. ?? Trey Gill MD <Electronic Signature> ??12/16/2023 09:18am R Massimo Torres MD [employer] ORDERABLES documented in this encounter Visit Diagnoses Diagnosis arrhythmia affecting , antepartum (HCC)- Primary Abnormality in heart rate/rhythm, antepartum condition or complication Fifth (HCC) state, incidental Encounter for repeat ultrasound for heart rate (HCC) 22 weeks gestation of (HCC) state, incidental arrhythmia affecting , antepartum (HCC)- Primary Abnormality in heart rate/rhythm, antepartum condition or complication Fifth (HCC) state, incidental Encounter for repeat ultrasound for heart rate (HCC) arrhythmia affecting , antepartum (HCC)- Primary Abnormality in heart rate/rhythm, antepartum condition or complication Fifth (HCC) state, incidental Encounter for repeat ultrasound for heart rate (HCC) 23 weeks gestation of (HCC) state, incidental arrhythmia affecting , antepartum (HCC)- Primary Abnormality in heart rate/rhythm, antepartum condition or complication Fifth (HCC) state, incidental Encounter for repeat ultrasound for heart rate (HCC) 24 weeks gestation of (HCC) state, incidental documented in this encounter Care Teams Help Desk Representative Relationship Specialty Start Date End Date Tiffanie Robbins MD [address] [place] [address] PCP - General 11/29/20 documented as of this encounter
--- OUTSIDE RECORDS SUMMARY | 2024-04-21 23:23 | XMS_ITS | Encounter Summary ---
Author Organization [facility] Address [address] [place] [address] Phone Care Team Providers Care Ham Curer Name Role Phone Nabila Chandler APRN, FREELANCE DESIGNER Primary Care P rodavidder Reason for Referral * Radiology Services (Routine) - Closed Specialty Diagnoses / Procedures Referred By Sunshine muro Referred To Contact Radiology Diagnoses Neck swelling Procedures US THYROID Isis Pope MD [address] [place] [address] Phone: tel: fax: Referral ID Status Reason Start Date Expiration Date Visits Re quested Visits Authorized [id number] Closed 12/12/2023 1 1 Reason for Visit * Radiology Services (Routine) - Closed Specialty Diagnoses / Procedures Referred By Sunshine muro Referred To Contact Radiology Diagnoses Neck swelling Procedures US THYROID Isis Pope MD [address] [place] [address] Phone: tel: fax: Referral ID Status Reason Start Date Expiration Date Visits Re quested Visits Authorized [id number] Closed 12/12/2023 1 1 Encounter Details Date Type Department Care Team (Latest Contact Info) Description 01/02/2024 8:30 AM CDT - 01/02/2024 11:59 PM CDT [facility] [address] [place] [address] Isis Pope MD [address] [place] [address] Discharge Disposition: Discharged to home or Selfcare Social History Tobacco Use Types Packs/Day Years Used Date Smoking Tobacco: Former Cigarettes Q uit: 08/28/2021 Smokeless Tobacco: Never Alcohol Use Standard Drinks/Week Comments No 0 (1 standard drink = 0.6 oz pur e alcohol) PHQ-2 Answer Date Recorded Total Score - Questions 1-9 1 12/14 Education Answer Date Recorded What is the highest level of school you have completed or the highest degree you have received? 12th grade 08/01/2022 Comments No Sex and Gender Information Value Date Recorded Sex Assigned at Female 12/12/2023 12:08 PM CDT Legal Sex Female 8:45 PM CDT Gender Identity Female 12/12/2023 12:08 PM CDT Sexual Orientation Not on file documented as of this encounter Medications at Time of Discharge Vit-Fe Fumarate-FA ( vitamin) 28-0.8 MG Tablet Take 1 Tablet by mouth daily. documented as of this encounter Progress Notes * Isis Pope MD - 01/02/2024 8:30 AM CDT Your thyroid ultrasound was normal. documented in this encounter Plan of Treatment Not on file documented as of this encounter Procedures Procedure Name Priority Date/Time Associated Diagnosis Comments US THYROID Routine 01/02/2024 8:37 AM CDT Neck swelling documented in this encounter Results * US THYROID (01/02/2024 8:37 AM CDT) Anatomical Region Laterality Modality BODY N/A Ultrasound 01/05/2024 10:3 4 AM CDT Impressions 01/05/2024 10:37 AM CDT IMPRESSION: ?? 1. ?? Grossly normal thyroid ultrasound. ACR TI-RADS Risk Category: ??1 REFERENCE: According to the ACR Thyroid Imaging, Reporting and Data System (TI-RADS): White Paper of the ACR TI-RADS Committee Aug, 2016 recommendations regarding the management of thyroid nodules are as follows: 1. ?? TI-RADS 1: Risk of malignancy <2%, no FNA or follow up required. 2. ?? TI-RADS 2: Risk of malignancy <2%, no FNA or follow up required. 3. ?? TI-RADS 3: Risk of malignancy 2%-5%. Nodules 1.5 cm or greater follow up at 1, 3 and 5 years recommended, for nodules 2.5 cm or greater FNA recommended. 4. ?? TI-RADS 4: Risk of malignancy 5%-20% Nodules 1.0 cm or greater follow up at 1, 2, 3 and 5 years recommended, for nodules 1.5 cm or greater FNA recommended 5. ?? TI-RADS 5: Risk of malignancy >20%. Nodules 0.5 cm or greater annual follow up for 5 years recommended, for nodules 1.0 cm or greater FNA recommended. The ACT TI-RADS committee recommends targeting no more than two nodules for FNA. ??If three or more nodules meet criteria for FNA, the two with the most suspicious appearance based on ACR TI-RADS points should be sampled. Narrative 01/05/2024 10:37 AM CDT EXAM DESCRIPTION: ?? US THYROID REASON FOR STUDY: ?? persistent swelling for one year right side of neck. ?? TECHNIQUE: Ultrasound of the thyroid was performed with grayscale and color doppler. COMPARISON: None FINDINGS: RIGHT: The right thyroid lobe measures ??4.4 x 1.6 x 1.8 ?? cm. ??The right thyroid lobe is normal in echotexture. LEFT: The left thyroid lobe measures ??4.0 x 1.3 x 1.6 ??cm. ??The left thyroid lobe is normal in echotexture. ISTHMUS: The isthmus measures ??0.3 cm ??in AP dimension. ??The isthmus is normal in echotexture. VASCULARITY: ??Normal. OTHER: ??No other significant finding. THIS IS AN ELECTRONICALLY VERIFIED FINAL REPORT 01/05/2024 10:34 AM - Electronically signed by ??Hudson Miner M.D. AG: LEONOR D: ??01/05/2024 10:34 AM T: ??01/05/2024 10:34 AM Report ID: [id number] Reading Location: ??[id number] Procedure Note Hudson Mienr MD - 01/05/2024 EXAM DESCRIPTION: US THYROID REASON FOR STUDY: persistent swelling for one year right side of neck. TECHNIQUE: Ultrasound of the thyroid was performed with grayscale and color doppler. COMPARISON: None FINDINGS: RIGHT: The right thyroid lobe measures 4.4 x 1.6 x 1.8 cm. The right thyroid lobe is normal in echotexture. LEFT: The left thyroid lobe measures 4.0 x 1.3 x 1.6 cm. The left thyroid lobe is normal in echotexture. ISTHMUS: The isthmus measures 0.3 cm in AP dimension. The isthmus is normal in echotexture. VASCULARITY: Normal. OTHER: No other significant finding. THIS IS AN ELECTRONICALLY VERIFIED FINAL REPORT 01/05/2024 10:34 AM - Electronically signed by Hudson Miner M.D. AG: LEONOR Report ID: [id number] Reading Location: [id number] IMPRESSION: 1. Grossly normal thyroid ultrasound. ACR TI-RADS Risk Category: 1 REFERENCE: According to the ACR Thyroid Imaging, Reporting and Data System (TI-RADS): White Paper of the ACR TI-RADS Committee Aug, 2016 recommendations regarding the management of thyroid nodules are as follows: 1. TI-RADS 1: Risk of malignancy <2%, no FNA or follow up required. 2. TI-RADS 2: Risk of malignancy <2%, no FNA or follow up required. 3. TI-RADS 3: Risk of malignancy 2%-5%. Nodules 1.5 cm or greater follow up at 1, 3 and 5 years recommended, for nodules 2.5 cm or greater FNA recommended. 4. TI-RADS 4: Risk of malignancy 5%-20% Nodules 1.0 cm or greater follow up at 1, 2, 3 and 5 years recommended, for nodules 1.5 cm or greater FNA recommended 5. TI-RADS 5: Risk of malignancy >20%. Nodules 0.5 cm or greater annual follow up for 5 years recommended, for nodules 1.0 cm or greater FNA recommended. The ACT TI-RADS committee recommends targeting no more than two nodules for FNA. If three or more nodules meet criteria for FNA, the two with the most suspicious appearance based on ACR TI-RADS points should be sampled. us Isis Pope MD IMG US ORDERABLES Final Re sult documented in this encounter Visit Diagnoses Diagnosis Neck swelling Swelling, mass, or lump in head and neck documented in this encounter Additional Health Concerns Assessment Noted Time PHQ-9 Depression Total Score: 1 01/03/20 20 11:00 AM CDT documented as of this encounter Care Teams Ham Curer Relationship Specialty Start Date End Date Nabila Chandler, DOUBLE END TRIMMER, FREELANCE DESIGNER [address] [place] [address] PCP - General Advanced Practice Nurse 11/24/19 documented as of this encounter
--- OUTSIDE RECORDS SUMMARY | 2024-04-21 23:23 | XMS_ITS | Encounter Summary ---
Author Organization [facility] Address [address] [place] [address] Phone Care Team Providers Care Delivery And Mail Sorter Name Role Phone Nabila Chandler APRN, CNP Primary Care P rovider Reason for Visit * Reason Onset Date Comments Results 12/16/2023 Labs Encounter Details Date Type Department Care Team (Late st Contact Info) Description 12/16/2023 Telephone [facility] - Primary Care - [place] [address] [place] [address] Nabila Chandler APRN, CNP [address] [place] [address] Results (Labs ) Social History Tobacco Use Types Packs/Day Years [...] on file documented as of this encounter Miscellaneous Notes * Telephone Encounter - Tiana Jiang RN - 12/16/2023 9:30 AM CDT Pt notified of results by PCP via [employer]. * Telephone Encounter - Tiana Jiang RN - 12/16/2023 9:30 AM CDT ----- Message from [employer] sent at 12/14/2023 4:20 PM CDT ----- Fasting blood sugar is low, probably reflecting a delay in processing. Liver and kidney tests are normal. Blood count is basically normal. Thyroid test is normal. documented in this encounter Plan of Treatment Not on file documented as of this encounter Visit Diagnoses Not on filedocumented in this encounter Additional Health Concerns Assessment Noted Time PHQ-9 Depression Total Score: 1 01/03/20 20 11:00 AM CDT documented as of this encounter Care Teams Delivery And Mail Sorter Relationship Specialty Start Date End Date Nabila Chandler APRN, PEER FINANCIAL COUNSELOR [address] [address] PCP - General Advanced Practice Nurse 11/24/19 documented as of this encounter
--- OUTSIDE RECORDS SUMMARY | 2024-04-21 23:23 | XMS_ITS | Clinical Summary ---
Author Organization [facility] Address [address] [place] [address] Phone Care Team Providers Care Fur Mixer Operator Name Role Phone Nabila Chandler APRN, GARBAGE COLLECTOR SUPERVISOR Primary Care P rovider Allergies Active Allergy Reactions Criticality Noted Date Comments Sulfa Antibiotics Unknown 06/25/2016 Medications Vit-Fe Fumarate-FA ( vitamin) 28-0.8 MG Tablet Take 1 Tablet by mouth daily. Active Active Problems No known active problems Immunizations Immunization Administration Dates Next Due DTP Vaccine 07/25/1993, 1,1989,05/30,1989 Hepatitis A Vaccine, Pediatric/adolescent, 2 Dose Schedule 07/24/2006,08/15/2004 Hepatitis B Vaccine, Pediatric/adolescent 06/04/2001,01/01/2001,11/27/2000 Hib Vaccine,unspecified Formulation 08/18/1990 Human Papillomavirus (HPV) V accine, Bivalent 08/03/2007 MMR Vaccine 07/25/1993 Meningococcal C Conjugate Vaccine 07/24/2006 OPV 07/25/1993, 1,1989,04/24 RHO D IG FULL DOSE 300 MCG IM 06/13/2019 RHO(D) Immune Globulin- IV Or IM 02/27/2018 TD VACCINE 11/22/2019,12/15/2003 Social History Tobacco Use Types Packs/Day Years Used Date Smoking Tobacco: Former Cigarettes Q uit: 08/28/2021 Smokeless Tobacco: Never Tobacco Cessation:Counseling Given: Not Answered Alcohol Use Standard Drinks/Week Comments No 0 [...] PM CDT Sexual Orientation Not on file Last Filed Vital Signs Vital Sign Reading Time Taken Comments Blood Pressure 106/62 12/12/2023 9:53 AM CDT Pulse 82 12/12/2023 9:53 AM CDT Temperature 36.3 ??C (97.4 ??F) 12/12/2023 9:53 AM CD T Respiratory Rate 20 12/12/2023 9:53 AM CDT Oxygen Saturation 99% 12/12/2023 9:53 AM CDT Inhaled Oxygen Concentration - - Weight 81.4 kg (179 lb 6.4 oz) 12/12/2023 9:53 A M CDT Height 166.4 cm (5' 5.5 ) 12/12/2023 9:53 AM CDT Body Mass Index 29.4 12/12/2023 9:53 AM CDT Plan of Treatment Health Maintenance Due Date Last Done Comments DTaP/Tdap/Td Immunization (6 - Tdap) 11/23/2019 11/22/2019, 12/15/2003, 07/25/1993, Additional history exists Pap Smear 11/28/2023 11/27/2020 Influenza Immunization (#1) 2023 SARS-COV-2 Immunization ( season) 2023 Cervical Cancer Screening (CCS) 11/27/2025 HPV/Cotest 11/27/2025 11/27/2020 Respiratory Syncytial Virus (RSV) Immunization (Adult) (1 - 1-dose 75+ series) 02/17/2064 Hepatitis B Immunization Completed 002, 01/01/2001, 11/27/2000 Hepatitis C Virus (HCV) Screening Completed 10/02/2023 Meningococcal Immunization (ACWY) Aged Out No longer eligible based on patient's age to complete this topic Pneumococcal Immunization Combined Aged Out No longer eligible based on patient's age to complete this topic Rotavirus Immunization Aged Out No lo nger eligible based on patient's age to complete this topic Procedures Procedure Name Priority Date/Time Associated Diagnosis Comments HUMAN PAPILLOMA VIRUS (HPV) 11/27/2020 12:00 AM CDT PATHOLOGY CYTOLOGY SWINGING CUT OFF SAW OPERATOR 11/27/2020 12:00 AM CDT from Last 3 Months or Most Recently Relevant to Health Maintenance Results * PATHOLOGY CYTOLOGY SWINGING CUT OFF SAW OPERATOR (11/27/2020 12:00 AM CDT) 11/27/2020 us Not On File Provider PATHOLOGY/CYTOLOGY ORDERABL ES Final Result Performing Organization Address City/[facility] Co de Phone Number SCAN * HUMAN PAPILLOMA VIRUS (HPV) (11/27/2020 12:00 AM CDT) 11/27/2020 us Not On File Provider LAB SEND OUTS Final Resul t Performing Organization Address City/[facility] Co de Phone Number SCAN from Last 3 Months or Most Recently Relevant to Health Maintenance Insurance MEDICAID [place] Care Teams Fur Mixer Operator Relationship Specialty Start Date End Date Nabila Chandler, ERECTION SHOP SUPERVISOR, GARBAGE COLLECTOR SUPERVISOR [address] [place] [address] PCP - General Advanced Practice Nurse 11/24/19
--- OUTSIDE RECORDS SUMMARY | 2024-04-21 23:23 | XMS_ITS | Encounter Summary ---
Author Organization [facility] Address [address] [place] [address] Phone Care Team Providers Care Supervisor Ornamental Ironworking Name Role Phone Nabila Chandler APRN, DERIK Primary Care P rovider Encounter Details Date Type Department Care Team (Late st Contact Info) Description 12/12/2023 11:00 AM CDT Lab [facility] - Primary Care - [address] [phone] Lab, [facility] Neck swelling Discharge Disposition: Discharged to home or Selfcare [...] on file documented as of this encounter Progress Notes * Nasreen Villalta N - 12/12/2023 11:00 AM CDT Keyana presents for lab draw per order of Nabila Ramesh MEHDI dated 12/12/23. Specimen collected from right antecubital without incident. sah * Isis Pope MD - 12/12/2023 11:00 AM CDT Fasting blood sugar is low, probably reflecting a delay in processing. Liver and kidney tests are normal. Blood count is basically normal. Thyroid test is normal. documented in this encounter Plan of Treatment Not on file documented as of this encounter Procedures Procedure Name Priority Date/Time Associated Diagnosis Comments THYROID SCREEN WITH REFLEX Routine 12/12/2023 10:25 AM CDT Neck swelling THYROID SCREEN WITH REFLEX Routine 12/12/2023 10:25 AM CDT Neck swelling CBC WITH AUTO DIFFERENTIAL Today 12/12/2023 10:25 AM CDT Neck swelling CMP (COMPREHENSIVE METABOLIC PANEL) Routine 12/12/2023 10:25 AM CDT Neck swelling COMPLETE BLOOD COUNT (CBC) WITH DIFF Today 12/12/2023 10:25 AM CDT Neck swelling documented in this encounter Results * (ABNORMAL) CBC WITH AUTO DIFFERENTIAL (12/12/2023 10:25 AM CDT) WBC 9.81 4.00 - 12.00 10(3)/mcL 12/12/2023 1:13 PM CDT [facility] RBC 3.91 3.80 - 5.30 10(6)/mcL 12/12/2023 1:13 PM CDT [facility] HEMOGLOBIN (HGB) 13.0 12.0 - 15.8 g/dL 12/12/2023 1:13 PM CDT [facility] HEMATOCRIT (HCT) 37.8 36.0 - 47.0 % 12/12/2023 1:13 PM CDT [facility] MCV 96.7(H) 82.0 - 96.0 fL 12/12/2023 1:13 PM CDT [facility] MCH 33.2 26.0 - 34.0 pg 12/12/2023 1:13 PM CDT [facility] MCHC 34.4 31.0 - 36.0 g/dL 12/12/2023 1:13 PM CDT [facility] PLATELET COUNT 322 140 - 440 10(3)/mcL 12/12/2023 1:13 PM CDT [facility] RDW 12.2 11.8 - 15.5 % 12/12/2023 1:13 PM CDT [facility] MPV 10.0 9.7 - 12.4 fL 12/12/2023 1:13 PM CDT [facility] NEUTROPHILS 80.0(H) 47.0 - 73.0 % 12/12/2023 1:13 PM CDT [facility] LYMPHOCYTES 12.0(L) 18.0 - 42.0 % 12/12/2023 1:13 PM CDT [facility] MONOCYTES 7.0 4.0 - 12.0 % 12/12/2023 1:13 PM CDT [facility] EOSINOPHILS 0.4 0.0 - 5.0 % 12/12/2023 1:13 PM CDT [facility] BASOPHILS 0.6 0.0 - 1.0 % 12/12/2023 1:13 PM CDT [facility] ABSOLUTE NEUTROPHILS 7.84(H) 1.60 - 7.70 10(3)/mcL 12/12/2023 1:13 PM CDT [facility] ABSOLUTE LYMPHOCYTES 1.18(L) 1.30 - 3.20 10(3)/mcL 12/12/2023 1:13 PM CDT [facility] ABSOLUTE MONOCYTES 0.69 0.20 - 1.00 10(3)/mcL 12/12/2023 1:13 PM CDT [facility] ABSOLUTE EOSINOPHIL 0.04 0.00 - 0.40 10(3)/mcL 12/12/2023 1:13 PM CDT [facility] ABSOLUTE BASOPHILS 0.06 0.00 - 0.10 10(3)/mcL 12/12/2023 1:13 PM CDT [facility] NRBC PER 100 WBC 0 12/12/19 1:13 PM CDT [facility] Blood Venipuncture / Unknown 12/12/2023 10:25 AM CDT 12/12/2023 10:25 AM CDT sIis Pope MD HEMATOLOGY ORDERABLES Nicole l Result Performing Organization Address City/[facility]/ZIP Co de Phone Number [facility] [address] [place] [address] * THYROID SCREEN WITH REFLEX (12/12/2023 10:25 AM CDT) Pathologist [facility] TSH 1.553 0.300 - 5.000 mIU/L 12/12/2023 1:36 PM CDT [facility] Blood Venipuncture / Unknown 12/12/2023 10:25 AM CDT 12/12/2023 10:25 AM CDT Isis Pope MD CHEMISTRY ORDERABLES Final Result Performing Organization Address City/[facility]/ZIP Co de Phone Number [facility] [address] [place] [address] * (ABNORMAL) CMP (COMPREHENSIVE METABOLIC PANEL) (12/12/2023 10:25 AM CDT) SODIUM 140 136 - 145 mmol/L 12/12/2023 1:29 PM CDT [facility] POTASSIUM 4.7 3.5 - 5.1 mmol/L 12/12/2023 1:29 PM CDT [facility] CHLORIDE 109(H) 98 - 107 mmol/L 12/12/2023 1:29 PM T [facility] CO2, VENOUS 24 22 - 30 mmol/L 12/12/2023 1:29 PM T [facility] ANION GAP 11.7 <18.0 mmol/L 12/12/2023 1:29 PM T [facility] GLUCOSE 66(L) 70 - 99 mg/dL 12/12/2023 1:29 PM CDT [facility] BUN 7 5 - 18 mg/dL 12/12/2023 1:29 PM [facility] CREATININE, BLOOD 0.65 0.60 - 1.00 mg/dL 12/12/2023 1:29 PM T [facility] BUN/CREATININE RATIO 11(L) 12 - 20 ratio 12/12/2023 1:29 PM [facility] TOTAL PROTEIN 6.5 6.3 - 8.2 g/dL 12/12/2023 1:29 PM T [facility] ALBUMIN 3.6 3.5 - 5.0 g/dL 12/12/2023 1:29 PM [facility] A/G RATIO 1.2 1.0 - 2.2 12/12/2023 1:29 PM [facility] CALCIUM 9.2 8.7 - 10.5 mg/dL 12/12/2023 1:29 PM [facility] T BILI 0.2 0.2 - 1.2 mg/dL 12/12/2023 1:29 PM T [facility] SGOT (AST) 30 5 - 34 U/L 12/12/2023 1:29 PM T [facility] SGPT (ALT) 41 0 - 55 U/L 12/12/2023 1:29 PM T [facility] ALKALINE PHOSPHATASE 43 40 - 150 U/L 12/12/2023 1:29 PM [facility] IS THE PATIENT REQUIRED TO BE FASTING? Yes 12/12/2023 1:29 PM CDT [facility] HAS THE PATIENT BEEN FASTING? Yes 12/12/2023 1:29 PM CDT [facility] GFR, ESTIMATED >60 >=60 12/12/2023 1:29 PM CDT [facility] Comment: Creatinine Clearance is the preferred criteria for selecting drug dose adjustments in renally impaired patients. ??The GFR is provided as additional pertinent clinical information. GFR is reported in mL/min/1.73 sq m. Calculation based on the Chronic Kidney Disease Epidemiology Collaboration (CKD- EPI) equation refit without adjustment for race. GFR, EST. >60 >=60 12/11/ 024 1:29 PM CDT [facility] GFR, EST. NONAFRICAN >60 >=60 12/12/2023 1:29 PM CDT [facility] Blood Venipuncture / Unknown 12/12/2023 10:25 AM CDT 12/12/2023 10:25 AM CDT us Isis Pope MD CHEMISTRY ORDERABLES Final Result [facility] [address] [place] [address] documented in this encounter Visit Diagnoses Diagnosis Neck swelling Swelling, mass, or lump in head and neck documented in this encounter Additional Health Concerns Assessment Noted Time PHQ-9 Depression Total Score: 1 01/03/20 20 11:00 AM CDT documented as of this encounter Care Teams Supervisor Ornamental Ironworking Relationship Specialty Start Date End Date Nabila Chandler, LAWN MOWER OPERATOR, MEDICAL RECORD LIBRARIANS TEACHER [address] [place] [address] PCP - General Advanced Practice Nurse 11/24/19 documented as of this encounter
--- OUTSIDE RECORDS SUMMARY | 2024-04-21 23:23 | XMS_ITS | Encounter Summary ---
Author Organization [employer] Care Team Providers Care Elevator Constructor Helper Name Role Phone Nabila Chandler APRN, CNP Primary Care P rodavidder Encounter Details Date Type Department Care Team (Latest Contact Info) Description 01/01/2024 Travel Social History Tobacco Use Types Packs/Day Years [...] documented as of this encounter Care Teams Elevator Constructor Helper Relationship Specialty Start Date End Date Nabila Chandler APRN, CNP [address] [place] [address] PCP - General Advanced Practice Nurse 8/12/20 documented as of this encounter
--- OUTSIDE RECORDS SUMMARY | 2024-04-21 23:23 | XMS_ITS | Encounter Summary ---
Author Organization [employer] Care Team Providers Care Field Traffic Investigator Name Role Phone Nabila Chandler APRN, CNP Primary Care P rodavidder Encounter Details Date Type Department Care Team (Latest Contact Info) Description 12/12/2023 Travel Social History Tobacco Use Types Packs/Day [...] documented as of this encounter Care Teams Field Traffic Investigator Relationship Specialty Start Date End Date Nabila Chandler APRN, CNP [address] [place] [address] PCP - General Advanced Practice Nurse 8/12/20 documented as of this encounter
--- OUTSIDE RECORDS SUMMARY | 2024-04-21 23:23 | XMS_ITS | Encounter Summary ---
Author Organization [facility] Address [address] [place] [address] Phone Care Team Providers Care Diesel Mechanic Construction Name Role Phone Nabila Chandler APRN, CNP Primary Care P rush Reason for Referral * Radiology Services (Routine) - Closed Specialty Diagnoses / Procedures Referred By Sunshine muro Referred To Contact Radiology Diagnoses Neck swelling Procedures US THYROID Isis Pope MD [address] [place] [place] [address] Phone: tel: fax: Referral ID Status Reason Start Date Expiration Date Visits Re quested Visits Authorized [id number] Closed 12/12/2023 1 1 Reason for Visit * Reason Comments Aphagia Encounter Details Date Type Department Care Team ([facility] Contact Info) Description 12/12/2023 10:15 AM CDT Office Visit [facility] - Primary Care - [address] [place] [address] Isis Pope MD [address] [place] [address] Neck swelling (Primary Dx) Discharge Disposition: Discharged to home or Selfcare [...] Mass Index 29.4 12/12/2023 9:53 AM CDT documented in this encounter Progress Notes * Savanna Shields, RMA - 12/12/2023 10:15 AM CDT Keyana Chelsea Reardon, 33 y.o., female is here for Aphagia Medication Refills: Patient reports/denies need for medication refills. Orders Pended: no Requested Prescriptions No prescriptions requested or ordered in this encounter Home Medications Medication Sig Start Date End Date Taking? Authorizing Provider Vit-Fe Fumarate-FA ( vitamin) 28-0.8 MG Tablet Take 1 Tablet by mouth daily. Yes Provider, MD Nida Medications Discontinued During This Encounter Medication Reason traZODone (DESYREL) 50 MG Tablet Med List Clean Up meloxicam (MOBIC) 15 MG Tablet Med List Clean Up buPROPion (WELLBUTRIN) 300 MG TABLET SR 24 HR XL tablet Med List Clean Up busPIRone (BUSPAR) 5 MG Tablet Med List Clean Up Multiple Vitamin (MULTIVITAMINS PO) Med List Clean Up I have reviewed the home medication list with the patient and have reconciled discrepancies. The list is accurate to the best of my knowledge. Smoking Status: Social History Tobacco Use Smoking status: Former Current packs/day: 0.00 Types: Cigarettes Quit date: 08/28/2021 Years since quittin.2 Smokeless tobacco: Never Substance Use Topics Alcohol use: No Drug use: Yes Frequency: 3.0 times per week Types: Marijuana Smoking Cessation Counseling Given: no Health Care Maintenance: Health Maintenance Due Topic Date Due DTaP/Tdap/Td Immunization ( - Tdap) 11/23/2019 SARS-COV-2 Immunization ( season) Never done Orders Pended: no The following BPA's have been addressed with the patient today: N/A * Isis Pope MD - 12/12/2023 10:15 AM CDT Subjective: Subjective Patient is a 33-year-old female who complains of feeling of swelling in her neck. She has no history of trauma. No history of fever, thyroid disease, or hoarseness. Symptoms have been getting worse over the past several weeks. The history is provided by the patient and medical records. Neck Swelling This is a new problem. The current episode started 1 to 4 weeks ago. The problem occurs constantly.The problem has been gradually worsening. Associated symptoms include coughing and fatigue. Associated symptoms comments: Some trouble swallowing but not pain. The symptoms are aggravated by eating and stress. She has tried nothing for the symptoms. Review of Systems Constitutional: Positive for fatigue. Respiratory: Positive for cough. Objective: Objective Physical Exam Vitals and nursing note reviewed. Constitutional: General: She is not in acute distress. Appearance: Normal appearance. She is well-developed. She is not diaphoretic. HENT: Head: Normocephalic and atraumatic. Right Ear: External ear normal. Left Ear: External ear normal. Nose: No congestion or rhinorrhea. Mouth/Throat: Mouth: Mucous membranes are moist. Pharynx: No posterior oropharyngeal erythema. Eyes: General: No scleral icterus. Right eye: No discharge. Left eye: No discharge. Conjunctiva/sclera: Conjunctivae normal. Pupils: Pupils are equal, round, and reactive to light. Neck: Trachea: No tracheal deviation. Comments: The thyroid appears to be diffusely enlarged without any nodule that I could feel. The cervical lymph nodes may be slightly enlarged Cardiovascular: Rate and Rhythm: Normal rate and regular rhythm. Heart sounds: Normal heart sounds. No murmur heard. Pulmonary: Effort: Pulmonary effort is normal. No respiratory distress. Breath sounds: Normal breath sounds. No wheezing, rhonchi or rales. Chest: Chest wall: No tenderness. Abdominal: General: Bowel sounds are normal. There is no distension. Palpations: Abdomen is soft. Tenderness: There is no abdominal tenderness. There is no right CVA tenderness, left CVA tenderness, guarding or rebound. Musculoskeletal: General: Normal range of motion. Cervical back: Normal range of motion and neck supple. No rigidity or tenderness. Lymphadenopathy: Cervical: No cervical adenopathy. Skin: General: Skin is warm and dry. Findings: No rash. Neurological: General: No focal deficit present. Mental Status: She is alert and oriented to person, place, and time. Cranial Nerves: No cranial nerve deficit. Psychiatric: Mood and Affect: Mood normal. Behavior: Behavior normal. Thought Content: Thought content normal. Judgment: Judgment normal. Assessment and Plan Assessment & Plan See Diagnoses, Orders, Follow-up, and Instructions 1. Neck swelling Patient appears to have a possible goiter. She will be checked for thyroid nodules, hypothyroidism,diabetes, infection, anemia, liver disease, and kidney disease - US THYROID; Future - THYROID SCREEN WITH REFLEX; Future - COMPLETE BLOOD COUNT (CBC) WITH DIFF; Future - CMP (COMPREHENSIVE METABOLIC PANEL); Future Follow up in 1 month or sooner for any new medical problems that may occur. Patient will be treatedaccording to the results of her labs and ultrasound. She should obtain a flu shot in the next monthor so documented in this encounter Plan of Treatment Not on file documented as of this encounter Results * US THYROID (01/02/2024 [...] AM T: ??01/05/2024 10:34 AM Report ID: [id number] Reading Location: ??[id number] Procedure Note Hudson Miner MD - 01/05/2024 EXAM DESCRIPTION: US THYROID [...] Hudson Miner M.D. AG: LEONOR Report ID: [id number] Reading Location: [id number] IMPRESSION: 1. Grossly normal thyroid ultrasound. ACR [...] should be sampled. us Isis Pope MD [facility] US ORDERABLES Final Re sult * (ABNORMAL) CMP (COMPREHENSIVE METABOLIC PANEL) (12/12/2023 10:25 AM CDT) SODIUM 140 136 - 145 mmol/L 12/12/2023 1:29 PM CDT [facility] POTASSIUM 4.7 3.5 - 5.1 mmol/L 12/12/2023 1:29 PM CDT [facility] CHLORIDE 109(H) 98 - 107 mmol/L 12/12/2023 1:29 PM CDT [facility] CO2, VENOUS 24 22 - 30 mmol/L 12/12/2023 1:29 PM CDT [facility] ANION GAP 11.7 <18.0 mmol/L 12/12/2023 1:29 PM CDT [facility] GLUCOSE 66(L) 70 - 99 mg/dL 12/12/2023 1:29 PM CDT [facility] BUN 7 5 - 18 mg/dL 12/12/2023 1:29 PM CDT [facility] CREATININE, BLOOD 0.65 0.60 - 1.00 mg/dL 12/12/2023 1:29 PM CDT [facility] BUN/CREATININE RATIO 11(L) 12 - 20 ratio 12/12/2023 1:29 PM CDT [facility] TOTAL PROTEIN 6.5 6.3 - 8.2 g/dL 12/12/2023 1:29 PM [facility] ALBUMIN 3.6 3.5 - 5.0 g/dL 12/12/2023 1:29 PM [facility] A/G RATIO 1.2 1.0 - 2.2 12/12/2023 1:29 PM [facility] CALCIUM 9.2 8.7 - 10.5 mg/dL 12/12/2023 1:29 PM [facility] T BILI 0.2 0.2 - 1.2 mg/dL 12/12/2023 1:29 PM [facility] SGOT (AST) 30 5 - 34 U/L 12/12/2023 1:29 PM [facility] SGPT (ALT) 41 0 - 55 U/L 12/12/2023 1:29 PM [facility] ALKALINE PHOSPHATASE 43 40 - 150 U/L 12/12/2023 1:29 PM [facility] IS THE PATIENT REQUIRED TO BE FASTING? Yes 12/12/2023 1:29 PM [facility] HAS THE PATIENT BEEN FASTING? Yes 12/12/2023 1:29 PM [facility] GFR, ESTIMATED >60 >=60 12/12/2023 1:29 PM [facility] Comment: Creatinine Clearance is the preferred criteria for selecting drug dose adjustments in renally impaired patients. ??The GFR is provided as additional pertinent clinical information. GFR is reported in mL/min/1.73 sq m. Calculation based on the Chronic Kidney Disease Epidemiology Collaboration (CKD- EPI) equation refit without adjustment for race. GFR, EST. >60 >=60 024 1:29 PM [facility] GFR, EST. NONAFRICAN >60 >=60 12/12/2023 1:29 PM [facility] Blood Venipuncture / Unknown 12/12/2023 10:25 AM CDT 12/12/2023 10:25 AM CDT us Isis Pope MD CHEMISTRY ORDERABLES Final Result [facility] [address] [place] [address] documented in this encounter Visit Diagnoses Diagnosis Neck swelling- Primary Swelling, mass, or lump in head and neck Neck swelling Swelling, mass, or lump in head and neck documented in this encounter Additional Health Concerns Assessment Noted Time PHQ-9 Depression Total Score: 1 01/03/20 20 11:00 AM CDT documented as of this encounter Care Teams Diesel Mechanic Construction Relationship Specialty Start Date End Date Nabila Chandler, MOTOR ASSEMBLY SUPERVISOR, COUNCIL MEMBER [address] [place] [address] PCP - General Advanced Practice Nurse 11/24/19 documented as of this encounter
--- OUTSIDE RECORDS SUMMARY | 2024-04-21 23:23 | XMS_ITS | Encounter Summary ---
Author Organization [facility] Address [address] [place] [address] Phone Care Team Providers Care Sheet Metal Erector Name Role Phone Nabila Chandler APRN, CNP Primary Care P rovider Reason for Visit * Reason Onset Date Comments Aphagia 12/11/2023 Encounter Details Date Type Department Care Team (Late st Contact Info) Description 12/11/2023 Nurse Triage [facility] [address] [place] [address] Nabila Chandler APRN, ACTUARY [address] [place] [address] Aphagia Social History Tobacco Use Types Packs/Day Years [...] encounter Miscellaneous Notes * Telephone Encounter - Christa Doe RN - 12/11/2023 10:40 AM CDT SITUATION: Feels like something is in her throat BACKGROUND: Comes and goes for the last year Per chart review, NANO 08/07/23 ASSESSMENT: Symptom Description / Location: Patient states that she feels like there is a spot in her throat that is dry. States she will coughand try to swallow feels like something is stuck in the back of her throat. Reports it will go away. States does not affect her ability to eat or drink. Denies any difficulty breathing. States it happens at least once a week and can last for a couple days. Denies throat pain. Pain: Patient denies pain. Fever: Denies fever. Treatment / Response: No reported treatment. : 21 weeks RECOMMENDATION: Caller agreeable to disposition: see in office within 3 days. Care advice provided per triage guideline. Caller verbalized understanding. Appointment Scheduled. All Patient Appointments Provider Department Dept Phone 12/12/2023 10:[address] [facility] [place] [phone] 12/25/2023 10:[address] [facility] [phone] Discussed utilizing [employer] to: E-check in prior to upcoming appointment - See care advice and disposition for Guideline. First positive answer recorded, all responses to prior questions were negative. If symptoms increase, change or if new symptoms develop, call your health care provider or call back. Recommendations were based on caller information and is not a diagnosis. Verified and reviewed all triage information with caller. Reason for Disposition Patient wants to be seen Protocols used: Swallowing [id number]-C-BC * Telephone Encounter - Aiyana Cadena - 12/11/2023 10:32 AM CDT Symptom: Swallowed Solid Object Outcome: Transfer to see supervisor queue Reason: Caller denied all higher acuity questions The caller accepted this outcome Caller denied: * Trouble swallowing * Trouble breathing * Swallowed sharp object * Swallowed button battery * Swallowed magnet * Just a small object and patient feels normal (acts normal) documented in this encounter Plan of Treatment Not on file documented as of this encounter Visit Diagnoses Not on filedocumented in this encounter Additional Health Concerns Assessment Noted Time PHQ-9 Depression Total Score: 1 01/03/20 20 11:00 AM CDT documented as of this encounter Care Teams Sheet Metal Erector Relationship Specialty Start Date End Date Nabila Chandler APRN, ACTUARY [address] [place] [address] PCP - General Advanced Practice Nurse 11/24/19 documented as of this encounter
--- OUTSIDE RECORDS SUMMARY | 2024-04-21 23:24 | XMS_ITS | Encounter Summary ---
Author Organization [facility] Address [address] [facility] [place] [place] [address] Phone Care Team Providers Care Groover Operator Name Role Phone Nabila Chandler APRN, DERIK Primary Care P rovider Encounter Details Date Type Department Care Team (Late st Contact Info) Description 08/01/2022 Telephone [facility] [address] [place] [address] Nabila Chandler APRN, FENCE POST CUTTER [address] [place] [address] Social History Tobacco Use Types Packs/Day Years Used Date Smoking Tobacco: Every Day Cigarettes Smokeless Tobacco: Never Alcohol Use Standard Drinks/Week [...] encounter Miscellaneous Notes * Telephone Encounter - Danielle Cavanaugh - 08/01/2022 11:21 AM CDT Symptom: Leg Pain - Not From Injury Outcome: Schedule an appointment at earliest convenience. Reason: No high acuity concerns reported by caller The caller accepted this outcome Caller denied: * Trouble walking * Severe pain now * Fever * Swelling * Warm to the touch * Redness documented in this encounter Plan of Treatment Not on file documented as of this encounter Visit Diagnoses Not on filedocumented in this encounter Additional Health Concerns Assessment Noted Time PHQ-9 Depression Total Score: 1 01/03/20 20 11:00 AM CDT documented as of this encounter Care Teams Groover Operator Relationship Specialty Start Date End Date Nabila Chandler APRN, FENCE POST CUTTER [address] [place] [address] PCP - General Advanced Practice Nurse 11/24/19 documented as of this encounter
--- OUTSIDE RECORDS SUMMARY | 2024-04-21 23:24 | XMS_ITS | Encounter Summary ---
Author Organization [employer] Care Team Providers Care Attorney Law Clerk Name Role Phone Nabila Chandler APRN, CNP Primary Care P ginnyder Encounter Details Date Type Department Care Team (Latest Contact Info) Description 05/22/2022 Travel Social History Tobacco Use Types Packs/Day Years Used Date Smoking Tobacco: Every Day Cigarettes Smokeless Tobacco: Never Alcohol Use Standard Drinks/Week Comments No 0 (1 standard drink = 0.6 oz pur e alcohol) PHQ-2 Answer Date Recorded Total Score - Questions 1-9 1 12/14 Comments No Sex and Gender Information Value Date Recorded Sex Assigned at Female 12/12/2023 12:08 PM CDT Legal Sex Female 8:45 PM CDT Gender Identity Female 12/12/2023 12:08 PM CDT Sexual Orientation Not on file COVID-19 Exposure Response Date Recorded In the last 10 days, have yo u been in contact with someone who was confirmed or suspected to have Coronavirus/COVID-19? No / Unsure 05/22/2022 9:42 PM DIRECTOR INFORMATICS documented as of this encounter Plan of Treatment Not on file documented as of this encounter Visit Diagnoses Not on filedocumented in this encounter Additional Health Concerns Assessment Noted Time PHQ-9 Depression Total Score: 1 01/03/20 20 11:00 AM CDT documented as of this encounter Care Teams Attorney Law Clerk Relationship Specialty Start Date End Date Nabila Chandler APRN, CNP [address] [place] [address] PCP - General Advanced Practice Nurse 11/24/19 documented as of this encounter
--- OUTSIDE RECORDS SUMMARY | 2024-04-21 23:24 | XMS_ITS | Encounter Summary ---
Author Organization [employer] Care Team Providers Care Ferruler Name Role Phone Nabila Chandler APRN, CNP Primary Care P ginnyder Encounter Details Date Type Department Care Team (Latest Contact Info) Description 04/08/2021 Travel Social History Tobacco Use Types Packs/Day [...] Exposure Response Date Recorded In the last month, have you been in contact with someone who was confirmed or suspected to have Coronavirus / COVID-19? Yes 04/08/2021 12:21 AM WIRING MECHANIC documented as of this encounter Plan of Treatment Not on file documented as of this encounter Visit Diagnoses Not on filedocumented in this encounter Additional Health Concerns Assessment Noted Time PHQ-9 Depression Total Score: 1 01/03/20 20 11:00 AM CDT documented as of this encounter Care Teams Ferruler Relationship Specialty Start Date End Date Nabila Chandler APRN, CNP [address] [place] [address] PCP - General Advanced Practice Nurse 11/24/19 documented as of this encounter
--- OUTSIDE RECORDS SUMMARY | 2024-04-21 23:24 | XMS_ITS | Encounter Summary ---
Author Organization [facility] Address [address] [place] [address] Phone Care Team Providers Care Coconut Cooker Name Role Phone Nabila Chandler APRN, CNP Primary Care P rovider Reason for Visit * Reason Onset Date Comments Medication Refill 03/20/2022 Encounter Details Date Type Department Care Team ([facility] st Contact Info) Description 03/20/2022 MyChart RX Renewal [facility] - Primary Care - [facility] [address] [place] [address] Nabila Chandler APRN, CNP [address] [place] [address] Medication Renewal Reviewed Social History Tobacco Use Types Packs/Day Years [...] suspected to have Coronavirus/COVID-19? No / Unsure 02/20/2022 9:32 AM METAL SPRAYING MACHINE OPERATOR documented as of this encounter Miscellaneous Notes * Telephone Encounter - Tiana Jiang RN - 03/20/2022 11:40 AM CST Medication failed the protocol, provider to review and approve the medication order if appropriate. Requested Prescriptions Pending Prescriptions Disp Refills buPROPion (WELLBUTRIN) 300 MG TABLET SR 24 HR XL tablet 90 Tablet 3 Sig: Take 1 Tablet by mouth every morning. Bupropion (6 Month Refill Only) Protocol Failed - 03/20/2022 11:32 AM Failed - Has an encounter in the past 6 months with a depression or anxiety visit diagnosis Passed - No test in the past 12 months or most recent test was negative Passed - No active on record Passed - Visit with relevant provider in past 6 months or upcoming 90 days Recent Visits Date Type Provider Dept 01/30/22 Office Visit Nabila Chandler APRN, TECHNICAL SALES DIRECTOR [facility] Showing recent visits within past 182 days and meeting all other requirements Future Appointments No visits were found meeting these conditions. Showing future appointments within next 90 days and meeting all other requirements Passed - Patient has established therapy with Bupropion for at least 6 months busPIRone (BUSPAR) 5 MG Tablet 270 Tablet 0 Sig: Take 1 Tablet by mouth 3 times daily. Buspirone (6 Month Refill Only) Protocol Failed - 03/20/2022 11:32 AM Failed - Has an encounter in the past 6 months with a depression or anxiety visit diagnosis Passed - No test in the past 12 months or most recent test was negative Passed - No active on record Passed - Visit with relevant provider in past 6 months or upcoming 90 days Recent Visits Date Type Provider Dept 01/30/22 Office Visit Nabila Chandler APRN, TECHNICAL SALES DIRECTOR [facility] Showing recent visits within past 182 days and meeting all other requirements Future Appointments No visits were found meeting these conditions. Showing future appointments within next 90 days and meeting all other requirements Passed - Patient has established therapy with Buspirone for at least 6 months L SPRAYING MACHINE OPERATOR documented in this encounter Plan of Treatment Not on file documented as of this encounter Visit Diagnoses Diagnosis Moderate episode of recurrent major depressive disorder (HCC) ANTONY (generalized anxiety disorder) Generalized anxiety disorder documented in this encounter Additional Health Concerns Assessment Noted Time PHQ-9 Depression Total Score: 1 01/03/20 20 11:00 AM CDT documented as of this encounter Care Teams Coconut Cooker Relationship Specialty Start Date End Date Nabila Chandler APRN, TECHNICAL SALES DIRECTOR [address] [place] [address] PCP - General Advanced Practice Nurse 11/24/19 documented as of this encounter
--- OUTSIDE RECORDS SUMMARY | 2024-04-21 23:24 | XMS_ITS | Encounter Summary ---
Author Organization [employer] Care Team Providers Care Environmental Auditor Name Role Phone Nabila Chandler APRN, CNP Primary Care P rodavidder Encounter Details Date Type Department Care Team (Latest Contact Info) Description 01/30/2022 Travel Social History Tobacco Use Types Packs/Day [...] suspected to have Coronavirus/COVID-19? No / Unsure 01/30/2022 12:31 PM CDT documented as of this encounter Plan of Treatment Not on file documented as of this encounter Visit Diagnoses Not on filedocumented in this encounter Additional Health Concerns Assessment Noted Time PHQ-9 Depression Total Score: 1 01/03/20 20 11:00 AM CDT documented as of this encounter Care Teams Environmental Auditor Relationship Specialty Start Date End Date Nabila Chandler APRN, CNP [address] [place] [address] PCP - General Advanced Practice Nurse 11/24/19 documented as of this encounter
--- OUTSIDE RECORDS SUMMARY | 2024-04-21 23:24 | XMS_ITS | Encounter Summary ---
Author Organization [facility] Address [address] [place] [address] Phone Care Team Providers Care Cup Machine Operator Name Role Phone RicardosinaiNabila APRN, DERIK Primary Care P rovider Reason for Visit * Reason Onset Date Comments Results 08/07/2022 LS Spine Xray Encounter Details Date Type Department Care Team (Late st Contact Info) Description [facility] [address] [place] [address] Isma Abarca MD [address] [place] [address] Results (LS Spine Xray) Social History Tobacco Use Types Packs/Day Years [...] suspected to have Coronavirus/COVID-19? No / Unsure 08/06/2022 8:45 AM CDT documented as of this encounter Miscellaneous Notes * Telephone Encounter - Radha Escobedo RN - 08/07/2022 10:29 AM CDT Phoned patient with Xray results. Patient aware and verbalized understanding. No questions for quality analyst/technical writer. * Telephone Encounter - Radha Escobedo RN - 08/07/2022 10:22 AM CDT ----- Message from Isma Abarca MD sent at 08/07/2022 9:37 AM CDT ----- LS spine x-ray shows only minimal arthritic changes. Awaiting results of EMG to make a decision on the patient's symptoms. documented in this encounter Plan of Treatment Not on file documented as of this encounter Visit Diagnoses Not on filedocumented in this encounter Additional Health Concerns Assessment Noted Time PHQ-9 Depression Total Score: 1 01/03/20 20 11:00 AM CDT documented as of this encounter Care Teams Cup Machine Operator Relationship Specialty Start Date End Date Nabila Chandler APRN, YARN DRY ROOM WORKER [address] [place] [address] PCP - General Advanced Practice Nurse 11/24/19 documented as of this encounter
--- OUTSIDE RECORDS SUMMARY | 2024-04-21 23:24 | XMS_ITS | Encounter Summary ---
Author Organization [facility] Address [address] [place] [address] Phone Care Team Providers Care Cathead Worker Name Role Phone Nabila Chandler APRN, CNP Primary Care P rovider Reason for Visit * Reason Onset Date Comments Results 02/22/2022 EMG Encounter Details Date Type Department Care Team ([facility] st Contact Info) Description 02/22/2022 Telephone [facility] - Primary Care - [place] [address] [place] [address] Nabila Chandler APRN, CNP [address] [place] [address] Results (EMG) Social History Tobacco Use Types Packs/Day Years [...] Coronavirus/COVID-19? No / Unsure 02/20/2022 9:32 AM TWISTING PRESS OPERATOR documented as of this encounter Miscellaneous Notes * Addendum Note - Elin Bermudez CMA - 03/27/2022 9:17 AM CSTAddended by: ELIN BERMUDEZ. on: 03/27/2022 09:17 AM Modules accepted: Orders TING PRESS OPERATOR * Telephone Encounter - Tiana Jiang RN - 02/25/2022 2:17 PM CST Pt notified of results. Verbalized understanding. Referral placed per PCP's written order. TING PRESS OPERATOR * Telephone Encounter - Tiana Jiang RN - 02/22/2022 3:40 PM CST Attempted to call pt, no answer, LVM for pt to call back. TING PRESS OPERATOR * Telephone Encounter - Tiana Jiang RN - 02/22/2022 2:01 PM CST ----- Message from Nabila Chandler APRN, CNP sent at 02/22/2022 12:14 PM TWISTING PRESS OPERATOR ----- very mild right median nerve entrapment at the flexor retinaculum. 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
--- OUTSIDE RECORDS SUMMARY | 2024-04-21 23:24 | XMS_ITS | Encounter Summary ---
Author Organization [employer] Care Team Providers Care Chief Orthoptist Name Role Phone Nabila Chandler APRN, CNP Primary Care P roder Encounter Details Date Type Department Care Team (Latest Contact Info) Description 08/20/2022 Travel Social History Tobacco Use Types Packs/Day [...] suspected to have Coronavirus/COVID-19? No / Unsure 08/20/2022 1:25 PM CDT documented as of this encounter Plan of Treatment Not on file documented as of this encounter Visit Diagnoses Not on filedocumented in this encounter Additional Health Concerns Assessment Noted Time PHQ-9 Depression Total Score: 1 01/03/20 20 11:00 AM CDT documented as of this encounter Care Teams Chief Orthoptist Relationship Specialty Start Date End Date Nabila Chandler APRN, MINE DEVELOPMENT ENGINEER [address] [place] [address] PCP - General Advanced Practice Nurse 11/24/19 documented as of this encounter
--- OUTSIDE RECORDS SUMMARY | 2024-04-21 23:24 | XMS_ITS | Encounter Summary ---
Author Organization [facility] Address [address] [place] [address] Phone Care Team Providers Care Washer Engineer Name Role Phone Nabila Chandler APRN, DERIK Primary Care P rovider Encounter Details Date Type Department Care Team (Latest Contact Info) Description 08/06/2022 9:39 AM CDT - 08/06/2022 11:59 PM CDT [facility] [place] [address] [place] [address] Isma Abarca MD [address] [place] [address] Discharge Disposition: Discharged to home or Selfcare [...] AM CDT documented as of this encounter Medications at Time of Discharge buPROPion (WELLBUTRIN) 300 MG TABLET SR 24 HR XL tabletIndications :Moderate episode of recurrent major depressive disorder (HCC),ANTONY (generalized anxiety disorder) Take 1 Tablet by mouth every morning. 90 Tablet 3 03/20/2022 12/12/2023 busPIRone (BUSPAR) 5 MG TabletIndications :ANTONY (generalized anxiety disorder) Take 1 Tablet by mouth 3 times daily. 270 Tablet 03/20/2022 12/12/2023 meloxicam (MOBIC) 15 MG TabletIndications :Bilateral wrist pain Take 1 Tablet by mouth daily. 90 Tablet 01/30/2022 12/12/2023 traZODone (DESYREL) 50 MG TabletIndications :Primary insomnia Take 0.5 Tabs by mouth nightly as needed for Sleep. 90 Tab 01/03/2020 12/12/2023 documented as of this encounter Plan of Treatment Not on file documented as of this encounter Procedures Procedure Name Priority Date/Time Associated Diagnosis Comments XR LUMBAR SPINE 2 OR 3 VIEWS Routine 08/06/2022 10:14 AM CDT Chronic right-sided low back pain without sciatica documented in this encounter Results * XR LUMBAR SPINE 2 OR 3 VIEWS (08/06/2022 10:14 AM CDT) Anatomical Region Laterality Modality Spine, L-spine N/A Digital Radiogra phy 08/07/2022 7:19 AM CDT Impressions 08/07/2022 7:22 AM CDT IMPRESSION: ?? Minor osseous degenerative changes. Narrative 08/07/2022 7:22 AM CDT EXAM DESCRIPTION: ?? XR LUMBAR SPINE 2 OR 3 VIEWS REASON FOR STUDY: ?? Low back pain, unspecified, chronic right-sided low back pain without sciatica x4 years, worse for 6 months. ??No injury. TECHNIQUE: ?? Frontal, lateral and cone-down ??radiographic views acquired of the lumbar spine. COMPARISON: ?? None available. FINDINGS: SEGMENTATION: ?? 5 [id number] lumbar type vertebral bodies. ALIGNMENT: ?? Mild dextroconvex curvature. ??Mild retrolisthesis of L3 on L4. VERTEBRAE: ?? Lumbar vertebral body heights are maintained. ?Mild lower lumbar facet increased sclerosis. DISCS: ?? Intervertebral disc heights are maintained. THIS IS AN ELECTRONICALLY VERIFIED FINAL REPORT 08/07/2022 7:19 AM - Electronically signed by ??Nitesh Diaz D.O. AP: AP D: ??08/07/2022 7:19 AM T: ??08/07/2022 7:19 AM Report ID: [id number] Reading Location: ??[id number] Procedure Note Nitesh Diaz DO - 08/07/2022 EXAM DESCRIPTION: XR LUMBAR SPINE 2 OR 3 VIEWS REASON FOR STUDY: Low back pain, unspecified, chronic right-sided low back pain without sciatica x4 years, worse for 6 months. No injury. TECHNIQUE: Frontal, lateral and cone-down radiographic views acquired of the lumbar spine. COMPARISON: None available. FINDINGS: SEGMENTATION: 5 [id number] lumbar type vertebral bodies. ALIGNMENT: Mild dextroconvex curvature. Mild retrolisthesis of L3 on L4. VERTEBRAE: Lumbar vertebral body heights are maintained. Mild lower lumbar facet increased sclerosis. DISCS: Intervertebral disc heights are maintained. THIS IS AN ELECTRONICALLY VERIFIED FINAL REPORT 08/07/2022 7:19 AM - Electronically signed by Nitesh Diaz D.O. AP: AP Report ID: [id number] Reading Location: [id number] IMPRESSION: Minor osseous degenerative changes. us Isma [facility] DIAGNOST[facility] ORDERABLES Final Result documented in this encounter Visit Diagnoses Diagnosis Chronic right-sided low back pain without sciatica documented in this encounter Additional Health Concerns Assessment Noted Time PHQ-9 Depression Total Score: 1 01/03/20 20 11:00 AM CDT documented as of this encounter Care Teams Washer Engineer Relationship Specialty Start Date End Date Nabila Chandler, DAIRY INSPECTOR, STONEMASON SUPERVISOR [address] [place] [address] PCP - General Advanced Practice Nurse 11/24/19 documented as of this encounter
--- OUTSIDE RECORDS SUMMARY | 2024-04-21 23:24 | XMS_ITS | Encounter Summary ---
Author Organization [facility] Address [address] [place] [address] Phone Care Team Providers Care Project Drilling Engineer Name Role Phone Nabila Chandler APRN, CNP Primary Care P ginnyder Reason for Visit * Reason Comments Tingling Numbness Pain * Other (Routine) - Closed Specialty Diagnoses / Procedures Referred By Sunshine muro Referred To Contact Neurology Diagnoses Leg pain, bilateral Procedures EMG 2 EXTREMITY W/WO RELATED PARASPINAL Isma Abarca MD [address] [place] [address] Phone: tel: fax: Referral ID Status Reason Start Date Expiration Date Visits Re quested Visits Authorized [id number] Closed 08/06/2022 1 1 Encounter Details Date Type Department Care Team (Late st Contact Info) Description 08/21/2022 10:00 AM CDT EMG [facility] [address] [place] [address] Isma Abarca MD [address] [place] [address] Leg pain, bilateral Discharge Disposition: Discharged to home or Selfcare [...] PM CDT documented as of this encounter Progress Notes * Peter Jolly MD - 08/21/2022 10:00 AM CDT Electromyogram Procedure Note Date of Procedure: 08/21/2022 Pre-operative Diagnosis: bilateral lower extremity numbness, tingling and pain. Post-operative Diagnosis: Indications: Diagnostic Procedure Details Motor Nerve Conduction Studies: The bilateral peroneal motor nerve shows normal distal motor latency, normal motor amplitude and normal conduction velocity. The bilateral tibial motor nerve shows normal distal motor latency, normal motor amplitude and normal conduction velocity. Sensory Nerve Conduction Studies: The bilateral superficial peroneal sensory nerve shows normal sensory nerve peak latency and normalsensory amplitude. The bilateral sural sensory nerve shows normal sensory nerve peak latency and normal sensory amplitude. F waves: F wave latencies for the bilateral peroneal nerve were normal. F wave latencies for the bilateral tibial nerve were normal. H reflex latencies were within normal limits. EMG: Needle EMG of the bilateral gastrocnemius, anterior tibialis, vastus medialis, right peroneus longus and EHL were normal. Summary This is a normal study without evidence of compression neuropathy or radiculopathy of bilateral lower extremities. Clinical correlation is recommended. documented in this encounter Procedure Notes * Peter Jolly MD - 08/21/2022 10:00 AM CDTAssociated Order(s): EMG 2 EXTREMITY W/WO RELATED PARASPINAL Electromyogram Procedure Note Date of Procedure: 08/21/2022 Pre-operative Diagnosis: bilateral lower extremity numbness, tingling and pain. Post-operative Diagnosis: Indications: Diagnostic Procedure Details Motor Nerve Conduction Studies: The bilateral peroneal motor nerve shows normal distal motor latency, normal motor amplitude and normal conduction velocity. The bilateral tibial motor nerve shows normal distal motor latency, normal motor amplitude and normal conduction velocity. Sensory Nerve Conduction Studies: The bilateral superficial peroneal sensory nerve shows normal sensory nerve peak latency and normalsensory amplitude. The bilateral sural sensory nerve shows normal sensory nerve peak latency and normal sensory amplitude. F waves: F wave latencies for the bilateral peroneal nerve were normal. F wave latencies for the bilateral tibial nerve were normal. H reflex latencies were within normal limits. EMG: Needle EMG of the bilateral gastrocnemius, anterior tibialis, vastus medialis, right peroneus longus and EHL were normal. Summary This is a normal study without evidence of compression neuropathy or radiculopathy of bilateral lower extremities. Clinical correlation is recommended. documented in this encounter Plan of Treatment Not on file documented as of this encounter Procedures Procedure Name Priority Date/Time Associated Diagnosis Comments EMG 2 EXTREMITY W/WO RELATED PARASPINAL Routine 08/21/2022 10:00 AM CDT Leg pain, bilateral EMG/NCV 08/21/2022 12:00 AM CDT documented in this encounter Results * EMG 2 EXTREMITY W/WO RELATED PARASPINAL (08/21/2022 10:00 AM CDT) Narrative Peter Jolly MD - 08/21/2022 10:00 AM CDT Peter Jolly MD ? 08/22/2022 ??3:55 PM Electromyogram Procedure Note Date of Procedure: 08/21/2022 Pre-operative Diagnosis: bilateral lower extremity numbness, tingling and pain. Post-operative Diagnosis: Indications: Diagnostic Procedure Details Motor Nerve Conduction Studies: The bilateral peroneal motor nerve shows normal distal motor latency, normal motor amplitude and normal conduction velocity. The bilateral tibial motor nerve shows normal distal motor latency, normal motor amplitude and normal conduction velocity. Sensory Nerve Conduction Studies: The bilateral superficial peroneal ??sensory nerve shows normal sensory nerve peak latency and normal sensory amplitude. The bilateral sural sensory nerve shows normal sensory nerve peak latency and normal sensory amplitude. F waves: F wave latencies for the bilateral peroneal nerve were normal. F wave latencies for the bilateral tibial nerve were normal. H reflex latencies were within normal limits. EMG: Needle EMG of the bilateral gastrocnemius, anterior tibialis, vastus medialis, right peroneus longus and EHL were normal. Summary This is a normal study without evidence of compression neuropathy or radiculopathy of bilateral lower extremities. ??Clinical correlation is recommended. Isma Abarca MD NEUROLOGY ORDERABLES Nicole barron Result * EMG/NCV (08/21/2022 12:00 AM CDT) 08/21/2022 Isma Abarca MD NEUROLOGY ORDERABLES Nicole l Result SCAN documented in this encounter Visit Diagnoses Diagnosis Leg pain, bilateral Pain in limb documented in this encounter Additional Health Concerns Assessment Noted Time PHQ-9 Depression Total Score: 1 01/03/20 20 11:00 AM CDT documented as of this encounter Care Teams Project Drilling Engineer Relationship Specialty Start Date End Date Nabila Chandler APRN, SUPERVISOR [employer] [address] [place] [address] PCP - General Advanced Practice Nurse 11/24/19 documented as of this encounter
--- OUTSIDE RECORDS SUMMARY | 2024-04-21 23:24 | XMS_ITS | Encounter Summary ---
Author Organization [employer] Care Team Providers Care Wide Area Network Engineer Name Role Phone Nabila Chandler APRN, CNP Primary Care P ginnyder Encounter Details Date Type Department Care Team (Latest Contact Info) Description 02/20/2022 Travel Social History Tobacco Use Types Packs/Day [...] Coronavirus/COVID-19? No / Unsure 02/20/2022 9:32 AM HEEL COVER SPLITTER documented as of this encounter Plan of Treatment Not on file documented as of this encounter Visit Diagnoses Not on filedocumented in this encounter Additional Health Concerns Assessment Noted Time PHQ-9 Depression Total Score: 1 01/03/20 20 11:00 AM CDT documented as of this encounter Care Teams Wide Area Network Engineer Relationship Specialty Start Date End Date Nabila Chandler APRN, CNP [address] [place] [address] PCP - General Advanced Practice Nurse 11/24/19 documented as of this encounter
--- OUTSIDE RECORDS SUMMARY | 2024-04-21 23:24 | XMS_ITS | Encounter Summary ---
Author Organization [facility] Address [address] [place] [address] Phone Care Team Providers Care Pharmacy Operations Coordinator Name Role Phone Nabila Chandler APRN, DERIK Primary Care P rovider Reason for Visit * Reason Comments Laceration Encounter Details Date Type Department Care Team (Late st Contact Info) Description 09/07/2021 1:09 PM CDT - 09/07/2021 2:41 PM CDT Emergency [facility] [address] [place] [address] Bobby Marmolejo, PAC [address] [place] [address] Forehead laceration, initial encounter Discharge Disposition: Discharged to home or Selfcare Social History Tobacco Use Types Packs/Day Years Used Date Smoking Tobacco: Every Day Cigarettes Smokeless Tobacco: Never Alcohol Use Standard Drinks/Week Comments No 0 (1 standard drink = 0.6 oz pur e alcohol) PHQ-2 Answer Date Recorded Total Score - Questions 1-9 12/14 Comments No Sex and Gender Information [...] suspected to have Coronavirus/COVID-19? No / Unsure 09/07/2021 1:07 PM CDT documented as of this encounter Last Filed Vital Signs Vital Sign Reading Time Taken Comments Blood Pressure 148/82 09/07/2021 2:26 PM CDT Pulse 80 09/07/2021 2:26 PM CDT Temperature 36.2 ??C (97.2 ??F) 09/07/2021 1:07 PM CD T Respiratory Rate 18 09/07/2021 2:26 PM CDT Oxygen Saturation 100% 09/07/2021 2:26 PM CDT Inhaled Oxygen Concentration - - Weight 72.6 kg (160 lb) 09/07/2021 1:07 PM CDT Height 167.6 cm (5' 6 ) 09/07/2021 1:07 PM CDT Body Mass Index 25.82 09/07/2021 1:07 PM CDT documented in this encounter Discharge Instructions * Attachments The following attachments cannot be sent through Care Everywhere. * Laceration Care Adult [id number] (Faroese) documented in this encounter Medications at Time of Discharge buPROPion (WELLBUTRIN) 300 MG TABLET SR 24 HR XL tabletIndication s:Moderate episode of recurrent major depressive disorder (HCC),ANTONY (generalized anxiety disorder) Take 1 Tab by mouth every morning. 90 Tab 3 12/06/2019 2 busPIRone (BUSPAR) 5 MG TabletIndication s:ANTONY (generalized anxiety disorder) Take 1 Tab by mouth 3 times daily. 270 Tab 12/06/2019 2 clindamycin (CLEOCIN T) 1 % Solution APPLY THIN LAYER TOPICALLY TO THE AFFECTED AREA EVERY NIGHT AT BEDTIME 11/03/2020 3 Clindamycin HCl (CLEOCIN) 300 MG Capsule TAKE 1 CAPSULE BY MOUTH TWICE DAILY FOR 7 DAYS 11/03/2020 3 doxycycline hyclate (VIBRA-TABS) 100 MG Tablet doxycycline hyclate 100 mg tablet Take 1 tablet every day by oral route. 3 Norelgestromin-E th Estradiol (Xulane) 150-35 MCG/24HR PATCH WEEKLY Xulane 150 mcg-35 mcg/24 hr transdermal patch 2 traZODone (DESYREL) 50 MG TabletIndication s:Primary insomnia Take 0.5 Tabs by mouth nightly as needed for Sleep. 90 Tab 01/03/2020 4 documented as of this encounter ED Notes * Cecilia Dyer RN - 09/07/2021 2:40 PM CDT Patient discharged. Discharge instructions and patient educational material reviewed with patient; questions and concerns addressed; patient verbalizes understanding, using teach back. Patient was given 0 prescriptions. Patient ambulatory with steady gait; no distress noted. Dressing applied to forehead. Patient aware sutures are to be removed in 5 days; denies wanting a follow-up appt. * Isis Kelley RN - 09/07/2021 2:23 PM CDT sutures repaired by Eugenio CULP * Bobby Marmolejo PAC - 09/07/2021 1:40 PM CDTAssociated Order(s): Laceration Repair Images from the original note were not included. Chief Complaint Patient presents with ??? Laceration Keyana Reardon is a 31 y.o. female who presents to the ED c/o avulsion laceration to left forehead after mecahnical GLF fall and striking her head on a drinking glass. Patient states she tripped on a toy laying on the ground. No LOC. No neuro changes. Bleeding controlled. Td is unknown. History reviewed. No pertinent past medical history. Current Facility-Administered Medications Medication Dose Route Frequency Provider Last Rate Last Admin ??? lidocaine 2 % injection 20 mL 20 mL Injection Once Bobby Marmolejo PAC Current Outpatient Medications Medication Sig Dispense Refill ??? buPROPion (WELLBUTRIN) 300 MG TABLET SR 24 HR XL tablet Take 1 Tab by mouth every morning. (Patient not taking: Reported on 11/07/2020) 90 Tab 3 ??? busPIRone (BUSPAR) 5 MG Tablet Take 1 Tab by mouth 3 times daily. (Patient not taking: Reportedon 11/07/2020) 270 Tab 0 ??? clindamycin (CLEOCIN T) 1 % Solution APPLY THIN LAYER TOPICALLY TO THE AFFECTED AREA EVERY NIGHT AT BEDTIME ??? Clindamycin HCl (CLEOCIN) 300 MG Capsule TAKE 1 CAPSULE BY MOUTH TWICE DAILY FOR 7 DAYS ??? doxycycline hyclate (VIBRA-TABS) 100 MG Tablet doxycycline hyclate 100 mg tablet Take 1 tablet every day by oral route. (Patient not taking: Reported on 11/07/2020) ??? Norelgestromin-Eth Estradiol (Xulane) 150-35 MCG/24HR PATCH WEEKLY Xulane 150 mcg-35 mcg/24 hr transdermal patch ??? traZODone (DESYREL) 50 MG Tablet Take 0.5 Tabs by mouth nightly as needed for Sleep. (Patient not taking: Reported on 11/07/2020) 90 Tab 0 Allergies Allergen Reactions ??? Sulfa Antibiotics Unknown History reviewed. No pertinent past medical history. Past Surgical History: Procedure Laterality Date ??? TONSILLECTOMY Social History Socioeconomic History ??? Marital status: Single Spouse name: Not on file ??? Number of children: Not on file ??? Years of education: Not on file ??? Highest education level: Not on file Occupational History ??? Not on file Tobacco Use ??? Smoking status: Current Every Day Smoker Packs/day: 0.25 Types: Cigarettes ??? Smokeless tobacco: Never Used Substance and Sexual Activity ??? Alcohol use: No ??? Drug use: Yes Frequency: 3.0 times per week Types: Marijuana ??? Sexual activity: Not on file Other Topics Concern ??? Not on file Social History Narrative ??? Not on file BP (!) 156/91 Pulse 79 Temp 97.2 ??F (36.2 ??C) (Tympanic) Resp 18 Ht 5' 6 (1.676 m) Wt 160 lb (72.6 kg) LMP 08/17/2021 SpO2 100% BMI 25.82 kg/m?? Review of Systems Skin: Positive for wound. All other systems reviewed and are negative. Physical Exam Vitals and nursing note reviewed. Constitutional: General: She is not in acute distress. Appearance: She is well-developed. She is not diaphoretic. HENT: Head: Normocephalic. Laceration present. Eyes: Pupils: Pupils are equal, round, and reactive to light. Neck: Thyroid: No thyromegaly. Cardiovascular: Rate and Rhythm: Normal rate and regular rhythm. Heart sounds: Normal heart sounds. No murmur heard. Pulmonary: Effort: Pulmonary effort is normal. No respiratory distress. Breath sounds: Normal breath sounds. No wheezing, rhonchi or rales. Chest: Chest wall: No tenderness. Abdominal: General: Bowel sounds are normal. There is no distension. Palpations: Abdomen is soft. There is no mass. Tenderness: There is no abdominal tenderness. There is no guarding or rebound. Musculoskeletal: General: No tenderness. Normal range of motion. Cervical back: Normal range of motion and neck supple. Skin: General: Skin is warm and dry. Coloration: Skin is not pale. Findings: No erythema or rash. Neurological: Mental Status: She is alert and oriented to person, place, and time. Cranial Nerves: No cranial nerve deficit. Psychiatric: Behavior: Behavior normal. Laceration Repair Performed by: Bobby Marmolejo PAC Authorized by: Bobby Marmolejo, BEENA Consent: Verbal consent obtained. Risks and benefits: risks, benefits and alternatives were discussed Consent given by: patient Patient understanding: patient states understanding of the procedure being performed Patient consent: the patient's understanding of the procedure matches consent given Procedure consent: procedure consent matches procedure scheduled Relevant documents: relevant documents present and verified Test results: test results available and properly labeled Site marked: the operative site was marked Imaging studies: imaging studies available Required items: required blood products, implants, devices, and special equipment available Patient identity confirmed: verbally with patient and arm band Body area: head/neck Location details: forehead Laceration length: 3 cm Foreign bodies: no foreign bodies Tendon involvement: none Nerve involvement: none Vascular damage: no Anesthesia: local infiltration Anesthesia: Anesthetic total: 6 mL Sedation: Patient sedated: no Preparation: Patient was prepped and draped in the usual sterile fashion. Irrigation solution: saline Irrigation method: syringe Amount of cleaning: standard Debridement: none Degree of undermining: none Skin closure: 5-0 nylon Number of sutures: 4 Technique: simple Approximation: close Approximation difficulty: simple Dressinx4 sterile gauze Patient tolerance: patient tolerated the procedure well with no immediate complications Imaging Results None Labs Reviewed - No data to display MDM Number of Diagnoses or Management Options Coding Clinical Impression 1. Forehead laceration, initial encounter Wound care instructions provided. Sutures out in 5 days. The patient remained stable throughout their ED stay. My clinical impression was discussed with thepatient/family. Labs and radiology results were reviewed with them. I gave them the opportunity to ask questions, and addressed them as completely as possible given the information available at present. The therapeutic plan was discussed, advised to take medications as instructed, instructions weregiven and the importance of primary care follow up was stressed and encouraged. The patient/family voiced understanding of the plan, indications to return, and the need for follow up. Cosigned by Jevon Yoder MD at 09/07/2021 7:37 PM CDT * Isis Kelley RN - 09/07/2021 1:37 PM CDT Pt updated on plan of care. Family at bedside. * Tiana Andino RN - 09/07/2021 1:09 PM CDT Patient ambulatory to triage with c/o laceration to forehead after patient reports tripping over a toy at home and hitting her head on glass on her bed. Patient denies loss of consciousness. Bleedingcontrolled in triage. Unknown last tetanus. documented in this encounter Plan of Treatment Not on file documented as of this encounter Procedures Procedure Name Priority Date/Time Associated Diagnosis Comments LACERATION REPAIR Routine 09/07/2021 1:4 0 PM CDT documented in this encounter Results * Laceration Repair (09/07/2021 1:40 PM CDT) Narrative Jevon Yoder MD - 09/07/2021 1:40 PM CDT Bobby Marmolejo PAC ? 09/07/2021 ??2:24 PM Laceration Repair Performed by: Bobby Marmolejo PAC Authorized by: Bobby Marmolejo PAC Consent: Verbal consent obtained. Risks and benefits: risks, benefits and alternatives were discussed Consent given by: patient Patient understanding: patient states understanding of the procedure being performed Patient consent: the patient's understanding of the procedure matches consent given Procedure consent: procedure consent matches procedure scheduled Relevant documents: relevant documents present and verified Test results: test results available and properly labeled Site marked: the operative site was marked Imaging studies: imaging studies available Required items: required blood products, implants, devices, and special equipment available Patient identity confirmed: verbally with patient and arm band Body area: head/neck Location details: forehead Laceration length: 3 cm Foreign bodies: no foreign bodies Tendon involvement: none Nerve involvement: none Vascular damage: no Anesthesia: local infiltration Anesthesia: Anesthetic total: 6 mL Sedation: Patient sedated: no Preparation: Patient was prepped and draped in the usual sterile fashion. Irrigation solution: saline Irrigation method: syringe Amount of cleaning: standard Debridement: none Degree of undermining: none Skin closure: 5-0 nylon Number of sutures: 4 Technique: simple Approximation: close Approximation difficulty: simple Dressinx4 sterile gauze Patient tolerance: patient tolerated the procedure well with no immediate complications Bobby HARGROVE PROCEDURE/MINOR SURG ICAL ORDERABLES Final Result documented in this encounter Visit Diagnoses Diagnosis Forehead laceration, initial encounter- Primary documented in this encounter Administered Medications Inactive Administered Medications - up to 3 most recent administrations Medication Order MAR Action Action Date Dose Rate Site lidocaine 2 % injection 20 mL 20 mL, Injection, ONCE, 1 dose, On Fri09/07/21 at 1430 Given by Other 09/07/2021 2:30 PM CDT 20 mL documented in this encounter Active and Recently Administered Medications Times are shown in CDT. Scheduled Medication Order 09/05/2021 09/06/2021 09/07/2021 lidocaine 2 % injection 20 mL (COMPLETED) 20 mL, Injection, ONCE, 1 dose, On Fri09/07/21 at 1430 1430 (Given by Other - Provider: Isis D Thomae, RN) documented in this encounter Additional Health Concerns Assessment Noted Time PHQ-9 Depression Total Score: 1 01/03/20 20 11:00 AM CDT documented as of this encounter Care Teams Pharmacy Operations Coordinator Relationship Specialty Start Date End Date Nabila Chandler APRN, ORDER PROCESSOR [address] [place] [address] PCP - General Advanced Practice Nurse 11/24/19 documented as of this encounter
--- OUTSIDE RECORDS SUMMARY | 2024-04-21 23:24 | XMS_ITS | Encounter Summary ---
Author Organization [facility] Address [address] [place] [address] Phone Care Team Providers Care Nurses Medical Assistants Phlebotomists Name Role Phone Nabila Chandler APRN, TISSUE TECHNICIAN Primary Care P rovider Reason for Visit * Reason Comments Mouth Pain Encounter Details Date Type Department Care Team (Late st Contact Info) Description 05/22/2022 9:45 PM DOUBLER HELPER - 05/22/2022 10:15 PM DOUBLER HELPER Emergency [facility] Emergency [address] [place] [address] Bobby Marmolejo, PAC [address] [place] [address] Alveolitis of jaw Discharge Disposition: Discharged to home or Selfcare [...] Coronavirus/COVID-19? No / Unsure 05/22/2022 9:42 PM DOUBLER HELPER documented as of this encounter Last Filed Vital Signs Vital Sign Reading Time Taken Comments Blood Pressure 124/77 05/22/2022 9:42 PM DOUBLER HELPER Pulse 60 05/22/2022 9:42 PM DOUBLER HELPER Temperature 36.8 ??C (98.3 ??F) 05/22/2022 9:42 PM CS T Respiratory Rate 16 05/22/2022 9:42 PM DOUBLER HELPER Oxygen Saturation 99% 05/22/2022 9:42 PM DOUBLER HELPER Inhaled Oxygen Concentration - - Weight 74.8 kg (165 lb) 05/22/2022 9:42 PM DOUBLER HELPER Height 166.4 cm (5' 5.5 ) 05/22/2022 9:42 PM DOUBLER HELPER Body Mass Index 27.04 05/22/2022 9:42 PM DOUBLER HELPER documented in this encounter Medications at Time of Discharge buPROPion (WELLBUTRIN) 300 MG TABLET SR 24 HR XL tabletIndication s:Moderate episode of recurrent major depressive disorder (HCC),ANTONY (generalized anxiety disorder) Take 1 Tablet by mouth every morning. 90 Tablet 3 03/20/2022 4 busPIRone (BUSPAR) 5 MG TabletIndication s:ANTONY (generalized anxiety disorder) Take 1 Tablet by mouth 3 times daily. 270 Tablet 03/20/2022 4 Clindamycin HCl (CLEOCIN) 300 MG Capsule Take 1 Capsule by mouth every 8 hours for 10 days. 30 Capsule 05/22/2022 3 HYDROcodone-acet aminophen (NORCO) 5-325 MG TabletIndication s:Alveolitis of jaw Take 1 Tablet by mouth every 8 hours as needed for Moderate or more severe pain. 12 Tablet 05/22/2022 3 Levonorgestrel-E th Estradiol (Twirla) 120-30 MCG/24HR PATCH WEEKLY Twirla 120 mcg-30 mcg/24 hr transdermal patch Apply 1 patch every week by transdermal route for 21 days. 3 meloxicam (MOBIC) 15 MG TabletIndication s:Bilateral wrist pain Take 1 Tablet by mouth daily. 90 Tablet 01/30/2022 4 traZODone (DESYREL) 50 MG TabletIndication s:Primary insomnia Take 0.5 Tabs by mouth nightly as needed for Sleep. 90 Tab 01/03/2020 4 documented as of this encounter ED Notes * Tyra Kelley RN - 05/22/2022 10:14 PM CST Patient discharged. Discharge instructions and patient educational material reviewed with patient; questions and concerns addressed; patient verbalizes understanding, using teach back. Patient was given 2 prescriptions. Patient was informed no drinking alcohol, driving or operating heavy machinery while taking narcotics or muscle relaxants. Patient discharged per ambulatory mode as responsible green party. LER HELPER * Bobby Marmolejo, BEENA - 05/22/2022 10:02 PM CST Images from the original note were not included. Chief Complaint Patient presents with ??? Mouth Pain Keyana Reardon is a 32 y.o. female who presents to the ED c/o left lower dental pain after tooth #18extraction [address] [facility]. Patient is currently on day 3 of amoxicillin and would like to change abx as she is having increasing pain. No past medical history on file. No current facility-administered medications for this encounter. Current Outpatient Medications Medication Sig Dispense Refill ??? buPROPion (WELLBUTRIN) 300 MG TABLET SR 24 HR XL tablet Take 1 Tablet by mouth every morning. 90 Tablet 3 ??? busPIRone (BUSPAR) 5 MG Tablet Take 1 Tablet by mouth 3 times daily. 270 Tablet 0 ??? Clindamycin HCl (CLEOCIN) 300 MG Capsule Take 1 Capsule by mouth every 8 hours for 10 days. 30 Capsule 0 ??? HYDROcodone-acetaminophen (NORCO) 5-325 MG Tablet Take 1 Tablet by mouth every 8 hours as needed for Moderate or more severe pain. 12 Tablet 0 ??? Levonorgestrel-Eth Estradiol (Twirla) 120-30 MCG/24HR PATCH WEEKLY Twirla 120 mcg-30 mcg/24 hr transdermal patch Apply 1 patch every week by transdermal route for 21 days. (Patient not taking: Reported on 01/30/2022) ??? meloxicam (MOBIC) 15 MG Tablet Take 1 Tablet by mouth daily. 90 Tablet 0 ??? traZODone (DESYREL) 50 MG Tablet Take 0.5 Tabs by mouth nightly as needed for Sleep. (Patient not taking: No sig reported) 90 Tab 0 Allergies Allergen Reactions ??? Sulfa Antibiotics Unknown No past medical history on file. Past Surgical History: Procedure Laterality Date ??? TONSILLECTOMY Social History Socioeconomic History ??? Marital status: Single Spouse name: Not on file ??? Number of children: Not on file ??? Years of education: Not on file ??? Highest education level: Not on file Occupational History ??? Not on file Tobacco Use ??? Smoking status: Every Day Packs/day: 0.25 Types: Cigarettes ??? Smokeless tobacco: Never Substance and Sexual Activity ??? Alcohol use: No ??? Drug use: Yes Frequency: 3.0 times per week Types: Marijuana ??? Sexual activity: Not on file Other Topics Concern ??? Not on file Social History Narrative ??? Not on file BP 124/77 Pulse 60 Temp 98.3 ??F (36.8 ??C) (Tympanic) Resp 16 Ht 5' 5.5 (1.664 m) Wt 165 lb (74.8 kg) LMP (LMP Unknown) SpO2 99% BMI 27.04 kg/m?? Review of Systems Constitutional: Negative for chills, fatigue and fever. HENT: Positive for dental problem. Negative for facial swelling. All other systems reviewed and are negative. Physical Exam Vitals and nursing note reviewed. Constitutional: General: She is not in acute distress. Appearance: She is well-developed. She is not diaphoretic. HENT: Head: Normocephalic and atraumatic. Mouth/Throat: Neck: Thyroid: No thyromegaly. Cardiovascular: Rate and Rhythm: Normal rate and regular rhythm. Heart sounds: Normal heart sounds. No murmur heard. Pulmonary: Effort: Pulmonary effort is normal. No respiratory distress. Breath sounds: Normal breath sounds. No wheezing, rhonchi or rales. Abdominal: General: Bowel sounds are normal. There is no distension. Palpations: Abdomen is soft. Tenderness: There is no abdominal tenderness. Musculoskeletal: Cervical back: Normal range of motion and neck supple. Skin: General: Skin is warm and dry. Coloration: Skin is not pale. Findings: No erythema or rash. Neurological: Mental Status: She is alert and oriented to person, place, and time. Psychiatric: Behavior: Behavior normal. Procedures Imaging Results None Labs Reviewed - No data to display MDM Coding Clinical Impression 1. Alveolitis of jaw The patient remained stable throughout their ED [...] up. Cosigned by Jevon Yoder MD at 05/23/2022 4:32 AM DOUBLER HELPER LER HELPER LER HELPER * Zachary Jenkins RN - 05/22/2022 9:41 PM CST Pt to ER triage w/c/o pain and swelling on the left lower jaw starting 6 days ago. PT states that she had a tooth pulled last Friday and has been in pain since. PT states that she was prescribed amoxicillin but still feels like tooth is infected. LER HELPER documented in this encounter Plan of Treatment Not on file documented as of this encounter Visit Diagnoses Diagnosis Alveolitis of jaw- Primary documented in this encounter Additional Health Concerns Assessment Noted Time PHQ-9 Depression Total Score: 1 01/03/20 20 11:00 AM CDT documented as of this encounter Care Teams Nurses Medical Assistants Phlebotomists Relationship Specialty Start Date End Date Nabila Chandler APRN, TISSUE TECHNICIAN [address] [place] [address] PCP - General Advanced Practice Nurse 11/24/19 documented as of this encounter
--- OUTSIDE RECORDS SUMMARY | 2024-04-21 23:24 | XMS_ITS | Encounter Summary ---
Author Organization [facility] Address [address] [place] [address] Phone Care Team Providers Care Lithographic Stripper Name Role Phone Nabila Chandler APRN, DERIK Primary Care P rush Reason for Referral * Other (Routine) - Closed Specialty Diagnoses / Procedures Referred By Sunshine muro Referred To Contact Neurology Diagnoses Leg pain, bilateral Procedures EMG 2 EXTREMITY W/WO RELATED PARASPINAL Isma Abarca MD [address] [place] [address] Phone: tel: fax: Referral ID Status Reason Start Date Expiration Date Visits Re quested Visits Authorized [id number] Closed 08/06/2022 1 1 Reason for Visit * Reason Comments Hip Pain Bilateral hip pain. Encounter Details Date Type Department Care Team (Late Contact Info) Description 08/06/2022 9:15 AM CDT Office Visit [facility] - Primary [facility] - [place] [address] [place] [address] Isma Abarca MD [address] [place] [address] Leg pain, bilateral (Primary Dx); Chronic right-sided low back pain without sciatica; Encounter for health maintenance examination (Adult); Onychomycosis; examination or test, unconfirmed Discharge Disposition: Discharged to home or Selfcare [...] Sign Reading Time Taken Comments Blood Pressure 102/60 08/06/2022 9:16 AM CDT Pulse 64 08/06/2022 9:16 AM CDT Temperature 36.2 ??C (97.2 ??F) 08/06/2022 9:16 AM CD T Respiratory Rate 18 08/06/2022 9:16 AM CDT Oxygen Saturation 99% 08/06/2022 9:16 AM CDT Inhaled Oxygen Concentration - - Weight 78.9 kg (174 lb) 08/06/2022 9:16 AM CDT Height 166.4 cm (5' 5.5 ) 08/06/2022 9:16 AM CDT Body Mass Index 28.51 08/06/2022 9:16 AM CDT documented in this encounter Progress Notes * Areli Chery, RMRonda - 08/06/2022 9:15 AM CDT Keyana Reardon, 32 y.o., female is here for Hip Pain (Bilateral hip pain.) Medication Refills: Patient reports/denies need for medication refills. Orders Pended: no Requested Prescriptions No prescriptions requested or ordered in this encounter Home Medications Medication Sig Start Date End Date Taking? Authorizing Provider buPROPion (WELLBUTRIN) 300 MG TABLET SR 24 HR XL tablet Take 1 Tablet by mouth every morning. Patient not taking: Reported on 08/06/2022 03/20/22 Nabila Chandler APRN, CNP busPIRone (BUSPAR) 5 MG Tablet Take 1 Tablet by mouth 3 times daily. Patient not taking: Reported on 08/06/2022 03/20/22 Nabila Chandler APRN, CNP meloxicam (MOBIC) 15 MG Tablet Take 1 Tablet by mouth daily. Patient not taking: Reported on 08/06/2022 01/30/22 Nabila Chandler APRN, CNP traZODone (DESYREL) 50 MG Tablet Take 0.5 Tabs by mouth nightly as needed for Sleep. Patient not taking: No sig reported 01/03/20 Nabila Chandler APRN, CNP Medications Discontinued During This Encounter Medication Reason ??? HYDROcodone-acetaminophen (NORCO) 5-325 MG Tablet Med List Clean Up ??? Levonorgestrel-Eth Estradiol (Twirla) 120-30 MCG/24HR PATCH WEEKLY Med List Clean Up I have reviewed the home medication list with the patient and have reconciled discrepancies. The list is accurate to the best of my knowledge. Smoking Status: Social History Tobacco Use ??? Smoking status: Former Packs/day: 0.25 Types: Cigarettes Quit date: 08/28/2021 Years since quittin.9 ??? Smokeless tobacco: Never Substance Use Topics ??? Alcohol use: No ??? Drug use: Yes Frequency: 3.0 times per week Types: Marijuana Smoking Cessation Counseling Given: no Health Care Maintenance: Health Maintenance Due Topic Date Due ??? SARS-COV-2 Immunization (1) Never done ??? Pneumococcal Immunization Combined (1 - PCV) Never done ??? DTaP/Tdap/Td Immunization (6 - Tdap) 11/23/2019 Orders Pended: no The following BPA's have been addressed with the patient today: N/A * Isma Abarca MD - 08/06/2022 9:15 AM CDT Subjective: HPI Patient presents with complaint of bilateral calf pain. Apparently this has been bothering her intermittently for several months. She relates it more commonly as occurring when she has to spend a lotof time on her feet. She also goes on to describe some sensations of tingling and numbness in her feet at times. In addition to this, she has chronic issues with low back pain, primarily on the rightside. These go back for at least 4-5 years. Finally, she is complaining about discoloration and thickening of her toenails for many years. Review of Systems Constitutional: Negative. HENT: Negative. Eyes: Negative. Respiratory: Negative. Cardiovascular: Negative. Gastrointestinal: Negative. Endocrine: Negative. Genitourinary: Negative. Musculoskeletal: Positive for back pain (right) and myalgias (Bilateral anterior calves). Skin: Toenail discoloration Allergic/Immunologic: Negative. Neurological: Positive for numbness (+tingling, both feet). Hematological: Negative. Psychiatric/Behavioral: Negative. Objective: Physical Exam Constitutional: Appearance: She is well-developed. HENT: Head: Normocephalic. Right Ear: External ear normal. Left Ear: External ear normal. Nose: Nose normal. Eyes: Pupils: Pupils are equal, round, and reactive to light. Cardiovascular: Rate and Rhythm: Normal rate and regular rhythm. Pulses: Dorsalis pedis pulses are 2+ on the right side and 2+ on the left side. Pulmonary: Effort: Pulmonary effort is normal. No respiratory distress. Musculoskeletal: General: Normal range of motion. Cervical back: Normal range of motion. Lumbar back: Tenderness (Minimal bilateral parasacral) present. Skin: General: Skin is warm and dry. Neurological: Mental Status: She is alert and oriented to person, place, and time. Psychiatric: Mood and Affect: Affect is blunt (slight) and angry (slight). Speech: Speech normal. Behavior: Behavior normal. Thought Content: Thought content normal. Judgment: Judgment normal. Assessment and Plan See Diagnoses, Orders, Follow-up, and Instructions Problem List Items Addressed This Visit None Visit Diagnoses Leg pain, bilateral - Primary Relevant Orders EMG 2 EXTREMITY W/WO RELATED PARASPINAL Chronic right-sided low back pain without sciatica Relevant Orders XR LUMBAR SPINE 2 OR 3 VIEWS Encounter for health maintenance examination (Adult) Relevant Orders COMPLETE BLOOD COUNT (CBC) WITH DIFF CMP (COMPREHENSIVE METABOLIC PANEL) LIPID PANEL THYROID STIMULATING HORMONE (TSH) Onychomycosis Relevant Orders PODIATRY REFERRAL X-ray LS spine. Schedule EMG to evaluate the numbness and tingling in her feet. Referral to Podiatry placed for the onychomycosis. CMP, CBC, lipids and TSH ordered because the patient indicated that she fasted today in anticipation of ???a complete physical?? . I explained to her that they would not have scheduled her with me for a routine complete physical exam and would have explained this to her at the time of her appointment scheduling. In addition, she was given only a 15 minute slot for the problem(s) that she mentioned when making her appointment. I have advised follow-up with Nabila for a complete physical and review of these labs once they are complete. I have seen and examined the patient on today's date. Documentation for this visit was completed using the assistance of a template. Everything documented in this visit was personally performed todaywith the necessary additions, deletions and changes. documented in this encounter Miscellaneous Notes * Addendum Note - Savanna Shields RMA - 08/06/2022 9:15 AM CDTAddended by: ISAAC SHIELDS on: 11/04/2022 07:35 AM Modules accepted: Orders documented in this encounter Plan of Treatment Not on file documented as of this encounter Procedures Procedure Name Priority Date/Time Associated Diagnosis Comments POCT URINE HCG () Routine 08/06/2022 10:15 AM CDT examination or test, unconfirmed documented in this encounter Results * EMG [...] recommended. Isma Abarca MD NEUROLOGY ORDERABLES Nicole l Result * POCT URINE HCG () (08/06/2022 10:15 AM CDT) POC URINE Negative POC URINE CONTROL Echocardiography Technologist Pass Urine 08/06/2022 10:1 5 AM CDT Isma Abarca MD POINT OF CARE TESTING ([place] SILVIOAK) Final Result * XR LUMBAR SPINE 2 OR 3 [...] ?? None available. FINDINGS: SEGMENTATION: ?? 5 mkm-qgv-gluqzsh lumbar type vertebral bodies. ALIGNMENT: ?? Mild [...] AM T: ??08/07/2022 7:19 AM Report ID: [id number] Reading Location: ??[id number] Procedure Note Nitesh Diaz DO - 08/07/2022 EXAM DESCRIPTION: XR LUMBAR SPINE 2 OR 3 VIEWS REASON FOR STUDY: Low back pain, unspecified, chronic right-sided low back pain without sciatica x4 years, worse for 6 months. No injury. TECHNIQUE: Frontal, lateral and cone-down radiographic views acquired of the lumbar spine. COMPARISON: None available. FINDINGS: SEGMENTATION: 5 oon-gib-fzivsvy lumbar type vertebral bodies. ALIGNMENT: Mild dextroconvex curvature. Mild retrolisthesis of L3 on L4. VERTEBRAE: Lumbar vertebral body heights are maintained. Mild lower lumbar facet increased sclerosis. DISCS: Intervertebral disc heights are maintained. THIS IS AN ELECTRONICALLY VERIFIED FINAL REPORT 08/07/2022 7:19 AM - Electronically signed by Nitesh Diaz D.O. AP: AP Report ID: [id number] Reading Location: [id number] IMPRESSION: Minor osseous degenerative changes. us Isma Abarca MD [facility] DIAGNOSTIC ORDERABLES Final Result * THYROID STIMULATING HORMONE (TSH) (08/06/2022 9:44 AM CDT) TSH 2.160 0.270 - 4.200 mIU/L 08/06/2022 2:32 PM CDT [facility] Blood Venipuncture / Unknown 08/06/2022 9:44 AM CDT 08/06/2022 9:44 AM CDT Isma Abarca MD CHEMISTRY ORDERABLES Nicole l Result Performing Organization Address City/State/[facility] Co de Phone Number [facility] [place] [address] * LIPID PANEL (08/06/2022 9:44 AM CDT) CHOLESTEROL 141 <=200 mg/dL 08/06/2022 2:32 PM CDT [facility] TRIGLYCERIDES 49 <150 mg/dL 08/06/2022 2:32 PM CDT [facility] HDL CHOLESTEROL 50.7 >40 mg/dL 2:32 PM CDT [facility] LDL 81 5 - 130 mg/dL 08/06/2022 2:32 PM CDT [facility] VLDL 10 5 - 55 mg/dL 08/06/2022 2:32 PM CDT [facility] CHOL/HDL RATIO 2.8 0.0 - 4.4 08/06/2022 2:32 PM CDT [facility] NON-HDL CHOLESTEROL 90.3 <130 mg/dL 08/06/2022 2:32 PM CDT [facility] IS THE PATIENT REQUIRED TO BE FASTING? Yes 08/06/2022 2:32 PM CDT [facility] HAS THE PATIENT BEEN FASTING? Yes 08/06/2022 2:32 PM CDT [facility] Blood Venipuncture / Unknown 08/06/2022 9:44 AM CDT 08/06/2022 9:44 AM CDT Isma Abarca MD CHEMISTRY ORDERABLES Nicole l Result [facility] [address] [place] [address] * (ABNORMAL) CMP (COMPREHENSIVE METABOLIC PANEL) (08/06/2022 9:44 AM CDT) SODIUM 139 136 - 144 mmol/L 08/06/2022 2:32 PM CDT [facility] POTASSIUM 5.2(H) 3.5 - 5.1 mmol/L 08/06/2022 2:32 PM CDT [facility] CHLORIDE 105 100 - 110 mmol/L 08/06/2022 2:32 PM CDT [facility] CO2, VENOUS 25 22 - 32 mmol/L 08/06/2022 2:32 PM CDT [facility] ANION GAP 14.2 8.0 - 20.0 mmol/L 08/06/2022 2:32 PM CDT [facility] GLUCOSE 96 70 - 99 mg/dL 08/06/2022 2:32 PM CDT [facility] BUN 11 6 - 20 mg/dL 08/06/2022 2:32 PM CDT [facility] CREATININE, BLOOD 0.75 0.60 - 1.10 mg/dL 08/06/2022 2:32 PM CDT [facility] BUN/CREATININE RATIO 15 12 - 20 ratio 08/06/2022 2:32 PM CDT [facility] TOTAL PROTEIN 6.7 6.0 - 8.3 g/dL 08/06/2022 2:32 PM CDT [facility] ALBUMIN 4.2 3.5 - 5.2 g/dL 08/06/2022 2:32 PM CDT [facility] Comment: The colormetric methods used for the determination of Albumin may lead to falsely elevated test results in patients suffering from renal failure or insufficiency due to interference with other proteins. A/G RATIO 1.7 1.0 - 2.0 08/06/2022 2:32 PM CDT [facility] CALCIUM 9.4 8.9 - 10.3 mg/dL 08/06/2022 2:32 PM CDT [facility] T BILI 0.3 <=1.2 mg/dL 08/06/2022 2:32 PM CDT [email or web address] SGOT (AST) 17 <=32 U/L 08/06/2022 2:32 PM CDT [facility] SGPT (ALT) 13 <=41 U/L 08/06/2022 2:32 PM CDT [facility] ALKALINE PHOSPHATASE 49 35 - 105 U/L 08/06/2022 2:32 PM CDT [facility] IS THE PATIENT REQUIRED TO BE FASTING? No 08/06/2022 2:32 PM CDT [facility] GFR, ESTIMATED >60 >=60 08/06/2022 2:32 PM CDT [facility] Comment: Creatinine Clearance is the preferred criteria for selecting drug dose adjustments in renally impaired patients. ??The GFR is provided as additional pertinent clinical information. GFR is reported in mL/min/1.73 sq m. Calculation based on the Chronic Kidney Disease Epidemiology Collaboration (CKD- EPI) equation refit without adjustment for race. GFR, EST. >60 >=60 023 2:32 PM CDT [facility] GFR, EST. NONAFRICAN >60 >=60 08/06/2022 2:32 PM CDT [facility] Blood Venipuncture / Unknown 08/06/2022 9:44 AM CDT 08/06/2022 9:44 AM CDT us Isma Abarca MD CHEMISTRY ORDERABLES Nicole barron Result [facility] [place] [address] documented in this encounter Visit Diagnoses Diagnosis Leg pain, bilateral- Primary Pain in limb Chronic right-sided low back pain without sciatica Encounter for health maintenance examination (Adult) Unspecified general medical examination Onychomycosis Dermatophytosis of nail examination or test, unconfirmed Chronic right-sided low back pain without sciatica Leg pain, bilateral Pain in limb documented in this encounter Additional Health Concerns Assessment Noted Time PHQ-9 Depression Total Score: 1 01/03/20 20 11:00 AM CDT documented as of this encounter Care Teams Lithographic Stripper Relationship Specialty Start Date End Date Nabila Chandler APRN, MANAGER PSYCHIATRY [address] [place] [address] PCP - General Advanced Practice Nurse 11/24/19 documented as of this encounter
--- OUTSIDE RECORDS SUMMARY | 2024-04-21 23:24 | XMS_ITS | Encounter Summary ---
Author Organization [facility] Address [address] [place] [address] Phone Care Team Providers Care Shock Absorption Floor Layer Name Role Phone Nabila Chandler APRN, DERIK Primary Care P rovider Encounter Details Date Type Department Care Team (Late st Contact Info) Description 08/06/2022 10:20 AM CDT Lab [facility] - Primary Care - [address] [phone] Lab, [facility] Encounter for health maintenance examination (Adult) Discharge Disposition: Discharged to home or Selfcare [...] AM CDT documented as of this encounter Progress Notes * Josephine Coffey - 08/06/2022 10:20 AM CDT Keyana presents for lab draw per order of Nabila Chandler APN, PLANT MACHINIST dated 08/06/22. Specimen collected from right antecubital without incident. sah documented in this encounter Plan of Treatment Not on file documented as of this encounter Procedures Procedure Name Priority Date/Time Associated Diagnosis Comments CBC WITH AUTO DIFFERENTIAL Today 08/06/2022 9:44 AM CDT Encounter for health maintenance examination (Adult) THYROID STIMULATING HORMONE (TSH) Today 08/06/2022 9:44 AM CDT Encounter for health maintenance examination (Adult) LIPID PANEL Routine 08/06/2022 9:44 AM CDT Encounter for health maintenance examination (Adult) CMP (COMPREHENSIVE METABOLIC PANEL) Today 08/06/2022 9:44 AM CDT Encounter for health maintenance examination (Adult) COMPLETE BLOOD COUNT (CBC) WITH DIFF Today 08/06/2022 9:44 AM CDT Encounter for health maintenance examination (Adult) documented in this encounter Results * (ABNORMAL) CBC WITH AUTO DIFFERENTIAL (08/06/2022 9:44 AM CDT) WBC 4.55 4.00 - 12.00 10(3)/mcL 08/06/2022 12:25 PM CDT [facility] RBC 4.56 3.80 - 5.30 10(6)/mcL 08/06/2022 12:25 PM CDT [facility] HEMOGLOBIN (HGB) 15.0 12.0 - 15.8 g/dL 08/06/2022 12:25 PM CDT [facility] HEMATOCRIT (HCT) 44.1 36.0 - 47.0 % 08/06/2022 12:25 PM CDT [facility] MCV 96.7(H) 82.0 - 96.0 fL 08/06/2022 12:25 PM CDT [facility] MCH 32.9 26.0 - 34.0 pg 08/06/2022 12:25 PM CDT [facility] MCHC 34.0 31.0 - 36.0 g/dL 08/06/2022 12:25 PM CDT [facility] PLATELET COUNT 297 140 - 440 10(3)/mcL 08/06/2022 12:25 PM CDT [facility] RDW 11.1(L) 11.8 - 15.5 % 08/06/2022 12:25 PM CDT [facility] MPV 9.7 9.7 - 12.4 fL 08/06/2022 12:25 PM CDT [facility] NEUTROPHILS 55.6 47.0 - 73.0 % 08/06/2022 12:25 PM CDT [facility] LYMPHOCYTES 33.4 18.0 - 42.0 % 08/06/2022 12:25 PM CDT [facility] MONOCYTES 7.9 4.0 - 12.0 % 08/06/2022 12:25 PM CDT [facility] EOSINOPHILS 2.2 0.0 - 5.0 % 08/06/2022 12:25 PM CDT [facility] BASOPHILS 0.9 0.0 - 1.0 % 08/06/2022 12:25 PM CDT [facility] ABSOLUTE NEUTROPHILS 2.53 1.60 - 7.70 10(3)/mcL 08/06/2022 12:25 PM CDT [facility] ABSOLUTE LYMPHOCYTES 1.52 1.30 - 3.20 10(3)/mcL 08/06/2022 12:25 PM CDT [facility] ABSOLUTE MONOCYTES 0.36 0.20 - 1.00 10(3)/mcL 08/06/2022 12:25 PM CDT [facility] ABSOLUTE EOSINOPHIL 0.10 0.00 - 0.40 10(3)/mcL 08/06/2022 12:25 PM CDT [facility] ABSOLUTE BASOPHILS 0.04 0.00 - 0.10 10(3)/mcL 08/06/2022 12:25 PM CDT [facility] NRBC PER 100 WBC 0 08/07/19 12:25 PM CDT [facility] Blood Venipuncture / Unknown 08/06/2022 9:44 AM CDT 08/06/2022 9:44 AM CDT Isma Abarca MD HEMATOLOGY ORDERABLES Fin al Result Performing Organization Address City/[facility]/ZIP Co de Phone Number [facility] [address] [place] [address] * THYROID STIMULATING HORMONE (TSH) (08/06/2022 9:44 AM CDT) TSH 2.160 0.270 - 4.200 mIU/L 08/06/2022 2:32 PM CDT [facility] Blood Venipuncture / Unknown 08/06/2022 9:44 AM CDT 08/06/2022 9:44 AM CDT Isma Abarca MD CHEMISTRY ORDERABLES Nicole l Result [facility] [address] [place] [address] * LIPID PANEL (08/06/2022 9:44 AM CDT) CHOLESTEROL 141 <=200 mg/dL 08/06/2022 2:32 PM CDT [facility] TRIGLYCERIDES 49 <150 mg/dL 08/06/2022 2:32 PM CDT [facility] HDL CHOLESTEROL 50.7 >40 mg/dL 2:32 PM CDT [facility] LDL 81 5 - 130 mg/dL 08/06/2022 2:32 PM CDT [facility] VLDL 10 5 - 55 mg/dL 08/06/2022 2:32 PM CDT [facility] CHOL/HDL RATIO 2.8 0.0 - 4.4 08/06/2022 2:32 PM CDT [facility] NON-HDL CHOLESTEROL 90.3 <130 mg/dL 08/06/2022 2:32 PM CDT [facility] IS THE PATIENT REQUIRED TO BE FASTING? Yes 08/06/2022 2:32 PM CDT [facility] HAS THE PATIENT BEEN FASTING? Yes 08/06/2022 2:32 PM CDT [facility] Blood Venipuncture / Unknown 08/06/2022 9:44 AM CDT 08/06/2022 9:44 AM CDT us Isma Abarca MD CHEMISTRY ORDERABLES Nicole barron Result [facility] [address] [place] [address] * (ABNORMAL) CMP (COMPREHENSIVE METABOLIC PANEL) (08/06/2022 9:44 AM CDT) SODIUM 139 136 - 144 mmol/L 08/06/2022 2:32 PM CDT [facility] POTASSIUM 5.2(H) 3.5 - 5.1 mmol/L 08/06/2022 2:32 PM CDT [facility] CHLORIDE 105 100 - 110 mmol/L 08/06/2022 2:32 PM CDT [facility] CO2, VENOUS 25 22 - 32 mmol/L 08/06/2022 2:32 PM CDT [facility] ANION GAP 14.2 8.0 - 20.0 mmol/L 08/06/2022 2:32 PM CDT [facility] GLUCOSE 96 70 - 99 mg/dL 08/06/2022 2:32 PM CDT [facility] BUN 11 6 - 20 mg/dL 08/06/2022 2:32 PM CDT [facility] CREATININE, BLOOD 0.75 0.60 - 1.10 mg/dL 08/06/2022 2:32 PM CDT [facility] BUN/CREATININE RATIO 15 12 - 20 ratio 08/06/2022 2:32 PM CDT [facility] TOTAL PROTEIN 6.7 6.0 - 8.3 g/dL 08/06/2022 2:32 PM CDT [facility] ALBUMIN 4.2 3.5 - 5.2 g/dL 08/06/2022 2:32 PM T [facility] Comment: The colormetric methods used for the determination of Albumin may lead to falsely elevated test results in patients suffering from renal failure or insufficiency due to interference with other proteins. A/G RATIO 1.7 1.0 - 2.0 08/06/2022 2:32 PM CDT [facility] CALCIUM 9.4 8.9 - 10.3 mg/dL 08/06/2022 2:32 PM CDT [facility] T BILI 0.3 <=1.2 mg/dL 08/06/2022 2:32 PM T [facility] SGOT (AST) 17 <=32 U/L 08/06/2022 2:32 PM T [facility] SGPT (ALT) 13 <=41 U/L 08/06/2022 2:32 PM CDT [facility] ALKALINE PHOSPHATASE 49 35 - 105 U/L 08/06/2022 2:32 PM T [facility] IS THE PATIENT REQUIRED TO BE FASTING? No 08/06/2022 2:32 PM T [facility] GFR, ESTIMATED >60 >=60 08/06/2022 2:32 PM [facility] Comment: Creatinine Clearance is the preferred criteria for selecting drug dose adjustments in renally impaired patients. ??The GFR is provided as additional pertinent clinical information. GFR is reported in mL/min/1.73 sq m. Calculation based on the Chronic Kidney Disease Epidemiology Collaboration (CKD- EPI) equation refit without adjustment for race. GFR, EST. >60 >=60 023 2:32 PM CDT [facility] GFR, EST. NONAFRICAN >60 >=60 08/06/2022 2:32 PM CDT [facility] Blood Venipuncture / Unknown 08/06/2022 9:44 AM CDT 08/06/2022 9:44 AM CDT us Isma Abarca MD CHEMISTRY ORDERABLES Nicole barron Result [facility] [address] [place] [address] documented in this encounter Visit Diagnoses Diagnosis Encounter for health maintenance examination (Adult) Unspecified general medical examination documented in this encounter Additional Health Concerns Assessment Noted Time PHQ-9 Depression Total Score: 1 01/03/20 20 11:00 AM CDT documented as of this encounter Care Teams Shock Absorption Floor Layer Relationship Specialty Start Date End Date Nabila Chandler, TRUCK DRIVER'S OFFSIDER, PLANT MACHINIST [address] [place] [address] PCP - General Advanced Practice Nurse 11/24/19 documented as of this encounter
--- OUTSIDE RECORDS SUMMARY | 2024-04-21 23:24 | XMS_ITS | Encounter Summary ---
Author Organization [facility] Address [address] [place] [address] Phone Care Team Providers Care Practice Business Asst Name Role Phone Tim Conte APRN, CNP Primary Care P rodavidder Reason for Referral * Other (Routine) - Closed Specialty Diagnoses / Procedures Referred By Contrashad t Referred To Contact Neurology Diagnoses Bilateral wrist pain Procedures EMG Tim Conte APRN, CNP [address] [place] [address] Phone: tel: fax: Referral ID Status Reason Start Date Expiration Date Visits Re quested Visits Authorized [id number] Closed 01/31/2022 1 1 * Other (Routine) - Closed Specialty Diagnoses / Procedures Referred By Sunshine muro Referred To Contact Neurology Diagnoses Bilateral wrist pain Procedures EMG, NEEDLE, TWO LIMBS Tim Conte APRN, CNP [address] [place] [address] Phone: tel: fax: Referral ID Status Reason Start Date Expiration Date Visits Re quested Visits Authorized [id number] Closed 01/30/2022 1 1 Reason for Visit * Reason Comments Wrist Pain Bilat wrist pain Encounter Details Date Type Department Care Team (Late st Contact Info) Description 01/30/2022 1:15 PM CDT Office Visit [facility] - Primary Care - [address] [place] [id number] Tim Conte APRN, ENTRY WRITER [address] [place] [address] Bilateral wrist pain (Primary Dx) Discharge Disposition: Discharged to home or Selfcare Social History Tobacco Use Types Packs/Day Years Used Date Smoking Tobacco: Every Day Cigarettes Smokeless Tobacco: Never Tobacco Cessation:Ready to Q uit: No; Counseling Given: No Alcohol Use Standard Drinks/Week Comments No 0 [...] Sign Reading Time Taken Comments Blood Pressure 120/80 01/30/2022 1:08 PM CDT Pulse 52 01/30/2022 1:08 PM CDT Temperature 36.5 ??C (97.7 ??F) 01/30/2022 1:08 PM CD T Respiratory Rate 20 01/30/2022 1:08 PM CDT Oxygen Saturation 96% 01/30/2022 1:08 PM CDT Inhaled Oxygen Concentration - - Weight 77.1 kg (170 lb) 01/30/2022 1:08 PM CDT Height 167.6 cm (5' 6 ) 01/30/2022 1:08 PM CDT Body Mass Index 27.44 01/30/2022 1:08 PM CDT documented in this encounter Patient Instructions * Patient Instructions* Tim Conte APRN, CNP - 01/30/2022 1:15 PM CDT If any new or worsening symptoms occur, please call office. documented in this encounter Progress Notes * Elin Bermudez CMA - 01/30/2022 1:15 PM CDT Keyana Reardon is a 31 y.o. female with current BMI: Body mass index is 27.44 kg/m??. Interventions discussed including: encourage daily physical activity and well- balanced diet. Keyana Reardon was provided education materials regarding smoking cessation as noted on the After Visit Summary. Counseling Given and Ready to Quit Hobbs are updated in the Social History. * Elin Bermudez CMA - 01/30/2022 1:15 PM CDT Keyana Reardon, 31 y.o., female is here for Wrist Pain (Bilat wrist pain) Medication Refills: Patient reports/denies need for medication refills. Orders Pended: no Requested Prescriptions No prescriptions requested or ordered in this encounter Home Medications Medication Sig Start Date End Date Taking? Authorizing Provider buPROPion (WELLBUTRIN) 300 MG TABLET SR 24 HR XL tablet Take 1 Tab by mouth every morning. Patient not taking: No sig reported 12/06/19 Tim Conte APRN, CNP busPIRone (BUSPAR) 5 MG Tablet Take 1 Tab by mouth 3 times daily. Patient not taking: No sig reported 12/06/19 Tim Conte APRN, CNP clindamycin (CLEOCIN T) 1 % Solution APPLY THIN LAYER TOPICALLY TO THE AFFECTED AREA EVERY NIGHT ATBEDTIME Patient not taking: Reported on 01/30/2022 11/03/20 Nida Mejia MD Clindamycin HCl (CLEOCIN) 300 MG Capsule TAKE 1 CAPSULE BY MOUTH TWICE DAILY FOR 7 DAYS Patient not taking: Reported on 01/30/2022 11/03/20 Nida Mejia MD doxycycline hyclate (VIBRA-TABS) 100 MG Tablet doxycycline hyclate 100 mg tablet Take 1 tablet every day by oral route. Patient not taking: No sig reported Nida Mejia MD Levonorgestrel-Eth Estradiol (Twirla) 120-30 MCG/24HR PATCH WEEKLY Twirla 120 mcg-30 mcg/24 hr transdermal patch Apply 1 patch every week by transdermal route for 21 days. Patient not taking: Reported on 01/30/2022 Nida Mejia MD traZODone (DESYREL) 50 MG Tablet Take 0.5 Tabs by mouth nightly as needed for Sleep. Patient not taking: No sig reported 01/03/20 Tim Conte APRN, CNP Medications Discontinued During This Encounter Medication Reason ??? Norelgestromin-Eth Estradiol (Xulane) 150-35 MCG/24HR PATCH WEEKLY Alternate therapy I have reviewed the home medication list with the patient and have reconciled discrepancies. The list is accurate to the best of my knowledge. Smoking Status: Social History Tobacco Use ??? Smoking status: Current Every Day Smoker Packs/day: 0.25 Types: Cigarettes ??? Smokeless tobacco: Never Used Substance Use Topics ??? Alcohol use: No ??? Drug use: Yes Frequency: 3.0 times per week Types: Marijuana Smoking Cessation Counseling Given: no Health Care Maintenance: Health Maintenance Due Topic Date Due ??? SARS-COV-2 Immunization (1) Never done ??? Pneumococcal Immunization (0-64 years) (1 - PCV) Never done ??? DTaP/Tdap/Td Immunization (6 - Tdap) 11/23/2019 ??? Influenza Immunization (1) Never done Orders Pended: no The following BPA's have been addressed with the patient today: BMI, Flu and Smoking * Tim Conte APRN, CNP - 01/30/2022 1:15 PM CDT [facility] - FAMILY MEDICINE - [address] [address] Dept: [phone] Dept Loc: [phone] Loc Patient: Keyana Reardon : 1990 Sex: female Subjective: HPI: Keyana Reardon presents for Wrist Pain (Bilat wrist pain) Worsening bilateral wrist pain for the past month. Trouble opening things, cannot lean on her rightwrist/hand. States left is constant and right is more with movements. Both have radiating numbness/tingling to fingers. ROS Fourteen point review of systems negative except as documented in HPI. Objective: Vitals: 01/30/22 1308 BP: 120/80 BP Location: Right Arm BP Position: Sitting BP Cuff Size: Regular Pulse: 52 Resp: 20 Temp: 97.7 ??F (36.5 ??C) TempSrc: Temporal SpO2: 96% Weight: 170 lb (77.1 kg) Height: 5' 6 (1.676 m) LMP 03/20/2020 (Approximate) Body mass index is 27.44 kg/m??. Physical Exam Vitals and nursing note reviewed. Constitutional: General: She is not in acute distress. Appearance: She is well-developed. HENT: Head: Normocephalic and atraumatic. Right Ear: External ear normal. Left Ear: External ear normal. Eyes: Conjunctiva/sclera: Conjunctivae normal. Cardiovascular: Rate and Rhythm: Normal rate. Pulmonary: Effort: Pulmonary effort is normal. No respiratory distress. Musculoskeletal: Right wrist: No swelling, deformity, effusion, lacerations, bony tenderness, snuff box tenderness or crepitus. Normal range of motion. Normal pulse. Left wrist: No swelling, deformity, effusion, lacerations, snuff box tenderness or crepitus. Normalrange of motion. Normal pulse. Comments: bilateral positive phalens signs. Skin: General: Skin is warm and dry. Neurological: Mental Status: She is alert and oriented to person, place, and time. Psychiatric: Behavior: Behavior normal. Thought Content: Thought content normal. Judgment: Judgment normal. Medical Decision Making: Assessment & Plan Diagnoses and all orders for this visit: Bilateral wrist pain - EMG, NEEDLE, TWO LIMBS; Future - meloxicam (MOBIC) 15 MG Tablet; Take 1 Tablet by mouth daily. Other orders - Levonorgestrel-Eth Estradiol (Twirla) 120-30 MCG/24HR PATCH WEEKLY; Twirla 120 mcg-30 mcg/24 hr transdermal patch Apply 1 patch every week by transdermal route for 21 days. (Patient not taking: Reported on 01/30/2022) r/o CTS, if negative, f/u with OT and ortho. Start mobic Follow-up Information Return if symptoms worsen or fail to improve. LOS Today OFFICE/OP EST LVL 3 LOW MDM/20-29 MIN documented in this encounter Miscellaneous Notes * Addendum Note - Tim Conte APRN, CNP - 01/30/2022 1:15 PM CDT Addended by: TIM CONTE on: 01/31/2022 10:32 AM Modules accepted: Orders documented in this encounter Plan of Treatment Not on file documented as of this encounter Procedures Procedure Name Priority Date/Time Associated Diagnosis Comments EMG, NEEDLE, TWO LIMBS Routine 12:00 AM FOAM MOLDER Bilateral wrist pain documented in this encounter Results * EMG (02/22/2022 10:29 AM FOAM MOLDER) Narrative Peter Jolly MD - 02/22/2022 10:29 AM FOAM MOLDER Peter Jolly MD ? 02/22/2022 10:29 AM Electromyogram Procedure Note Date of Procedure: 02/20/2022 Pre-operative Diagnosis: bilateral upper extremity numbness, tingling and pain. Post-operative Diagnosis: Indications: Diagnostic Procedure Details Motor Nerve Conduction Studies: The bilateral median motor nerve shows normal distal motor latency, normal motor amplitude and normal conduction velocity. The bilateral ulnar motor nerve shows normal distal motor latency, normal motor amplitude and normal conduction velocity. Sensory Nerve Conduction Studies: The bilateral median sensory nerve shows normal sensory nerve peak latency and normal sensory amplitude. The bilateral ulnar sensory nerve shows normal sensory nerve peak latency and normal sensory amplitude. The bilateral radial sensory nerve shows normal sensory nerve peak latency and normal sensory amplitude. Median radial comparisons were normal on the left and prolonged on the right. Median ulnar comparisons were normal, bilaterally. F waves: F wave latencies for the bilateral median nerve were normal. F wave latencies for the bilateral ulnar nerve were normal. EMG: Needle EMG of the right APB, FDI, biceps, triceps and deltoid were normal. 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 ??There was no compression neuropathy of the left upper extremity. ??There was no evidence of radiculopathy of right upper extremity. ??Clinical correlation is recommended. Procedure Note Peter Jolly MD - 02/20/2022 9:00 AM CST Electromyogram Procedure Note Date of Procedure: 02/20/2022 Pre-operative Diagnosis: bilateral upper extremity numbness, tingling andpain. Post-operative Diagnosis: Indications: Diagnostic Procedure Details Motor Nerve Conduction Studies: The bilateral median motor nerve shows normal distal motor latency, normalmotor amplitude and normal conduction velocity. The bilateral ulnar motor nerve shows normal distal motor latency, normalmotor amplitude and normal conduction velocity. Sensory Nerve Conduction Studies: The bilateral median sensory nerve shows normal sensory nerve peak latencyand normal sensory amplitude. The bilateral ulnar sensory nerve shows normal sensory nerve peak latencyand normal sensory amplitude. The bilateral radial sensory nerve shows normal sensory nerve peak latencyand normal sensory amplitude. Median radial comparisons were normal on the left and prolonged on theright. Median ulnar comparisons were normal, bilaterally. F waves: F wave latencies for the bilateral median nerve were normal. F wave latencies for the bilateral ulnar nerve were normal. EMG: Needle EMG of the right APB, FDI, biceps, triceps and deltoid werenormal. Summary This is an abnormal study consistent with very mild right median nerveentrapment at the flexor retinaculum. There was no compression neuropathyof the left upper extremity. There was no evidence of radiculopathy ofright upper extremity. Clinical correlation is recommended. us Tim Conte APRN, ENTRY WRITER NEUROLOGY ORDER DORIS V2 Edited * EMG, NEEDLE, TWO LIMBS (02/20/2022 12:00 AM FOAM MOLDER) 02/20/2022 us Tim Conte APRN, CNP NEUROLOGY ORDER DORIS Final Result SCAN documented in this encounter Visit Diagnoses Diagnosis Bilateral wrist pain- Primary Bilateral wrist pain documented in this encounter Additional Health Concerns Assessment Noted Time PHQ-9 Depression Total Score: 1 01/03/20 20 11:00 AM CDT documented as of this encounter Care Teams Practice Business Asst Relationship Specialty Start Date End Date Tim Conte APRN, CNP [address] [place] [address] PCP - General Advanced Practice Nurse 11/24/19 documented as of this encounter
--- OUTSIDE RECORDS SUMMARY | 2024-04-21 23:24 | XMS_ITS | Encounter Summary ---
Author Organization [facility] Address [address] [place] [address] Phone Care Team Providers Care Pick Pulling Machine Tender Name Role Phone Nabila Chandler APRN, CNP Primary Care P rovider Reason for Visit * Reason Onset Date Comments Results 08/23/2022 EMG Encounter Details Date Type Department Care Team (Late st Contact Info) Description 08/23/[address] [facility] - Primary Care - [place] [address] [place] [address] Isma Abarca MD [address] [place] [address] Results (EMG) Social History Tobacco [...] Recorded In the last 10 days, have nicolás u been in contact with someone who was confirmed or suspected to have Coronavirus/COVID-19? No / Unsure 08/20/2022 1:25 PM CDT documented as of this encounter Miscellaneous Notes * Telephone Encounter - Radha Escobedo RN - 08/26/2022 12:20 PM CDT Phoned patient with EMG results. Patient aware and verbalized understanding. No questions for conventional underwriter. * Telephone Encounter - Radha Escobedo RN - 08/23/2022 9:41 AM CDT Attempted to call patient with results, no answer at this time. Left message to call back. * Telephone Encounter - Radha Escobedo RN - 08/23/2022 9:40 AM CDT ----- Message from Isma Abarca MD sent at 08/23/2022 8:03 AM CDT ----- EMG shows no evidence of peripheral neuropathy. If the patient has persistent issues with tingling and aching in her legs, I would recommend referral to Neurology for further evaluation. documented in this encounter Plan of Treatment Not on file documented as of this encounter Visit Diagnoses Not on filedocumented in this encounter Additional Health Concerns Assessment Noted Time PHQ-9 Depression Total Score: 1 01/03/20 20 11:00 AM CDT documented as of this encounter Care Teams Pick Pulling Machine Tender Relationship Specialty Start Date End Date Nabila Chandler APRN, PLANNING TECHNICIAN [address] [place] [address] PCP - General Advanced Practice Nurse 11/24/19 documented as of this encounter
--- OUTSIDE RECORDS SUMMARY | 2024-04-21 23:24 | XMS_ITS | Encounter Summary ---
Author Organization [employer] Care Team Providers Care Bias Binding Folder Name Role Phone Nabila Chandler APRN, CNP Primary Care P cjder Encounter Details Date Type Department Care Team (Latest Contact Info) Description 08/06/2022 Travel Social History Tobacco Use Types Packs/Day [...] AM CDT documented as of this encounter Plan of Treatment Not on file documented as of this encounter Visit Diagnoses Not on filedocumented in this encounter Additional Health Concerns Assessment Noted Time PHQ-9 Depression Total Score: 1 01/03/20 20 11:00 AM CDT documented as of this encounter Care Teams Bias Binding Folder Relationship Specialty Start Date End Date Nabila Chandler APRN, OCULARIST [address] [place] [address] PCP - General Advanced Practice Nurse 11/24/19 documented as of this encounter
--- OUTSIDE RECORDS SUMMARY | 2024-04-21 23:24 | XMS_ITS | Encounter Summary ---
Author Organization [employer] Care Team Providers Care Shop Lead Name Role Phone Nabila Chandler APRN, CNP Primary Care P rovider Encounter Details Date Type Department Care Team (Latest Contact Info) Description 09/07/2021 Travel Social History Tobacco Use Types Packs/Day [...] documented as of this encounter Care Teams Shop Lead Relationship Specialty Start Date End Date Nabila Chandler APRN, CNP [address] [place] [address] PCP - General Advanced Practice Nurse 11/24/19 documented as of this encounter
--- OUTSIDE RECORDS SUMMARY | 2024-04-21 23:24 | XMS_ITS | Encounter Summary ---
Author Organization [facility] Address [address] [facility] [place] [address] Phone Care Team Providers Care Application Project Leader Name Role Phone Nabila Chandler APRN, CNP Primary Care P rovider Reason for Visit * Reason Onset Date Comments Lump 05/12/2023 Oral/Dental/Throat Problem 05/12/2023 Encounter Details Date Type Department Care Team (Late st Contact Info) Description 05/12/2023 Nurse Triage [facility] [address] [place] [address] Nabila Chandler APRN, MANAGER DELI [address] [place] [address] Lump; Oral/Dental/Throat Problem Social History Tobacco Use Types Packs/Day Years [...] encounter Miscellaneous Notes * Telephone Encounter - Makenna Henley RN - 05/12/2023 1:25 PM CST SITUATION (Reason for call, Guideline/protocol utilized): Throat problem BACKGROUND (Onset, Events leading up, Pertinent hx): Ongoing for a while per patient ASSESSMENT (Caller is: Patient, All applicable forms verified: N/a): Reporting No pain in throat Every once in a while there is discomfort or burning sensation Feels like something is in there Not sure about any lumps or bump No suspect of fever When she moves areas at the neck she hears a cracking or popping at the right side She says she has not seen a provider for this before She says she is calling today because issue seems to be more noticeable or constant Allergies, medications and pharmacy reviewed at this time. First positive answer recorded. All responses to prior questions were negative. RECOMMENDATION: Patient wants seen. Caller is agreeable and verbalizes understanding of care advice/disposition? Yes All Patient Appointments Provider Department Dept Phone 05/20/2023 10:15 AM Theresa Tracey [facility] - Primary Care - [phone] See care advice and disposition provided, per guideline. Recommendation based on caller information only and is not a diagnosis. Verified and reviewed all triage information with the caller. Educated the caller in-depth on when to call us back and/or seek urgent/emergent evaluation. Reason for Disposition ??? Patient wants to be seen Protocols used: SKIN LUMP OR LOCALIZED [id number] SITE PROJECT MANAGER * Telephone Encounter - Gloria Grey - 05/12/2023 1:23 PM CST Symptoms: Sore Throat, Lump or Bump Outcome: Transfer to property disposal manager queue Reason: Caller denied all higher acuity questions The caller accepted this outcome Caller denied: * Struggling for each breath (severe trouble breathing) * Can't swallow saliva (drooling) SITE PROJECT MANAGER documented in this encounter Plan of Treatment Not on file documented as of this encounter Visit Diagnoses Not on filedocumented in this encounter Additional Health Concerns Assessment Noted Time PHQ-9 Depression Total Score: 1 01/03/20 20 11:00 AM CDT documented as of this encounter Care Teams Application Project Leader Relationship Specialty Start Date End Date Nabila Chandler APRN, MANAGER DEL[place] [address] [place] [address] PCP - General Advanced Practice Nurse 11/24/19 documented as of this encounter
--- OUTSIDE RECORDS SUMMARY | 2024-04-21 23:24 | XMS_ITS | Encounter Summary ---
Author Organization [facility] Address [address] [place] [address] Phone Care Team Providers Care Mower Sharpener Name Role Phone Nabila Chandler APRN, CNP Primary Care P rovider Reason for Visit * Reason Comments Tingling Numbness Pain * Other (Routine) - Closed Specialty Diagnoses / Procedures Referred By Sunshine muro Referred To Contact Neurology Diagnoses Bilateral wrist pain Procedures EMG Nabila Chandler APRN, CNP [address] [place] [address] Phone: tel: fax: Referral ID Status Reason Start Date Expiration Date Visits Re quested Visits Authorized [id number] Closed 01/31/2022 1 1 Encounter Details Date Type Department Care Team (Late st Contact Info) Description 02/20/2022 9:00 AM TELEVISION NEWS ANCHOR [facility] [address] [place] [address] Nabila Chandler APRN, CNP [address] [place] [address] Bilateral wrist pain Discharge Disposition: Discharged to home or Selfcare [...] Coronavirus/COVID-19? No / Unsure 02/20/2022 9:32 AM TELEVISION NEWS ANCHOR documented as of this encounter Progress Notes * Peter Jolly MD - 02/20/2022 9:00 AM CST Please refer to procedure note. VISION NEWS ANCHOR documented in this encounter Procedure Notes * Peter Jolly MD - 02/20/2022 9:00 AM CSTAssociated Order(s): EMG Electromyogram Procedure Note Date of Procedure: 02/20/2022 [...] median nerve entrapment at the flexor retinaculum. There was no compression neuropathy of the left upper extremity. There was no evidence of radiculopathy of right upper extremity. Clinical correlation is recommended. VISION NEWS ANCHOR documented in this encounter Plan of Treatment Not on file documented as of this encounter Procedures Procedure Name Priority Date/Time Associated Diagnosis Comments EMG Routine 02/22/2022 10:29 AM TELEVISION NEWS ANCHOR Bilateral wrist pain documented in this encounter Results * EMG (02/22/2022 10:29 AM TELEVISION NEWS ANCHOR) Narrative Peter Jolly MD - 02/22/2022 10:29 AM TELEVISION NEWS ANCHOR Peter Jolly MD ? 02/22/2022 10:29 AM [...] ofright upper extremity. Clinical correlation is recommended. Nabila Chandler APRN, CNP NEUROLOGY ORDER DORIS V2 Edited documented in this encounter Visit Diagnoses Diagnosis Bilateral wrist pain documented in this encounter Additional Health Concerns Assessment Noted Time PHQ-9 Depression Total Score: 1 01/03/20 20 11:00 AM CDT documented as of this encounter Care Teams Mower Sharpener Relationship Specialty Start Date End Date Nabila Chandler APRN, CNP [address] [place] [address] PCP - General Advanced Practice Nurse 11/24/19 documented as of this encounter
--- OUTSIDE RECORDS SUMMARY | 2024-04-21 23:25 | XMS_ITS | Encounter Summary ---
Author Organization [employer] Care Team Providers Care Legal Compliance Officer Name Role Phone Nabila Chandler APRN, CNP Primary Care P rodavidder Encounter Details Date Type Department Care Team (Latest Contact Info) Description 01/10/2020 Travel Social History Tobacco Use Types Packs/Day Years Used Date Smoking Tobacco: Every Day Cigarettes Smokeless Tobacco: Never Alcohol Use Standard Drinks/Week Comments No 0 (1 standard drink = 0.6 oz pur e alcohol) PHQ-2 Answer Date Recorded Total Score - Questions 1-9 1 12/14 Comments Yes Sex and Gender Information Value Date Recorded Sex Assigned at Female 12/12/2023 12:08 PM CDT Legal Sex Female 8:45 PM CDT Gender Identity Female 12/12/2023 12:08 PM CDT Sexual Orientation Not on file COVID-19 Exposure Response Date Recorded In the last month, have you been in contact with someone who was confirmed or suspected to have Coronavirus / COVID-19? No / Unsure 01/10/2020 1:01 PM CDT documented as of this encounter Plan of Treatment Not on file documented as of this encounter Visit Diagnoses Not on filedocumented in this encounter Additional Health Concerns Assessment Noted Time PHQ-9 Depression Total Score: 1 01/03/20 20 11:00 AM CDT documented as of this encounter Care Teams Legal Compliance Officer Relationship Specialty Start Date End Date Nabila Chandler APRN, CNP [address] [place] [address] PCP - General Advanced Practice Nurse 11/24/19 documented as of this encounter
--- OUTSIDE RECORDS SUMMARY | 2024-04-21 23:25 | XMS_ITS | Encounter Summary ---
Author Organization [employer] Care Team Providers Care Flame Hardening Machine Operator Name Role Phone Nabila Chandler APRN, CNP Primary Care P rush Encounter Details Date Type Department Care Team (Latest Contact Info) Description 11/24/2019 Travel Social History Tobacco Use Types Packs/Day Years Used Date Smoking Tobacco: Every Day Cigarettes Smokeless Tobacco: Never Alcohol Use Standard Drinks/Week Comments No 0 (1 standard drink = 0.6 oz pur e alcohol) PHQ-2 Answer Date Recorded PHQ-2 Score 11/22/2019 Comments Yes Sex and Gender Information Value [...] have Coronavirus / COVID-19? No / Unsure 11/24/2019 10:23 AM CDT documented as of this encounter Plan of Treatment Not on file documented as of this encounter Visit Diagnoses Not on filedocumented in this encounter Additional Health Concerns Assessment Noted Time PHQ-9 Depression Total Score: 22 020 2:00 PM CDT documented as of this encounter Care Teams Flame Hardening Machine Operator Relationship Specialty Start Date End Date Nabila Chandler APRN, CNP [address] [place] [address] PCP - General Advanced Practice Nurse 11/24/19 documented as of this encounter
--- OUTSIDE RECORDS SUMMARY | 2024-04-21 23:25 | XMS_ITS | Encounter Summary ---
Author Organization [facility] Address [address] [place] [address] Phone Care Team Providers Care Cart Driver Name Role Phone Nabila Chandler APRN, CNP Primary Care P rovider Reason for Referral * Radiology Services (Routine) - Closed Specialty Diagnoses / Procedures Referred By Sunshine muro Referred To Contact Radiology Diagnoses Palpitations Procedures HOLTER MONITOR RECORDING ONLY-48 HOUR Nabila Chandler APRN, CNP [address] [place] [address] Phone: tel: fax: Referral ID Status Reason Start Date Expiration Date Visits Re quested Visits Authorized [id number] Closed 01/03/2020 1 1 Reason for Visit * Reason Comments Depression Encounter Details Date Type Department Care Team (Late st Contact Info) Description 01/03/2020 10:30 AM CDT Office Visit [facility] - Primary Care - [place] [address] [place] [address] Nabila Chandler APRN, CNP [address] [place] [address] Palpitations (Primary Dx); Moderate episode of recurrent major depressive disorder (HCC); ANTONY (generalized anxiety disorder); Primary insomnia Discharge Disposition: Discharged to home or Selfcare Social History Tobacco Use Types Packs/Day Years Used Date Smoking Tobacco: Every Day Cigarettes Smokeless Tobacco: Never Tobacco Cessation:Ready to Q uit: No; Counseling Given: Yes Alcohol Use Standard Drinks/Week Comments No 0 [...] have Coronavirus / COVID-19? No / Unsure 01/03/2020 10:14 AM CDT documented as of this encounter Last Filed Vital Signs Vital Sign Reading Time Taken Comments Blood Pressure 110/76 01/03/2020 10:23 AM CDT Pulse 77 01/03/2020 10:23 AM CDT Temperature 36.6 ??C (97.8 ??F) 01/03/2020 10:23 AM C DT Respiratory Rate 20 01/03/2020 10:23 AM CDT Oxygen Saturation 98% 01/03/2020 10:23 AM CDT Inhaled Oxygen Concentration - - Weight 70.8 kg (156 lb) 01/03/2020 10:23 AM CDT Height - - Body Mass Index 25.18 12/06/2019 1:20 PM CDT documented in this encounter Patient Instructions * Patient Instructions* Elin Bermudez CMA - 01/03/2020 10:30 AM CDT Images from the original note were not included. Trazodone 12.5mg (half tab) nightly for sleep. Continue with wellbutrin 300mg daily. Our scheduling dept will contact you to set up holter monitor. If any new or worsening symptoms occur, please call office. How to Quit Smoking Smoking is a hard habit to break. About 50% of all??people who have ever smoked have been able to quit. Most people??who still smoke want to quit. Here are some of the best ways to stop smoking. Keep in mind the health benefits of quitting The health benefits of quitting start right away. They keep improving the longer you go without smoking. Knowing this can help inspire you to stay on track. These benefits occur at any age. If you are 17 or 70, quitting is a good choice. Some of the health benefits after your last cigarette include: ?? After 20 minutes: Your blood pressure and pulse return to normal. ?? After 8 hours: Your oxygen levels return to normal. ?? After 2 days: Your ability to smell and taste start to improve as damaged nerves regrow. ?? After 2 to 3 weeks: Your circulation and lung function improve. ?? After 1 to 9 months: Your coughing, congestion, and shortness of breath decrease. Your tirednessdecreases. ?? After 1 year: Your risk of heart attack decreases by 50%. ?? After 5 years: Your risk of lung cancer decreases by 50%. Your risk of stroke becomes the same as a nonsmoker???s. Go cold turkey Most??former smokers quit cold turkey. This means stopping all at once. Trying to cut back slowly often doesn't work as well. This may be because it continues the habit of smoking. Also you may inhale more smoke while smoking fewer cigarettes. This leads to the same amount of nicotine in your body. Get support Support programs can be a big help, especially for heavy smokers. These groups offer lectures, waysto change behavior, and peer support. Here are some ways to find a support program: ?? Free national quitline 011-NGZJ-RKG (518-530-0446) ?? Hospital quit-smoking programs ?? [place] [employer] 715-405-7899 ?? [place] [employer] 889-077-4325 Support at home is important too. Family and friends can offer praise and reassurance. If the smoker in your life finds it hard to quit, encourage them to keep trying. Try qqru-ewe-ogmkkru medicine Nicotine replacement therapy??may make it??easier to quit. Some aids are available without a prescription. These include a nicotine patch, gum, and lozenges. But it's best to use these under the careof your healthcare provider. The skin patch gives a steady supply of nicotine. Nicotine gum and lozenges give??short-time doses of low levels of nicotine. Both methods reduce the craving for cigarettes. If you??have nausea, vomiting, dizziness, weakness, or a fast heartbeat, stop using these products. See your provider. Ask about prescription medicine After reviewing??your smoking patterns and past attempts to quit, your healthcare provider may offer a prescription medicine such as bupropion, varenicline, a nicotine inhaler, or nasal spray. Each has advantages and side effects. Your provider can review these with you. Keep trying Most smokers make many attempts at quitting before they succeed. It???s important not to give up. To learn more For more on how to quit smoking, try these resources:? www.cdc.gov/tobacco/quit_smoking/ 040-WLFG-VZR (892-902-9433) ?? www.smokefree.gov 025-87E-ZDBA (151-957-7805) ?? www.lung.org/stop-smoking/ 800-LUNGUSA (702-416-5761) [employer] last reviewed this educational content on 03/14/2019 ?? 5352-0939 The [employer]. [address] [place] [address]. All rights reserved. This information is not intended as a substitute for professional medical care. Always follow your healthcare professional's instructions. documented in this encounter Progress Notes * Elin Bermudez CMA - 01/03/2020 10:30 AM CDT Keyana Reardon was provided education materials regarding smoking cessation as noted on the After Visit Summary. Counseling Given and Ready to Quit Hob[place] are updated in the Social History. * Elin Bermudez CMA - 01/03/2020 10:30 AM CDT Keyana Reardon, 29 y.o., female is here for No chief complaint on file. Medication Refills: Patient reports/denies need for medication refills. Orders Pended: no Requested Prescriptions No prescriptions requested or ordered in this encounter Home Medications Medication Sig Start Date End Date Taking? Authorizing Provider buPROPion (WELLBUTRIN) 300 MG TABLET SR 24 HR XL tablet Take 1 Tab by mouth every morning. 12/06/19 Yes Nabila Chandler APN, CNP busPIRone (BUSPAR) 5 MG Tablet Take 1 Tab by mouth 3 times daily. 12/06/19 Yes Kyler Chandler APN, CNP doxycycline hyclate (VIBRA-TABS) 100 MG Tablet doxycycline hyclate 100 mg tablet Take 1 tablet every day by oral route. Yes Provider, MD Nida Norelgestromin-Eth Estradiol (Xulane) 150-35 MCG/24HR PATCH WEEKLY Xulane 150 mcg-35 mcg/24 hr transdermal patch Yes Provider, MD Nida There are no discontinued medications. I have reviewed the home medication list [...] week Types: Marijuana Smoking Cessation Counseling Given: yes Health Care Maintenance: Health Maintenance Due Topic Date Due ??? Pneumococcal Immunization (0-64 years) (1 of 1 - PPSV23) 1995 ??? DTaP/Tdap/Td Immunization (6 - Tdap) 02/17/2000 ??? Pap Smear 2010 ??? Influenza Immunization (1) 12/14/2019 Orders Pended: no The following BPA's have been addressed with the patient today: Flu and Smoking * HuNabila raya APN, FREIGHT CAR REPAIRER - 01/03/2020 10:30 AM CDT Images from the original note were not included. HPI Patient is a 29 y.o. female who presents today for Depression She is on wellbutrin 300mg every morning, is on buspar 5mg TID. She states she is feeling better overall. Is still having some episodes of anxiety but that is improving. She reports her sleep is poor. She states that prior to Wellbutrin she was not sleeping the best at night but now she can really not sleep. She reports that sometimes she is up until 2am trying to fall asleep. Denies si/hi. Reports nightly palpitations episodes, denies symptoms but does get a panicky feeling - no SOB, chest pain or near sycnopal. ROS Fourteen point review of systems negative except as documented in HPI. Physical Exam Vitals signs and nursing note reviewed. Constitutional: General: She is not in acute distress. Appearance: She is well-developed. HENT: Head: Normocephalic and atraumatic. Right Ear: External ear normal. Left Ear: External ear normal. Eyes: Conjunctiva/sclera: Conjunctivae normal. Cardiovascular: Rate and Rhythm: Normal rate and regular rhythm. Heart sounds: Normal heart sounds. Pulmonary: Effort: Pulmonary effort is normal. No respiratory distress. Breath sounds: Normal breath sounds. Skin: General: Skin is warm and dry. Neurological: Mental Status: She is alert and oriented to person, place, and time. Psychiatric: Mood and Affect: Mood normal. Behavior: Behavior normal. Thought Content: Thought content normal. Judgment: Judgment normal. Vitals: 01/03/20 1023 BP: 110/76 BP Location: Right Arm BP Position: Sitting BP Cuff Size: Regular Pulse: 77 Resp: 20 Temp: 97.8 ??F (36.6 ??C) TempSrc: Temporal SpO2: 98% Weight: 156 lb (70.8 kg) Body mass index is 25.18 kg/m??. Past, family, and social history reviewed and updated in the chart. Assessment/Plan: 1. Palpitations - HOLTER MONITOR RECORDING ONLY-48 HOUR; Future 2. Moderate episode of recurrent major depressive disorder (HCC) 3. ANTONY (generalized anxiety disorder) Cont with wellbutrin and buspar 4. Primary insomnia - traZODone (DESYREL) 50 MG Tablet; Take 0.5 Tabs by mouth nightly as needed for Sleep. Dispense: 90 Tab; Refill: 0 Patient Instructions Trazodone 12.5mg (half tab) nightly for sleep. Continue with wellbutrin 300mg daily. Our scheduling dept will contact you to set up holter monitor. If any new or worsening symptoms occur, please call office. How to Quit Smoking Smoking is a hard habit to break. About 50% of all??people who have ever smoked have been able to quit. Most people??who still smoke want to quit. Here are some of the best ways to stop smoking. Keep in mind the health benefits of quitting The health benefits of quitting start right away. They keep improving the longer you go without smoking. Knowing this can help inspire you to stay on track. These benefits occur at any age. If you are 17 or 70, quitting is a good choice. Some of the health benefits after your last cigarette include: ?? After 20 minutes: Your blood pressure and pulse return to normal. ?? After 8 hours: Your oxygen levels return to normal. ?? After 2 days: Your ability to smell and taste start to improve as damaged nerves regrow. ?? After 2 to 3 weeks: Your circulation and lung function improve. ?? After 1 to 9 months: Your coughing, congestion, and shortness of breath decrease. Your tirednessdecreases. ?? After 1 year: Your risk of heart attack decreases by 50%. ?? After 5 years: Your risk of lung cancer decreases by 50%. Your risk of stroke becomes the same as a nonsmoker???s. Go cold turkey Most??former smokers quit cold turkey. This means stopping all at once. Trying to cut back slowly often doesn't work as well. This may be because it continues the habit of smoking. Also you may inhale more smoke while smoking fewer cigarettes. This leads to the same amount of nicotine in your body. Get support Support programs can be a big help, especially for heavy smokers. These groups offer lectures, waysto change behavior, and peer support. Here are some ways to find a support program: ?? Free national quitline 940-STDO-BDQ (973-347-7777) ?? Hospital quit-smoking programs ?? [place] [employer] 983-049-0565 ?? [place] [employer] 984-094-5656 Support at home is important too. Family and friends can offer praise and reassurance. If the smoker in your life finds it hard to quit, encourage them to keep trying. Try ltru-ync-pvjmgky medicine Nicotine replacement therapy??may make it??easier to quit. Some aids are available without a prescription. These include a nicotine patch, gum, and lozenges. But it's best to use these under the careof your healthcare provider. The skin patch gives a steady supply of nicotine. Nicotine gum and lozenges give??short-time doses of low levels of nicotine. Both methods reduce the craving for cigarettes. If you??have nausea, vomiting, dizziness, weakness, or a fast heartbeat, stop using these products. See your provider. Ask about prescription medicine After reviewing??your smoking patterns and past attempts to quit, your healthcare provider may offer a prescription medicine such as bupropion, varenicline, a nicotine inhaler, or nasal spray. Each has advantages and side effects. Your provider can review these with you. Keep trying Most smokers make many attempts at quitting before they succeed. It???s important not to give up. To learn more For more on how to quit smoking, try these resources:? www.cdc.gov/tobacco/quit_smoking/ 082-TWNK-RNL (182-268-3160) ?? www.smokefree.gov 824-16T-PFDN (069-866-1870) ?? www.lung.org/stop-smoking/ 800-LUNGUSA (838-922-9562) [employer] last reviewed this educational content on 03/14/2019 ?? [phone] The [employer]. [address] [place] [address], [place] [address]. All rights reserved. This information is not intended as a substitute for professional medical care. Always follow your healthcare professional's instructions. Patient verbalizes understanding and agrees with plan of care as noted above. New medication discussed with patient and family, including action of medication, potential side effects, interactions, and consequences for not taking it. Patient states understanding of new medication instructions. Written education on new medication added to patient printed AVS. An After Visit Summary was printed and given to the patient. Documentation for this visit on 01/03/20 was completed using a template. I have seen and examined the patient. Everything documented was personally performed at this visit with the necessary additions, deletions and changes made as appropriate. documented in this encounter Plan of Treatment Not on file documented as of this encounter Results * HOLTER MONITOR RECORDING ONLY-48 HOUR (01/10/2020 1:36 PM CDT) Anatomical Region Laterality Modality CARDIO N/A Electrocardiogra phy Narrative 01/18/2020 1:51 PM CDT DATE OF PROCEDURE: ??01/10/20 This is a Holter recording for 48 hours and nine minutes with 231,064 beats. ??Minimum heart rate was 47 with a maximum heart rate of 128 beats per minute in sinus bradycardia and sinus tachycardia respectively. ?? Average heart rate was 77. ??There was no ventricular ectopy during this study. ??There was no supraventricular ectopy during this study. ??There were no significant pauses. ??There were no high-grade arrhythmias. ?? On her diary, there were three symptoms labeled irregular heart beat , all of them associated with sinus rhythm. ?? INTERPRETATION: 1. ??Basic mechanism sinus rhythm. 2. ??No high-grade atrial or ventricular arrhythmias. 3. ??Three cardiac rhythm relevant symptoms were not associated with any significant cardiac arrhythmias, suggesting non-correlation. ?? IJN: ??[id number]/[id number] Procedure Note Joselyn Coreas MD - 01/18/2020 DATE OF PROCEDURE: 01/10/20 This is a Holter recording for 48 hours and nine minutes with 231,064beats. Minimum heart rate was 47 with a maximum heart rate of 128 beatsper minute in sinus bradycardia and sinus tachycardia respectively.Average heart rate was 77. There was no ventricular ectopy during thisstudy. There was no supraventricular ectopy during this study. Therewere no significant pauses. There were no high-grade arrhythmias. On her diary, there were three symptoms labeled irregular heart beat ,all of them associated with sinus rhythm. INTERPRETATION: 1. Basic mechanism sinus rhythm. 2. No high-grade atrial or ventricular arrhythmias. 3. Three cardiac rhythm relevant symptoms were not associated with anysignificant cardiac arrhythmias, suggesting non-correlation. IJN: [id number] Nabila Chandler APRN, CNP IMG ECG ORDERAB LES Final Result documented in this encounter Visit Diagnoses Diagnosis Palpitations- Primary Moderate episode of recurrent major depressive disorder (HCC) ANTONY (generalized anxiety disorder) Generalized anxiety disorder Primary insomnia Persistent disorder of initiating or maintaining sleep Palpitations documented in this encounter Additional Health Concerns Assessment Noted Time PHQ-9 Depression Total Score: 1 01/03/20 20 11:00 AM CDT documented as of this encounter Care Teams Cart Driver Relationship Specialty Start Date End Date Nabila Chandler APRN, CNP [address] [place] [address] PCP - General Advanced Practice Nurse 11/24/19 documented as of this encounter
--- OUTSIDE RECORDS SUMMARY | 2024-04-21 23:25 | XMS_ITS | Encounter Summary ---
Author Organization [facility] Address [address] [place] [address] Phone Care Team Providers Care Professional Application Designer Name Role Phone Nabila Chandler APRN, CNP Primary Care P rovider Reason for Visit * Reason Comments Depression patient is here toda y for medicaiton check Encounter Details Date Type Department Care Team (Late st Contact Info) Description 12/06/2019 1:45 PM CDT Office Visit [facility] - Primary Care - [place] [address] [place] [address] Nabila Chandler APRN, CNP [address] [place] [address] Moderate episode of recurrent major depressive disorder (HCC) (Primary Dx); ANTONY (generalized anxiety disorder) Discharge Disposition: Discharged to home or Selfcare Social History Tobacco Use Types Packs/Day Years Used Date Smoking Tobacco: Every Day Cigarettes Smokeless Tobacco: Never Tobacco Cessation:Ready to Q uit: No; Counseling Given: Yes Alcohol Use Standard Drinks/Week Comments No 0 (1 standard drink = 0.6 oz pur e alcohol) PHQ-2 Answer Date Recorded PHQ-2 Score 22 11/22/2019 Comments Yes Sex and Gender Information [...] have Coronavirus / COVID-19? No / Unsure 12/06/2019 1:15 PM CDT documented as of this encounter Last Filed Vital Signs Vital Sign Reading Time Taken Comments Blood Pressure 110/68 12/06/2019 1:20 PM CDT Pulse 80 12/06/2019 1:20 PM CDT Temperature 36.6 ??C (97.8 ??F) 12/06/2019 1:20 PM CD T Respiratory Rate 20 12/06/2019 1:20 PM CDT Oxygen Saturation 96% 12/06/2019 1:20 PM CDT Inhaled Oxygen Concentration - - Weight 70.4 kg (155 lb 3.2 oz) 12/06/2019 1:20 P M CDT Height 167.6 cm (5' 6 ) 12/06/2019 1:20 PM CDT Body Mass Index 25.05 12/06/2019 1:20 PM CDT documented in this encounter Patient Instructions * Patient Instructions* Elin Bermudez CMA - 12/06/2019 1:45 PM CDT Images from the original note were not included. Increase wellbutrin to 300mg daily. Start buspar 5mg 1-2 times daily week and then increase to 3 times daily. If any new or worsening symptoms occur, [...] a support program: ?? Free national quitline 364-RRYD-BZP (372-869-7534) ?? Hospital quit-smoking programs ?? [employer] 764-032-0589 ?? [employer] 088-818-7255 Support at home is important too. Family and friends can offer praise and reassurance. If the smoker in your life finds it hard to quit, encourage them to keep trying. Try kyfs-cfr-dotohpx medicine Nicotine replacement therapy??may make it??easier to [...] to quit smoking, try these resources:? www.cdc.gov/tobacco/quit_smoking/ 499-FDDT-CPA (617-476-0020) ?? www.smokefree.gov 658-48D-MQUD (507-466-8796) ?? www.lung.org/stop-smoking/ 800-LUNGUSA (845-799-6125) Bruno last reviewed this educational content on 03/14/2019 ?? [phone] [employer], [address]. [address] [place] [address]. All rights reserved. This information is not intended as a substitute for professional medical care. Always follow your healthcare professional's instructions. documented in this encounter Progress Notes * Nabila Chandler APN, CNP - 12/06/2019 1:45 PM CDT Images from the original note were not included. HPI Patient is a 29 y.o. female who presents today for Wellbutrin medication check for anxiety/depression. Patient was started on Wellbutrin 150 mg every morning 2 weeks ago. She states she can definitely tell a difference in her depression but her anxiety is still there. Denies any medication side effects, suicidal/homicidal thoughts. She is interested in increasing her medication. ROS Fourteen point review of systems negative except as documented in HPI.' Physical Exam Vitals signs and nursing note reviewed. Constitutional: General: She is not in acute distress. Appearance: She is well-developed. HENT: Head: Normocephalic and atraumatic. Right Ear: External ear normal. Left Ear: External ear normal. Eyes: Conjunctiva/sclera: Conjunctivae normal. Cardiovascular: Rate and Rhythm: Normal rate. Pulmonary: Effort: Pulmonary effort is normal. No respiratory distress. Skin: General: Skin is warm and dry. Neurological: Mental Status: She is alert and oriented to person, place, and time. Psychiatric: Behavior: Behavior normal. Thought Content: Thought content normal. Judgment: Judgment normal. Vitals: 12/06/19 1320 BP: 110/68 BP Location: Right Arm BP Position: Sitting BP Cuff Size: Regular Pulse: 80 Resp: 20 Temp: 97.8 ??F (36.6 ??C) TempSrc: Temporal SpO2: 96% Weight: 155 lb 3.2 oz (70.4 kg) Height: 5' 6 (1.676 m) Body mass index is 25.05 kg/m??. Past, family, and social history reviewed and updated in the chart. Assessment/Plan: 1. Moderate episode of recurrent major depressive disorder (HCC) - buPROPion (WELLBUTRIN) 300 MG TABLET SR 24 HR XL tablet; Take 1 Tab by mouth every morning. Dispense: 90 Tab; Refill: 3 2. ANTONY (generalized anxiety disorder) - buPROPion (WELLBUTRIN) 300 MG TABLET SR 24 HR XL tablet; Take 1 Tab by mouth every morning. Dispense: 90 Tab; Refill: 3 - busPIRone (BUSPAR) 5 MG Tablet; Take 1 Tab by mouth 3 times daily. Dispense: 270 Tab; Refill: 0 Patient Instructions Increase wellbutrin to 300mg daily. Start buspar 5mg 1-2 times daily week and then increase to 3 times daily. If any new or worsening symptoms occur, [...] a support program: ?? Free national quitline 485-RXPJ-OJG (339-020-3906) ?? Hospital quit-smoking programs ?? [employer] 606-516-9076 ?? [employer] 355-051-1642 Support at home is important too. Family and friends can offer praise and reassurance. If the smoker in your life finds it hard to quit, encourage them to keep trying. Try oswt-syb-culsmbk medicine Nicotine replacement therapy??may make it??easier to [...] to quit smoking, try these resources:? www.cdc.gov/tobacco/quit_smoking/ 266-UPKP-GHG (204-539-4822) ?? www.smokefree.gov 918-96S-ROQK (528-215-1997) ?? www.lung.org/stop-smoking/ 800-LUNGUSA (741-973-7531) Bruno last reviewed this educational content on 03/14/2019 ?? [phone] The [employer]. [address] [place] [address]. All rights reserved. This information is not [...] the patient. Documentation for this visit on 12/06/19 was completed using a template. I have seen and examined the patient. Everything documented was personally performed at this visit with the necessary additions, deletions and changes made as appropriate. * Elin Bermudez CMA - 12/06/2019 1:45 PM CDT Keyana Chelsea Reardon was provided education materials regarding smoking cessation as noted on the After Visit Summary. Counseling Given and Ready to Quit Hobbs are updated in the Social History. * Elin Bermudez CMA - 12/06/2019 1:45 PM CDT Keyana Reardon, 29 y.o., female is here for Depression (patient is here today for medicaiton check ) Medication Refills: Patient reports/denies need for medication refills. Orders Pended: no Requested Prescriptions No prescriptions requested or ordered in this encounter Home Medications Medication Sig Start Date End Date Taking? Authorizing Provider buPROPion (WELLBUTRIN) 150 MG XL tablet Take 1 Tab by mouth every morning. 11/22/19 Yes Nabila Chandler APN, DERIK doxycycline hyclate (VIBRA-TABS) 100 MG Tablet doxycycline hyclate 100 mg tablet Take 1 tablet every day by oral route. Yes ProviderNida MD Norelgestromin-Eth Estradiol (Xulane) 150-35 MCG/24HR PATCH WEEKLY [...] - Tdap) 02/17/2000 ??? Pap Smear 2010 Orders Pended: no The following BPA's have been addressed with the patient today: BMI, Smoking, Fall Risk and Advanced Care Planning documented in this encounter Plan of Treatment Not on file documented as of this encounter Visit Diagnoses Diagnosis Moderate episode of recurrent major depressive disorder (HCC)- Primary ANTONY (generalized anxiety disorder) Generalized anxiety disorder documented in this encounter Additional Health Concerns Assessment Noted Time PHQ-9 Depression Total Score: 22 020 2:00 PM CDT documented as of this encounter Care Teams Professional Application Designer Relationship Specialty Start Date End Date Nabila Chandler APRN, CNP [address] [place] [address] PCP - General Advanced Practice Nurse 11/24/19 documented as of this encounter
--- OUTSIDE RECORDS SUMMARY | 2024-04-21 23:25 | XMS_ITS | Encounter Summary ---
Author Organization [facility] Address [address] [place] [address] Phone Care Team Providers Care Ab Initio Etl Developer Name Role Phone Nabila Chandler APRN, DERIK Primary Care P rovider Reason for Visit * Reason Comments Upper Respiratory Infection Encounter Details Date Type Department Care Team ([facility] Contact Info) Description 04/08/2021 12:30 AM TYPE COPYIST - 04/08/2021 3:56 AM TYPE COPYIST Emergency [facility] [address] [place] [address] Lei Yeboah MD Viral illness Discharge Disposition: Discharged to home or Selfcare [...] Coronavirus / COVID-19? Yes 04/08/2021 12:21 AM TYPE COPYIST documented as of this encounter Last Filed Vital Signs Vital Sign Reading Time Taken Comments Blood Pressure 117/89 04/08/2021 3:54 AM TYPE COPYIST Pulse 65 04/08/2021 3:54 AM TYPE COPYIST Temperature 36.4 ??C (97.6 ??F) 04/08/2021 12:[address] Respiratory Rate 18 04/08/2021 3:54 AM TYPE COPYIST Oxygen Saturation 96% 04/08/2021 3:54 AM TYPE COPYIST Inhaled Oxygen Concentration - - Weight 70.3 kg (155 lb) 04/08/2021 12:18 AM TYPE COPYIST Height 166.4 cm (5' 5.5 ) 04/08/2021 12:18 AM CS T Body Mass Index 25.4 04/08/2021 12:18 AM TYPE COPYIST documented in this encounter Medications at Time [...] as of this encounter ED Notes * Mariana Gonzales, RN - 04/08/2021 3:55 AM CST Patient discharged. Discharge instructions and patient educational material reviewed with patient; questions and concerns addressed; patient verbalizes understanding, using teach back. Patient discharged per ambulatory mode with self as responsible green party. COPYIST * Lei Yeboah MD - 04/08/2021 1:25 AM CST Chief Complaint Patient presents with ??? Upper Respiratory Infection 31 years old white female complaining of cold or cough congestion since last night and she would like to be checked for the COVID as she was exposed to somebody having COVID no fever,. No current facility-administered medications for this encounter. [...] Social History Narrative ??? Not on file Social Determinants of Health Social determinant risk not applicable to this patient. BP 121/79 Pulse 69 Temp 97.6 ??F (36.4 ??C) (Tympanic) Resp 18 Ht 5' 5.5 (1.664 m) Wt 155 lb (70.3 kg) LMP 04/01/2021 SpO2 97% BMI 25.40 kg/m?? Review of Systems Constitutional: Positive for fatigue and fever. Respiratory: Positive for cough. All other systems reviewed and are negative. Physical Exam Constitutional: Appearance: Normal appearance. HENT: Head: Normocephalic. Cardiovascular: Rate and Rhythm: Normal rate. Pulmonary: Effort: Pulmonary effort is normal. Musculoskeletal: Cervical back: Normal range of motion. Neurological: Mental Status: She is alert. Procedures Imaging Results None Labs Reviewed SARS-COV-2 BY MOLECULAR - Normal Narrative: This test has been authorized by the FDA under an Emergency Use Authorization (EUA) only. Negative results should be treated as presumptive and, if inconsistent with clinical signs and symptoms or necessary for patient management, the patient should be tested with an alternative molecularassay. Negative results do not preclude SARS-CoV-2 infection or any other respiratory pathogen. Additional information for Clinicians can be found at: https://www.fda.gov/media/941906/download Additional information for Patients can be found at: https://www.fda.gov/media/212042/download MDM Interpretation: labs Clinical Impression 1. Viral illness COPYIST * Mariana Gonzales RN - 04/08/2021 12:21 AM CST Patient presents to triage with complaint of cough, slight sore throat and headache since last night. State she was exposed to her mother in law who was positive for COVID. Would like be COVID tested. Alert and oriented x4. Respirations non labored O2 sats 98% on room air. COPYIST documented in this encounter Plan of Treatment Not on file documented as of this encounter Procedures Procedure Name Priority Date/Time Associated Diagnosis Comments SARS-COV-2 BY MOLECULAR STAT 04/08/2021 12:01 AM TYPE COPYIST documented in this encounter Results * SARS-COV-2 BY MOLECULAR (04/08/2021 12:01 AM TYPE COPYIST) SARSCOV2 NOT DETECTED (Referenc e Range for this test is Not Detected) [facility] ID NOW 04/08/2021 12:22 AM TYPE COPYIST [facility] Comment:This test was perfor med by a MOLECULAR, NON-PCR method Other NASAL STRUCTURE / Unknown Non-Phlebotomy Collection / Unknown 04/08/2021 12:01 AM TYPE COPYIST 04/08/2021 12:04 AM TYPE COPYIST Narrative [facility] - 04/08/2021 12:22 AM TYPE COPYIST This test has been authorized by the FDA under an Emergency Use Authorization (EUA) only. Negative results should be treated as presumptive and, if inconsistent with clinical signs and symptoms or necessary for patient management, the patient should be tested with an alternative molecular assay. Negative results do not preclude SARS-CoV-2 infection or any other respiratory pathogen. Additional information for Clinicians can be found at: https://www.fda.gov/media/658307/download Additional information for Patients can be found at: https://www.fda.gov/media/373675/download Lei Yeboah MD MICROBIOLOGY - GENERAL ORDERA BLES Final Result [facility] [address] [place] [address] documented in this encounter Visit Diagnoses Diagnosis Viral illness- Primary Unspecified viral infection, in conditions classified elsewhere and of unspecified site documented in this encounter Additional Health Concerns Assessment Noted Time PHQ-9 Depression Total Score: 1 01/03/20 20 11:00 AM CDT documented as of this encounter Care Teams Ab Initio Etl Developer Relationship Specialty Start Date End Date Nabila Chandler APRN, SUBMARINE CABLE EQUIPMENT TECHNICIAN [address] [place] [address] PCP - General Advanced Practice Nurse 11/24/19 documented as of this encounter
--- OUTSIDE RECORDS SUMMARY | 2024-04-21 23:25 | XMS_ITS | Encounter Summary ---
Author Organization [facility] Care Team Providers Care Sheet Cutter Name Role Phone Nabila Chandler APRN, CNP Primary Care P rovider Encounter Details Date Type Department Care Team (Latest Contact Info) Description 11/06/2020 Travel Social History Tobacco Use Types Packs/Day [...] have Coronavirus / COVID-19? No / Unsure 11/06/2020 11:28 AM CDT documented as of this encounter Plan of Treatment Not on file documented as of this encounter Visit Diagnoses Not on filedocumented in this encounter Additional Health Concerns Assessment Noted Time PHQ-9 Depression Total Score: 1 01/03/20 20 11:00 AM CDT documented as of this encounter Care Teams Sheet Cutter Relationship Specialty Start Date End Date Nabila Chandler APRN, CNP [address] [place] [address] PCP - General Advanced Practice Nurse 11/24/19 documented as of this encounter
--- OUTSIDE RECORDS SUMMARY | 2024-04-21 23:25 | XMS_ITS | Encounter Summary ---
Author Organization [employer] Care Team Providers Care Foreign Language Instructor Name Role Phone Chacorta Robbins MD Primary Care Provider [phone] Encounter Details Date Type Department Care Team (Latest Contact Info) Description 06/13/2019 Travel Social History Tobacco Use Types Packs/Day Years Used Date Smoking Tobacco: Every Day Cigarettes Smokeless Tobacco: Never Alcohol Use Standard Drinks/Week Comments No 0 (1 standard drink = 0.6 oz pur e alcohol) Comments Yes Sex and Gender Information Value Date Recorded Sex Assigned at Female 12/12/2023 12:08 PM CDT Legal Sex Female 8:45 PM CDT Gender Identity Female 12/12/2023 12:08 PM CDT Sexual Orientation Not on file documented as of this encounter Plan of Treatment Not on file documented as of this encounter Visit Diagnoses Not on filedocumented in this encounter Care Teams Foreign Language Instructor Relationship Specialty Start Date End Date Chacorta Robbins MD [address] [place] [address] [address] [place] [address] PCP - General Internal Medicine 06/13/19 11/23/19 documented as of this encounter
--- OUTSIDE RECORDS SUMMARY | 2024-04-21 23:25 | XMS_ITS | Encounter Summary ---
Author Organization [facility] Address [address] [place] [address] Phone Care Team Providers Care Interpreter And Translator Name Role Phone Nabila Chandler APRN, CNP Primary Care P rovider Reason for Visit * Reason Comments Medication Refill Encounter Details Date Type Department Care Team ([facility] st Contact Info) Description 12/19/2019 Refill [facility] - Primary Care - [place] [address] [place] [address] Nabila Chandler APRN, CNP [address] [place] [address] Medication Refill Social History Tobacco Use Types Packs/Day Years [...] encounter Miscellaneous Notes * Telephone Encounter - Cecilia Vance RN - 12/21/2019 2:10 PM CDT Request for buPROPion (WELLBUTRIN) 150 MG XL TABLET refused. Dose was increased on 12/06/19 and a new script was sent in for the new dosage. Pharmacy notified via [employer]. documented in this encounter Plan of Treatment Not on file documented as of this encounter Visit Diagnoses Diagnosis Moderate episode of recurrent major depressive disorder (HCC) documented in this encounter Additional Health Concerns Assessment Noted Time PHQ-9 Depression Total Score: 22 020 2:00 PM CDT documented as of this encounter Care Teams Interpreter And Translator Relationship Specialty Start Date End Date Nabila Chandler APRN, SURFACE WATER TECHNICIAN [address] [place] [address] PCP - General Advanced Practice Nurse 11/24/19 documented as of this encounter
--- OUTSIDE RECORDS SUMMARY | 2024-04-21 23:25 | XMS_ITS | Encounter Summary ---
Author Organization [employer] Care Team Providers Care Paint Process Engineer Name Role Phone Chacorta Robbins MD Primary Care Provider [phone] Encounter Details Date Type Department Care Team (Latest Contact Info) Description 11/22/2019 Travel Social History Tobacco Use Types Packs/Day [...] have Coronavirus / COVID-19? No / Unsure 11/22/2019 2:18 PM CDT documented as of this encounter Plan of Treatment Not on file documented as of this encounter Visit Diagnoses Not on filedocumented in this encounter Additional Health Concerns Assessment Noted Time PHQ-9 Depression Total Score: 22 020 2:00 PM CDT documented as of this encounter Care Teams Paint Process Engineer Relationship Specialty Start Date End Date Chacorta Robbins MD [address] [place] [address] [place] [address] PCP - General Internal Medicine 06/13/19 11/23/19 documented as of this encounter
--- OUTSIDE RECORDS SUMMARY | 2024-04-21 23:25 | XMS_ITS | Encounter Summary ---
Author Organization [facility] Care Team Providers Care Exchange Teller Name Role Phone Nabila Chandler APRN, CNP Primary Care P ginnyder Encounter Details Date Type Department Care Team (Latest Contact Info) Description 01/03/2020 Travel Social History Tobacco Use Types Packs/Day [...] documented as of this encounter Care Teams Exchange Teller Relationship Specialty Start Date End Date Nabila Chandler APRN, CNP [address] [place] [address] PCP - General Advanced Practice Nurse 11/24/19 documented as of this encounter
--- OUTSIDE RECORDS SUMMARY | 2024-04-21 23:25 | XMS_ITS | Encounter Summary ---
Author Organization [facility] Address [address] [place] [address] Phone Care Team Providers Care Radar Repairer Name Role Phone Nabila Chandler APRN, CNP Primary Care P rovider Reason for Visit * Reason Comments Procedure cyst removal Encounter Details Date Type Department Care Team (Latest Contact Info) Description 11/23/2020 11:15 AM CDT Procedure Visit [facility] - Primary Care - [place] [address] [place] [address] Nabila Chandler APRN, CNP [address] [place] [address] Sebaceous cyst (Primary Dx) Discharge Disposition: Discharged to home [...] have Coronavirus / COVID-19? No / Unsure 11/23/2020 10:35 AM CDT documented as of this encounter Last Filed Vital Signs Vital Sign Reading Time Taken Comments Blood Pressure 118/74 11/23/2020 10:39 AM CDT Pulse 73 11/23/2020 10:39 AM CDT Temperature 36.8 ??C (98.3 ??F) 11/23/2020 10:39 AM C DT Respiratory Rate 20 11/23/2020 10:39 AM CDT Oxygen Saturation 97% 11/23/2020 10:39 AM CDT Inhaled Oxygen Concentration - - Weight 67.6 kg (149 lb) 11/23/2020 10:39 AM CDT Height 167.6 cm (5' 6 ) 11/23/2020 10:39 AM CDT Body Mass Index 24.05 11/23/2020 10:39 AM CDT documented in this encounter Patient Instructions * Patient Instructions* Nabila Chandler APN, CNP - 11/23/2020 11:15 AM CDT No heavy lifting for 48hrs. Keep area clean and dry for 24hrs. Ice to area as needed. Return in 5-7 days for suture removal. Call with any issues or go to prompt care over weekend. documented in this encounter Progress Notes * Elin Bermudez CMA - 11/23/2020 11:15 AM CDT Keyana Chelsea Juarezon, 30 y.o., female is here for Procedure (cyst removal ) Medication Refills: Patient reports/denies need for medication refills. Orders Pended: no Requested Prescriptions No prescriptions requested or ordered in this encounter Home Medications Medication Sig Start Date End Date Taking? Authorizing Provider buPROPion (WELLBUTRIN) 300 MG TABLET SR 24 HR XL tablet Take 1 Tab by mouth every morning. Patient not taking: Reported on 11/07/2020 12/06/19 Nabila Chandler APN, CNP busPIRone (BUSPAR) 5 MG Tablet Take 1 Tab by mouth 3 times daily. Patient not taking: Reported on 11/07/2020 12/06/19 Nabila Chandler APN, CNP clindamycin (CLEOCIN T) 1 % Solution APPLY THIN LAYER TOPICALLY TO THE AFFECTED AREA EVERY NIGHT ATBEDTIME 11/03/20 Yes Nida Mejia MD Clindamycin HCl (CLEOCIN) 300 MG Capsule TAKE 1 CAPSULE BY MOUTH TWICE DAILY FOR 7 DAYS 11/03/20 YesProviderNida MD doxycycline hyclate (VIBRA-TABS) 100 MG Tablet doxycycline hyclate 100 mg tablet Take 1 tablet every day by oral route. Patient not taking: Reported on 11/07/2020 Ndia Mejia MD Norelgestromin-Eth Estradiol (Xulane) 150-35 MCG/24HR PATCH WEEKLY Xulane 150 mcg-35 mcg/24 hr transdermal patch Yes Ndia Mejia MD traZODone (DESYREL) 50 MG Tablet Take 0.5 Tabs by mouth nightly as needed for Sleep. Patient not taking: Reported on 11/07/2020 01/03/20 Nabila Chandler APN, CNP There are no discontinued medications. I have [...] ??? Pneumococcal Immunization (0-64 years) (1 of 2 - PPSV23) Never done ??? SARS-COV-2 Immunization (1) Never done ??? Pap Smear Never done ??? DTaP/Tdap/Td Immunization (6 - Tdap) 11/23/2019 Orders Pended: no The following BPA's have been addressed with the patient today: Smoking * Nabila Chandler APN, DAYCARE TEACHER - 11/23/2020 11:15 AM CDT [facility] - [address] [address] Dept: [phone] Dept Loc: [phone] Loc Patient: Keyana Reardon : 1990 Sex: female Subjective: HPI: Keyana Reardon presents for Procedure (cyst removal ) 2cm denis cyst to right shoulder, has been present for years but she does feel it is growing. Periodically will get red, hot and swollen and tender. States she would like it removed. Currently it is not abscessed, erythematous or have any sign of infections. This procedure has been fully reviewed with the patient and written informed consent has been obtained. ROS Fourteen point review of systems negative except as documented in HPI. Objective: Vitals: 11/23/20 1039 BP: 118/74 BP Location: Right Arm BP Position: Sitting BP Cuff Size: Regular Pulse: 73 Resp: 20 Temp: 98.3 ??F (36.8 ??C) TempSrc: Temporal SpO2: 97% Weight: 149 lb (67.6 kg) Height: 5' 6 (1.676 m) LMP 03/20/2020 (Approximate) Physical Exam Vitals and nursing note reviewed. Constitutional: General: She is not in acute distress. Appearance: She is well-developed. HENT: Head: Normocephalic and atraumatic. Right Ear: External ear normal. Left Ear: External ear normal. Eyes: Conjunctiva/sclera: Conjunctivae normal. Cardiovascular: Rate and Rhythm: Normal rate. Pulmonary: Effort: Pulmonary effort is normal. No respiratory distress. Skin: General: Skin is warm and dry. Comments: approx 2 sebaceous cyst noted to anterior aspect of shoulder. Neurological: Mental Status: She is alert and oriented to person, place, and time. Psychiatric: Behavior: Behavior normal. Thought Content: Thought content normal. Judgment: Judgment normal. Medical Decision Making: Assessment & Plan Diagnoses and all orders for this visit: Sebaceous cyst - I&D SKIN ABSCESS SIMPLE [[id number]] see procedure note for details. Procedure was completed without any difficulty, cyst and cyst wall removed, did not send to lab as evident it was sebaceous cyst contents. Cyst wall contents were removed, discussed with patient risks of it returning are still present but minimal. Advised to watch for signs of infections, reviewed when to go to ER and to return to office in 5-7 days for suture removal. Follow-up Information Return if symptoms worsen or fail to improve. LOS Today OFFICE/OP EST LVL 4 MOD MDM/30-39 MIN documented in this encounter Procedure Notes * Nabila Chandler APN, CNP - 11/23/2020 11:15 AM CDTAssociated Order(s): I&D SKIN ABSCESS SIMPLE [[id number]] Post-Procedure Diagnose(s): Sebaceous cyst I&D SKIN ABSCESS SIMPLE ([id number]) Date/Time: 11/23/2020 11:24 AM Performed by: Nabila Chandler APN, CNP Authorized by: Nabila Chandler APN, CNP Type: cyst Body area: upper extremity Location details: right shoulder Anesthesia: local infiltration Anesthesia: Local Anesthetic: lidocaine 2% with epinephrine Anesthetic total: 1.5 mL Sedation: Patient sedated: no Scalpel size: 11 Needle gauge: 22 Incision type: single straight Incision depth: subcutaneous Complexity: simple Drainage characteristics: white, chunky sebum. Drainage amount: moderate Patient tolerance: patient tolerated the procedure well with no immediate complications Comments: Area cleansed with sterile saline, 4-0 ethilon used, 3 sutures placed. This procedure has been fully reviewed with the patient and written informed consent has been obtained. documented in this encounter Plan of Treatment Not on file documented as of this encounter Procedures Procedure Name Priority Date/Time Associated Diagnosis Comments DRAIN SKIN ABSCESS SIMPLE/SINGLE Routine 11/23/2020 11:24 AM CDT Sebaceous cyst documented in this encounter Results * DRAIN SKIN ABSCESS SIMPLE/SINGLE (11/23/2020 11:24 AM CDT) Narrative Nabila Chandler APN, CNP - 11/23/2020 11:24 AM CDT Nabila Chandler APN, CNP ? 11/23/2020 11:38 AM I&D SKIN ABSCESS SIMPLE ([id number]) Date/Time: 11/23/2020 11:24 AM Performed by: Nabila Chandler APN, CNP Authorized by: Nabila Chandler APN, CNP Type: cyst Body area: upper extremity Location details: right shoulder Anesthesia: local infiltration Anesthesia: Local Anesthetic: lidocaine 2% with epinephrine Anesthetic total: 1.5 mL Sedation: Patient sedated: no Scalpel size: 11 Needle gauge: 22 Incision type: single straight Incision depth: subcutaneous Complexity: simple Drainage characteristics: white, chunky sebum. Drainage amount: moderate Patient tolerance: patient tolerated the procedure well with no immediate complications Comments: Area cleansed with sterile saline, 4-0 ethilon used, 3 sutures placed. Nabila Chandler APRN, CNP PROCEDURE/MINOR SURGICAL ORDERABLES Final Result documented in this encounter Visit Diagnoses Diagnosis Sebaceous cyst- Primary documented in this encounter Additional Health Concerns Assessment Noted Time PHQ-9 Depression Total Score: 1 01/03/20 20 11:00 AM CDT documented as of this encounter Care Teams Radar Repairer Relationship Specialty Start Date End Date Nabila Chandler APRN, CNP [address] [place] [address] PCP - General Advanced Practice Nurse 11/24/19 documented as of this encounter
--- OUTSIDE RECORDS SUMMARY | 2024-04-21 23:25 | XMS_ITS | Encounter Summary ---
Author Organization [facility] Address [address] [place] [address] Phone Care Team Providers Care Pt Skilled Name Role Phone Nabila Chandler APRN, CNP Primary Care P rovider Encounter Details Date Type Department Care Team (Late st Contact Info) Description 11/24/2019 10:20 AM CDT Lab [facility] - Primary Care - [address] [id number] Lab, [facility] Preventative health care (Adult) Discharge Disposition: Discharged to home or [...] as of this encounter Progress Notes * Prema Martin RMA - 11/24/2019 10:20 AM CDT Keyana presents for lab draw per order of Nabila Chandler APN, CNP dated 11/24/19. Specimen collected from right antecubital without incident. sah documented in this encounter Plan of Treatment Not on file documented as of this encounter Procedures Procedure Name Priority Date/Time Associated Diagnosis Comments VITAMIN D, 25 HYDROXY TOTAL Routine 11/24/2019 10:27 AM CDT Preventative health care (Adult) THYROID SCREEN WITH REFLEX Routine 11/24/2019 10:27 AM CDT Preventative health care (Adult) THYROID SCREEN WITH REFLEX Routine 11/24/2019 10:27 AM CDT Preventative health care (Adult) CBC WITH AUTO DIFFERENTIAL Routine 11/24/2019 10:27 AM CDT Preventative health care (Adult) LIPID PANEL Routine 11/24/2019 10:27 AM CDT Preventative health care (Adult) CMP (COMPREHENSIVE METABOLIC PANEL) Routine 11/24/2019 10:27 AM CDT Preventative health care (Adult) COMPLETE BLOOD COUNT (CBC) WITH DIFF Routine 11/24/2019 10:27 AM CDT Preventative health care (Adult) documented in this encounter Results * THYROID SCREEN WITH REFLEX (11/24/2019 10:27 AM CDT) TSH 2.500 0.270 - 4.200 mIU/L 11/24/2019 1:08 PM CDT [facility] Blood Venipuncture / Unknown 11/24/2019 10:27 AM CDT 11/24/2019 10:27 AM CDT us Nabila Chandler APRN, CNP CHEMISTRY ORDER DORIS Final Result [facility] [address] [place] [address] * (ABNORMAL) CBC WITH AUTO DIFFERENTIAL (11/24/2019 10:27 AM CDT) WBC 5.68 4.00 - 12.00 10(3)/mcL 11/24/2019 12:41 PM CDT [facility] RBC 4.77 3.80 - 5.30 10(6)/mcL 11/24/2019 12:41 PM CDT [facility] HEMOGLOBIN (HGB) 15.5 12.0 - 15.8 g/dL 11/24/2019 12:41 PM CDT [facility] HEMATOCRIT (HCT) 46.9 36.0 - 47.0 % 11/24/2019 12:41 PM CDT [facility] MCV 98.3(H) 82.0 - 96.0 fL 11/24/2019 12:41 PM CDT [facility] MCH 32.5 26.0 - 34.0 pg 11/24/2019 12:41 PM CDT [facility] MCHC 33.0 31.0 - 36.0 g/dL 11/24/2019 12:41 PM CDT [facility] PLATELET COUNT 147 140 - 440 10(3)/mcL 11/24/2019 12:41 PM CDT [facility] RDW 11.1(L) 11.8 - 15.5 % 11/24/2019 12:41 PM CDT [facility] MPV 11.7 9.7 - 12.4 fL 11/24/2019 12:41 PM CDT [facility] NEUTROPHILS 63.0 47.0 - 73.0 % 11/24/2019 12:41 PM CDT [facility] LYMPHOCYTES 27.5 18.0 - 42.0 % 11/24/2019 12:41 PM CDT [facility] MONOCYTES 7.2 4.0 - 12.0 % 11/24/2019 12:41 PM CDT [facility] EOSINOPHILS 1.4 0.0 - 5.0 % 11/24/2019 12:41 PM CDT [facility] BASOPHILS 0.9 0.0 - 1.0 % 11/24/2019 12:41 PM CDT [facility] ABSOLUTE NEUTROPHILS 3.58 1.60 - 7.70 10(3)/mcL 11/24/2019 12:41 PM CDT [facility] ABSOLUTE LYMPHOCYTES 1.56 1.30 - 3.20 10(3)/mcL 11/24/2019 12:41 PM CDT [facility] ABSOLUTE MONOCYTES 0.41 0.20 - 1.00 10(3)/mcL 11/24/2019 12:41 PM CDT [facility] ABSOLUTE EOSINOPHIL 0.08 0.00 - 0.40 10(3)/[facility] 11/24/2019 12:41 PM CDT [facility] ABSOLUTE BASOPHILS 0.05 0.00 - 0.10 10(3)/[facility] 11/24/2019 12:41 PM CDT [facility] NRBC PER 100 WBC 0 11/24/19 20 12:41 PM CDT [facility] RESULTS ARE CONSISTENT WITH PERIPHERAL SMEAR REVIEW Yes 11/24/2019 12:41 PM CDT [facility] POIKILOCYTOSIS 1+ 11/24/2019 12:41 PM CDT [facility] TARGET Present 11/24/2019 12:41 PM CDT [facility] OVALOCYTES Present 11/24/2019 12:41 PM CDT [facility] LARGE PLATELETS 1+ 0 12:41 PM CDT [facility] Blood Venipuncture / Unknown 11/24/2019 10:27 AM CDT 11/24/2019 10:27 AM CDT us Nabila Chandler APRN, DERIK HEMATOLOGY ORDE ESCOBAR Final Result [facility] [address] [place] [address] * VITAMIN D, 25 HYDROXY TOTAL (11/24/2019 10:27 AM CDT) VITAMIN D, 25 HYDROX 44 >=30 ng/mL 11/24/2019 1:33 PM CDT [facility] Blood Venipuncture / Unknown 11/24/2019 10:27 AM CDT 11/24/2019 10:27 AM CDT Narrative [facility] - 11/24/2019 1:33 PM CDT Published reference ranges for Vitamin D vary depending on time and place and method of testing, and on patient's age, sex, ethnicity and levels of other measured analytes such as parathormone, calcium and phosphorus. ??The result should be evaluated in conjunction with clinical findings and suspicions. [place] of [employer] and Endocrine Clinical Practice Guidelines: Status Vitamin D levels (ng/mL) Deficient <=20 At risk of inadequacy 21-29 Sufficient 30-100 Centers of Disease Control and Prevention Guidelines: Status Vitamin D levels (ng/mL) Deficient <13 At risk of inadequacy 13-19 Sufficient 20-50 Possibly harmful >50 References: [place] of [employer], 2010 Dietary reference intakes for calcium and vitamin D. [place]: ??The National Academies Press. Karlie M, Sheila N, Jeff MORRISON, et al., Evaluation, treatment, and prevention of Vitamin D deficiency: an Endocrinology Clinical Practice Guideline. JCEM 2011 96: 7 4300-0357. Mark A, Chet C, Jo D, et al., Vitamin D Status: ??[place], 2000- 6, [facility] data brief, no. 59, MD [place]: ??National Center for Health Statistics. 2011. us Nabila Chandler APRN, REALTIME REPORTER CHEMISTRY ORDER DORIS Final Result [facility] [address] [place] [address] * LIPID PANEL (11/24/2019 10:27 AM CDT) CHOLESTEROL 152 <=200 mg/dL 11/24/2019 1:08 PM CDT [facility] TRIGLYCERIDES 66 <150 mg/dL 11/24/2019 1:08 PM CDT [facility] HDL CHOLESTEROL 57.3 >40 mg/dL 0 1:08 PM CDT [facility] LDL 82 5 - 130 mg/dL 11/24/2019 1:08 PM CDT [facility] VLDL 13 5 - 55 mg/dL 11/24/2019 1:08 PM CDT [facility] CHOL/HDL RATIO 2.7 0.0 - 4.4 11/24/2019 1:08 PM CDT [facility] NON-HDL CHOLESTEROL 94.7 <130 mg/dL 11/24/2019 1:08 PM CDT [facility] LIPID FASTING 11/24/2019 1:08 PM CDT [facility] Blood Venipuncture / Unknown 11/24/2019 10:27 AM CDT 11/24/2019 10:27 AM CDT us Nabila Chandler TOOTH CUTTER PINION, DERIK CHEMISTRY ORDER DORIS Final Result [facility] [address] [place] [address] * (ABNORMAL) CMP (COMPREHENSIVE METABOLIC PANEL) (11/24/2019 10:27 AM CDT) SODIUM 137 136 - 144 mmol/L 11/24/2019 1:08 PM CDT [facility] POTASSIUM 5.1 3.5 - 5.1 mmol/L 11/24/2019 1:08 PM CDT [facility] CHLORIDE 104 100 - 110 mmol/L 11/24/2019 1:08 PM CDT [facility] CO2, VENOUS 25 22 - 32 mmol/L 11/24/2019 1:08 PM CDT [facility] ANION GAP 13.1 8.0 - 20.0 mmol/L 11/24/2019 1:08 PM [facility] GLUCOSE 101(H) 70 - 99 mg/dL 11/24/2019 1:08 PM [facility] BUN 12 6 - 20 mg/dL 11/24/2019 1:08 PM [facility] CREATININE, BLOOD 0.63 0.60 - 1.10 mg/dL 11/24/2019 1:08 PM [facility] BUN/CREATININE RATIO 19 12 - 20 ratio 11/24/2019 1:08 PM [facility] TOTAL PROTEIN 6.7 6.0 - 8.3 g/dL 11/24/2019 1:08 PM [facility] ALBUMIN 3.9 3.5 - 5.2 g/dL 11/24/2019 1:08 PM [facility] Comment: The colormetric methods used for the determination of Albumin may lead to falsely elevated test results in patients suffering from renal failure or insufficiency due to interference with other proteins. A/G RATIO 1.4 1.0 - 2.0 11/24/2019 1:08 PM [facility] CALCIUM 9.7 8.9 - 10.3 mg/dL 11/24/2019 1:08 PM [facility] T BILI <=0.2 <=1.2 mg/dL 11/24/2019 1:08 PM [facility] SGOT (AST) 17 <=32 U/L 11/24/2019 1:08 PM [facility] SGPT (ALT) 9 <=33 U/L 11/24/2019 1:08 PM [facility] ALKALINE PHOSPHATASE 45 35 - 105 U/L 11/24/2019 1:08 PM [facility] GFR, EST. NONAFRICAN >60 >=60 11/24/2019 1:08 PM [facility] GFR, EST. >60 >=60 020 1:08 PM [facility] Comment: Creatinine Clearance is the preferred criteria for selecting drug dose adjustments in renally impaired patients. ??The GFR is provided as additional pertinent clinical information. GFR is reported in mL/min/1.73 sq m. Blood Venipuncture / Unknown 11/24/2019 10:27 AM CDT 11/24/2019 10:27 AM CDT Nabila Chandler APRN, CNP CHEMISTRY ORDER DORIS Final Result [facility] [address] [place] [address] documented in this encounter Visit Diagnoses Diagnosis Preventative health care (Adult) Routine general medical examination at a health care facility documented in this encounter Additional Health Concerns Assessment Noted Time PHQ-9 Depression Total Score: 22 020 2:00 PM CDT documented as of this encounter Care Teams Pt Skilled Relationship Specialty Start Date End Date Nabila Chandler APRN, CNP [address] [place] [address] PCP - General Advanced Practice Nurse 11/24/19 documented as of this encounter
--- OUTSIDE RECORDS SUMMARY | 2024-04-21 23:25 | XMS_ITS | Encounter Summary ---
Author Organization [facility] Care Team Providers Care Fnps Name Role Phone Chacorta Robbins MD Primary Care Provider [phone] Encounter Details Date Type Department Care Team (Latest Contact Info) Description 11/18/2019 Travel Social History Tobacco Use Types Packs/Day [...] have Coronavirus / COVID-19? No / Unsure 11/18/2019 9:35 AM CDT documented as of this encounter Plan of Treatment Not on file documented as of this encounter Visit Diagnoses Not on filedocumented in this encounter Care Teams Fnps Relationship Specialty Start Date End Date Chacorta Robbins MD [address] [place] [address] PCP - General Internal Medicine 06/13/19 11/23/19 documented as of this encounter
--- OUTSIDE RECORDS SUMMARY | 2024-04-21 23:25 | XMS_ITS | Encounter Summary ---
Author Organization [facility] Address [address] [place] [address] Phone Care Team Providers Care Pelt Dropper Name Role Phone Chacorta Robbins MD Primary Care Provider Reason for Visit * Reason Comments Vaginal Bleeding () Encounter Details Date Type Department Care Team ([facility] st Contact Info) Description 06/13/2019 1:37 PM PHYSICIAN PRESIDENT - 06/13/2019 4:18 PM PHYSICIAN PRESIDENT Emergency [facility] Emergency [address] [place] [address] Samreen Liao, PAC [address] [place] [address] Threatened miscarriage in early Discharge Disposition: Discharged to home or Selfcare [...] Sign Reading Time Taken Comments Blood Pressure 138/89 06/13/2019 1:33 PM PHYSICIAN PRESIDENT Pulse 78 06/13/2019 4:17 PM PHYSICIAN PRESIDENT Temperature 36.2 ??C (97.1 ??F) 06/13/2019 1:33 PM CS T Respiratory Rate 12 06/13/2019 4:17 PM PHYSICIAN PRESIDENT Oxygen Saturation 100% 06/13/2019 4:17 PM PHYSICIAN PRESIDENT Inhaled Oxygen Concentration - - Weight 74.8 kg (165 lb) 06/13/2019 1:33 PM PHYSICIAN PRESIDENT Height 167.6 cm (5' 6 ) 06/13/2019 1:33 PM PHYSICIAN PRESIDENT Body Mass Index 26.63 06/13/2019 1:33 PM PHYSICIAN PRESIDENT documented in this encounter Discharge Instructions * Discharge Instructions* Samreen Liao PAC - 06/13/2019 3:10 PM PHYSICIAN PRESIDENT Please contact your obgyn tomorrow. You will need to have a repeat HCG level in 48 hours. Please return if you have any worsening symptoms or other concerns. ICIAN PRESIDENT * Attachments The following attachments cannot be sent through Care Everywhere. * Possible Miscarriage (Threatened ) (Sami) documented in this encounter Medications at Time of Discharge ondansetron (ZOFRAN-ODT) 4 MG TABLET DISPERSIBLE Take 1 Tab by mouth every 8 hours as needed for Nausea. 12 Tab 0 06/25/2016 11/22/2019 documented as of this encounter ED Notes * Gloria Corbin RN - 06/13/2019 4:17 PM CST Patient discharged. Discharge instructions and patient educational material reviewed with patient; questions and concerns addressed; patient verbalizes understanding, using teach back. Patient was given 0 prescriptions. Patient discharged per ambulatory mode with a steady gait to the exit. PT declined wheelchair. Respirations even and non-labored. No signs of distress noted. ICIAN PRESIDENT * Gloria Corbin RN - 06/13/2019 4:13 PM CST Pt medicated per provider orders. Pt educated on intended effects and side effects of medication and verbalized understanding, able to provide teach back of education. ICIAN PRESIDENT * Samreen Liao PAC - 06/13/2019 3:10 PM CST Chief Complaint Patient presents with ??? Vaginal Bleeding () MARIA G Reardon is a 29 y.o. female who presents due to vaginal bleeding which started today at 0900. She states that it feels like she is having a menstrual cycle. She denies any heavy bleeding. She states she took three positive home tests last week. She states her LMP was 05/01/2019. She denies any abdominal pain, vomiting, diarrhea, dysuria. . Her obgyn is at [facility] [place]. Current Facility-Administered Medications Medication Dose Route Frequency Provider Last Rate Last Dose ??? rho D Immune Globulin injection SOSY 300 mcg 300 mcg Intramuscular Once Samreen Liao PAC Current Outpatient Medications Medication Sig Dispense Refill ??? ondansetron (ZOFRAN-ODT) 4 MG TABLET DISPERSIBLE Take 1 Tab by mouth every 8 hours as needed for Nausea. 12 Tab 0 Allergies Allergen Reactions ??? Sulfa [...] file Occupational History ??? Not on file Social Needs ??? Financial resource strain: Not on file ??? Food insecurity: Worry: Not on file Inability: Not on file ??? Transportation needs: Medical: Not on file Non-medical: Not on file Tobacco Use ??? Smoking status: Current Every Day Smoker Packs/day: 0.25 Types: Cigarettes ??? Smokeless tobacco: Never Used Substance and Sexual Activity ??? Alcohol use: No ??? Drug use: Yes Frequency: 3.0 times per week Types: Marijuana ??? Sexual activity: Not on file Lifestyle ??? Physical activity: Days per week: Not on file Minutes per session: Not on file ??? Stress: Not on file Relationships ??? Social connections: Talks on phone: Not on file Gets together: Not on file Attends sikhism service: Not on file Active member of club or organization: Not on file Attends meetings of clubs or organizations: Not on file Relationship status: Not on file ??? Intimate partner violence: Fear of current or ex partner: Not on file Emotionally abused: Not on file Physically abused: Not on file Forced sexual activity: Not on file Other Topics Concern ??? Not on file Social History Narrative ??? Not on file BP 138/89 Pulse 81 Temp 97.1 ??F (36.2 ??C) (Tympanic) Resp 18 Ht 5' 6 (1.676 m) Wt 165 lb (74.8 kg) LMP 05/01/2019 SpO2 100% BMI 26.63 kg/m?? Review of Systems Constitutional: Negative for chills and fever. HENT: Negative for congestion, ear pain and sore throat. Eyes: Negative for pain and discharge. Respiratory: Negative for cough, chest tightness and shortness of breath. Cardiovascular: Negative for chest pain, palpitations and leg swelling. Gastrointestinal: Negative for abdominal distention, abdominal pain, blood in stool, constipation, diarrhea, nausea and vomiting. Genitourinary: Positive for vaginal bleeding. Negative for dysuria, frequency and vaginal discharge. Musculoskeletal: Negative for arthralgias and back pain. Skin: Negative for color change and rash. Neurological: Negative for dizziness, weakness, light-headedness and headaches. Psychiatric/Behavioral: Negative for suicidal ideas. All other systems reviewed and are negative. Physical Exam Vitals signs and nursing note reviewed. Constitutional: General: She is not in acute distress. Appearance: She is well-developed. She is not diaphoretic. HENT: Head: Normocephalic and atraumatic. Right Ear: External ear normal. Left Ear: External ear normal. Eyes: Conjunctiva/sclera: Conjunctivae normal. Pupils: Pupils are equal, round, and reactive to light. Neck: Musculoskeletal: Normal range of motion. Trachea: No tracheal deviation. Cardiovascular: Rate and Rhythm: Normal rate and regular rhythm. Heart sounds: Normal heart sounds. No murmur. Pulmonary: Effort: Pulmonary effort is normal. No respiratory distress. Breath sounds: Normal breath sounds. No wheezing or rales. Abdominal: General: Bowel sounds are normal. There is no distension. Palpations: Abdomen is soft. Tenderness: There is no abdominal tenderness. There is no guarding or rebound. Musculoskeletal: Normal range of motion. Skin: General: Skin is warm and dry. Neurological: Mental Status: She is alert and oriented to person, place, and time. Cranial Nerves: No cranial nerve deficit. Labs Reviewed URINALYSIS REFLEX IF INDICATED BY ABNORMAL RESULTS - Abnormal; Notable for the following components: Result Value URINE BLOOD 150 /uL (*) URINE RBC'S 21-50 (*) All other components within normal limits CMP (COMPREHENSIVE METABOLIC PANEL) - Abnormal; Notable for the following components: GLUCOSE 102 (*) All other components within normal limits HCG BETA SUBUNIT SERUM QUANT - Abnormal; Notable for the following components: HCG BETA SUBUNIT, QUANT 10.32 (*) All other components within normal limits Narrative: HCG Interpretive Reference Ranges Wks of : References Ranges 4 wks [id number] 5 wks [phone] 6 wks [id number] 7 wks [id number] 8 wks [id number] 9 wks [id number] 10 wks [id number] 14 wks [id number] 15 wks [id number] 16 wks [id number] 17 wks [id number] 18 wks [id number] 19 wks [id number] Non- Female: 0-4 CBC WITH AUTO DIFFERENTIAL - Abnormal; Notable for the following components: HEMOGLOBIN (HGB) 16.3 (*) HEMATOCRIT (HCT) 47.5 (*) RDW 11.1 (*) MPV 9.0 (*) NEUTROPHILS 81.3 (*) LYMPHOCYTES 12.0 (*) ABSOLUTE NEUTROPHILS 8.59 (*) ABSOLUTE LYMPHOCYTES 1.27 (*) All other components within normal limits POCT URINE HCG () - Normal COMPLETE BLOOD COUNT (CBC) WITH DIFF Narrative: The following orders were created for panel order Complete Blood Count (CBC) WITH Diff. Procedure Abnormality Status --------- ------ CBC with Auto Differential[[id number]] Abnormal Final result Please view results for these tests on the individual orders. EXTRA TUBES Narrative: The following orders were created for panel order Extra Tubes. Procedure Abnormality Status --------- ------ Blue Top Tube[[id number]] In process Please view results for these tests on the individual orders. TYPE & SCREEN (CROSSMATCH CONVERTIBLE) ABO/RH (D) RECHECK RH (D) TYPE PREPARE RHO D IMMUNE GLOBULIN BLUE TOP TUBE URINALYSIS REFLEX IF INDICATED BY ABNORMAL RESULTS Final Result CMP (Comprehensive Metabolic Panel) Final Result Complete Blood Count (CBC) WITH Diff Final Result Hcg Beta Subunit, Quant [id number] Final Result Extra Tubes (Results Pending) Procedures Imaging Results None MDM Coding Clinical Impression 1. Threatened miscarriage in early Discussed with patient that her HCG was very low. Advised that she contact her obgyn tomorrow to get an order to have it rechecked in 48 hours. She did get Rhogam today in case of a possible miscarriage. She understands to return if her symptoms change or worsen. Cosigned by Raphael Rodgers MD at 06/13/2019 3:18 PM PHYSICIAN PRESIDENT ICIAN PRESIDENT ICIAN PRESIDENT * Gloria Corbin RN - 06/13/2019 2:49 PM CST Patient is resting in room with call light at bedside. Patient informed about wait time and verbalizes understanding. Patient denies needs at this time and verbalizes understanding that RN will complete hourly rounding. No questions or concerns at this time. ICIAN PRESIDENT * Gloria Corbin RN - 06/13/2019 1:52 PM CST Lab at bedside. ICIAN PRESIDENT * Jessy Roe RN - 06/13/2019 1:35 PM CST Pt to ED with c/o vaginal bleeding since about 0900 this morning. Pt states she has taken 3 home tests that were positive. Pt is wearing a regular size pad and is wearing the second one of the day. Denies abdominal pain. She had a short menstrual cycle on 05/01/19. This is her 4th . States all other pregnancies were normal ICIAN PRESIDENT documented in this encounter Plan of Treatment Not on file documented as of this encounter Procedures Procedure Name Priority Date/Time Associated Diagnosis Comments PREPARE RHO D IMMUNE GLOBULIN STAT 06/14/2019 2:41 PM PHYSICIAN PRESIDENT ABO/RH (D) RECHECK STAT 06/13/2019 2: 02 PM PHYSICIAN PRESIDENT URINALYSIS REFLEX IF INDICATED BY ABNORMAL RESULTS STAT 06/13/2019 1:56 PM PHYSICIAN PRESIDENT POCT URINE HCG () STAT 06/13/2019 1:56 PM PHYSICIAN PRESIDENT EXTRA TUBES STAT 06/13/2019 1:55 PM PHYSICIAN PRESIDENT BLUE TOP TUBE STAT 06/13/2019 1:55 PM PHYSICIAN PRESIDENT CBC WITH AUTO DIFFERENTIAL STAT 06/13/2019 1:55 PM PHYSICIAN PRESIDENT TYPE & SCREEN (CROSSMATCH CONVERTIBLE) STAT 06/13/2019 1:55 PM PHYSICIAN PRESIDENT HCG BETA SUBUNIT SERUM QUANT STAT 06/13/2019 1:55 PM PHYSICIAN PRESIDENT CMP (COMPREHENSIVE METABOLIC PANEL) STAT 06/13/2019 1:55 PM PHYSICIAN PRESIDENT COMPLETE BLOOD COUNT (CBC) WITH DIFF STAT 06/13/2019 1:55 PM PHYSICIAN PRESIDENT documented in this encounter Results * PREPARE RHO D IMMUNE GLOBULIN (06/14/2019 2:41 PM PHYSICIAN PRESIDENT) DRV_CD Rh immune globulin [facility] DRV_LOT [id number] [facility] UNIT_ABO [facility] PROD_STAT TRANSFUSED [facility] Blood specimen (specimen) us Samreen Thomas Page PAC BLOOD BANK ORDERABLES Final Result [facility] [address] [place] [address] * ABO/RH (D) RECHECK (06/13/2019 2:02 PM PHYSICIAN PRESIDENT) Pathologist [facility] ABO TYPING O 06/13/2019 3:16 PM PHYSICIAN PRESIDENT [facility] RH Negative 06/13/2019 3:16 PM PHYSICIAN PRESIDENT [facility] Blood specimen (specimen) Venipuncture / Unknown 06/13/2019 2:02 PM PHYSICIAN PRESIDENT 06/13/2019 2:13 PM PHYSICIAN PRESIDENT Samreen Thomas Page PAC BLOOD BANK ORDERABLES Final Result [facility] [address] [place] [address] * (ABNORMAL) URINALYSIS REFLEX IF INDICATED BY ABNORMAL RESULTS (06/13/2019 1:56 PM PHYSICIAN PRESIDENT) Pathologist [facility] SPECIFIC GRAVITY 1.010 1.003 - 1.030 06/13/2019 2:24 PM PHYSICIAN PRESIDENT [facility] URINE PH 6.0 5.0 - 9.0 06/13/2019 2:24 PM PHYSICIAN PRESIDENT [facility] WBC ESTERASE Negative Negative 06/13/2019 2:24 PM PHYSICIAN PRESIDENT [facility] NITRITE Negative Negative 06/13/2019 2:24 PM PHYSICIAN PRESIDENT [facility] PROTEIN, RANDOM URINE Negative Negative 06/13/2019 2:24 PM PHYSICIAN PRESIDENT [facility] URINE GLUCOSE, QUAL Negative Negative 06/13/2019 2:24 PM PHYSICIAN PRESIDENT [facility] URINE KETONES Negative Negative 06/13/2019 2:24 PM PHYSICIAN PRESIDENT [facility] UROBILINOGEN Normal Normal mg/dL 06/13/2019 2:24 PM PHYSICIAN PRESIDENT [facility] URINE BILIRUBIN Negative Negative 0 2:24 PM PHYSICIAN PRESIDENT [facility] URINE BLOOD 150 /uL(A) Negative josr/ul 06/13/2019 2:24 PM PHYSICIAN PRESIDENT [facility] URINALYSIS COLOR Yellow 06/13/19 20 2:24 PM PHYSICIAN PRESIDENT [facility] URINALYSIS CLARITY Clear 06/13/2019 2:24 PM PHYSICIAN PRESIDENT [facility] WBC (Urine) Negative Negative, 0-5 /hpf 06/13/2019 2:24 PM PHYSICIAN PRESIDENT [facility] URINE RBC'S 21-50(A) Negative, 0-2 /hpf 06/13/2019 2:24 PM PHYSICIAN PRESIDENT [facility] EPITHELIAL CELLS Small amount /lpf 2019 2:24 PM PHYSICIAN PRESIDENT [facility] BACTERIA, URINE Negative Negative /hpf 06/13/2019 2:24 PM PHYSICIAN PRESIDENT [facility] Urine specimen (specimen) URINE SPECIMEN / Unknown Non-Phlebotomy Collection / Unknown 06/13/2019 1:56 PM PHYSICIAN PRESIDENT 06/13/2019 2:09 PM PHYSICIAN PRESIDENT Samreen Thomas Page PAC URINE ORDERABLES Final Resul t Performing Organization Address City/[facility] Co de Phone Number [facility] [address] [place] [address] * POCT Urine HCG () (06/13/2019 1:56 PM PHYSICIAN PRESIDENT) POC URINE Negative POC URINE CONTROL [employer] Pass Urine specimen (specimen) 06/13/2019 1:56 PM PHYSICIAN PRESIDENT Samreen Thomas Page PAC POINT OF CARE TESTING (MANUA L) Final Result * Blue Top Tube (06/13/2019 1:55 PM PHYSICIAN PRESIDENT) Blood specimen (specimen) Butterfly Puncture / Unknown 06/13/2019 1:55 PM PHYSICIAN PRESIDENT 06/13/2019 2:07 PM PHYSICIAN PRESIDENT us Samreen Thomas Page PAC HEMATOLOGY ORDERABLES Final Result Performing Organization Address City/[facility]/ZIP Co de Phone Number [facility] [address] [place] [address] * (ABNORMAL) Hcg Beta Subunit, Quant [id number] (06/13/2019 1:55 PM PHYSICIAN PRESIDENT) HCG BETA SUBUNIT, QUANT 10.32(H) <=5.00 mIU/mL 06/13/2019 2:35 PM PHYSICIAN PRESIDENT [facility] Blood specimen (specimen) Butterfly Puncture / Unknown 06/13/2019 1:55 PM PHYSICIAN PRESIDENT 06/13/2019 2:06 PM PHYSICIAN PRESIDENT Narrative [facility] - 06/13/2019 2:35 PM PHYSICIAN PRESIDENT HCG Interpretive Reference Ranges Wks of : References Ranges 4 wks [id number] 5 wks [phone] 6 wks [id number] 7 wks [id number] 8 wks [id number] 9 wks [id number] 10 wks [id number] 14 wks [id number] 15 wks [id number] 16 wks [id number] 17 wks [id number] 18 wks [id number] 19 wks [id number] Non- Female: 0-4 Samreen Thomas Page PAC CHEMISTRY ORDERABLES Final R esult [facility] [address] [place] [address] * (ABNORMAL) CBC with Auto Differential (06/13/2019 1:55 PM PHYSICIAN PRESIDENT) Pathologist [facility] WBC 10.56 4.00 - 12.00 10(3)/mcL 06/13/2019 2:09 PM PHYSICIAN PRESIDENT [facility] RBC 5.11 3.80 - 5.30 10(6)/mcL 06/13/2019 2:09 PM PHYSICIAN PRESIDENT [facility] HEMOGLOBIN (HGB) 16.3(H) 12.0 - 15.8 g/dL 06/13/2019 2:09 PM PHYSICIAN PRESIDENT [facility] HEMATOCRIT (HCT) 47.5(H) 36.0 - 47.0 % 06/13/2019 2:09 PM PHYSICIAN PRESIDENT [facility] MCV 93.0 82.0 - 96.0 fL 06/13/2019 2:09 PM PHYSICIAN PRESIDENT [facility] MCH 31.9 26.0 - 34.0 pg 06/13/2019 2:09 PM [facility] MCHC 34.3 31.0 - 36.0 g/dL 06/13/2019 2:09 PM [facility] PLATELET COUNT 338 140 - 440 10(3)/[facility] 06/13/2019 2:09 PM [facility] RDW 11.1(L) 11.8 - 15.5 % 06/13/2019 2:09 PM [facility] MPV 9.0(L) 9.7 - 12.4 fL 06/13/2019 2:09 PM [facility] NEUTROPHILS 81.3(H) 47.0 - 73.0 % 06/13/2019 2:09 PM [facility] LYMPHOCYTES 12.0(L) 18.0 - 42.0 % 06/13/2019 2:09 PM [facility] MONOCYTES 5.3 4.0 - 12.0 % 06/13/2019 2:09 PM [facility] EOSINOPHILS 0.9 0.0 - 5.0 % 06/13/2019 2:09 PM [facility] BASOPHILS 0.5 0.0 - 1.0 % 06/13/2019 2:09 PM [facility] ABSOLUTE NEUTROPHILS 8.59(H) 1.60 - 7.70 10(3)/[facility] 06/13/2019 2:09 PM [facility] ABSOLUTE LYMPHOCYTES 1.27(L) 1.30 - 3.20 10(3)/[facility] 06/13/2019 2:09 PM [facility] ABSOLUTE MONOCYTES 0.56 0.20 - 1.00 10(3)/[facility] 06/13/2019 2:09 PM [facility] ABSOLUTE EOSINOPHIL 0.09 0.00 - 0.40 10(3)/[facility] 06/13/2019 2:09 PM [facility] ABSOLUTE BASOPHILS 0.05 0.00 - 0.10 10(3)/[facility] 06/13/2019 2:09 PM [facility] NRBC PER 100 WBC 0 06/13/19 20 2:09 PM PHYSICIAN PRESIDENT [facility] Blood specimen (specimen) Butterfly Puncture / Unknown 06/13/2019 1:55 PM PHYSICIAN PRESIDENT 06/13/2019 2:06 PM PHYSICIAN PRESIDENT Samreen Thomas Page PAC HEMATOLOGY ORDERABLES Final Result Performing Organization Address City/[facility]/ZIP Co de Phone Number [facility] [address] [place] [address] * TYPE & SCREEN (CROSSMATCH CONVERTIBLE) (06/13/2019 1:55 PM PHYSICIAN PRESIDENT) ABO TYPING O 06/13/2019 3:02 PM PHYSICIAN PRESIDENT [facility] RH Negative 06/13/2019 3:02 PM PHYSICIAN PRESIDENT [facility] ABSC Negative 06/13/2019 3:02 PM PHYSICIAN PRESIDENT [facility] Blood specimen (specimen) Butterfly Puncture / Unknown 06/13/2019 1:55 PM PHYSICIAN PRESIDENT 06/13/2019 2:06 PM PHYSICIAN PRESIDENT Samreen Thomas Page PAC BLOOD BANK ORDERABLES Edited Result - Final Performing Organization Address [facility] Co de Phone Number [facility] [address] [place] [address] * (ABNORMAL) CMP (Comprehensive Metabolic Panel) (06/13/2019 1:55 PM PHYSICIAN PRESIDENT) SODIUM 137 136 - 144 mmol/L 06/13/2019 2:35 PM PHYSICIAN PRESIDENT [facility] POTASSIUM 3.6 3.5 - 5.1 mmol/L 06/13/2019 2:35 PM PHYSICIAN PRESIDENT [facility] CHLORIDE 103 100 - 110 mmol/L 06/13/2019 2:35 PM PHYSICIAN PRESIDENT [facility] CO2, VENOUS 22 22 - 32 mmol/L 06/13/2019 2:35 PM PHYSICIAN PRESIDENT [facility] ANION GAP 15.6 8.0 - 20.0 mmol/L 06/13/2019 2:35 PM PHYSICIAN PRESIDENT [facility] GLUCOSE 102(H) 70 - 99 mg/dL 06/13/2019 2:35 PM [facility] BUN 9 6 - 20 mg/dL 06/13/2019 2:35 PM [facility] CREATININE, BLOOD 0.62 0.60 - 1.10 mg/dL 06/13/2019 2:35 PM [facility] BUN/CREATININE RATIO 15 12 - 20 ratio 06/13/2019 2:35 PM [facility] TOTAL PROTEIN 7.8 6.0 - 8.3 g/dL 06/13/2019 2:35 PM [facility] ALBUMIN 5.1 3.5 - 5.2 g/dL 06/13/2019 2:35 PM [facility] Comment: The colormetric methods used for the determination of Albumin may lead to falsely elevated test results in patients suffering from renal failure or insufficiency due to interference with other proteins. A/G RATIO 1.9 1.0 - 2.0 06/13/2019 2:35 PM [facility] CALCIUM 9.4 8.9 - 10.3 mg/dL 06/13/2019 2:35 PM [facility] T BILI 0.4 <=1.2 mg/dL 06/13/2019 2:35 PM [facility] SGOT (AST) 18 <=32 U/L 06/13/2019 2:35 PM [facility] SGPT (ALT) 7 <=33 U/L 06/13/2019 2:35 PM [facility] ALKALINE PHOSPHATASE 54 35 - 105 U/L 06/13/2019 2:35 PM [facility] GFR, EST. NONAFRICAN >60 >=60 06/13/2019 2:35 PM [facility] GFR, EST. >60 >=60 020 2:35 PM [facility] Comment: Creatinine Clearance is the preferred criteria for selecting drug dose adjustments in renally impaired patients. ??The GFR is provided as additional pertinent clinical information. GFR is reported in mL/min/1.73 sq m. Blood specimen (specimen) Butterfly Puncture / Unknown 06/13/2019 1:55 PM PHYSICIAN PRESIDENT 06/13/2019 2:06 PM PHYSICIAN PRESIDENT us Samreen Thomas Page PAC CHEMISTRY ORDERABLES Final R esult [facility] [address] [place] [address] documented in this encounter Visit Diagnoses Diagnosis Threatened miscarriage in early - Primary Threatened , unspecified as to episode of care documented in this encounter Care Teams Pelt Dropper Relationship Specialty Start Date End Date Chacorta Robbins MD [address] [place] [address] PCP - General Internal Medicine 06/13/19 11/23/19 documented as of this encounter
--- OUTSIDE RECORDS SUMMARY | 2024-04-21 23:25 | XMS_ITS | Encounter Summary ---
Author Organization [facility] Address [address] [place] [address] Phone Care Team Providers Care Director Stage Name Role Phone Nabila Chandler APRN, CNP Primary Care P rovider Reason for Referral * Radiology Services (Routine) - Closed Specialty Diagnoses / Procedures Referred By Sunshine muro Referred To Contact Radiology Diagnoses Palpitations Procedures HOLTER MONITOR RECORDING ONLY-48 HOUR Nabila Chandler APRN, CNP [address] [place] [address] Phone: tel: fax: Referral ID Status Reason Start Date Expiration Date Visits Re quested Visits Authorized [id number] Closed 01/03/2020 1 1 Reason for Visit * Radiology Services (Routine) - Closed Specialty Diagnoses / Procedures Referred By Sunshine muro Referred To Contact Radiology Diagnoses Palpitations Procedures HOLTER MONITOR RECORDING ONLY-48 HOUR Nabila Chandler APRN, CNP [address] [place] [address] Phone: tel: fax: Referral ID Status Reason Start Date Expiration Date Visits Re quested Visits Authorized [id number] Closed 01/03/2020 1 1 Encounter Details Date Type Department Care Team (Latest Contact Info) Description 01/10/2020 1:30 PM CDT - 01/10/2020 11:59 PM CDT Hospital Encounter [facility] Cardiology Services [address] [facility] [place] [address] Nabila Chandler, NEW CAR SALESPERSON, BUSINESS DEVELOPMENT MANAGER [address] [place] [address] Discharge Disposition: Discharged to home or Selfcare [...] PM CDT documented as of this encounter Medications [...] 3 times daily. 270 Tab 12/06/2019 2 doxycycline hyclate (VIBRA-TABS) 100 MG Tablet doxycycline hyclate 100 mg tablet Take 1 tablet every day by oral route. 3 Norelgestromin-E th Estradiol (Xulane) 150-35 MCG/24HR PATCH WEEKLY Xulane 150 mcg-35 mcg/24 hr transdermal patch 2 traZODone (DESYREL) 50 MG TabletIndication s:Primary insomnia Take 0.5 Tabs by mouth nightly as needed for Sleep. 90 Tab 01/03/2020 4 documented as of this encounter Miscellaneous Notes * Interdisciplinary - Izabella June RN - 01/10/2020 1:30 PM CDT Pre called for holter on Tuesday 01/09-spoke with pt. documented in this encounter Plan of Treatment Not on file documented as of this encounter Procedures Procedure Name Priority Date/Time Associated Diagnosis Comments HOLTER MONITOR RECORDING ONLY-48 HOUR Routine 01/10/2020 1:36 PM CDT Palpitations documented in this encounter Results * HOLTER MONITOR RECORDING [...] significant cardiac arrhythmias, suggesting non-correlation. ?? IJN: ??[id number] Procedure Note Joselyn Coreas MD - 01/18/2020 [...] with anysignificant cardiac arrhythmias, suggesting non-correlation. IJN: [id number] Nabila Chandler APRN, CNP IMViry ECG ORDERAB LES Final Result documented in this encounter Visit Diagnoses Diagnosis Palpitations documented in this encounter Additional Health Concerns Assessment Noted Time PHQ-9 Depression Total Score: 1 01/03/20 20 11:00 AM CDT documented as of this encounter Care Teams Director Stage Relationship Specialty Start Date End Date Nabila Chandler APRN, CNP [address] [place] [address] PCP - General Advanced Practice Nurse 11/24/19 documented as of this encounter
--- OUTSIDE RECORDS SUMMARY | 2024-04-21 23:25 | XMS_ITS | Encounter Summary ---
Author Organization [facility] Address [address] [facility] [place] [address] Phone Care Team Providers Care Rock Contractor Name Role Phone Nabila Chandler APRN, CNP Primary Care P rovider Reason for Referral * Consult, Test & Initiate Treatment (Less Than 2 Weeks) - Closed Specialty Diagnoses / Procedures Referred By Sunshine muro Referred To Contact Diagnoses Recurrent acute suppurative otitis media of right ear without spontaneous rupture of tympanic membrane Hearing loss of right ear due to cerumen impaction Nabila Chandler APRN, SPRING FLOOR SERVICE WORKER [address] [place] [address] Phone: tel: fax: Rafa Ball MD [address] [place] [address] Phone: tel: fax: Referral ID Status Reason Start Date Expiration Date Visits Re quested Visits Authorized [id number] Closed 11/07/2020 1 1 Scheduling Instructions Keyana is being referred to Lizzy or other specialist in patient's insurance network for right cerumen impaction. See below for Keyana's current medications, allergies and problem list. CURRENT MEDS: Current Outpatient Medications: buPROPion (WELLBUTRIN) 300 MG TABLET SR 24 HR XL tablet, Take 1 Tab by mouth every morning. (Patient not taking: Reported on 11/07/2020), Disp: 90 Tab, Rfl: 3 busPIRone (BUSPAR) 5 MG Tablet, Take 1 Tab by mouth 3 times daily. (Patient not taking: Reported on 11/07/2020), Disp: 270 Tab, Rfl: 0 clindamycin (CLEOCIN T) 1 % Solution, APPLY THIN LAYER TOPICALLY TO THE AFFECTED AREA EVERY NIGHT AT BEDTIME, Disp: , Rfl: Clindamycin HCl (CLEOCIN) 300 MG Capsule, TAKE 1 CAPSULE BY MOUTH TWICE DAILY FOR 7 DAYS, Disp: , Rfl: doxycycline hyclate (VIBRA-TABS) 100 MG Tablet, doxycycline hyclate 100 mg tablet Take 1 tablet every day by oral route. (Patient not taking: Reported on 11/07/2020), Disp: , Rfl: Norelgestromin-Eth Estradiol (Xulane) 150-35 MCG/24HR PATCH WEEKLY, Xulane 150 mcg-35 mcg/24 hr transdermal patch, Disp: , Rfl: traZODone (DESYREL) 50 MG Tablet, Take 0.5 Tabs by mouth nightly as needed for Sleep. (Patient not taking: Reported on 11/07/2020), Disp: 90 Tab, Rfl: 0 No current facility-administered medications for this visit. ALLERGIES: -- Sulfa Antibiotics -- Unknown PROBLEM LIST: There is no problem list on file for this patient. Reason for Visit * Reason Comments Ear Fullness Encounter Details Date Type Department Care Team (Late st Contact Info) Description 11/07/2020 11:00 AM CDT Office Visit [facility] - Primary Care - [place] [address] [place] [address] Nabila Chandler APRN, SPRING FLOOR SERVICE WORKER [address] [place] [address] Recurrent acute suppurative otitis media of right ear without spontaneous rupture of tympanic membrane (Primary Dx); Hearing loss of right ear due to cerumen impaction Discharge Disposition: Discharged to home or Selfcare [...] Sign Reading Time Taken Comments Blood Pressure 106/72 11/07/2020 11:01 AM CDT Pulse 69 11/07/2020 11:01 AM CDT Temperature 36.7 ??C (98.1 ??F) 11/07/2020 1 1:01 AM CDT Respiratory Rate 20 11/07/2020 11:0 1 AM CDT Oxygen Saturation 97% 11/07/2020 11: 01 AM CDT Inhaled Oxygen Concentration - - Weight 67.9 kg (149 lb 12.8 oz) 021 11:01 AM CDT Height 167.6 cm (5' 6 ) 11/07/2020 11:0 1 AM CDT Body Mass Index 24.18 11/07/2020 11:01 AM CDT documented in this encounter Patient Instructions * Patient Instructions* Elin Bermudez, RENTAL CAR FERRY DRIVER - 11/07/2020 11:00 AM CDT Images from the original note were not included. If any new or worsening symptoms occur, [...] a support program: ?? Free national quitline 659-MRCU-TIJ (303-287-7280) ?? Hospital quit-smoking programs ?? [place] [employer] 949-311-3158 ?? [place] [employer] 843-389-8386 Support at home is important too. Family and friends can offer praise and reassurance. If the smoker in your life finds it hard to quit, encourage them to keep trying. Try dpxd-zgp-pdyphon medicine Nicotine replacement therapy??may make it??easier to [...] to quit smoking, try these resources:? www.cdc.gov/tobacco/quit_smoking/ 113-URRG-JUR (055-101-5077) ?? www.smokefree.gov 654-04V-BNSY (422-891-0397) ?? www.lung.org/stop-smoking/ 800-LUNGUSA (891-814-1732) [employer] last reviewed this educational content on 03/14/2019 ?? [phone] [employer] ([employer]), [employer]. All rights reserved. This information is not intended as a substitute for professional medical care. Always follow your healthcare professional's instructions. documented in this encounter Progress Notes * Elin Bermudez CMA - 11/07/2020 11:00 AM CDT Keyana Reardon was provided education materials regarding smoking cessation as noted on the After Visit Summary. Counseling Given and Ready to Quit Hobbs are updated in the Social History. * Elin Bermudez CMA - 11/07/2020 11:00 AM CDT Keyana Reardon, 30 y.o., female is here for Ear Fullness Medication Refills: Patient reports/denies need for medication [...] MOUTH TWICE DAILY FOR 7 DAYS 11/03/20 YesProviNida barrios MD doxycycline hyclate (VIBRA-TABS) 100 MG Tablet doxycycline hyclate 100 mg tablet Take 1 tablet every day by oral route. Patient not taking: Reported on 11/07/2020 Nida Mejia MD Norelgestromin-Eth Estradiol (Xulane) 150-35 MCG/24HR PATCH WEEKLY Xulane 150 mcg-35 mcg/24 hr transdermal patch Yes Nida Mejia MD traZODone (DESYREL) 50 MG [...] of 2 - PPSV23) Never done ??? DTaP/Tdap/Td Immunization (6 - Tdap) 02/17/2000 ??? SARS-COV-2 Immunization (1) Never done ??? Pap Smear Never done Orders Pended: no The following BPA's have been addressed with the patient today: Smoking * Nabila Chandler APN, DERIK - 11/07/2020 11:00 AM CDT [facility] [address] [address] Dept: [phone] Dept Loc: [phone] Loc Patient: Keyana Reardon : 1990 Sex: female Subjective: HPI: Keyana Reardon presents for Ear Fullness Right ear pain, fullness, decreased hearing. Denies any fever/chills, sinus congestion. Has used numerous OTC drops and suctions without relief. Has been ongoing for awhile and comes and goes. Deniesany ear drainage, qtip is generally clean when she uses it. Review of Systems Constitutional: Negative. Respiratory: Negative. Gastrointestinal: Negative. Genitourinary: Negative. Neurological: Positive for dizziness. Negative for headaches. Objective: Vitals: 11/07/20 1101 BP: 106/72 BP Location: Right Arm BP Position: Sitting BP Cuff Size: Regular Pulse: 69 Resp: 20 Temp: 98.1 ??F (36.7 ??C) SpO2: 97% Weight: 149 lb 12.8 oz (67.9 kg) Height: 5' 6 (1.676 m) LMP 03/20/2020 (Approximate) Physical Exam Vitals and nursing note reviewed. Constitutional: General: She is not in acute distress. Appearance: She is well-developed. HENT: Head: Normocephalic and atraumatic. Right Ear: External ear normal. Left Ear: Tympanic membrane, ear canal and external ear normal. Ears: Comments: Right TM partially visible, erythematous, cerumen blocking full visibility. Eyes: Conjunctiva/sclera: Conjunctivae normal. Cardiovascular: Rate and [...] Diagnoses and all orders for this visit: Recurrent acute suppurative otitis media of right ear without spontaneous rupture of tympanic membrane - EXTERNAL ENT REFERRAL; Future - amoxicillin (AMOXIL) 500 MG Capsule; Take 1 Capsule by mouth 2 times daily for 10 days. Hearing loss of right ear due to cerumen impaction - EXTERNAL ENT REFERRAL; Future - amoxicillin (AMOXIL) 500 MG Capsule; Take 1 Capsule by mouth 2 times daily for 10 days. Other orders - clindamycin (CLEOCIN T) 1 % Solution; APPLY THIN LAYER TOPICALLY TO THE AFFECTED AREA EVERY NIGHTAT BEDTIME - Clindamycin HCl (CLEOCIN) 300 MG Capsule; TAKE 1 CAPSULE BY MOUTH TWICE DAILY FOR 7 DAYS Started on amoxicillin for acute otitis media, cerumen appears to be pushing up against the tympanic membrane, ENT referral placed for removal. Follow-up Information Return if symptoms worsen or fail to improve. documented in this encounter Plan of Treatment Scheduled Referrals Name Type Priority Associated Diagnoses Order Schedule EXTERNAL ENT REFERRAL Outpatient Referral Less Than 2 weeks Recurrent acute suppurative otitis media of right ear without spontaneous rupture of tympanic membrane Hearing loss of right ear due to cerumen impaction Expected: 11/07/2020, Expires: 11/07/2021 documented as of this encounter Visit Diagnoses Diagnosis Recurrent acute suppurative otitis media of right ear without spontaneous rupture of tympanic membrane- Primary Hearing loss of right ear due to cerumen impaction documented in this encounter Additional Health Concerns Assessment Noted Time PHQ-9 Depression Total Score: 1 01/03/20 20 11:00 AM CDT documented as of this encounter Care Teams Rock Contractor Relationship Specialty Start Date End Date Nabila Chandler APRN, SPRING FLOOR SERVICE WORKER [address] [place] [address] PCP - General Advanced Practice Nurse 11/24/19 documented as of this encounter
--- OUTSIDE RECORDS SUMMARY | 2024-04-21 23:25 | XMS_ITS | Encounter Summary ---
Author Organization [employer] Care Team Providers Care Collections Assistant Name Role Phone Nabila Chandler APRN, CNP Primary Care P rush Encounter Details Date Type Department Care Team (Latest Contact Info) Description 12/06/2019 Travel Social History Tobacco Use Types Packs/Day [...] documented as of this encounter Care Teams Collections Assistant Relationship Specialty Start Date End Date Nabila Chandler APRN, CNP [address] [place] [address] PCP - General Advanced Practice Nurse 11/24/19 documented as of this encounter
--- OUTSIDE RECORDS SUMMARY | 2024-04-21 23:25 | XMS_ITS | Encounter Summary ---
Author Organization [facility] Address [address] [place] [address] Phone Care Team Providers Care Back Tufter Name Role Phone Nabila Chandler APRN, CNP Primary Care P rovider Encounter Details Date Type Department Care Team (Late st Contact Info) Description 12/06/2019 Telephone [facility] - Primary Care - [place] [address] [place] [address] Nabila Chandler APRN, CNP [address] [place] [address] Social History Tobacco Use Types Packs/Day Years Used Date Smoking Tobacco: Every Day Cigarettes Smokeless Tobacco: Never Alcohol Use Standard Drinks/Week Comments No 0 (1 standard drink = 0.6 oz pur e alcohol) PHQ-2 Answer Date Recorded Total Score - Questions 1-9 12/14 Comments Yes Sex and Gender Information [...] encounter Miscellaneous Notes * Addendum Note - Tejas Machado CMA - 12/04/2020 2:59 PM CDTAddended by: TEJAS MACHADO on: 12/04/2020 02:59 PM Modules accepted: Orders * Telephone Encounter - Nabila Chandler APN, CNP - 12/06/2019 1:35 PM CDT All labs looked okay, CBC slightly abnormal, will repeat at next appointment in 4 weeks. documented in this encounter Plan of Treatment Not on file documented as of this encounter Visit Diagnoses Diagnosis Abnormal CBC- Primary Other abnormal blood chemistry documented in this encounter Additional Health Concerns Assessment Noted Time PHQ-9 Depression Total Score: 22 020 2:00 PM CDT documented as of this encounter Care Teams Back Tufter Relationship Specialty Start Date End Date Nabila Chandler APRN, CNP [address] [place] [address] PCP - General Advanced Practice Nurse 11/24/19 documented as of this encounter
--- OUTSIDE RECORDS SUMMARY | 2024-04-21 23:25 | XMS_ITS | Encounter Summary ---
Author Organization [employer] Care Team Providers Care Flux Plant Operator Name Role Phone Nabila Chandler APRN, CNP Primary Care P rodavidder Encounter Details Date Type Department Care Team (Latest Contact Info) Description 11/23/2020 Travel Social History Tobacco Use Types Packs/Day [...] documented as of this encounter Care Teams Flux Plant Operator Relationship Specialty Start Date End Date Nabila Chandler APRN CASE ASSISTANT [address] [place] [address] PCP - General Advanced Practice Nurse 11/24/19 documented as of this encounter
--- OUTSIDE RECORDS SUMMARY | 2024-04-21 23:25 | XMS_ITS | Encounter Summary ---
Author Organization [facility] Address [address] [place] [address] Phone Care Team Providers Care Environmental Conservation Officer Name Role Phone Chacorta Robbins MD Primary Care Provider [phone] Reason for Visit * Reason Comments Preventive Care checkup/ management for Depression/anxiety Encounter Details Date Type Department Care Team ([facility] Contact Info) Description 11/22/2019 2:30 PM CDT Office Visit [facility] - Primary Care - [place] [address] [place] [address] Nabila Chandler APRN, DERIK [address] [place] [address] Preventative health care (Adult) (Primary Dx); Moderate episode of recurrent major depressive disorder (HCC); Encounter for immunization Discharge Disposition: Discharged to home or Selfcare [...] Sign Reading Time Taken Comments Blood Pressure 122/80 11/22/2019 2:34 PM CDT Pulse 71 11/22/2019 2:34 PM CDT Temperature 36.6 ??C (97.9 ??F) 11/22/2019 2:34 PM CD T Respiratory Rate 16 11/22/2019 2:34 PM CDT Oxygen Saturation 98% 11/22/2019 2:34 PM CDT Inhaled Oxygen Concentration - - Weight 70.8 kg (156 lb) 11/22/2019 2:34 PM CDT Height 167.6 cm (5' 6 ) 11/22/2019 2:34 PM CDT Body Mass Index 25.18 11/22/2019 2:34 PM CDT documented in this encounter Patient Instructions * Patient Instructions* Nabila Chandler APN, CNP - 11/22/2019 2:30 PM CDT Start wellbutrin 150mg daily, f/u in 2 week. Please continue with a balanced lifestyle of exercise and healthy eating. If any question, please call. Thanks for coming in today! To continue to provide excellent patient care, you may receive a survey regarding your visit today.To help us serve you better, please complete and return. These surveys are completely anonymous. documented in this encounter Progress Notes * Katie Diaz - 11/22/2019 2:30 PM CDT Keyana Reardon, 29 y.o., female is here for Preventive Care (checkup/ management for Depression/anxiety ) Medication Refills: Patient reports/denies need for medication refills. Orders Pended: no Requested Prescriptions No prescriptions requested or ordered in this encounter Home Medications Medication Sig Start Date End Date Taking? Authorizing Provider Norelgestromin-Eth Estradiol (Xulane) 150-35 MCG/24HR PATCH WEEKLY Xulane 150 mcg-35 mcg/24 hr transdermal patch Provider, MD Nida ondansetron (ZOFRAN-ODT) 4 MG TABLET DISPERSIBLE Take 1 Tab by mouth every 8 hours as needed for Nausea. 06/25/16 Giovanni West MD There are no discontinued medications. I have [...] have been addressed with the patient today: Depression Smoking * Nbaila Chandler, KATIE, [facility] - 11/22/2019 2:30 PM CDT HPI Patient is a 29 y.o. female who presents today as a new patient for a preventative exam and to discuss anxiety and depression. Anx/dep: states she used to be on zoloft, it made things worse. She did not like it. She did not like counseling. She feels like she might have OCD. Reports she has had suicidal thoughts but never wanted to harm herself. She says that she is tired of putting on a fake smile for her kids. Is constantly worrying for her and her kids safety when there is nothing to be scared about. Preventative: Sees obgyne for pap. Unsure of when last td. Will order today. ROS Fourteen point review of systems negative except as documented in HPI. Physical Exam Vitals signs and nursing note reviewed. Constitutional: General: She is not in acute distress. Appearance: Normal appearance. She is well-developed. HENT: Head: Normocephalic and atraumatic. Right Ear: Tympanic membrane, ear canal and external ear normal. Left Ear: Tympanic membrane, ear canal and external ear normal. Nose: Nose normal. Mouth/Throat: Mouth: Mucous membranes are moist. Pharynx: Oropharynx is clear. No oropharyngeal exudate. Eyes: Conjunctiva/sclera: Conjunctivae normal. Pupils: Pupils are equal, round, and reactive to light. Neck: Musculoskeletal: Normal range of motion and neck supple. Thyroid: No thyromegaly. Cardiovascular: Rate and Rhythm: Normal rate and regular rhythm. Heart sounds: Normal heart sounds. No murmur. No friction rub. No gallop. Pulmonary: Effort: Pulmonary effort is normal. No respiratory distress. Breath sounds: Normal breath sounds. No wheezing or rales. Chest: Chest wall: No tenderness. Abdominal: General: Bowel sounds are normal. There is no distension. Palpations: Abdomen is soft. There is no mass. Tenderness: There is no abdominal tenderness. There is no guarding or rebound. Musculoskeletal: Normal range of motion. General: No tenderness. Lymphadenopathy: Cervical: No cervical adenopathy. Skin: General: Skin is warm and dry. Neurological: Mental Status: She is alert and oriented to person, place, and time. Coordination: Coordination normal. Psychiatric: Mood and Affect: Mood normal. Behavior: Behavior normal. Thought Content: Thought content normal. Judgment: Judgment normal. Vitals: 11/22/19 1434 BP: 122/80 BP Location: Right Arm BP Position: Sitting BP Cuff Size: Regular Pulse: 71 Resp: 16 Temp: 97.9 ??F (36.6 ??C) TempSrc: Temporal SpO2: 98% Weight: 156 lb (70.8 kg) Height: 5' 6 (1.676 m) Body mass index is 25.18 kg/m??. Past, family, and social history reviewed and updated in the chart. Assessment/Plan: 1. Preventative health care (Adult) Routine labs - COMPLETE BLOOD COUNT (CBC) WITH DIFF; Future - CMP (COMPREHENSIVE METABOLIC PANEL); Future - LIPID PANEL; Future - THYROID SCREEN WITH REFLEX; Future - VITAMIN D, 25 HYDROXY TOTAL; Future 2. Moderate episode of recurrent major depressive disorder (HCC) Will start wellbutrin, no hx of seizures, advised patient to f/u in 2 weeks for dose increase and addition of buspar or prozac if needed. - buPROPion (WELLBUTRIN) 150 MG XL tablet; Take 1 Tab by mouth every morning. Dispense: 30 Tab; Refill: 0 3. Encounter for immunization - TD VACCINE > 7 YRS (GENERIC) Patient Instructions Start wellbutrin 150mg daily, f/u in 2 week. Please continue with a balanced lifestyle of exercise and healthy eating. If any question, please call. Thanks for coming in today! To continue to provide excellent patient care, you may receive a survey regarding your visit today.To help us serve you better, please complete and return. These surveys are completely anonymous. Patient verbalizes understanding and agrees with plan [...] the patient. Documentation for this visit on 11/22/19 was completed using a template. I have seen and examined the patient. Everything documented was personally performed at this visit with the necessary additions, deletions and changes made as appropriate. * Katie Diaz - 11/22/2019 2:30 PM CDT Keyana is here for TD immunizations per order of Nabila Chandler [facility]- dated 11/22/19. Administered in right deltoid . Vaccine Information Sheet(s) were given on 11/22/19. Verbal consent was obtained. Keyana tolerated the immunization well without incident. See Immunization activity for details. documented in this encounter Plan of Treatment Not on file documented as of this encounter Results * VITAMIN D, 25 HYDROXY TOTAL (11/24/2019 10:27 AM CDT) VITAMIN D, 25 HYDROX 44 >=30 ng/mL 11/24/2019 1:33 PM CDT [facility] Blood Venipuncture / Unknown 11/24/2019 10:27 AM CDT 11/24/2019 10:27 AM CDT Narrative [facility] - 11/24/2019 1:33 PM CDT Published reference ranges for Vitamin D vary depending on time and place and method of testing, and on patient's age, sex, ethnicity and levels of other measured analytes such as parathormone, calcium and phosphorus. ??The result should be evaluated in conjunction with clinical findings and suspicions. [place] [employer] Clinical Practice Guidelines: Status Vitamin D levels (ng/mL) Deficient <=20 At risk of inadequacy 21-29 Sufficient 30-100 Centers of Disease Control and Prevention Guidelines: Status Vitamin D levels (ng/mL) Deficient <13 At risk of inadequacy 13-19 Sufficient 20-50 Possibly harmful >50 References: [place] [employer], 2010 Dietary reference intakes for calcium and vitamin D. [place]: ??The National Academies Press. Karlie M, Sheila N, Jeff MORRISON, et al., Evaluation, treatment, and prevention of Vitamin D deficiency: an Endocrinology Clinical Practice Guideline. JCEM 2011 96: 7 6036-3044. Mark A, Chet C, Jo D, et al., Vitamin D Status: ??[place], 2000- 6, [facility] data brief, no. 59, MD [place]: ??National Center for Health Statistics. 2010. Nabila Chandler APRN, CNP CHEMISTRY ORDER DORIS Final Result [facility] [place] [address] * LIPID PANEL (11/24/2019 10:27 AM CDT) CHOLESTEROL 152 <=200 mg/dL 11/24/2019 1:08 PM CDT [facility] TRIGLYCERIDES 66 <150 mg/dL 11/24/2019 1:08 PM CDT [facility] HDL CHOLESTEROL 57.3 >40 mg/dL 0 1:08 PM CDT [facility] LDL 82 5 - 130 mg/dL 11/24/2019 1:08 PM CDT [facility] VLDL 13 5 - 55 mg/dL 11/24/2019 1:08 PM CDT [facility] CHOL/HDL RATIO 2.7 0.0 - 4.4 11/24/2019 1:08 PM CDT [facility] NON-HDL CHOLESTEROL 94.7 <130 mg/dL 11/24/2019 1:08 PM CDT [facility] LIPID FASTING 11/24/2019 1:08 PM CDT [facility] Blood Venipuncture / Unknown 11/24/2019 10:27 AM CDT 11/24/2019 10:27 AM CDT Nabila Chandler APRN, CNP CHEMISTRY ORDER DORIS Final Result [facility] [address] [place] [address] * (ABNORMAL) CMP (COMPREHENSIVE METABOLIC PANEL) (11/24/2019 10:27 AM CDT) SODIUM 137 136 - 144 mmol/L 11/24/2019 1:08 PM CDT [facility] POTASSIUM 5.1 3.5 - 5.1 mmol/L 11/24/2019 1:08 PM CDT [facility] CHLORIDE 104 100 - 110 mmol/L 11/24/2019 1:08 PM CDT [facility] CO2, VENOUS 25 22 - 32 mmol/L 11/24/2019 1:08 PM CDT [facility] ANION GAP 13.1 8.0 - 20.0 mmol/L 11/24/2019 1:08 PM CDT [facility] GLUCOSE 101(H) 70 - 99 mg/dL 11/24/2019 1:08 PM CDT [facility] BUN 12 6 - 20 mg/dL 11/24/2019 1:08 PM [facility] CREATININE, BLOOD 0.63 0.60 - 1.10 mg/dL 11/24/2019 1:08 PM [facility] BUN/CREATININE RATIO 19 12 - 20 ratio 11/24/2019 1:08 PM [facility] TOTAL PROTEIN 6.7 6.0 - 8.3 g/dL 11/24/2019 1:08 PM [facility] ALBUMIN 3.9 3.5 - 5.2 g/dL 11/24/2019 1:08 PM [facility] Comment: The colormetric methods used for the determination of Albumin may lead to falsely elevated test results in patients suffering from renal failure or insufficiency due to interference with other proteins. A/G RATIO 1.4 1.0 - 2.0 11/24/2019 1:08 PM [facility] CALCIUM 9.7 8.9 - 10.3 mg/dL 11/24/2019 1:08 PM [facility] T BILI <=0.2 <=1.2 mg/dL 11/24/2019 1:08 PM [facility] SGOT (AST) 17 <=32 U/L 11/24/2019 1:08 PM [facility] SGPT (ALT) 9 <=33 U/L 11/24/2019 1:08 PM [facility] ALKALINE PHOSPHATASE 45 35 - 105 U/L 11/24/2019 1:08 PM [facility] GFR, EST. NONAFRICAN >60 >=60 11/24/2019 1:08 PM [facility] GFR, EST. >60 >=60 020 1:08 PM [facility] Comment: Creatinine Clearance is the preferred criteria for selecting drug dose adjustments in renally impaired patients. ??The GFR is provided as additional pertinent clinical information. GFR is reported in mL/min/1.73 sq m. Blood Venipuncture / Unknown 11/24/2019 10:27 AM CDT 11/24/2019 10:27 AM CDT us Nabila Chandler APRN, CNP CHEMISTRY ORDER DORIS Final Result [facility] [address] [place] [address] documented in this encounter Visit Diagnoses Diagnosis Preventative health care (Adult)- Primary Routine general medical examination at a health care facility Moderate episode of recurrent major depressive disorder (HCC) Encounter for immunization Need for other specified prophylactic vaccination against single bacterial disease documented in this encounter Additional Health Concerns Assessment Noted Time PHQ-9 Depression Total Score: 22 020 2:00 PM CDT documented as of this encounter Care Teams Environmental Conservation Officer Relationship Specialty Start Date End Date Chacorta Robbins MD [address] [place] [address] PCP - General Internal Medicine 06/13/19 11/23/19 documented as of this encounter
== END 2024-04-16 12:41 | disposition home or self-care (01) | DRG 560 ==
LOC: ANHLDR 05:08 → ANHOB2 14:27
PROVIDERS: Advanced Practice Midwife; Admitting Provider Obstetrics & Gynecology; Visit Provider Obstetrics & Gynecology
DX: O69.82X0 Labor and delivery complicated by other cord entanglement, without compression, not applicable or unspecified (principal); Z37.0 Single live birth; Z3A.39 39 weeks gestation of pregnancy; O70.0 First degree perineal laceration during delivery
CPT/HCPCS: 36415; 85025; 85027; 85055; 86592; 86703; 86850; 86880; 86900; 86901; 86902; 86922; A9270; G0432; J2590; J2795; J7120